=== PATIENT | female | born 1945 | race Hispanic/Latino ===

== ENCOUNTER 2018-08-03 03:11 | Emergency (ER) | payer MEDICARE, OTHER ==
[~2018-08-03] VITALS: Ht 149.9 cm; Wt 49.9 kg
[~2018-08-03 03:11] MED LIST: ACETAMINOPHEN500 MG PO; ADULT LOW DOSE81 MG; ALENDRONATE SOD70 MG PO; ALEVE220 M1; ALKA-SELTZER B324 MG; AMARYL2 MG PO; APRISO0.375 GM PO; ARTHROTEC 50 E1 EACH; ATIVAN1 MG PO; BENEFIBER1 EACH PO; BETIMOL5 M1 OU; BIOTIN5 M1 PO; CIPROFLOXA; CITRACAL + D C1 EACH PO; CLARITHROMYCIN; COMBIVENT RESPIM4 GM IH; DIPHENOXYLATE-1 EACH PO; DITROPAN XL5 MG PO; ENTOCORT EC3 MG PO; ERYTHROMYCIN250 M1; FERROUS SULFAT134 MG PO; FLORASTOR250 MG; GINKGO BILOBA500 MG; GLIMEPIRIDE2 MG PO; HYDROCODON-ACE1 EA11 PO; HYDROXYZINE HCL25 MG PO; IBUPROFEN; KONSYL FIBER625 MG PO; LAMICTAL100 MG PO; LAMOTRIGINE100 MG PO; LASIX20 MG PO; LEVETIRACETAM500 MG PO; LOMOTIL TABLET1 EACH PO; LORAZEPAM1 MG PO; LUMIGAN2.5 M1 OP; LYRICA50 MG; LYRICA50 MG PO; METOPROLOL SUCC25 MG PO; METRONIDAZOLE500 MG PO; MIDOL220 MG; MORPHINE; MOTRIN100 M1; NEXIUM40 MG PO; NORCO 5-325 TA1 EACH PO; ONDANSETRON ODT4 M1 PO; OXYBUTYNIN CHLO10 MG PO; OXYBUTYNIN CHLOR5 M1 PO; PANCRELIPASE 51 EACH PO; PANTOPRAZOLE SO40 MG PO; PENTASA500 MG PO; PREDNISONE10 MG PO; PROTONIX20 MG PO; QUESTRAN PACKET4 GM PO; SERTRALINE HCL25 MG PO; SERTRALINE HCL50 MG PO; SIMVASTATIN20 MG PO; SUCRALFATE1 GM PO; TAMOXIFEN CITRA10 MG PO; TETRACYCLINE; TRAVATAN 0.0042.5 ML OU; ULTRAM 50MG50 MG PO; VALCYTE450 MG PO; VENLAFAXINE H37.5 M1 PO; VITAMIN D35000 UNIT PO; VOLTAREN100 GM; XYZAL5 MG; XYZAL5 MG PO; Z BENEFIBER PO; Z.0.ALENDRONATE SOD7 PO; Z.0.AMARYL2 MG PO; Z.0.APRISO0.375 GM PO; Z.0.ATIVAN1 MG PO; Z.0.LASIX20 MG PO; Z.0.LEVOFLOXACIN500 PO; Z.0.LOPRESSOR25 MG PO; Z.0.METRONIDAZOLE500 PO; Z.0.PROTONIX40 MG PO; Z.0.SIMVASTATIN20 MG PO; Z.0.XYZAL5 MG PO; Z.3.CENTRUM SILVER1 PO; [UNRECOGNIZED DRUG - CODE]; [UNRECOGNIZED DRUG - MIXTURE] PO; [UNRECOGNIZED DRUG - OTHER] PO; [UNRECOGNIZED DRUG - OTHER] PO
--- OUTSIDE RECORDS SUMMARY | 2018-08-03 03:20 | XMS REPORT | Clinical Summary ---
Author Author [facility] Address Unknown Phone Unavailable Care Team Providers Care Machine Captain Name Role Phone Tray Arvizu Kailey PCP Sharpless Unavailable Allergies Comments Active Allergy Reactions Severity Noted Date Naproxen Sodium 03/27/2015 Acetaminophen-Calcium 03/27/2015 Carbonat Diclofenac-Misoprostol 03/27/2015 Aspirin 03/27/2015 Ciprofloxacin 02/11/2016 Clarithromycin 02/11/2016 Coconut 07/12/2017 Diphenhydramine 02/11/2016 Erythromycin 03/27/2015 Flurbiprofen 07/12/2017 Hydrocodone-Ibuprofen 03/27/2015 Ibuprofen 07/12/2017 Lisinopril Itching, Low 11/21/2017 Anxiety Acetaminophen-Pamabrom 02/11/2016 Morphine Sulfate 02/11/2016 Nsaids (Non-Steroidal 02/11/2016 Anti-Inflammatory Drug) Onion 07/12/2017 [place] 07/12/2017 [place] (Prunus Persica) 07/12/2017 Pear 07/12/2017 Penicillins 02/11/2016 Tetracyclines 02/11/2016 Tobramycin 07/12/2017 Tomato (Solanum 07/12/2017 Lycopersicum) Tuna Oil 07/12/2017 Medications End Date Status Medication Sig Dispensed Refills Start Date Active oxybutynin (DITROPAN-XL) Take 10 mg by 0 10 MG 24 hr tablet mouth daily. Active calcium citrate-vitamin D Take 1 tablet 0 (CITRACAL+D) 315-200 by mouth 2 mg-unit per tablet (two) times daily. Active fluticasone (FLONASE) 50 1 spray by 0 mcg/actuation nasal spray Nasal route daily. Active pregabalin (LYRICA) 50 MG Take 50 mg by 0 capsule mouth 2 (two) times daily. Active denosumab (XGEVA) 120 Inject 60 mg 0 mg/1.7 mL (70 mg/mL) subcutaneousl injection y every 6 (six) months. Active sodium chloride 0.65% 1 spray by 0 (SODIUM CHLORIDE) 0.65 % Nasal route nasal spray as needed for Congestion. 12/07/2017 Discontinued cholestyramine sugar-free Take 1 packet 0 (QUESTRAN LIGHT) 4 gram by mouth PwPk packet daily. 12/07/2017 Discontinued esomeprazole (NEXIUM) 40 Take 40 mg by 0 MG capsule mouth daily. 12/07/2017 Discontinued furosemide (LASIX) 20 MG Take 20 mg by 0 tablet mouth daily. 11/25/2017 Discontinued glimepiride (AMARYL) 2 MG Take 2 mg by 0 tablet mouth every morning before breakfast. 12/07/2017 Discontinued iron polysacch Take 1 0 [id number] 150-25-1 capsule by mg-mcg-mg Cap mouth 2 (two) times daily. 12/07/2017 Discontinued levocetirizine (XYZAL) 5 Take 5 mg by 0 MG tablet mouth every evening. 12/07/2017 Discontinued digestive enzymes Tab Take by 0 mouth. 12/07/2017 Discontinued LORazepam (ATIVAN) 1 MG Take 1 mg by 0 tablet mouth every 8 (eight) hours as needed for Anxiety. 11/25/2017 Discontinued metoprolol (TOPROL-XL) 25 Take 50 mg by 0 MG 24 hr tablet mouth daily . 11/25/2017 Discontinued psyllium (METAMUCIL) Take 1 packet 0 powder by mouth daily. 12/07/2017 Discontinued sertraline (ZOLOFT) 25 MG Take 25 mg by 0 tablet mouth daily. 11/25/2017 Discontinued losartan (COZAAR) 25 MG Take 25 mg by 0 tablet mouth daily. 11/25/2017 Discontinued GINKGO BILOBA EXTRACT Take by 0 ORAL mouth. 07/15/2018 levETIRAcetam (KEPPRA) Take 1 tablet 0 06/09/201 500 MG tablet (500 mg 8 total) by mouth 2 (two) times daily. 11/25/2017 Discontinued metroNIDAZOLE (FLAGYL) Take 1 tablet 30 tablet 0 500 MG tablet (500 mg 8 total) by mouth 3 (three) times daily. 12/25/2017 Lactobacillus Take 1 tablet 60 tablet 0 acidoph-L.bulgar by mouth 2 8 (FLORANEX) 1 million cell (two) times Tab per tablet daily for 30 days. 12/04/2017 metroNIDAZOLE (FLAGYL) Take 1 tablet 30 tablet 0 500 MG tablet (500 mg 8 total) by mouth 3 (three) times daily for 9 days. 12/05/2017 simethicone (MYLICON) 80 Take 1 tablet 40 tablet 0 MG chewable tablet (80 mg total) 8 by mouth 4 (four) times daily for 10 days. 12/25/2017 glimepiride (AMARYL) 2 MG Take 1 tablet 30 tablet 0 tablet (2 mg total) 8 by mouth every morning before breakfast for 30 days. 12/25/2017 metoprolol (TOPROL-XL) 25 Take 1 tablet 30 tablet 0 MG 24 hr tablet (25 mg total) 8 by mouth daily for 30 days. 12/04/2017 ciprofloxacin HCl (CIPRO) Take 1 tablet 18 tablet 0 500 MG tablet (500 mg 8 total) by mouth 2 (two) times daily for 9 days. Active Problems Problem Noted Date Anemia 11/21/2017 Acute diarrhea 11/20/2017 Crohn disease 07/12/2017 Hypertension 07/12/2017 Type II diabetes mellitus 07/12/2017 Major depressive disorder 07/12/2017 Resolved Problems Problem Noted Date Resolved Date Crohn's disease 07/13/2017 11/21/2017 Crohn's disease with complication, unspecified gastrointestinal tract 07/13/2017 11/21/2017 location Intractable diarrhea 07/12/2017 11/21/2017 Encounters Care Team Description Date Type Specialty Evelyn Mendoza MD Shamsee, Syed-Saleem Iqbal-Ahmed, MD Hoffman, Maria, MD Acute diarrhea (Primary Dx); Crohn's disease with complication, unspecified gastrointestinal tract location (HCC); Dehydration; Crohn's disease without complication, unspecified gastrointestinal tract location (HCC); History of diabetes mellitus; Generalized abdominal pain; Hypertension, unspecified type; Type 2 diabetes mellitus without complication, without long-term current use of insulin (HCC); Bloody diarrhea; Sputum culture positive for Aspergillus (HCC); 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 Last Filed Vital Signs Time Taken Vital Sign Reading 11/25/2017 12:42 PM CDT Blood Pressure 102/52 11/25/2017 12:42 PM CDT Pulse 87 11/25/2017 12:42 PM CDT Temperature 35.7 C (96.3 F) 11/25/2017 12:42 PM CDT Respiratory Rate 17 11/25/2017 12:42 PM CDT Oxygen Saturation 99% - Inhaled Oxygen - Concentration 11/25/2017 5:26 AM CDT Weight 46.8 kg (103 lb 3.2 oz) 11/20/2017 8:10 PM CDT Height 149.9 cm (4' 11") 11/25/2017 5:26 AM CDT Body Mass Index 20.84 Plan of Treatment Not on file Procedures Comments Procedure Name Priority Date/Time Associated Diagnosis POCT-GLUCOSE METER Routine 11/25/2017 12:46 PM CDT POCT-GLUCOSE METER Routine 11/25/2017 8:26 AM CDT (CELLAVISION MANUAL DIFF) Routine 11/25/2017 8:25 AM CDT CBC W/PLT COUNT & AUTO Routine 11/25/2017 DIFFERENTIAL 8:25 AM CDT CBC W/PLT COUNT & AUTO Routine 11/25/2017 DIFFERENTIAL 8:25 AM CDT MAGNESIUM Routine 11/25/2017 5:46 AM CDT BASIC METABOLIC PANEL (7) Routine 11/25/2017 5:46 AM CDT ASPERGILLUS ANTIBODIES Routine 11/25/2017 5:46 AM CDT ASPERGILLUS GALACTOMANNAN Routine 11/25/2017 ANTIGEN 5:46 AM CDT IMMUNOGLOBULIN E (IGE) Routine 11/25/2017 5:46 AM CDT POCT-GLUCOSE METER Routine 11/24/2017 9:[address] CHEST WITH HIGH STAT 11/24/2017 RESOLUTION/ILD 8:27 PM CDT POCT-GLUCOSE METER Routine 11/24/2017 12:16 PM CDT GI PATHOGEN PROFILE BY Routine 11/24/2017 PCR 11:41 AM CDT POCT-GLUCOSE METER Routine 11/24/2017 11:40 AM CDT POCT-GLUCOSE METER Routine 11/24/2017 8:07 AM CDT CBC W/PLT COUNT & AUTO Routine 11/24/2017 DIFFERENTIAL 6:46 AM CDT CBC W/PLT COUNT & AUTO Routine 11/24/2017 DIFFERENTIAL 6:46 AM CDT MAGNESIUM Routine 11/24/2017 6:46 AM CDT BASIC METABOLIC PANEL (7) Routine 11/24/2017 6:46 AM CDT POCT-GLUCOSE METER Routine 11/23/2017 9:12 PM CDT POCT-GLUCOSE METER Routine 11/23/2017 5:39 PM CDT SPIN/CONCENTRATION CHARGE Routine 11/23/2017 10:13 AM CDT FUNGUS CULTURE + SMEAR Routine 11/23/2017 10:13 AM CDT AFB CULTURE + SMEAR Routine 11/23/2017 10:13 AM CDT SPUTUM CULTURE + GRAM Routine 11/23/2017 STAIN 10:13 AM CDT CBC W/PLT COUNT & AUTO Routine 11/23/2017 DIFFERENTIAL 4:54 AM CDT CBC W/PLT COUNT & AUTO Routine 11/23/2017 DIFFERENTIAL 4:54 AM CDT MAGNESIUM Routine 11/23/2017 4:54 AM CDT PHOSPHORUS Routine 11/23/2017 4:54 AM CDT HEPATIC FUNCTION PANEL Routine 11/23/2017 4:54 AM CDT BASIC METABOLIC PANEL (7) Routine 11/23/2017 4:54 AM CDT POCT-GLUCOSE METER Routine 11/22/2017 9:03 PM CDT POCT-GLUCOSE METER Routine 11/22/2017 3:05 PM CDT POCT-GLUCOSE METER Routine 11/22/2017 11:14 AM CDT POCT-GLUCOSE METER Routine 11/22/2017 8:17 AM CDT CBC W/PLT COUNT & AUTO Routine 11/22/2017 DIFFERENTIAL 3:12 AM CDT CBC W/PLT COUNT & AUTO Routine 11/22/2017 DIFFERENTIAL 3:12 AM CDT MAGNESIUM Routine 11/22/2017 3:12 AM CDT PHOSPHORUS Routine 11/22/2017 3:12 AM CDT HEPATIC FUNCTION PANEL Routine 11/22/2017 3:12 AM CDT BASIC METABOLIC PANEL (7) Routine 11/22/2017 3:12 AM CDT POCT-GLUCOSE METER Routine 11/21/2017 6:04 PM CDT CMV PCR, QUANTITATIVE Routine 11/21/2017 1:31 PM CDT C-REACTIVE PROTEIN Routine 11/21/2017 9:29 AM CDT TSH/FREE T4 IF INDICATED Routine 11/21/2017 9:29 AM CDT LIPID PANEL Routine 11/21/2017 9:29 AM CDT MAGNESIUM Routine 11/21/2017 9:29 AM CDT PHOSPHORUS Routine 11/21/2017 9:29 AM CDT HEPATIC FUNCTION PANEL Routine 11/21/2017 9:29 AM CDT BASIC METABOLIC PANEL (7) Routine 11/21/2017 9:29 AM CDT STOOL PATH CHARGE Routine 11/21/2017 9:08 AM CDT STOOL CULTURE + SHIGA Routine 11/21/2017 TOXIN 9:08 AM CDT C. DIFFICILE GDH TOXIN Routine 11/21/2017 9:08 AM CDT HEMOGLOBIN A1C Routine 11/21/2017 6:[address] ABDOMEN/PELVIS WITH IV STAT 11/20/2017 CONTRAST 11:44 PM CDT STOOL PATH CHARGE Routine 11/20/2017 11:22 PM CDT SHIGA TOXIN SCREEN Routine 11/20/2017 11:22 PM CDT STOOL CULTURE + SHIGA STAT 11/20/2017 TOXIN 11:22 PM CDT URINALYSIS W/ MICROSCOPIC STAT 11/20/2017 11:21 PM CDT CBC W/PLT COUNT & AUTO STAT 11/20/2017 DIFFERENTIAL 8:30 PM CDT CBC W/PLT COUNT & AUTO STAT 11/20/2017 DIFFERENTIAL 8:30 PM CDT LIPASE STAT 11/20/2017 8:30 PM CDT AMYLASE STAT 11/20/2017 8:30 PM CDT HEPATIC FUNCTION PANEL STAT 11/20/2017 8:30 PM CDT BASIC METABOLIC PANEL (7) STAT 11/20/2017 8:30 PM CDT ECG 12-LEAD Routine 11/20/2017 8:26 PM CDT Procedure Note - Interface, External Ris In - 11/20/2017 8:34 PM CDT Ventricula r Rate 98 BPM Atrial Rate 98 BPM P-R Interval 134 ms QRS Duration 74 ms Q-T Interval 366 ms QTC Calculatio n(Bazett) 467 ms P [place] 23 degrees R [place] 44 degrees T [place] 108 degrees Normal sinus rhythm Nonspecifi c ST and T wave abnormalit y Abnormal ECG When compared with ECG of 7 15:56, Nonspecifi c T wave abnormalit y now evident in Inferior leads ECG 12-LEAD STAT 11/20/2017 8:26 PM CDT after 08/02/2017 Results * POC-Glucose meter (11/25/2017 12:46 PM CDT) Only the most recent of 13 results within the time period is included. POC-Glucose Meter 143 (H)Comment: TESTED AT 70 - 110 mg/dL [facility] [address] [facility] [id number] Specimen Blood Performing Organization Address City/State/Zipcode Phone Number [address] [address] [facility]ENTER * Manual Differential (11/25/2017 8:25 AM CDT) % Neutros 43 % [facility] % Lymphs 21 % [facility] % Monos 3 % [facility] % Eos 4 % [facility] % Baso 1 % [facility] % Bands 29 (H) 0 - 10 % [facility] # Neutros 3.14 1.56 - 6.13 K/ul [facility] # Lymphs 1.53 1.18 - 3.74 K/ul [facility] # Monos 0.22 (L) 0.24 - 0.36 K/uL [facility] # Eos 0.29 0.04 - 0.36 K/uL [facility] # Baso 0.07 0.01 - 0.08 K/uL [facility] # Bands 2.12 (H) 0.00 - 0.80 K/uL [facility] Total Counted 100 [facility] WBC Morphology Normal [facility] Giant Platelet Present [facility] Large Platelet Present [facility] Hypochromia 2+ moderate [facility] Anisocytosis 2+ moderate [facility] Microcytes 1+ few [facility] Macrocytes 2+ moderate [facility] Poikilocytes 1+ few [facility] Ovalocytes 1+ few [facility] Tear Drop Cells 1+ few [facility] Acanthocytes 1+ few [facility] Artifact Present [facility] Platelet Conc Adequate [facility] Specimen Blood Narrative Performed At Received comment: [facility] User comments: [facility] Slide comments: Performing Organization Address City/State/Zipcode Phone Number [facility] [address] [place] [address] [facility]ENTER * CBC with platelet count + automated diff (11/25/2017 8:25 AM CDT) Only the most recent of 5 results within the time period is included. WBC 7.3 3.5 - 10.5 K/L [facility] RBC 3.44 (L) 3.93 - 5.22 M/L [facility] Hemoglobin 8.6 (L) 11.2 - 15.7 GM/DL [facility] Hematocrit 28.5 (L) 34.1 - 44.9 % [facility] MCV 82.8 79.4 - 94.8 fL [facility] MCH 25.0 (L) 25.6 - 32.2 pg [facility] MCHC 30.2 (L) 32.2 - 35.5 GM/DL [facility] RDW 16.3 (H) 11.7 - 14.4 % [facility] Platelets 451 (H) 150 - 450 K/CU MM [facility] MPV 9.0 (L) 9.4 - 12.3 fL [facility] nRBC 0 0 - 0 /100 WBC [facility] Specimen Blood Performing Organization Address City/[facility] Phone Number [facility] [address] [place] [address] [facility] * Aspergillus antibodies (11/25/2017 5:46 AM CDT) Aspergillus flavus Ab NEGATIVE [facility] Aspergillus niger Ab NEGATIVE [facility] Aspergillus Fumigatus NEGATIVE [facility] Comment: INCORPORATED REFERENCE RANGE: NEGATIVE INTERPRETIVE CRITERIA: Negative: Antibody not detected Positive: Antibody detected A positive result is represented by 1 or more precipitin bands, and may indicate fungus ball, allergic bronchopulmonary aspergillosis (SANNA) or invasive aspergillosis.Generally, the appearance of 3-4 bands indicates either fungus ball or SANNA. Specimen Blood Narrative Performed At Performing Lab [facility] *[facility] [facility] [address] [place] [phone] Duy Tabor MD Performing Organization Address City/[facility] Phone Number [facility], [address] [place] [phone] * Aspergillus galactomannan antigen (11/25/2017 5:46 AM CDT) Aspergillus Index Value <0.50 [facility] Aspergillus Antigen NOT DETECTED [facility] Comment: INCORPORATED REFERENCE RANGE: <0.50, NOT DETECTED A negative result does not exclude invasive aspergillosis. Follow-up testing may be indicated for high-risk patients. Specimen Blood Narrative Performed At Performing Lab [facility] *[facility] [employer] [facility] [address] [place] [phone] H Cleve Tabor MD Performing Organization Address [facility] Phone Number [facility], [address] [place] [phone] * Magnesium (11/25/2017 5:46 AM CDT) Only the most recent of 5 results within the time period is included. Magnesium 2.0 1.6 - 2.6 mg/dL [facility] Specimen Blood Performing Organization Address [facility] Phone Number [address] * Immunoglobulin E (IgE) (11/25/2017 5:46 AM CDT) Immunoglobulin E 30 114 OR LESS kU/L [facility] Specimen Blood Narrative Performed At Performing Lab [facility] [employer] [address] Chuy Martino MD, PhD, SUZAN Performing Organization Address City/[facility] Phone Number [facility] Desir Johnson, [address] [place] [phone] * Basic Metabolic Panel (11/25/2017 5:46 AM CDT) Only the most recent of 6 results within the time period is included. Sodium 137 136 - 145 meq/L [facility] Potassium 4.1 3.5 - 5.1 meq/L [facility] Chloride 110 (H) 98 - 107 meq/L [facility] CO2 20 (L) 22 - 29 meq/L [facility] BUN 3 (L) 7 - 21 mg/dL [facility] Creatinine 0.66 0.57 - 1.25 mg/dL [facility] Glucose 114 (H) 70 - 105 mg/dL [facility] Calcium 8.3 (L) 8.4 - 10.2 mg/dL [facility] EGFR 88Comment: ESTIMATED GFR IS mL/min/1.73 sq m [facility] NOT ACCURATE CREATININE [facility] CLEARANCE IN PREDICTING GLOMERULAR FILTRATION RATE. ESTIMATED GFR IS NOT APPLICABLE FOR DIALYSIS PATIENTS. Specimen Blood Performing Organization Address City/State/Zipcode Phone Number [facility] [address] [place] [address] [facility] * CT chest with high resolution/ild (11/24/2017 8:27 PM CDT) Specimen Narrative Performed At FINAL REPORT [employer] [facility] CLINICAL INDICATION: Sputum cultures positive for Aspergillus and an a.c., previous imaging demonstrating central bronchiectasis COMPARISON: None Multiple axial images of the chest were performed without IV contrast. A high resolution protocol was performed, including supine inspiratory and expiratory high resolution imaging. This exam was performed according to our departmental dose-optimization program, which includes automated exposure control, adjustment of the mA and/or kV according to patient size and/or use of the iterative reconstruction technique. FINDINGS: Lung parenchyma: There is no focal consolidation. No interstitial abnormality is noted. A calcified granuloma is present in the right lower lobe but otherwise no pulmonary nodularity is noted. The lung volumes are normal. There is no evidence of air trapping. Pleural effusion: None. Pneumothorax: None. Tracheobronchial tree: No bronchiectasis is identified. There is no significant peribronchial thickening. No endobronchial opacification is noted. Pulmonary vasculature: No significant findings. Cardiac contours and great vessels: Atherosclerotic calcification of the aorta. Left subclavian ICD. Mediastinum: No significant findings. Lymph Nodes: No adenopathy in the mediastinum or jared. Skeleton: No acute abnormality. Other: Status post right mastectomy and right breast reconstruction with right axillary lymph node dissection. Limited images of upper abdomen: No significant findings. IMPRESSION: No acute or active cardiopulmonary abnormality. Specifically, no CT evidence of pulmonary fibrosis, bronchiectasis, air trapping or significant nodularity. Signed: Óscar Harris MD Report Verified Date/Time:11/24/2017 20:51:25 Reading Location: [address] Reading Room Procedure Note Interface, External Ris In - 11/24/2017 8:53 PM CDT FINAL REPORT CLINICAL INDICATION: Sputum cultures positive for Aspergillus and an a.c., previous imaging demonstrating central bronchiectasis COMPARISON: None Multiple axial images of the chest were performed without IV contrast. A high resolution protocol was performed, including supine inspiratory and expiratory high resolution imaging. This exam was performed according to our departmental dose-optimization program, which includes automated exposure control, adjustment of the mA and/or kV according to patient size and/or use of the iterative reconstruction technique. FINDINGS: Lung parenchyma: There is no focal consolidation. No interstitial abnormality is noted. A calcified granuloma is present in the right lower lobe but otherwise no pulmonary nodularity is noted. The lung volumes are normal. There is no evidence of air trapping. Pleural effusion: None. Pneumothorax: None. Tracheobronchial tree: No bronchiectasis is identified. There is no significant peribronchial thickening. No endobronchial opacification is noted. Pulmonary vasculature: No significant findings. Cardiac contours and great vessels: Atherosclerotic calcification of the aorta. Left subclavian ICD. Mediastinum: No significant findings. Lymph Nodes: No adenopathy in the mediastinum or jared. Skeleton: No acute abnormality. Other: Status post right mastectomy and right breast reconstruction with right axillary lymph node dissection. Limited images of upper abdomen: No significant findings. IMPRESSION: No acute or active cardiopulmonary abnormality. Specifically, no CT evidence of pulmonary fibrosis, bronchiectasis, air trapping or significant nodularity. Signed: Óscar Harris MD Report Verified Date/Time: 11/24/2017 20:51:25 Reading Location: [address] Reading Room Performing Organization Address City/State/Zipcode Phone Number [facility] * GI Pathogen Profile by PCR -ID Only (11/24/2017 11:41 AM CDT) CAMPYLOBACTER (PCR) Not detected Not detected [facility] PLESIOMONAS SHIGELLOIDES Not detected Not detected [facility] (PCR) [facility] SALMONELLA (PCR) Not detected Not detected [facility] YERSINIA ENTEROCOLITICA Not detected Not detected [facility] (PCR) [facility] VIBRIO CHOLERAE (PCR) Not detected Not detected [facility] ENTEROAGGREGATIVE E. COLI Not detected Not detected [facility] (EAEC) BY PCR [facility] ENTEROPATHOGENIC E. COLI Not detected Not detected [facility] (EPEC) BY PCR [facility] ENTEROTOXIGENIC E. COLI Not detected Not detected [facility] (ETEC) LT/ST BY PCR [facility] SHIGA-LIKE Not detected Not detected [facility] TOXIN-PRODUCING E. COLI [facility] (STEC) STX1/STX2 E. COLI O157 (PCR) Not detected [facility] SHIGELLA/ENTEROINVASIVE Not detected Not detected [facility] E. COLI (EIEC) BY PCR [facility] CRYPTOSPORIDIUM (PCR) Not detected Not detected [facility] CYCLOSPORA CAYETANENSIS Not detected Not detected [facility] (PCR) [facility] ENTAMOEBA HISTOLYTICA Not detected Not detected [facility] (PCR) [facility] GIARDIA LAMBLIA (PCR) Not detected Not detected [facility] ADENOVIRUS F 40/41 (PCR) Not detected Not detected [facility] ASTROVIRUS (PCR) Not detected Not detected [facility] NOROVIRUS GI/GII (PCR) Not detected Not detected [facility] ROTAVIRUS A (PCR) Not detected Not detected [facility] SAPOVIRUS (I, II, IV, V) Not detected Not detected [facility] BY PCR [facility] VIBRIO (PARAHAEMOLYTICUS, Not detected Not detected [facility] VULNIFICUS) [facility] Specimen Stool Narrative Performed At Other viruses, parasites and bacteria not targeted by this PCR panel cannot be [facility] excluded; therefore clinical correlation and follow up of serology, culture [facility] results, and other molecular studies is required. The results are not intended to be used as the sole means for clinical diagnosis or patient management decisions. This sample was tested at the [facility] Molecular Diagnostics Laboratory using the [employer] Access Gastrointestinal Panel. It is FDA cleared and has been verified and approved by the [facility]ostics [facility] for clinical use. This laboratory is CLIA-certified and [employer] (CAP)-accredited to perform high complexity testing. Performing Organization Address City/[facility]/Zipcode Phone Number [address] [address] [facility] * SPIN/CONCENTRATION CHARGE (11/23/2017 10:13 AM CDT) Concentration charged Done [facility] Specimen Sputum - Expectorated Performing Organization Address City/[facility]/Zipcode Phone Number [phone] [address] [address] [facility] * Sputum Culture + Gram Stain (11/23/2017 10:13 AM CDT) Result 4+ Normal respiratory thony [facility] Gram Stain Result 3+ WBCs [facility] Gram Stain Result 5-10 epithelial cells [facility] Gram Stain Result No organisms seen [facility] Specimen Sputum - Expectorated Narrative Performed At [facility] Performing Organization Address [facility] Phone Number [address] [address] [facility] * AFB culture + smear (11/23/2017 10:13 AM CDT) Result Mycobacterium abscessus (A) [facility] Comment: [facility] * - subsp.abscessus Identification and susceptibility performed by: [facility], Dept. of Microbiology Research, Dr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 The erm gene has a nonfunctional sequence and hence will be macrolide [facility] susceptible unless mutationally resistant. Antibiotic Method Susceptibility Organism Amikacin MANUAL METHOD 8 mcg/mL: Susceptible Mycobacterium abscessus Cefoxitin MANUAL METHOD 32 mcg/mL: Intermediate Mycobacterium abscessus Ciprofloxacin MANUAL METHOD 4 mcg/mL: Resistant Mycobacterium abscessus Clarithromycin MANUAL METHOD Susceptible Mycobacterium abscessus Doxycycline MANUAL METHOD >16 mcg/mL: Resistant Mycobacterium abscessus Imipenem MANUAL METHOD 8 mcg/mL: Intermediate Mycobacterium abscessus Linezolid MANUAL METHOD 8 mcg/mL: Susceptible Mycobacterium abscessus Minocycline MANUAL METHOD >8 mcg/mL: Resistant Mycobacterium abscessus Moxifloxacin MANUAL METHOD 4 mcg/mL: Resistant Mycobacterium abscessus Tigecycline MANUAL METHOD 0.5: No Interpretations Established Mycobacterium abscessus Trimethoprim + Sulfamethoxazole MANUAL METHOD 4/76 mcg/mL: Resistant Mycobacterium abscessus Comment: Testing performed by: [facility] Dept. of Microbiology Research Dr[facility] [id number] [address] No functional erm gene (confers macrolide resistance) Performing Organization Address City/[facility] [place] [address] [facility] * Fungus culture + smear (11/23/2017 10:13 AM CDT) Result No fungus isolated in 28 days [facility] Fungus Smear No fungi seen [facility] Specimen Sputum - Expectorated Performing Organization Address City/[facility] [place] [address] [facility] * Phosphorus (11/23/2017 4:54 AM CDT) Only the most recent of 3 results within the time period is included. Phosphorus 3.0Comment: Specimen slightly 2.3 - 4.7 mg/dL [facility] Specimen Blood Performing Organization Address [facility] Phone Number [facility] [address] [place] [address] [facility] * Hepatic function panel (11/23/2017 4:54 AM CDT) Only the most recent of 4 results within the time period is included. Protein, Total 6.2Comment: Specimen slightly 6.0 - 8.3 gm/dL [facility] Albumin 2.8 (L)Comment: Specimen 3.5 - 5.0 g/dL [facility] slightly [facility] Total Bilirubin 0.3Comment: Specimen slightly 0.2 - 1.2 mg/dL [facility] Bilirubin, Direct 0.1Comment: Specimen slightly 0.1 - 0.5 mg/dL [facility] Alkaline Phosphatase 68 40 - 150 U/L [facility] AST 12Comment: Specimen slightly 5 - 34 U/L [facility] ALT <6 (L)Comment: Specimen 6 - 55 U/L [facility] Specimen Blood Performing Organization Address [facility] Phone Number [facility] [address] [place] [address] [facility] * CMV PCR, quantitative (11/21/2017 1:31 PM CDT) CMV DNA Viral Load Negative or below the linear [facility] range of the assay (<375 [facility] copies/mL) Specimen Blood Narrative Performed At Cytomegalovirus (CMV) infection can cause significant disease in [facility] immunosuppressed patients. However, it is common for CMV to manifest as a [facility] limited infection which is of no clinical significance in immunosuppressed patients or in healthy individuals. Viral load measurements are helpful to identify clinical CMV infection and to guide the pre-emptive management of antiviral therapy.For treatment of CMV infection due to reactivation in transplant recipients, a threshold between 4,000 and 5,000 copies/mL is suggested.For treatment of primary CMV infection, a lower threshold can be used. CMV infection may also be monitored using weekly serial measurements. Serial measurements of CMV DNA viral load can be evaluated by identifying a 10-fold change, as well as assessing the CMV DNA viral load and the clinical context for each patient. The plasma CMV DNA viral load was detected using quantitative polymerase chain reaction and fluorescent monitoring of a specific hybridized probe. Genetic variation and other factors can affect the accuracy of nucleic acid testing. Therefore, the results should be interpreted in light of clinical data. A negative result may not exclude the presence of CMV disease. This test was developed and its performance characteristics determined by the [facility] Pathology Department, Section of Molecular Pathology. It has not been cleared or approved by the U.S. Food and Drug Administration (FDA), since FDA approval is not required for clinical use of the test. Validation was done as required by The Clinical Laboratory Improvement Amendments of 1988. Performing Organization Address City/[facility] Hospitalcout Phone Number [address] * TSH/Free T4 If Indicated (11/21/2017 9:29 AM CDT) TSH 3.52 0.35 - 4.94 uIU/mL [facility] Specimen Blood Performing Organization Address [facility] Phone Number [address] * C-Reactive Protein (11/21/2017 9:29 AM CDT) CRP 3.20 (H) 0.00 - 0.50 mg/dL [facility] Specimen Blood Performing Organization Address [facility] Phone Number [address] * Lipid panel (11/21/2017 9:29 AM CDT) Triglycerides 71 mg/dL [facility] Cholesterol 131 mg/dL [facility] HDL 55 mg/dL [facility] LDL Calculated 62 mg/dL [facility] Specimen Blood Narrative Performed At Triglyceride Reference Range: [facility] Low Risk <150 [facility] [id number] High Risk 200-499 Very High Risk>=500 Cholesterol Reference Range: Low Risk <200 [id number] High Risk>240 HDL Cholesterol Reference Range: Low Risk >=60 High Risk <40 LDL Cholesterol Reference Range: Optimal<100 Near [id number] Very High >=190 Performing Organization Address [facility] [place] [address] [facility] * Clostridium difficile [facility] Toxin (11/21/2017 9:08 AM CDT) C. Difficle Toxin Negative Negative [facility] C. Difficile [facility] Antigen NegativeComment: No indication Negative [facility] of Clostridium difficile [facility] infection and no colonization. Discontinue enteric isolation and therapy. Specimen Stool Narrative Performed At Testing performed by [employer] Rapid Cassette Assay.For GDH, published [facility] sensitivity of the assay is 98.7% compared to cytotoxicity testing.For Toxin [facility] AB, published sensitivity is 87.8% and specificity 99.4% compared to cytotoxicity testing. Verification of kit performance was done by the [facility] Microbiology Lab prior to clinical use. Performing Organization Address City/[facility] [place] [address] [facility] * STOOL PATH CHARGE (11/21/2017 9:08 AM CDT) Only the most recent of 2 results within the time period is included. Pathogen exam charged Done [facility] Specimen Stool Performing Organization Address City/[facility]/Zipcode Phone Number [address] [address] [facility] * Stool culture + Shiga toxin (11/21/2017 9:08 AM CDT) Only the most recent of 2 results within the time period is included. Result No Salmonella, Shigella or [facility] Campylobacter isolated [facility] Specimen Stool Performing Organization Address City/State/Zipcode Phone Number [facility] [address] [place] [address] [facility] * Hemoglobin A1c (11/21/2017 6:37 AM CDT) Hemoglobin A1C 5.8 4.3 - 6.1 % [facility] Specimen Blood Performing Organization Address City/State/Zipcode Phone Number [facility] [address] [place] [address] [facility] * CT abdomen pelvis with IV contrast (11/20/2017 11:44 PM CDT) Specimen Narrative Performed At FINAL REPORT [employer] [facility] CT, ABDOMEN \\T\\ PELVIS, WITH IV CONTRAST INDICATION: IBD, worsening diarrhea and pain COMPARISON: None TECHNIQUE: Post contrast abdomen and pelvis CT.Coronal and sagittal reformatted images obtained. DOSE REDUCTION: Dose modulation, iterative reconstruction, and/or weight-based adjustment of the mA/kV was utilized to reduce the radiation dose to as low as reasonably achievable. FINDINGS: Lower thorax: Visible airspaces clear. No effusion. Liver: No parenchymal abnormality. Gallbladder and biliary tree: Prior cholecystectomy. Mild central biliary ductal prominence. Pancreas: No acute findings. Spleen: No acute findings Adrenal Glands: No acute findings. Kidneys and ureters: No hydronephrosis or nephrolithiasis. Bladder and reproductive organs: Unremarkable. Stomach and Duodenum: No significant findings. Small and large intestine: Small bowel caliber is normal. Mural thickening is noted to affecting nearly the entire colon. No pneumatosis is present. Appendix: The appendix is not identified. No pericecal inflammatory changes are present. Major vascular structures: Normal aortic caliber. Peritoneum and retroperitoneum: No free air, fluid or adenopathy. Skeleton: Shallow dextroconvex scoliosis of the thoracolumbar spine with associated endplate degenerative changes. Additional findings: None. IMPRESSION: Mural thickening throughout the colon compatible with provided history of inflammatory bowel disease. No pneumatosis or bowel obstruction. Signed: JR Jl, Dominic HIRSCH Report Verified Date/Time:11/20/2017 23:52:19 Reading Location: [facility] Fl[address] Short Reading Room Procedure Note Interface, External Ris In - 11/20/2017 11:[address] PM [address]AL REPORT CT, ABDOMEN \\T\\ PELVIS, WITH IV CONTRAST INDICATION: IBD, worsening diarrhea and pain COMPARISON: None TECHNIQUE: Post contrast abdomen and pelvis CT. Coronal and sagittal reformatted images obtained. DOSE REDUCTION: Dose modulation, iterative reconstruction, and/or weight-based adjustment of the mA/kV was utilized to reduce the radiation dose to as low as reasonably achievable. FINDINGS: Lower thorax: Visible airspaces clear. No effusion. Liver: No parenchymal abnormality. Gallbladder and biliary tree: Prior cholecystectomy. Mild central biliary ductal prominence. Pancreas: No acute findings. Spleen: No acute findings Adrenal Glands: No acute findings. Kidneys and ureters: No hydronephrosis or nephrolithiasis. Bladder and reproductive organs: Unremarkable. Stomach and Duodenum: No significant findings. Small and large intestine: Small bowel caliber is normal. Mural thickening is noted to affecting nearly the entire colon. No pneumatosis is present. Appendix: The appendix is not identified. No pericecal inflammatory changes are present. Major vascular structures: Normal aortic caliber. Peritoneum and retroperitoneum: No free air, fluid or adenopathy. Skeleton: Shallow dextroconvex scoliosis of the thoracolumbar spine with associated endplate degenerative changes. Additional findings: None. IMPRESSION: Mural thickening throughout the colon compatible with provided history of inflammatory bowel disease. No pneumatosis or bowel obstruction. Signed: JR Parikh Robert MD Report Verified Date/Time: 11/20/2017 23:52:19 Reading Location: [address] Reading Room Performing Organization Address City/State/Zipcode Phone Number [facility] * Shiga Toxin Screen (11/20/2017 11:22 PM CDT) Shiga toxin 1 Not detected Not detected [facility] Shiga toxin 2 Not detected Not detected [facility] Specimen Stool Performing Organization Address City/[facility] Phone Number [address] [address] [facility] * Urinalysis w/ Microscopic (11/20/2017 11:21 PM CDT) Color, UA Colorless [facility] Clarity, UA Clear [facility] Specific [place], UA 1.003 1.001 - 1.035 [facility] pH, UA 5.0 5.0 - 8.0 [facility] Protein, UA Negative Negative [facility] Glucose, UA Negative Negative [facility] Ketones, UA Negative Negative [facility] Bilirubin, UA Negative Negative [facility] Blood, UA Negative Negative [facility] Nitrite, UA Negative Negative [facility] Leukocytes, UA Negative Negative [facility] Urobilinogen, UA 0.2 0.2 - 1.0 mg/dL [facility] RBC, UA <1 /HPF [facility] WBC, UA 1 /HPF [facility] Bacteria, UA Rare [facility] Mucus Rare [facility] Squam Epithel, UA <1 /HPF [facility] Specimen Source Urine, Voided [facility] Specimen Urine Performing Organization Address City/State/Zipcode Phone Number [address] [address] [facility] * Lipase (11/20/2017 8:30 PM CDT) Lipase 67 8 - 78 U/L [facility] Specimen Blood Performing Organization Address City/[facility]/Zipcode Phone Number [address] [address] [facility] * Amylase (11/20/2017 8:30 PM CDT) Amylase 133 (H) 25 - 125 U/L [facility] Specimen Blood Performing Organization Address City/State/Zipcode Phone Number [facility] [address] [place] [address] [facility] * ECG 12 lead (11/20/2017 8:26 PM CDT) Specimen Narrative Performed At Ventricular Rate 98 BPM GE MUSE Atrial Rate 98 BPM P-R Interval 134 ms QRS Duration 74 ms Q-T Interval 366 ms QTC Calculation(Bazett) 467 ms P [place] 23 degrees R [place] 44 degrees T [place] 108 degrees Normal sinus rhythm Nonspecific ST and T wave abnormality Abnormal ECG When compared with ECG of 11-FEB-2016 15:56, Nonspecific T wave abnormality now evident in Inferior leads Confirmed by MD TAYLOR, IHAB ([id number]) on 11/20/2017 9:49:29 PM Procedure Note Interface, External Ris In - 11/20/2017 9:49 PM CDT Ventricular Rate 98 BPM Atrial Rate 98 BPM P-R Interval 134 ms QRS Duration 74 ms Q-T Interval 366 ms QTC Calculation(Bazett) 467 ms P [place] 23 degrees R [place] 44 degrees T [place] 108 degrees Normal sinus rhythm Nonspecific ST and T wave abnormality Abnormal ECG When compared with ECG of 11-FEB-2016 15:56, Nonspecific T wave abnormality now evident in Inferior leads Confirmed by MD TAYLOR, IHAB ([id number]) on 11/20/2017 9:49:29 PM Performing Organization Address City/State/[facility] Phone Number GE MUSE after 08/02/2017 Insurance Payer Benefit Subscriber ID Type Phone Address Plan / Group MEDICARE MEDICARE A xxxxxxxxxxx Medicare B MEDICAID MEDICAID xxxxxxxxx Medicaid OF [place] Advance Directives For more information, please contact: [facility] [address] [place] [address] Date Inactivated Comments Code Status Date Activated 11/25/2017 4:51 PM Full Code 11/21/2017 5:29 AM This code status was determined by: Patient 07/15/2017 9:49 PM Full Code 07/12/2017 7:36 PM This code status was determined by: Patient
--- OUTSIDE RECORDS SUMMARY | 2018-08-03 03:21 | XMS REPORT | Continuity of Care Document ---
Author Author [employer] Organization [employer] Address Unknown Phone Unavailable Care Team Providers Care Bandmill Operator Name Role Phone [employer] Unavailable Unavailable Problems Problem Status Onset Date Classification Date Reported Comments Source Shortness of breath Active Problem 08/01/2017 Sal Smart Dizziness Active Problem 08/01/2017 Sal Smart Other specified diabetes mellitus with unspecified complications Active Problem 08/01/2017 Sal Smart Non-rheumatic mitral regurgitation Active Problem 08/01/2017 Sal Smart Patient unable to exercise Active Problem 08/01/2017 Sal Smart Osteoarthritis of multiple joints, unspecified osteoarthritis type Active Problem 08/01/2017 Sal Smart Type 2 diabetes mellitus with unspecified complications Active Problem 08/01/2017 Sal Smart Anxiety Active Problem 08/01/2017 Sal Smart Chronic systolic heart failure Active Problem 08/01/2017 Sal Smart PVCs Active Problem 08/01/2017 Sal Smart TIA Active Problem 08/01/2017 Sal Smart Mitral valve insufficiency and aortic valve insufficiency Active Problem 08/01/2017 Sal Smart Crohns disease Active Problem 08/01/2017 Sal Smart PAC Active Problem 08/01/2017 Sal Smart Abnormal EKG Active Problem 08/01/2017 Sal Smart LV dysfunction Active Problem 08/01/2017 Sal Smart Palpitations Active Problem 08/01/2017 Sal Smart LAE Active Problem 08/01/[address] Active Problem 08/01/2017 Sal Smart Abnormal EKG Active Problem 11/27/2013 Sal Smart 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 Active Problem 11/27/2013 Sal Smart Diabetes with unspecified complication, type II or unspecified type, not stated as uncontrolled Active Problem 11/27/2013 Sal Smart Crohns disease Active Problem 11/27/2013 Sal Smart Mitral valve insufficiency and aortic valve insufficiency Active Problem 11/27/2013 Sal Smart PVCs Active Problem 11/27/2013 Sal Smart Angina Active Problem 11/27/2013 Sal Smart Shortness of breath Active Problem 11/27/2013 Sal Smart Medications Medication Details Route Status Patient Instructions Ordering Provider Order Date Source Furosemide 1 tablet Orally Active 20 mg Orally Once a day Bing Smart Metoprolol Succinate ER 1 tablet Orally Active 25 MG Orally Once a day Bing Smart Metoprolol Succinate ER 1 tablet Orally Active 100 MG Orally Once a day [place] Smart Metoprolol Succinate ER 1 tablet Orally Active 25 MG Orally Once a day Bing Smart Lasix 1 tablet Orally Active 20 MG Orally Once a day Bing Smart Furosemide 1 tablet Orally Active 20 mg Orally Once a day Bing Smart Allergies, Adverse Reactions, Alerts Substance Category Reaction Severity Reaction type Status Date Reported Comments Source Sodium bicarbonate Unknown Allergy to Substance Active 08/01/2017 [facility] Aspirin Unknown Allergy to Substance Active 08/01/2017 [facility] Acetaminophen Unknown Allergy to Substance Active 08/01/2017 [facility] Pamabrom Unknown Allergy to Substance Active 08/01/2017 [facility] Ibuprofen Unknown Allergy to Substance Active 08/01/2017 [facility] Naproxen Unknown Allergy to Substance Active 08/01/2017 [facility] Flurbiprofen Unknown Allergy to Substance Active 08/01/2017 [facility] citric acid Unknown Allergy to Substance Active 08/01/2017 [facility] Tetracycline Unknown Allergy to Substance Active 08/01/2017 [facility] Erythromycin base Unknown Allergy to Substance Active 08/01/2017 [facility] Tobramycin Unknown Allergy to Substance Active 08/01/2017 [facility] Ciprofloxacin Unknown Allergy to Substance Active 08/01/2017 [facility] Penicillin g Unknown Allergy to Substance Active 08/01/2017 [facility] ATHROTEC Unknown Allergy to Substance Active 08/01/2017 [facility] MORPHINE SULFATE Unknown Allergy to Substance Active 08/01/2017 [facility] Immunizations No Data Provided for This Section Results Order Name Results Value Reference Range Date Interpretation Comments Source Automated blood basophil count (count/volume) Automated blood basophil count (count/volume) 0.1 0.0 - 0.1 08/01/2017 [facility] Automated blood basophil count as percentage of total leukocytes Automated blood basophil count as percentage of total leukocytes 1.2 0.0 - 1.0 08/01/2017 [facility] Automated blood eosinophil count Automated blood eosinophil count 0.1 0.0 - 0.4 08/01/2017 [facility] Automated blood eosinophil count as percentage of total leukocytes Automated blood eosinophil count as percentage of total leukocytes 0.7 0.0 - 6.0 08/01/2017 [facility] Automated blood hematocrit (volume fraction) Automated blood hematocrit (volume fraction) 36.6 34.2 - 44.1 08/01/2017 [facility] Automated blood lymphocyte count as percentage ot total leukocytes Automated blood lymphocyte count as percentage ot total leukocytes 15.0 18.0 - 39.1 08/01/2017 [facility] Automated blood monocyte count as percentage of total leukocytes Automated blood monocyte count as percentage of total leukocytes 5.3 4.4 - 11.3 08/01/2017 [facility] Automated blood neutrophil count Automated blood neutrophil count 5.9 2.1 - 6.9 08/01/2017 [facility] Automated blood platelet count (count/volume) Automated blood platelet count (count/volume) 426 140 - 360 08/01/2017 [facility] Automated blood segmented neutrophil count as percentage of total leukocytes Automated blood segmented neutrophil count as percentage of total leukocytes 77.5 38.7 - 80.0 08/01/2017 [facility] Automated erythrocyte mean corpuscular hemoglobin (mass per erythrocyte) Automated erythrocyte mean corpuscular hemoglobin (mass per erythrocyte) 28.5 28 - 32 08/01/2017 [facility] Automated erythrocyte mean corpuscular hemoglobin concentration measurement (mass/volume) Automated erythrocyte mean corpuscular hemoglobin concentration measurement (mass/volume) 32.2 31 - 35 08/01/2017 [facility] Automated erythrocyte mean corpuscular volume Automated erythrocyte mean corpuscular volume 88.4 81 - 99 08/01/2017 [facility] Blood erythrocytes automated count (number/volume) Blood erythrocytes automated count (number/volume) 4.14 3.6 - 5.1 08/01/2017 [facility] Blood hemoglobin measurement (moles/volume) Blood hemoglobin measurement (moles/volume) 11.8 12.0 - 16.0 08/01/2017 [facility] Blood leukocytes automated count (number/volume) Blood leukocytes automated count (number/volume) 7.58 4.8 - 10.8 08/01/2017 [facility] Blood lymphocytes count (number/volume) Blood lymphocytes count (number/volume) 1.1 1.0 - 3.2 08/01/2017 [facility] Blood monocytes automated count (number/volume) Blood monocytes automated count (number/volume) 0.4 0.2 - 0.8 08/01/2017 [facility] Estimated glomerular filtration rate (GFR) determination Estimated glomerular filtration rate (GFR) determination >60 60 08/01/2017 [facility] Glucose measurement Glucose measurement 143 74 - 118 08/01/2017 [facility] Plasma globulin measurement (mass/volume) Plasma globulin measurement (mass/volume) 4.9 2.3 - 3.5 08/01/2017 [facility] Serum or plasma alanine aminotransferase measurement (enzymatic activity/volume) Serum or plasma alanine aminotransferase measurement (enzymatic activity/volume) 7 0 - 55 08/01/2017 [facility] Serum or plasma albumin measurement (mass/volume) Serum or plasma albumin measurement (mass/volume) 3.1 3.5 - 5.0 08/01/2017 [facility] Serum or plasma albumin/globulin mass ratio Serum or plasma albumin/globulin mass ratio 0.6 0.8 - 2.0 08/01/2017 [facility] Serum or plasma alkaline phosphatase measurement (enzymatic activity/volume) Serum or plasma alkaline phosphatase measurement (enzymatic activity/volume) 64 40 - 150 08/01/2017 [facility] Serum or plasma anion gap Serum or plasma anion gap 12.7 8 - 16 08/01/2017 [facility] Serum or plasma calcium measurement (mass/volume) Serum or plasma calcium measurement (mass/volume) 8.7 8.4 - 10.2 08/01/2017 [facility] Serum or plasma carbon dioxide, total measurement (moles/volume) Serum or plasma carbon dioxide, total measurement (moles/volume) 24 22 - 29 08/01/2017 [facility] Serum or plasma chloride measurement (moles/volume) Serum or plasma chloride measurement (moles/volume) 104 98 - 107 08/01/2017 [facility] Serum or plasma creatine kinase MB measurement (mass/volume) Serum or plasma creatine kinase MB measurement (mass/volume) 1.40 0 - 4.3 08/01/2017 [facility] Serum or plasma creatine kinase measurement (enzymatic activity/volume) Serum or plasma creatine kinase measurement (enzymatic activity/volume) 31 29 - 168 08/01/2017 [facility] Serum or plasma creatinine measurement (mass/volume) Serum or plasma creatinine measurement (mass/volume) 0.67 0.57 - 1.11 08/01/2017 [facility] Serum or plasma magnesium measurement (mass/volume) Serum or plasma magnesium measurement (mass/volume) 2.4 1.3 - 2.1 08/01/2017 [facility] Serum or plasma potassium measurement (moles/volume) Serum or plasma potassium measurement (moles/volume) 3.7 3.5 - 5.1 08/01/2017 [facility] Serum or plasma protein measurement (mass/volume) Serum or plasma protein measurement (mass/volume) 8.0 6.5 - 8.1 08/01/2017 [facility] Serum or plasma sodium measurement (moles/volume) Serum or plasma sodium measurement (moles/volume) 137 136 - 145 08/01/2017 [facility] Serum or plasma total bilirubin measurement (mass/volume) Serum or plasma total bilirubin measurement (mass/volume) 0.3 0.2 - 1.2 08/01/2017 [facility] Serum or plasma troponin i.cardiac measurement (mass/volume) Serum or plasma troponin i.cardiac measurement (mass/volume) <0.05 0.0 - 0.40 08/01/2017 [facility] Serum or plasma urea nitrogen measurement (mass/volume) Serum or plasma urea nitrogen measurement (mass/volume) 8 7 - 26 08/01/2017 [facility] Serum or plasma urea nitrogen/creatinine mass ratio Serum or plasma urea nitrogen/creatinine mass ratio 12 6 - 25 08/01/2017 [facility] Red Cell Distribution Width 15.2 11.7 - 14.4 08/01/2017 [facility] IM GRANULOCYTES % 0.3 0.0 - 1.0 08/01/2017 [facility] Absolute Immature Granulocyte (auto 0.02 0 - 0.1 08/01/2017 [facility] Aspartate Amino Transf (AST/SGOT) 9 5 - 34 08/01/2017 [facility] Automated urine sediment leukocyte count by microscopy (number/high power field) Automated urine sediment leukocyte count by microscopy (number/high power field) <5 0 - 5 08/01/2017 [facility] Bacteria detection in urine sediment by light microscopy Bacteria detection in urine sediment by light microscopy FEW NONE 08/01/2017 [facility] Epithelial cells detection in urine sediment by light microscopy Epithelial cells detection in urine sediment by light microscopy FEW NONE 08/01/2017 [facility] Erythrocytes detection in urine sediment by light microscopy Erythrocytes detection in urine sediment by light microscopy <5 0 - 5 08/01/2017 [facility] Specific gravity of Urine by Test strip Specific gravity of Urine by Test strip 1.025 1.010 - 1.025 08/01/2017 [facility] Urine clarity Urine clarity CLEAR CLEAR 08/01/2017 [facility] Urine color determination Urine color determination YELLOW YELLOW 08/01/2017 [facility] Urine erythrocytes detection Urine erythrocytes detection TRACE NEGATIVE 08/01/2017 [facility] Urine glucose detection Urine glucose detection NEGATIVE NEGATIVE 08/01/2017 [facility] Urine ketones detection by automated test strip Urine ketones detection by automated test strip NEGATIVE NEGATIVE 08/01/2017 [facility] Urine leukocyte esterase detection by dipstick Urine leukocyte esterase detection by dipstick NEGATIVE NEGATIVE 08/01/2017 [facility] Urine nitrite detection Urine nitrite detection NEGATIVE NEGATIVE 08/01/2017 [facility] Urine pH measurement by automated test strip Urine pH measurement by automated test strip 6.5 5 - 7 08/01/2017 [facility] Urine protein measurement by test strip (mass/volume) Urine protein measurement by test strip (mass/volume) NEGATIVE NEGATIVE 08/01/2017 [facility] Urine total bilirubin measurement (mass/volume) Urine total bilirubin measurement (mass/volume) NEGATIVE NEGATIVE 08/01/2017 [facility] Urine urobilinogen measurement by test strip (mass/volume) Urine urobilinogen measurement by test strip (mass/volume) 1 0.2 - 1 08/01/2017 [facility] Pathology Reports No Data Provided for This Section Diagnostic Reports No Data Provided for This Section Consultation Notes No Data Provided for This Section Discharge Summaries No Data Provided for This Section History and Physicals No Data Provided for This Section Vital Signs No Data Provided for This Section Encounters Location Location Details Encounter Type Encounter Number Reason For Visit Attending Provider ADM Date DC Date Status Source MD LITA Zelaya Unknown [id number] 10/03/2013 10/03/2013 MD LITA Bartholomew Unknown [id number] 10/03/2013 10/03/2013 Sal Smart MD [place] Unknown [id number] 02/02/2016 02/02/2016 Sal Smart Departed Emergency Room [id number] EDITH GONZALEZ MD 08/01/2017 08/01/2017 [facility] Procedures No Data Provided for This Section Assessment and Plan No Data Provided for This Section Plan of Care Plan of Care Date Source Discharge Date 08/01/17 12:49pm Disposition HOME, SELF-CARE Condition at Discharge Stable Instructions/Education Provided Weakness (Generalized) Forms Provided Work/School Excuse Prescriptions See Medication Section Referrals SHI NASCIMENTO MD Address: [address] [place] [id number] Additional Instructions/Education follow up with pcp 08/01/2017 [facility] Social History Social History Date Source Smoking Status Start Date Stop Date Never Smoker 08/01/2017 [facility] Social History ElementQualifiersDate Reported Smoking . Status Never Smoker Dec 28, 2015 Alcohol Use No. Dec 28, 2015 Alcohol Screening: Yes. Did you have a drink containing alcohol in the past year?: No, Points: 0 Dec 28, 2015 Marital Status: . Dec 28, 2015 Do you drink alcohol? No. 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 No 04/16/15 2:19pm If yes, is advance directive on file with [facility]? No 04/16/15 2:19pm If not on file with [facility] will patient provide a copy? No 04/16/15 2:19pm Do you have a Directive to Physician? No 08/01/17 8:12am Do you have a Medical Power of Recycling Director? No 08/01/17 8:12am Do you have an out of hospital Do Not Resuscitate Order? No 08/01/17 8:12am Do you have any special needs we should be aware of? No 08/01/17 8:12am Do you have a support person here with you today? No 08/01/17 8:12am Did patient receive Notice of Privacy Practices? Yes 08/01/17 8:12am Did patient receive patient rights and responsibilities? Yes 08/01/17 8:12am 08/01/2017 [facility] Functional Status No Data Provided for This Section
--- OUTSIDE RECORDS SUMMARY | 2018-08-03 03:21 | XMS REPORT ---
Author Author Sal Smart Organization [employer] Address Unknown Phone Unavailable Care Team Providers Care Pilot Instructor Name Role Phone Sal Smart CP Unavailable Encounters Encounter Location Date Unknown Sal Smart MD [place] Oct 03, 2013 Unknown Sal Smart MD [place] Feb 02, 2016 Problems Problem Type Condition ICD-9 Code Onset Dates Condition Status Problem Shortness of breath R06.02 Active Problem Dizziness R42 Active Problem Other specified diabetes mellitus with unspecified complications E13.8 Active Problem Non-rheumatic mitral regurgitation I34.0 Active Problem Patient unable to exercise Z78.9 Active Problem Osteoarthritis of multiple joints, unspecified osteoarthritis type M15.9 Active Problem Type 2 diabetes mellitus with unspecified complications E11.8 Active Problem Anxiety F41.9 Active Problem Chronic systolic heart failure I50.22 Active Problem PVCs (premature ventricular contractions) I49.3 Active Problem TIA (transient ischemic attack) G45.9 Active Problem Mitral valve insufficiency and aortic valve insufficiency I08.0 Active Problem Crohns disease K50.90 Active Problem PAC (premature atrial contraction) I49.1 Active Problem Abnormal EKG R94.31 Active Problem LV dysfunction I51.9 Active Medications Medication Code System Code Instructions Start Date End Date Status Dosage Furosemide MEDISPAN 39488365543 20 mg Orally Once a day Active 1 tablet Social History Social History Element Qualifiers Date Reported Smoking . Status Never Smoker Dec 28, 2015 Alcohol Use No. Dec 28, 2015 Alcohol Screening: Yes. Did you have a drink containing alcohol in the past year?: No, Points: 0 Dec 28, 2015 Marital Status: . Dec 28, 2015 Do you drink alcohol? No. 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
--- OUTSIDE RECORDS SUMMARY | 2018-08-03 03:21 | XMS REPORT ---
Author Author Sal Smart Organization [employer] Address Unknown Phone Unavailable Care Team Providers Care Flat Finisher Name Role Phone Sal Smart CP Unavailable Allergies No Known Allergies Problems Problem Type Condition Code Onset Dates Condition Status Problem TIA (transient ischemic attack) G45.9 Active Problem Anxiety F41.9 Active Problem PVCs (premature ventricular contractions) I49.3 Active Problem LAE (left atrial enlargement) I51.7 Active Problem Osteoarthritis of multiple joints, unspecified osteoarthritis type M15.9 Active Problem Palpitations R00.2 Active Problem Type 2 diabetes mellitus with unspecified complications E11.8 Active Problem Chronic systolic heart failure I50.22 Active Problem Non-rheumatic mitral regurgitation I34.0 Active Problem Patient unable to exercise Z78.9 Active Problem Mitral valve insufficiency and aortic valve insufficiency I08.0 Active Problem Other specified diabetes mellitus with unspecified complications E13.8 Active Assessment Chronic systolic heart failure I50.22 Active Problem PAC (premature atrial contraction) I49.1 Active Problem Shortness of breath R06.02 Active Problem Abnormal EKG R94.31 Active Problem Dizziness R42 Active Problem LV dysfunction I51.9 Active Problem Crohns disease K50.90 Active Medications Medication Code System Code Instructions Start Date End Date Status Dosage Lasix [facility] [id number] 20 MG Orally Once a day Active 1 tablet Metoprolol Succinate ER ND 34261073737 25 MG Orally Once a day Active 1 tablet Results No Known Results Summary Purpose [employer] Submission
--- OUTSIDE RECORDS SUMMARY | 2018-08-03 03:21 | XMS REPORT ---
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 Active Problem Non-rheumatic mitral regurgitation I34.0 Active Problem Type 2 diabetes mellitus with unspecified complications E11.8 Active Problem Patient unable to exercise Z78.9 Active Problem Osteoarthritis of multiple joints, unspecified osteoarthritis type M15.9 Active Problem Other specified diabetes mellitus with unspecified complications E13.8 Active Problem Abnormal EKG R94.31 Active Assessment Chronic systolic heart failure I50.22 Active Problem Mitral valve insufficiency and aortic valve insufficiency I08.0 Active Problem Shortness of breath R06.02 Active Problem Dizziness R42 Active Problem LV dysfunction I51.9 Active Problem Crohns disease K50.90 Active Problem PAC (premature atrial contraction) I49.1 Active Problem TIA (transient ischemic attack) G45.9 Active Medications Medication Code System Code Instructions Start Date End Date Status Dosage Metoprolol Succinate ER [facility] [id number] 100 MG Orally Once a day Active 1 tablet Results No Known Results Summary Purpose [employer] Submission
--- OUTSIDE RECORDS SUMMARY | 2018-08-03 03:21 | XMS REPORT ---
Author Author Sal Smart Organization [employer] Address Unknown Phone Unavailable Care Team Providers Care Weigher Packing Name Role Phone Sal Smart CP Unavailable Allergies No Known Allergies Problems Problem Type Condition Code Onset Dates Condition Status Problem Shortness [...] Problem PVCs (premature ventricular contractions) I49.3 Active Assessment Chronic systolic heart failure I50.22 Active Problem TIA (transient ischemic attack) G45.9 Active Problem Mitral valve insufficiency and aortic valve insufficiency I08.0 Active Problem Crohns disease K50.90 Active Problem PAC (premature atrial contraction) I49.1 Active Problem Abnormal EKG R94.31 Active Problem LV dysfunction I51.9 Active Medications Medication Code System Code Instructions Start Date End Date Status Dosage Furosemide [facility] [id number] 20 mg Orally Once a day Active 1 tablet Metoprolol Succinate ER [facility] [address]-90 25 MG Orally Once a day Active 1 tablet Results No Known Results Summary Purpose [employer] Submission
--- OUTSIDE RECORDS SUMMARY | 2018-08-03 03:21 | XMS REPORT ---
Author Author Sal Smart Organization [employer] Address Unknown Phone Unavailable Care Team Providers Care Meat Stock Clerk Name Role Phone Sal Smart CP Unavailable [...] End Date Status Dosage Metoprolol Succinate ER [facility] 17212656397 25 MG Orally Once a day Active 1 tablet Results No Known Results Summary Purpose [employer] Submission
--- OUTSIDE RECORDS SUMMARY | 2018-08-03 03:21 | XMS REPORT ---
Author Author Sal Smart Organization [employer] Address Unknown Phone Unavailable Care Team Providers Care Sawing And Assembly Supervisor Name Role Phone Sal Smart CP Unavailable Encounters Encounter Location Date Unknown Sal Smart MD [place] Oct 03, 2013 Problems Problem Type Condition ICD-9 Code Onset Dates Condition Status Problem Abnormal EKG 794.31 Active Problem LVH (left ventricular hypertrophy) due to hypertensive disease 402.90 Active Problem Diabetes with unspecified complication, type II or unspecified type, not stated as uncontrolled 250.90 Active Problem Crohns disease 555.9 Active Problem Mitral valve insufficiency and aortic valve insufficiency 396.3 Active Problem PVCs 427.69 Active Problem Angina 413.9 Active Problem Shortness of breath 786.05 Active Social History Social History Element Qualifiers Date Reported Smoking . Status Never Smoker Sep 23, 2013 Alcohol Use No. Sep 23, 2013 Alcohol Screening: No. Sep 23, 2013 Marital Status: . Sep 23, 2013 Do you drink alcohol? No. 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
--- OUTSIDE RECORDS SUMMARY | 2018-08-03 03:22 | XMS REPORT ---
Author [facility] Address Unknown Phone Unavailable Care Team Providers Care Entertainment Manager Name Role Phone MAGUE PATEL Unavailable Unavailable Kailey GUTIERREZ Unavailable Unavailable SHI NASCIMENTO Unavailable Unavailable STIVEN GEORGE Unavailable Unavailable Dolly GONZALEZ Unavailable Unavailable Miriam SQUIRES Unavailable Unavailable Tiffanie ATKINSON Unavailable Unavailable SOMMER SANCHEZ Unavailable Unavailable Payers Payer Name Policy Type Policy Number Effective Date Expiration Date Problems This patient has no known problems. Allergies, Adverse Reactions, Alerts Allergy Name Allergy Type Status Severity Reaction(s) Onset Date Inactive Date Treating Clinician Comments diphenhydramine DA Active AK 2018-06-19 00:00:00 calcium carbonate DA Active PA 2018-06-19 00:00:00 naproxen sodium DA Active PA 2018-06-19 00:00:00 diclofenac sodium DA Active PA 2018-06-19 00:00:00 diphenhydramine HCl DA Active U 2018-06-19 00:00:00 pyrilamine maleate DA Active PA 2018-06-19 00:00:00 ciprofloxacin HCl DA Active PA 2018-06-19 00:00:00 Penicillins DA Active PA 2018-06-19 00:00:00 sodium bicarbonate DA Active PA 2018-06-19 00:00:00 potassium bicarbonate DA Active PA 2018-06-19 00:00:00 misoprostol DA Active PA 2018-06-19 00:00:00 ethinyl estradiol DA Active MO 2018-06-19 00:00:00 levonorgestrel-ethinyl estradiol DA Active MO 2018-06-19 00:00:00 morphine DA Active PA 2018-06-19 00:00:00 aspirin DA Active PA 2018-06-19 00:00:00 acetaminophen DA Active PA 2018-06-19 00:00:00 pamabrom DA Active PA 2018-06-19 00:00:00 ibuprofen DA Active PA 2018-06-19 00:00:00 citric acid DA Active PA 2018-06-19 00:00:00 tetracycline DA Active PA 2018-06-19 00:00:00 erythromycin base DA Active PA 2018-06-19 00:00:00 ciprofloxacin DA Active PA 2018-06-19 00:00:00 oxaprozin DA Active PA 2018-06-19 00:00:00 pentosan polysulfate sodium DA Active MO 2018-06-19 00:00:00 pecan nut DA Active MO 2018-06-19 00:00:00 RUBI DA Active MO 2018-06-14 00:00:00 ethinyl estradiol DA Active MO 2018-06-14 00:00:00 levonorgestrel-ethinyl estradiol DA Active MO 2018-06-14 00:00:00 pentosan polysulfate sodium DA Active MO 2018-06-14 00:00:00 pecan nut DA Active MO 2018-06-14 00:00:00 [place] DA Active MO 2018-06-14 00:00:00 OL[place] TREE DA Active MO 2018-06-14 00:00:00 [place] DA Active MO 2018-06-14 00:00:00 AFR[place] DA Active MO 2018-06-14 00:00:00 MESQUITE DA Active MO 2018-06-14 00:00:00 PRIVET DA Active MO 2018-06-14 00:00:00 RYE DA Active MO 2018-06-14 00:00:00 calcium carbonate DA Active PA 2017-03-16 00:00:00 naproxen sodium DA Active PA 2017-03-16 00:00:00 diclofenac sodium DA Active PA 2017-03-16 00:00:00 diphenhydramine HCl DA Active U 2017-03-16 00:00:00 pyrilamine maleate DA Active PA 2017-03-16 00:00:00 ciprofloxacin HCl DA Active PA 2017-03-16 00:00:00 Penicillins DA Active PA 2017-03-16 00:00:00 sodium bicarbonate DA Active PA 2017-03-16 00:00:00 potassium bicarbonate DA Active PA 2017-03-16 00:00:00 misoprostol DA Active PA 2017-03-16 00:00:00 morphine DA Active PA 2017-03-16 00:00:00 aspirin DA Active PA 2017-03-16 00:00:00 acetaminophen DA Active PA 2017-03-16 00:00:00 pamabrom DA Active PA 2017-03-16 00:00:00 ibuprofen DA Active PA 2017-03-16 00:00:00 citric acid DA Active PA 2017-03-16 00:00:00 tetracycline DA Active PA 2017-03-16 00:00:00 erythromycin base DA Active PA 2017-03-16 00:00:00 ciprofloxacin DA Active PA 2017-03-16 00:00:00 oxaprozin DA Active PA 2017-03-16 00:00:00 Medications This patient has no known medications. Results Test Description Test Time Test Comments Text Results Atomic Results Result Comments CBC W/AUTO DIFF 2018-06-19 09:05:00 WHITE BLOOD CELL (test code=WBC) 7.9 K/mm3 4.5-12.5 RED BLOOD CELL (test code=RBC) 3.99 mill/mm3 3.7-5.2 HEMOGLOBIN (test code=HGB) 7.9 gram/dL 11.5-15.5 HEMATOCRIT (test code=HCT) 28.6 % 36.0-46.0 MEAN CELL VOLUME (test code=MCV) 71.7 fL 80-98 MEAN CELL HGB (test code=MCH) 19.8 picogram 27.0-33.0 MEAN CELL HGB CONCETRATION (test code=MCHC) 27.6 gram/dL 33.0-36.0 RED CELL DISTRIBUTION WIDTH (test code=RDW) 20.7 % 11.6-16.2 RED CELL DISTRIBUTION WIDTH SD (test code=RDW-SD) 53.1 fL 37.0-51.0 PLATELET COUNT (test code=PLT) 494 K/mm3 150-450 MEAN PLATELET VOLUME (test code=MPV) 8.9 fL 6.7-11.0 NEUTROPHIL % (test code=NT%) 70.8 % 39.0-69.0 IMMATURE GRANULOCYTE % (test code=IG%) 0.6 % 0.0-5.0 LYMPHOCYTE % (test code=LY%) 18.0 % 25.0-55.0 MONOCYTE % (test code=MO%) 6.7 % 0.0-10.0 EOSINOPHIL % (test code=EO%) 2.4 % 0.0-5.0 BASOPHIL % (test code=BA%) 1.5 % 0.0-1.0 NUCLEATED RBC % (test code=NRBC%) 0.0 % 0-0 NEUTROPHIL # (test code=NT#) 5.56 K/mm3 1.8-7.7 IMMATURE GRANULOCYTE # (test code=IG#) 0.05 x10 3/uL 0-0.03 LYMPHOCYTE # (test code=LY#) 1.42 K/mm3 1.0-5.0 MONOCYTE # (test code=MO#) 0.53 K/mm3 0-0.8 EOSINOPHIL # (test code=EO#) 0.19 K/mm3 0.0-0.5 BASOPHIL # (test code=BA#) 0.12 K/mm3 0.0-0.2 NUCLEATED RBC # (test code=NRBC#) 0.00 K/mm3 0.0-0.1 MANUAL DIFF REQUIRED (test code=MDIFF) NO, ONLY SCAN NEEDED DIFFERENTIAL [id number] 09:05:00* Test Item Value Reference Range Comments STAIN ACCEPTABILITY (test code=STN ACCEPTABLE) STAIN ACCEPTABLE POIKILOCYTOSIS (test code=POIK) 1+ ANISOCYTOSIS (test code=ANISO) 1+ MICROCYTOSIS (test code=MICR) 1+ ELLIPTOCYTES (test code=ELL) 1+ PLATELET ESTIMATE (test code=PLTEST) INCREASED PLATELET MORPHOLOGY (test code=PLTMORPH) SIZE VARIABLE CBC W/AUTO [id number] 08:20:00* Test Item Value Reference Range Comments WHITE BLOOD CELL (test code=WBC) 7.9 K/mm3 4.5-12.5 RED BLOOD CELL (test code=RBC) 3.99 mill/mm3 3.7-5.2 HEMOGLOBIN (test code=HGB) 7.9 gram/dL 11.5-15.5 HEMATOCRIT (test code=HCT) 28.6 % 36.0-46.0 MEAN CELL VOLUME (test code=MCV) 71.7 fL 80-98 MEAN CELL HGB (test code=MCH) 19.8 picogram 27.0-33.0 MEAN CELL HGB CONCETRATION (test code=MCHC) 27.6 gram/dL 33.0-36.0 RED CELL DISTRIBUTION WIDTH (test code=RDW) 20.7 % 11.6-16.2 RED CELL DISTRIBUTION WIDTH SD (test code=RDW-SD) 53.1 fL 37.0-51.0 PLATELET COUNT (test code=PLT) 494 K/mm3 150-450 MEAN PLATELET VOLUME (test code=MPV) 8.9 fL 6.7-11.0 NEUTROPHIL % (test code=NT%) 70.8 % 39.0-69.0 IMMATURE GRANULOCYTE % (test code=IG%) 0.6 % 0.0-5.0 LYMPHOCYTE % (test code=LY%) 18.0 % 25.0-55.0 MONOCYTE % (test code=MO%) 6.7 % 0.0-10.0 EOSINOPHIL % (test code=EO%) 2.4 % 0.0-5.0 BASOPHIL % (test code=BA%) 1.5 % 0.0-1.0 NUCLEATED RBC % (test code=NRBC%) 0.0 % 0-0 NEUTROPHIL # (test code=NT#) 5.56 K/mm3 1.8-7.7 IMMATURE GRANULOCYTE # (test code=IG#) 0.05 x10 3/uL 0-0.03 LYMPHOCYTE # (test code=LY#) 1.42 K/mm3 1.0-5.0 MONOCYTE # (test code=MO#) 0.53 K/mm3 0-0.8 EOSINOPHIL # (test code=EO#) 0.19 K/mm3 0.0-0.5 BASOPHIL # (test code=BA#) 0.12 K/mm3 0.0-0.2 NUCLEATED RBC # (test code=NRBC#) 0.00 K/mm3 0.0-0.1 MANUAL DIFF REQUIRED (test code=MDIFF) NO, ONLY SCAN NEEDED DIFFERENTIAL [id number] 08:20:00* Test Item Value Reference Range Comments STAIN ACCEPTABILITY (test code=STN ACCEPTABLE) CABOT RINGS (test code=CAB) MORPHOLOGY COMMENT (test code=MOC) PLATELET ESTIMATE (test code=PLTEST) PLATELET MORPHOLOGY (test code=PLTMORPH) CBC W/AUTO [id number] 08:20:00* Test Item Value Reference Range Comments WHITE BLOOD CELL (test code=WBC) 7.9 K/mm3 4.5-12.5 RED BLOOD CELL (test code=RBC) 3.99 mill/mm3 3.7-5.2 HEMOGLOBIN (test code=HGB) 7.9 gram/dL 11.5-15.5 HEMATOCRIT (test code=HCT) 28.6 % 36.0-46.0 MEAN CELL VOLUME (test code=MCV) 71.7 fL 80-98 MEAN CELL HGB (test code=MCH) 19.8 picogram 27.0-33.0 MEAN CELL HGB CONCETRATION (test code=MCHC) 27.6 gram/dL 33.0-36.0 RED CELL DISTRIBUTION WIDTH (test code=RDW) 20.7 % 11.6-16.2 RED CELL DISTRIBUTION WIDTH SD (test code=RDW-SD) 53.1 fL 37.0-51.0 PLATELET COUNT (test code=PLT) 494 K/mm3 150-450 MEAN PLATELET VOLUME (test code=MPV) 8.9 fL 6.7-11.0 NEUTROPHIL % (test code=NT%) 70.8 % 39.0-69.0 IMMATURE GRANULOCYTE % (test code=IG%) 0.6 % 0.0-5.0 LYMPHOCYTE % (test code=LY%) 18.0 % 25.0-55.0 MONOCYTE % (test code=MO%) 6.7 % 0.0-10.0 EOSINOPHIL % (test code=EO%) 2.4 % 0.0-5.0 BASOPHIL % (test code=BA%) 1.5 % 0.0-1.0 NUCLEATED RBC % (test code=NRBC%) 0.0 % 0-0 NEUTROPHIL # (test code=NT#) 5.56 K/mm3 1.8-7.7 IMMATURE GRANULOCYTE # (test code=IG#) 0.05 x10 3/uL 0-0.03 LYMPHOCYTE # (test code=LY#) 1.42 K/mm3 1.0-5.0 MONOCYTE # (test code=MO#) 0.53 K/mm3 0-0.8 EOSINOPHIL # (test code=EO#) 0.19 K/mm3 0.0-0.5 BASOPHIL # (test code=BA#) 0.12 K/mm3 0.0-0.2 NUCLEATED RBC # (test code=NRBC#) 0.00 K/mm3 0.0-0.1 MANUAL DIFF REQUIRED (test code=MDIFF) NO, ONLY SCAN NEEDED DIFFERENTIAL [id number] 08:20:00* Test Item Value Reference Range Comments STAIN ACCEPTABILITY (test code=STN ACCEPTABLE) MORPHOLOGY COMMENT (test code=MOC) PLATELET ESTIMATE (test code=PLTEST) PLATELET MORPHOLOGY (test code=PLTMORPH) CBC W/AUTO [id number] 08:20:00* Test Item Value Reference Range Comments WHITE BLOOD CELL (test code=WBC) 7.9 K/mm3 4.5-12.5 RED BLOOD CELL (test code=RBC) 3.99 mill/mm3 3.7-5.2 HEMOGLOBIN (test code=HGB) 7.9 gram/dL 11.5-15.5 HEMATOCRIT (test code=HCT) 28.6 % 36.0-46.0 MEAN CELL VOLUME (test code=MCV) 71.7 fL 80-98 MEAN CELL HGB (test code=MCH) 19.8 picogram 27.0-33.0 MEAN CELL HGB CONCETRATION (test code=MCHC) 27.6 gram/dL 33.0-36.0 RED CELL DISTRIBUTION WIDTH (test code=RDW) 20.7 % 11.6-16.2 RED CELL DISTRIBUTION WIDTH SD (test code=RDW-SD) 53.1 fL 37.0-51.0 PLATELET COUNT (test code=PLT) 494 K/mm3 150-450 MEAN PLATELET VOLUME (test code=MPV) 8.9 fL 6.7-11.0 NEUTROPHIL % (test code=NT%) 70.8 % 39.0-69.0 IMMATURE GRANULOCYTE % (test code=IG%) 0.6 % 0.0-5.0 LYMPHOCYTE % (test code=LY%) 18.0 % 25.0-55.0 MONOCYTE % (test code=MO%) 6.7 % 0.0-10.0 EOSINOPHIL % (test code=EO%) 2.4 % 0.0-5.0 BASOPHIL % (test code=BA%) 1.5 % 0.0-1.0 NUCLEATED RBC % (test code=NRBC%) 0.0 % 0-0 NEUTROPHIL # (test code=NT#) 5.56 K/mm3 1.8-7.7 IMMATURE GRANULOCYTE # (test code=IG#) 0.05 x10 3/uL 0-0.03 LYMPHOCYTE # (test code=LY#) 1.42 K/mm3 1.0-5.0 MONOCYTE # (test code=MO#) 0.53 K/mm3 0-0.8 EOSINOPHIL # (test code=EO#) 0.19 K/mm3 0.0-0.5 BASOPHIL # (test code=BA#) 0.12 K/mm3 0.0-0.2 NUCLEATED RBC # (test code=NRBC#) 0.00 K/mm3 0.0-0.1 MANUAL DIFF REQUIRED (test code=MDIFF) NO, ONLY SCAN NEEDED DIFFERENTIAL [id number] 08:20:00* Test Item Value Reference Range Comments STAIN ACCEPTABILITY (test code=STN ACCEPTABLE) MORPHOLOGY COMMENT (test code=MOC) PLATELET ESTIMATE (test code=PLTEST) PLATELET MORPHOLOGY (test code=PLTMORPH) CBC W/AUTO [id number] 08:20:00* Test Item Value Reference Range Comments WHITE BLOOD CELL (test code=WBC) 7.9 K/mm3 4.5-12.5 RED BLOOD CELL (test code=RBC) 3.99 mill/mm3 3.7-5.2 HEMOGLOBIN (test code=HGB) 7.9 gram/dL 11.5-15.5 HEMATOCRIT (test code=HCT) 28.6 % 36.0-46.0 MEAN CELL VOLUME (test code=MCV) 71.7 fL 80-98 MEAN CELL HGB (test code=MCH) 19.8 picogram 27.0-33.0 MEAN CELL HGB CONCETRATION (test code=MCHC) 27.6 gram/dL 33.0-36.0 RED CELL DISTRIBUTION WIDTH (test code=RDW) 20.7 % 11.6-16.2 RED CELL DISTRIBUTION WIDTH SD (test code=RDW-SD) 53.1 fL 37.0-51.0 PLATELET COUNT (test code=PLT) 494 K/mm3 150-450 MEAN PLATELET VOLUME (test code=MPV) 8.9 fL 6.7-11.0 NEUTROPHIL % (test code=NT%) 70.8 % 39.0-69.0 IMMATURE GRANULOCYTE % (test code=IG%) 0.6 % 0.0-5.0 LYMPHOCYTE % (test code=LY%) 18.0 % 25.0-55.0 MONOCYTE % (test code=MO%) 6.7 % 0.0-10.0 EOSINOPHIL % (test code=EO%) 2.4 % 0.0-5.0 BASOPHIL % (test code=BA%) 1.5 % 0.0-1.0 NUCLEATED RBC % (test code=NRBC%) 0.0 % 0-0 NEUTROPHIL # (test code=NT#) 5.56 K/mm3 1.8-7.7 IMMATURE GRANULOCYTE # (test code=IG#) 0.05 x10 3/uL 0-0.03 LYMPHOCYTE # (test code=LY#) 1.42 K/mm3 1.0-5.0 MONOCYTE # (test code=MO#) 0.53 K/mm3 0-0.8 EOSINOPHIL # (test code=EO#) 0.19 K/mm3 0.0-0.5 BASOPHIL # (test code=BA#) 0.12 K/mm3 0.0-0.2 NUCLEATED RBC # (test code=NRBC#) 0.00 K/mm3 0.0-0.1 MANUAL DIFF REQUIRED (test code=MDIFF) NO, ONLY SCAN NEEDED DIFFERENTIAL [id number] 08:20:00* Test Item Value Reference Range Comments STAIN ACCEPTABILITY (test code=STN ACCEPTABLE) CABOT RINGS (test code=CAB) MORPHOLOGY COMMENT (test code=MOC) PLATELET ESTIMATE (test code=PLTEST) PLATELET MORPHOLOGY (test code=PLTMORPH) CT LUMBAR SPINE [id number] 15:10:00 [place] [address] Patient Name: SHENG WESLEY MR #: [id number] : 1945 Age/Sex: 73/F Req #: [id number] Adm Physician: Ordered by: MAGUE PATEL MD Report #: [id number] Location: CT Room/Bed: Procedure: [id number] CT/CT LUMBAR SPINE WO Exam Date: 03/27/18 Exam Time: 1330 REPORT STATUS: Signed CT LUMBAR SPINE WO HISTORY: Left lower back pain and hip pain COMPAR GIANFRANCO: Lumbar spine CT 01/24/2018 TECHNIQUE: Axial CT images of the lumb ar spine were obtained without contrast. Coronal and sagittal reconstructions obtained from the axial data. One or more of the following dose reduction te chniques were used: Automated exposure control, adjustment of the mA and/or kV according to patient size, and/or utilization of iterative reconstruction jessica hnique. DISCUSSION: Mild bone demineralization limits evaluation. There are 5 nonrib-bearing lumbar vertebral bodies. Lumbar lordosis is preserved. Mild thoracolumbar dextroscoliosis is centered at L2-L3. There is no signific ant subluxation. No definite acute fracture or compression deformity is seen. No gross spinal canal mass is seen. The paravertebral and paraspinal soft ti ssues are unremarkable. Mild to moderate multilevel spondylotic changes are most prominent on the left at L2-L3 and L3-L4 and on the right at L5-S1. There are mild degenerative changes in the bilateral sacroiliac joints. L1-L2: No gross canal or foraminal stenosis. L2-L3: No gross canal or foraminal stenosis. L3-L4: No gross canal or foraminal stenosis. L4-L5: Possible mild canal stenosis due to disc bulge and ligamentum flavum thickening. Mild left foraminal stenosis due to disc bulge and facet arthrosis. No significant right foraminal stenosis. L5-S1: Mild right foraminal stenosis due to disc bulge and facet arthrosis. No gross canal or left foraminal stenosis. Aor toiliac calcified atherosclerosis is present. Distended bladder is partially v isualized. IMPRESSION: 1. No acute osseous abnormalities. 2. Mild to moderate multilevel spondylosis with mild dextroscoliosis centered at L2-L3. 3. Possible mild degenerative canal stenosis at L4-L5. 4. Mild left L4-L5 and right L5-S1 degenerative foraminal stenoses. Signed by: Dr. Marco Maradiaga M.D. on 03/27/2018 3:18 PM Dictated By: MARCO MARADIAGA MD Elec tronically Signed By: MARCO MARADIAGA MD on 03/27/181517 Transcribed By: SILVA SIMS on 03/27/181517 COPY TO: MAGUE PATEL MD CHEST 2 [id number] 13:16:00 [place] [address] Patient Name: SHENG WESLEY MR #: [id number] : 1945 Age/Sex: 73/F Req #: [id number] Adm Physician: Ordered by: CHIN BENZ PHARMACY CONSULTANT Report #: [id number] Location: ER Room/Bed: Procedure: [id number] DX/CHEST 2 VIEWS Exam Date: 02/22/18 Exam Time: 1220 REPORT STATUS: Signed EXAMINAT ION: CHEST 2 VIEWS COMPARISON: Chest x-ray 01/24/2018. INDICATION : Cough. DISCUSSION: LINES: Left-sided pacemaker wires terminate in the right atrium and right ventricle. LUNGS: The lungs are hyperinflated . No evidence of pneumonia or pulmonary edema. HEART AND MEDIASTINUM: St able mild cardiomegaly. Tortuous thoracic aorta. PLEURA: No pleural effus ion or pneumothorax. BONES AND SOFT TISSUES: No acute osseous abnormality. Surgical clips are present in the right axilla/chest wall. Degenerative nixon ges of bilateral shoulders. IMPRESSION: Hyperinflated lungs without a cute radiographic abnormality. Signed by: Dr. Adama Sullivan MD on 02/22/2018 1 :18 PM Dictated By: ADAMA SULLIVAN MD 17 Transcribed By: CARMEN on 02/22/181317 COPY TO: CHIN CASPER NP CHEST SINGLE (PORTABLE)2018-01-24 19:40:00 [place] [address] Patient Name: SHENG WESLEY MR #: [id number] : 1945 Age/Sex: 72/F Req #: [id number] Adm Physician: Ordered by: CHIN BENZ NP Report #: [id number] Location: ER Room/Bed: Procedure: [id number] DX/CHEST SINGLE (PORTABLE) Exam Date: 01/24/18 Exam Time: 190 REPORT STATUS: Signed EXAMINATION: CHEST SINGLE (PORTABLE) COMPARISON: Chest x-ray 018 INDICATION: Fall DISCUSSION: Frontal view of the chest obta ined at 1914 hours. HEART AND MEDIASTINUM: Stable mild cardiomegaly. Pacem bere wires terminate in the right atrium and right ventricle. LUNGS: The lungs are well-inflated suggestive of COPD. No evidence of mass or infiltrate. No interstitial thickening or vascular congestion PLEURA: No pleural eff usion or pneumothorax. BONES AND SOFT TISSUES: No focal osseous lesion. Th ere are mild degenerative changes of the left shoulder. Surgical clips in the right axilla and chest wall are stable. IMPRESSION: Stable pulmonar y hyperinflation. No acute cardiopulmonary process. Signed by: Dr. Lori Heredia MD on 01/24/2018 7:42 PM Dictated By: LORI HEREDIA MD El ectronically Signed By: LORI HEREDIA MD on 01/24/181941 Transcribed By: Dolly RODRÍGUEZ on 01/24/181941 COPY TO: CHIN BENZ PHARMACY CONSULTANT WRIST COMPLETE [id number] 18:23:00 [place] [address] Patient Name: SHENG WESLEY MR #: [id number] : 1945 Age/Sex: 72/F Req #: [id number] Adm Physician: Ordered by: CHIN BENZ NP Report #: [id number] Location: ER Room/Bed: Procedure: [id number] DX/WRIST COMPLETE BILATERAL Exam Date: 01/24/18 Exam Time: 1742 REPORT STATUS: Signed Wrist Complete Bilateral CPT Code: 70776 x 2 Indication: Fall Jessica hnique: Three views of the wrists obtained Comparison: None Findings: Right wrist: Distal radius and ulna are intact. There are mild degenerative changes of the radial ulnar and radiocarpal joints. Carpal bones are intact and normally aligned. Visualized bones of the digits are intact. There is mild radial subluxation of the base of the first metacarpal relative to the scaph oid. Left wrist: Distal radius and ulna are intact. There are mild degenera tive changes of the radial ulnar joint. The carpal bones are intact and normal ly aligned. Visualized bones of the digits are intact. There is mild subluxati on of the base of the first metacarpal relative to the scaphoid. IMPRESSI ON: 1. No acute fracture. 2. Bilateral subluxations of the first metaca rpals likely due to ligamentous laxity. 3. Degenerative changes as describe d above. Signed by: Dr. Lori Heredia MD on 01/24/2018 6:27 PM Dictated By: LORI HEREDIA MD 26 Transcribed By: CARMEN on 01/24/181826 COPY TO: CHIN BENZ PHARMACY CONSULTANT CT LUMBAR SPINE [id number] 18:22:00 [place] [address] Patient Name: SHENG WESLEY MR #: [id number] : 1945 Age/Sex: 72/F Req #: [id number] Adm Physician: Ordered by: CHIN BENZ PHARMACY CONSULTANT Report #: [id number] Location: ER Room/Bed: Procedure: [id number] CT/CT LUMBAR SPINE WO Exam Date: 01/24/18 Exam Time: 1715 REPORT STATUS: Signed ADDENDUM #1 I have reviewed the images and agree with piotr manuel in preliminary report. Signed by: Dr. Josefian Taylor M.D. on 2017 8:02 PM ORIGINAL REPORT Exam: Lumbar spine CT with out contrast History: Status post fall Comparison studies: None Tech nique: Axial images were obtained from T12-S1. Coronal and sagittal images reconstructed from the axial data. Dose modulation, iterative reconstruction, and/or weight based adjustment of the mA/kV was utilized to reduce the radiat ion dose to as low as reasonably achievable. Intravenous contrast: None Findings: Number of non-rib bearing vertebral bodies: 5 Alignment: Straightening of the lumbar lordosis. Mild dextroconvex curvature of the lum bar spine, apex at L2.. Soft tissues: No abnormalities. Paraspinal muscles: Unremarkable. Vertebrae: No fractures, infection or neoplasm. Dege nerative changes: Dilated multilevel degenerative disc height loss, greatest a long the concavity of the curvature on the left at L1-2 through L3-4 and on th e right at L4-5 and L5-S1. Prominent left-sided disc osteophyte on the left at L2-3 and L3-4. Moderate right-sided facet arthropathy at L5-S1, milder on the left and at L4-5 bilaterally. No significant canal or foraminal stenosis. Sacroiliac joints: No degenerative changes. IMPRESSION: No acute injury. Chronic findings: Multilevel degenerative changes of the lumbar s pine without significant canal or foraminal stenosis. This is a prelimina ry report was provided by the neuroradiology fellow, Dr. Bruce Zamora. Cristopheri over read to follow. Signed by: Bruce Zamora MD on 01/24/2018 6:28 PM Dictated By: FRANCISCO ZAMORA MD 01 Transcribed By: CARMEN on 01/24/18 1828 C OPY TO: CHIN BENZ PHARMACY CONSULTANT CT CERVICAL SPINE [id number] 18:11:00 [place] [address] Patient Name: SHENG WESLEY MR #: [id number] : 1945 Age/Sex: 72/F Req #: [id number] Adm Physician: Ordered by: CHIN BENZ PHARMACY CONSULTANT Report #: [id number] Location: ER Room/Bed: Procedure: [id number] CT/CT CERVICAL SPINE WO Exam Date: 01/24/18 Exam Ti me: 1715 REPORT STATUS: Signed ADDENDUM #1 I have reviewed the images and agree with wellington hare in preliminary report. Signed by: Dr. Josefina Taylor M.D. on 01/06 7:57 PM ORIGINAL REPORT Exam: Noncontrast cervic al spine CT History: Fall Comparison studies: None Technique: Axi al images were obtained through the cervical region. Coronal and sagittal imag es reconstructed from the axial data. Dose modulation, iterative reconstructio n, and/or weight based adjustment of the mA/kV was utilized to reduce the rad iation dose to as low as reasonably achievable. Intravenous contrast: No ne Findings: Airway: Patent. Atlantoaxial articulation: Intact Alignment: Reversal of the cervical lordosis centered at C5-C6. Dextroconvex c urvature of the cervical spine. Cervicomedullary junction: Patent foramen magn um. Partially visualized large posterior fossa arachnoid cyst versus cisterna magna. Soft tissues: No gross abnormalities. Vertebrae: No fractures, neoplasm or infection. Degenerative changes: Elongated styloid processes. C2-C3: Mild degenerative disc height loss with patent canal and foramina . C3-4: Patent spinal canal and foramina . C4-5: Large anterior disc osteophyte and mild degenerative disc height loss with small disc bulge but no significant canal stenosis. . C5-6: Moderate degenerative disc hei ght loss without canal or foraminal stenosis. . C6-7: Mild degenerative d isc height loss with prominent right-sided disc osteophyte and no significant canal or foraminal stenosis. . C7-T1: Patent spinal canal and foramina . IMPRESSION: 1. No acute fracture. 2. Evaluation of the ligamen tous structures is limited on CT. If there is strong clinical concern for liga mentous injury then MRI should be considered. Chronic findings: 1. Multil evel degenerative changes of the cervical spine without significant canal or f oraminal stenosis. 2. Elongated styloid processes can be seen in the clinic al diagnosis of Ishp[place]ing syndrome. This is a preliminary report was provided by the neuroradiology fellow, Dr. Bruce Zamora. Attending over read to follow. Signed by: Bruce Zamora MD on 01/24/2018 6:21 PM Dictated By: VERO ZAMORA MD 20 COPY TO: [facility] [employer] [employer] CT PELVIS [id number] 18:10:00 [place] [id number] Patient Name: SHENG WESLEY MR #: [id number] : 1945 Age/Sex: 72/F Req #: [id number] Adm Physician: Ordered by: CHIN [facility] [employer] CONSULTANT Report #: [id number] Location: ER Room/Bed: Procedure: [id number] CT/CT PELVIS WO Exam Date: Exam Time: REPORT STATUS: Signed CT Bony Pelvis Without Contrast, With Multiplanar Reconstruction. CPT CODE: [id number]. IN DICATIONS: Lost balance and fell backwards TECHNIQUE: Contiguous 2.5 mm thi ckness axial images were obtained in helical fashion through the bony pelvis. From these, coronal and sagittal reconstructions were generated. RADIATI ON DOSE: Total DLP: 285.5 mGy*cm Estimated effective dose: (D LP x 0.015 x size factor) mSv CTDIvol has been reviewed. It is below the limits set by the Radiation Protocol Committee (RPC). Dose reduction tech niques used: Automated exposure control, adjustment of the mAs and/or kVp acco rding to patient size, standardized low-dose protocol, and/or iterative recons truction technique. COMPARISON: CT abdomen/pelvis 12/28/2017. Findings : Bowel: Large amount of stool in the cecum and proximal ascending colon. T here is gaseous distention of the mid sigmoid colon. Small bowel loops are nor mal in diameter. The rectum is collapsed. Uterus: Atrophic. No adnexal ma ss. Bladder: Under distended but otherwise normal. Peritoneum/retroperitoneu m: Small amount of fluid. No free air. Vasculature: Visualized portions of the aorta and iliac arteries are normal in diameter with scattered calcificati ons throughout. Bones: Stable anterior cortical thickening of S4 suggestive of healing/healed fracture. There is new mild ventral angulation of the S5 se gment suggestive of nondisplaced fracture. There is no diastases of the pubic symphysis or sacroiliac joints. The hips are intact and in anatomic alignment. There are no pelvic fractures. Soft tissues: Surgical clips in the anter ior abdominal wall are stable. No evidence of soft tissue contusion or intramu scular hematoma. IMPRESSION: 1. Suspected nondisplaced fracture of S5 with small amount of presacral edema. 2. Healing/healed fracture of S4 is similar in appearance. 3. Large amount of stool in the right colon. No evid ence of bowel obstruction. Signed by: Dr. 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 I have reviewed the images and otherwise agree with findings in preliminary report. Signed by: Dr. Josefina Taylor M.D. on 01/24/2018 7:53 PM ORIGINAL REPORT Exam: Noncontrast head CT History:72-ye ar-old female, status post fall Comparison studies: None Technique: Axial images were obtained from the skull base to the vertex. Coronal and sa gittal images reconstructed from the axial data. Dose modulation, iterative re construction, and/or weight based adjustment of the mA/kV was utilized to red uce the radiation dose to as low as reasonably achievable. Intravenous c ontrast: None Findings: Scalp/skull: Multiple small lucencies withi n the diploic spaces. No acute fracture. Extra-axial spaces: No mass. Pr ominent CSF collection midline in the posterior fossa may represent prominent cisterna magna versus arachnoid cyst. Brain sulci: Mildly prominent. Vent ricles: Mild compensatory dilatation. No hydrocephalus. Parenchyma: Scat tered hypodensities in the supratentorial white matter are small vessel ischem ic changes. No masses, hemorrhage, acute cortical vascular insults. Sellar/ suprasellar region: No abnormalities. Craniocervical junction: Patent foramen magnum. No Chiari one malformation. Incidental findings: Atherosclerotic calcifications in the carotid siphons . Impression: No acute abnormal ities. Chronic findings: 1. Mild generalized volume loss. 2. Mild sup ratentorial white matter small vessel ischemic changes. 3. Small lucencies wi thin the diploic spaces are nonspecific. 4. 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 Bruce Zamora. Attending over read to follow. Signed by: Bruce Zamora MD on 01/24/2018 6:10 PM Dictated By: BHARTI ZAMORA MD 52 Transcribed By: CARMEN on 01/24/181809 COPY TO: CHIN BENZ NP AFB CULTURE + [id number] 12:02:00* Test Item Value Reference Range Comments CULTURE (AKER) (test sysi=0938) MYCOBACTERIUM ABSCESSUS Mycobacterium abscessus* - subsp.abscessusIdentification and susceptibility performed by:[facility], Dept. of Microbiology Research, Dr[facility], [address] [place] [address] Amikacin (test code=1) mcg/mL Cefoxitin (test code=68) mcg/mL Ciprofloxacin (test code=7) mcg/mL Clarithromycin (test code=42) Doxycycline (test code=15) mcg/mL Imipenem (test code=19) mcg/mL Linezolid (test code=40) mcg/mL Minocycline (test code=35) mcg/mL Moxifloxacin (test code=36) mcg/mL Tigecycline (test fkxw=940) Susceptible >0-0 , No Interpretations Established <=0 or >0 Trimethoprim + Sulfamethoxazole (test code=47) mcg/mL AFB SMEAR ([facility]) (test ktnb=146) No acid fast bacilli seen Byerm gene sequencing, 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 The erm gene has a nonfunctional sequence and hence will be macrolide susceptible unless mutationally resistant.CHEST XRAY LINE [id number] 09:28:00 [place] [address] Patient Name: SHENG WESLEY MR #: [id number] : 1945 Age/Sex: 72/F Req #: [id number] Adm Physician: SHI NASCIMENTO MD Ordered by: SHI NASCIMENTO MD Report #: [id number] Location: MED/SURG3 Room/Bed: [facility] Procedure: [id number] DX/CHEST XRAY LINE PLACEMENT Exam Date: 12/30/17 E xam Time: 0820 REPORT STATUS: Leonora d Examination: Single AP view of the chest. COMPARISON: Portable chest 1 02/27/2017 INDICATION: Midline placement IMPRESSION: 1. Line s and Tubes: Peripherally inserted venous catheter is noted in the proximal le ft arm, with distal tip projecting in the expected location of the axillary ve in. Stable multilead left upper chest cardiac device. 2. Lungs are well-inf lated. Mild central pulmonary venous congestion and perihilar interstitial pro minence. No consolidation or effusion. 3. Mildly enlarged cardiac silhouette. 4. No acute bony abnormalities. Signed by: Dr. Facundo Suh M.D. on 12/30/2017 9:29 AM Dictated By: FACUNDO SUH MD 8 Transcribed By: CARMEN on 12/30 COPY TO: SHI NASCIMENTO MD CT ABDOMEN/PELVIS [id number] 18:05:00 [place] [address] Patient Name: SHENG WESLEY MR #: [id number] : 1945 Age/Sex: 72/F Req #: [id number] Adm Physician: Ordered by: SADIE MARINELLI MD Report #: [id number] Location: ER Room/Bed: Procedure: [id number] CT /CT ABDOMEN/PELVIS W Exam Date: 12/28/17 Exam Time: 1740 REPORT STATUS: Signed EXAMI NATION: CT of the abdomen and pelvis with contrast. TECHNIQUE: Spiral CT images of the abdomen and pelvis were performed from the lung bases to the le sser trochanters after the intravenous administration of 100 cc of Isovue 370 and the oral administration of water. Coronal and sagittal reformatted images were obtained. COMPARISON: None. CLINICAL HISTORY:Abdominal pain, bl oody diarrhea, and vomiting for one week, no fever, history of Crohn's DISCUSSION: ABDOMEN/PELVIS: LOWER THORAX:Lung bases are grossly jo ar. Distal portion of cardiac wires noted in the right atrium and right ventri jo. HEPATOBILIARY: No focal hepatic lesions. No intra or extrahepatic ramon iary ductal dilation. GALLBLADDER: Cholecystectomy clips. SPLEE N: No splenomegaly. PANCREAS: No focal masses or ductal dilatation. A DRENALS: No adrenal nodules. KIDNEYS/URETERS: No hydronephrosis, stones, or solid mass lesions. PELVIC ORGANS/BLADDER: Bladder is unremarkable, without focal lesions or wall thickening. No adnexal masses. PERITONEUM/RETROPE RITONEUM: No free air or fluid. LYMPH NODES: No intra-abdominal, retroperit alejandre, pelvic or inguinal lymphadenopathy. VESSELS: The celiac trunk,supe rior and inferior mesenteric and bilateral renal arteries are patent The por elizabeth, superior mesenteric and splenic veins are patent. GI TRACT: No bowel dilation or evidence of obstruction. There is moderate circumferential wall t hickening involving the distal transverse colon extending through the descendi ng and proximal sigmoid colon (for example coronal image 7 and sagittal images 67-87), with prominence of the vasa recti and mild surrounding stranding. Mild wall thickening is also noted in the cecum. No foci of extraluminal air or adjacent well-defined fluid collections. Appendix is well identified and norm al in caliber. Small bowel is grossly unremarkable. BONES AND SOFT TISSUE : No aggressive lytic lesions. Degenerative changes in the lumbosacral spine with rightward curvature. Soft tissues are grossly unremarkable. IMPRESSI ON: 1. Findings likely represent active inflammatory bowel disease/Crohn's flareup, involving the distal transverse colon, descending colon and proximal sigmoid colon, and the cecum, to lesser degree. An infectious colitis is less likely given the discontinuous nature of the findings. No evidence of perfora tion or abscess formation. Signed by: Dr. Facundo Suh M.D. on 02/27/2017 6:21 PM Dictated By: FACUNDO SUH MD 20 Transcribed By: CARMEN on 12/28/171820 COPY TO: SADIE MARINELLI MD CHEST SINGLE (PORTABLE)2017-12-28 16:02:00 [place] [address] Patient Name: SHENG WESLEY MR #: [id number] : 1945 Age/Sex: 72/F Req #: [id number] Adm Physician: Ordered by: SADIE MARINELLI MD Report #: [id number] Location: ER Room/Bed: Procedure: [id number] DX /CHEST SINGLE (PORTABLE) Exam Date: 12/28/17 Exam Ti me: 1550 REPORT STATUS: Signed E xamination: Single AP view of the chest. COMPARISON: None. INDICATION: Abdominal pain for 4 days IMPRESSION: 1. Lines and Tubes: Left upper chest dual lead cardiac device, with distal tips projecting in the right atrium and right ventricle. 2. Lungs are well inflated. Minimal prominence of the interstitium bilaterally, which may reflect chronic interstitial changes. No consolidation or pleural effusion. 3. Mild prominence of the cardiac s ilhouette, which may be partly due to AP projection. Pulmonary vasculature i s normal. 4. No acute bony abnormalities. Mild osteopenia. Signed by: Dr Dilan Suh M.D. on 12/28/2017 4:03 PM Dictated By: FACUNDO MENDOZA MD 02 Transcribed By: CARMEN on 12/28/171602 COPY TO: SADIE MARINELLI MD FUNGUS CULTURE + [id number] 13:54:00* Test Item Value Reference Range Comments CULTURE (BEAKER) (test lrpp=7591) No fungus isolated in 28 days FUNGUS SMEAR (BEAKER) (test zbuf=6929) No fungi seen STOOL CULTURE + SHIGA [id number] 10:04:00* Test Item Value Reference Range Comments CULTURE (BEAKER) (test ppfm=0239) No Salmonella, Shigella or Campylobacter isolated SPIN/CONCENTRATION [id number] 02:08:00* Test Item Value Reference Range Comments CONCENTRATION CHARGED (BEAKER) (test hjej=1620) Done CBC W/PLT COUNT & AUTO [id number] 13:22:00* Test Item Value Reference Range Comments WHITE BLOOD CELL COUNT (BEAKER) (test thky=093) 7.3 K/ L 3.5-10.5 RED BLOOD CELL COUNT (BEAKER) (test saif=197) 3.44 M/ L 3.93-5.22 HEMOGLOBIN (BEAKER) (test coty=323) 8.6 GM/DL 11.2-15.7 HEMATOCRIT (BEAKER) (test tebd=394) 28.5 % 34.1-44.9 MEAN CORPUSCULAR VOLUME (BEAKER) (test mqmy=691) 82.8 fL 79.4-94.8 MEAN CORPUSCULAR HEMOGLOBIN (BEAKER) (test deor=728) 25.0 pg 25.6-32.2 MEAN CORPUSCULAR HEMOGLOBIN CONC (BEAKER) (test ljrp=689) 30.2 GM/DL 32.2-35.5 RED CELL DISTRIBUTION WIDTH (BEAKER) (test nywn=068) 16.3 % 11.7-14.4 PLATELET COUNT (BEAKER) (test qxak=992) 451 K/CU MM 150-450 MEAN PLATELET VOLUME (BEAKER) (test cazx=614) 9.0 fL 9.4-12.3 NUCLEATED RED BLOOD CELLS (BEAKER) (test cjqw=584) 0 /100 WBC 0-0 (CELLAVISION MANUAL DIFF)2017-11-25 13:22:00* Test Item Value Reference Range Comments NEUTROPHILS - REL (CELLAVISION)(BEAKER) (test rbzr=7754) 43 % LYMPHOCYTES - REL (CELLAVISION)(BEAKER) (test kkuj=7592) 21 % MONOCYTES - REL (CELLAVISION)(BEAKER) (test vhkr=8021) 3 % EOSINOPHILS - REL (CELLAVISION)(BEAKER) (test aztg=0838) 4 % BASOPHILS - REL (CELLAVISION)(BEAKER) (test eswp=7829) 1 % BANDS - REL (CELLAVISION)(BEAKER) (test chdd=8950) 29 % 0-10 NEUTROPHILS - ABS (CELLAVISION)(BEAKER) (test ycbl=5385) 3.14 K/ul 1.56-6.13 LYMPHOCYTES - ABS (CELLAVISION)(BEAKER) (test jpmh=8167) 1.53 K/ul 1.18-3.74 MONOCYTES - ABS (CELLAVISION)(BEAKER) (test wghl=6250) 0.22 K/uL 0.24-0.36 EOSINOPHILS - ABS (CELLAVISION)(BEAKER) (test wstr=2690) 0.29 K/uL 0.04-0.36 BASOPHILS - ABS (CELLAVISION)(BEAKER) (test nnhz=7501) 0.07 K/uL 0.01-0.08 BANDS - ABS (CELLAVISION)(BEAKER) (test wdva=3121) 2.12 K/uL 0.00-0.80 TOTAL COUNTED (BEAKER) (test sxkl=8779) 100 WBC MORPHOLOGY (BEAKER) (test immg=375) Normal GIANT PLATELETS (BEAKER) (test wcnz=994) Present LARGE PLT(BEAKER) (test cmbz=2432) Present HYPOCHROMIA (BEAKER) (test tnru=570) 2+ moderate ANISOCYTOSIS (BEAKER) (test xvzr=006) 2+ moderate MICROCYTES (BEAKER) (test tzhh=545) 1+ few MACROCYTES (BEAKER) (test bscz=882) 2+ moderate POIKILOCYTES (BEAKER) (test kuth=790) 1+ few OVALOCYTES (BEAKER) (test wqiz=969) 1+ few TEAR DROP CELLS (BEAKER) (test xjcc=503) 1+ few ACANTHOCYTES (BEAKER) (test wmmt=075) 1+ few ARTIFACT (CELLAVISION)(BEAKER) (test kpsk=1377) Present PLATELET CONCENTRATION (CELLAVISION)(BEAKER) (test lnlm=4133) Adequate Received comment: User comments: Slide comments: POCT-GLUCOSE [id number] 12:49:00* Test Item Value Reference Range Comments POC-GLUCOSE METER (BEAKER) (test leal=1271) 143 mg/dL 70-110 TESTED AT [place] [id number] [facility] [address] SPUTUM CULTURE + GRAM [id number] 11:31:00* Test Item Value Reference Range Comments CULTURE (BEAKER) (test taiv=7438) 4+ Normal respiratory thony present GRAM STAIN RESULT (BEAKER) (test wsxu=9542) 3+ WBCs GRAM STAIN RESULT (BEAKER) (test vyhm=456885) 5-10 epithelial cells GRAM STAIN RESULT (BEAKER) (test wotp=879665) No organisms seen POCT-GLUCOSE [id number] 08:28:00* Test Item Value Reference Range Comments POC-GLUCOSE METER (BEAKER) (test fpnn=7933) 158 mg/dL 70-110 TESTED AT [address] [address] [id number] 07:04:00* Test Item Value Reference Range Comments MAGNESIUM (BEAKER) (test qjiw=664) 2.0 mg/dL 1.6-2.6 BASIC METABOLIC [id number] 07:04:00* Test Item Value Reference Range Comments SODIUM (BEAKER) (test inzo=954) 137 meq/L 136-145 POTASSIUM (BEAKER) (test krvk=342) 4.1 meq/L 3.5-5.1 CHLORIDE (BEAKER) (test tuav=913) 110 meq/L 98-107 CO2 (BEAKER) (test tdwc=019) 20 meq/L 22-29 BLOOD UREA NITROGEN (BEAKER) (test lxfv=058) 3 mg/dL 7-21 CREATININE (BEAKER) (test wwhs=524) 0.66 mg/dL 0.57-1.25 GLUCOSE RANDOM (BEAKER) (test bmkm=145) 114 mg/dL 70-105 CALCIUM (BEAKER) (test qyrg=075) 8.3 mg/dL 8.4-10.2 EGFR (YAMIL) (test gtnf=5965) 88 mL/min/1.73 sq m ESTIMATED GFR IS NOT ACCURATE CREATININE CLEARANCE IN PREDICTING GLOMERULAR FILTRATION RATE. ESTIMATED GFR IS NOT APPLICABLE FOR DIALYSIS PATIENTS. GI PATHOGEN PROFILE BY [id number] 06:17:00* Test Item Value Reference Range Comments CAMPYLOBACTER (PCR) (test emtx=9249372) Not detected Not detected PLESIOMONAS SHIGELLOIDES (PCR) (test czry=5023402) Not detected Not detected SALMONELLA (PCR) (test zlpl=5538563) Not detected Not detected YERSINIA ENTEROCOLITICA (PCR) (test lpte=4645961) Not detected Not detected VIBRIO CHOLERAE (PCR) (test hvoc=7017278) Not detected Not detected ENTEROAGGREGATIVE E. COLI (EAEC) BY PCR (test zfsr=1340127) Not detected Not detected ENTEROPATHOGENIC E. COLI (EPEC) BY PCR (test glxl=4021045) Not detected Not detected ENTEROTOXIGENIC E. COLI (ETEC) LT/ST BY PCR (test udzv=5412539) Not detected Not detected SHIGA-LIKE TOXIN-PRODUCING E. COLI (STEC) STX1/STX2 (test ympo=1703089) Not detected Not detected E. COLI O157 (PCR) (test spha=6782605) Not detected SHIGELLA/ENTEROINVASIVE E. COLI (EIEC) BY PCR (test zpow=5726734) Not detected Not detected CRYPTOSPORIDIUM (PCR) (test evoc=9490255) Not detected Not detected CYCLOSPORA CAYETANENSIS (PCR) (test uvep=4585007) Not detected Not detected ENTAMOEBA HISTOLYTICA (PCR) (test ruor=9631189) Not detected Not detected GIARDIA LAMBLIA (PCR) (test oxxb=9102519) Not detected Not detected ADENOVIRUS F 40/41 (PCR) (test gsms=0726022) Not detected Not detected ASTROVIRUS (PCR) (test sscl=0533777) Not detected Not detected NOROVIRUS GI/GII (PCR) (test cvnc=6670046) Not detected Not detected ROTAVIRUS A (PCR) (test xmwv=6239571) Not detected Not detected SAPOVIRUS (I, II, IV, V) BY PCR (test sghp=7754591) Not detected Not detected VIBRIO (PARAHAEMOLYTICUS, VULNIFICUS) (test kkin=8857856) Not detected Not detected Other viruses, parasites and bacteria not targeted by this PCR panel cannot be e xcluded; therefore clinical correlation and follow up of serology, culture resul ts, and other molecular studies is required. The results are not intended to be used as the sole means for clinical diagnosis or patient management decisions. T his sample was tested at the [facility] Molecular Diagnostics Laboratory using the [facility] Gastrointestinal Panel. It is FDA cleared and has been verified and approved by the [facility] Molecular Diagnostics Laboratory for clinical use. Thi s laboratory is CLIA-certified and [employer] ([employer])-accred ited to perform high complexity testing.POCT-GLUCOSE [id number] 21:31:00* Test Item Value Reference Range Comments POC-GLUCOSE METER (BEAKER) (test rese=1617) 135 mg/dL 70-110 TESTED AT [facility] [address] [facility] [address] CT, CHEST, WITH HIGH RESOLUTION, INTERSTITAL LUNG [id number] 20:51:00 Reason for exam:->evaluate bronchiectasis / ABPA / NTMFINAL REPORT CLINICAL INDICATION: Sputum cultures positive for [...] is no evidence of air trapping. Pleural ef fusion: None. Pneumothorax: None. Tracheobronchial tree: No bronchiectasis is id entified. There is no significant peribronchial thickening. No endobronchial opa cification is noted. Pulmonary vasculature: No significant findings. Cardiac con tours and great vessels: Atherosclerotic calcification of the aorta. Left subcla vian ICD. Mediastinum: No significant findings. Lymph Nodes: No adenopathy in th e mediastinum or jared. Skeleton: No acute abnormality. Other: Status post right mastectomy and right breast reconstruction with right axillary lymph node dissec tion. Limited images of upper abdomen: No significant findings. IMPRESSION: No a cute or active cardiopulmonary abnormality. Specifically, no CT evidence of pulm onary fibrosis, bronchiectasis, air trapping or significant nodularity. Signed: Óscar Harris MDReport Verified Date/Time: 11/24/2017 20:51:25 Reading Location : [address] Reading Room -GLUCOSE [id number] 15:41:00* Test Item Value Reference Range Comments POC-GLUCOSE METER (BEAKER) (test ijji=7528) 173 mg/dL 70-110 TESTED AT [address] [address] POCT-GLUCOSE [id number] 12:24:00* Test Item Value Reference Range Comments POC-GLUCOSE METER (BEAKER) (test vqsq=9490) 144 mg/dL 70-110 TESTED AT [address] [address] POCT-GLUCOSE [id number] 08:17:00* Test Item Value Reference Range Comments POC-GLUCOSE METER (BEAKER) (test cthr=9203) 142 mg/dL 70-110 TESTED AT [address] [address] BASIC METABOLIC [id number] 08:00:00* Test Item Value Reference Range Comments SODIUM (BEAKER) (test fzci=432) 133 meq/L 136-145 POTASSIUM (BEAKER) (test uklh=802) 3.5 meq/L 3.5-5.1 CHLORIDE (BEAKER) (test zzvs=570) 105 meq/L 98-107 CO2 (BEAKER) (test jiyn=691) 22 meq/L 22-29 BLOOD UREA NITROGEN (BEAKER) (test iyoo=435) 2 mg/dL 7-21 CREATININE (BEAKER) (test jddp=151) 0.69 mg/dL 0.57-1.25 GLUCOSE RANDOM (BEAKER) (test frkh=119) 126 mg/dL 70-105 CALCIUM (BEAKER) (test hkxb=526) 8.7 mg/dL 8.4-10.2 EGFR (BEAKER) (test kplj=1769) 84 mL/min/1.73 sq m ESTIMATED GFR IS NOT ACCURATE CREATININE CLEARANCE IN PREDICTING GLOMERULAR FILTRATION RATE. ESTIMATED GFR IS NOT APPLICABLE FOR DIALYSIS PATIENTS. [id number] 07:55:00* Test Item Value Reference Range Comments MAGNESIUM (BEAKER) (test cmyt=252) 1.4 mg/dL 1.6-2.6 CBC W/PLT COUNT & AUTO [id number] 07:06:00* Test Item Value Reference Range Comments WHITE BLOOD CELL COUNT (BEAKER) (test efby=931) 7.7 K/ L 3.5-10.5 RED BLOOD CELL COUNT (BEAKER) (test kjet=447) 3.86 M/ L 3.93-5.22 HEMOGLOBIN (BEAKER) (test bqvo=093) 9.6 GM/DL 11.2-15.7 HEMATOCRIT (BEAKER) (test ujhc=804) 31.9 % 34.1-44.9 MEAN CORPUSCULAR VOLUME (BEAKER) (test hfhu=616) 82.6 fL 79.4-94.8 MEAN CORPUSCULAR HEMOGLOBIN (BEAKER) (test adgh=065) 24.9 pg 25.6-32.2 MEAN CORPUSCULAR HEMOGLOBIN CONC (BEAKER) (test vrph=451) 30.1 GM/DL 32.2-35.5 RED CELL DISTRIBUTION WIDTH (BEAKER) (test ysiq=256) 16.2 % 11.7-14.4 PLATELET COUNT (BEAKER) (test xuss=602) 539 K/CU MM 150-450 MEAN PLATELET VOLUME (BEAKER) (test rauf=020) 8.6 fL 9.4-12.3 NUCLEATED RED BLOOD CELLS (BEAKER) (test hloy=503) 0 /100 WBC 0-0 NEUTROPHILS RELATIVE PERCENT (BEAKER) (test xlhg=982) 50 % LYMPHOCYTES RELATIVE PERCENT (BEAKER) (test rsys=570) 33 % MONOCYTES RELATIVE PERCENT (BEAKER) (test uwbv=919) 8 % EOSINOPHILS RELATIVE PERCENT (BEAKER) (test yrwv=718) 7 % BASOPHILS RELATIVE PERCENT (BEAKER) (test wbys=980) 1 % NEUTROPHILS ABSOLUTE COUNT (BEAKER) (test rqnr=899) 3.83 K/ L 1.56-6.13 LYMPHOCYTES ABSOLUTE COUNT (BEAKER) (test qcyk=515) 2.57 K/ L 1.18-3.74 MONOCYTES ABSOLUTE COUNT (BEAKER) (test jpfw=059) 0.64 K/ L 0.24-0.36 EOSINOPHILS ABSOLUTE COUNT (BEAKER) (test awha=093) 0.57 K/ L 0.04-0.36 BASOPHILS ABSOLUTE COUNT (BEAKER) (test mohc=601) 0.09 K/ L 0.01-0.08 IMMATURE GRANULOCYTES-RELATIVE PERCENT (BEAKER) (test kjmm=0777) 0 % 0-1 POCT-GLUCOSE [id number] 21:19:00* Test Item Value Reference Range Comments POC-GLUCOSE METER (BEAKER) (test eicl=9838) 162 mg/dL 70-110 TESTED AT [place] [address] POCT-GLUCOSE [id number] 17:57:00* Test Item Value Reference Range Comments POC-GLUCOSE METER (BEAKER) (test pjdf=9050) 160 mg/dL 70-110 TESTED AT [place] [address] STOOL CULTURE + SHIGA [id number] 12:11:00* Test Item Value Reference Range Comments CULTURE (BEAKER) (test pvql=5634) No Salmonella, Shigella or Campylobacter isolated HEPATIC FUNCTION [id number] 06:59:00* Test Item Value Reference Range Comments TOTAL PROTEIN (BEAKER) (test djkw=994) 6.2 gm/dL 6.0-8.3 Specimen slightly hemolyzed ALBUMIN (BEAKER) (test kyso=0251) 2.8 g/dL 3.5-5.0 Specimen slightly hemolyzed BILIRUBIN TOTAL (BEAKER) (test gtih=947) 0.3 mg/dL 0.2-1.2 Specimen slightly hemolyzed BILIRUBIN DIRECT (BEAKER) (test upvv=151) 0.1 mg/dL 0.1-0.5 Specimen slightly hemolyzed ALKALINE PHOSPHATASE (BEAKER) (test bvtb=394) 68 U/L 40-150 AST (SGOT) (BEAKER) (test lsrb=471) 12 U/L 5-34 Specimen slightly hemolyzed ALT (SGPT) (BEAKER) (test mpqd=982) < U/L 6-55 Specimen slightly hemolyzed [id number] 06:48:00* Test Item Value Reference Range Comments MAGNESIUM (BEAKER) (test swcs=878) 1.6 mg/dL 1.6-2.6 Specimen slightly hemolyzed [id number] 06:48:00* Test Item Value Reference Range Comments PHOSPHORUS (BEAKER) (test iqxy=361) 3.0 mg/dL 2.3-4.7 Specimen slightly hemolyzed BASIC METABOLIC [id number] 06:48:00* Test Item Value Reference Range Comments SODIUM (BEAKER) (test yigz=570) 141 meq/L 136-145 POTASSIUM (BEAKER) (test osim=312) 4.0 meq/L 3.5-5.1 Specimen slightly hemolyzed CHLORIDE (BEAKER) (test lbri=798) 116 meq/L 98-107 CO2 (BEAKER) (test djzy=493) 19 meq/L 22-29 BLOOD UREA NITROGEN (BEAKER) (test nuuz=296) 2 mg/dL 7-21 CREATININE (BEAKER) (test qaky=423) 0.58 mg/dL 0.57-1.25 Specimen slightly hemolyzed GLUCOSE RANDOM (BEAKER) (test beeh=446) 75 mg/dL 70-105 CALCIUM (BEAKER) (test jyiq=086) 8.5 mg/dL 8.4-10.2 EGFR (BEAKER) (test wykk=0483) 102 mL/min/1.73 sq m ESTIMATED GFR IS NOT ACCURATE CREATININE CLEARANCE IN PREDICTING GLOMERULAR FILTRATION RATE. ESTIMATED GFR IS NOT APPLICABLE FOR DIALYSIS PATIENTS. CBC W/PLT COUNT & AUTO [id number] 06:23:00* Test Item Value Reference Range Comments WHITE BLOOD CELL COUNT (BEAKER) (test uvqa=653) 5.8 K/ L 3.5-10.5 RED BLOOD CELL COUNT (BEAKER) (test nira=240) 3.79 M/ L 3.93-5.22 HEMOGLOBIN (BEAKER) (test unug=391) 9.5 GM/DL 11.2-15.7 HEMATOCRIT (BEAKER) (test tmnb=179) 32.0 % 34.1-44.9 MEAN CORPUSCULAR VOLUME (BEAKER) (test tmwr=850) 84.4 fL 79.4-94.8 MEAN CORPUSCULAR HEMOGLOBIN (BEAKER) (test kfjb=577) 25.1 pg 25.6-32.2 MEAN CORPUSCULAR HEMOGLOBIN CONC (BEAKER) (test ffhw=327) 29.7 GM/DL 32.2-35.5 RED CELL DISTRIBUTION WIDTH (BEAKER) (test rhmn=412) 16.2 % 11.7-14.4 PLATELET COUNT (BEAKER) (test avfj=260) 457 K/CU MM 150-450 MEAN PLATELET VOLUME (BEAKER) (test zpqv=626) 10.0 fL 9.4-12.3 NUCLEATED RED BLOOD CELLS (BEAKER) (test yagm=680) 0 /100 WBC 0-0 NEUTROPHILS RELATIVE PERCENT (BEAKER) (test bomg=817) 41 % LYMPHOCYTES RELATIVE PERCENT (BEAKER) (test nupm=277) 32 % MONOCYTES RELATIVE PERCENT (BEAKER) (test gzit=467) 10 % EOSINOPHILS RELATIVE PERCENT (BEAKER) (test npve=831) 16 % BASOPHILS RELATIVE PERCENT (BEAKER) (test efdv=442) 1 % NEUTROPHILS ABSOLUTE COUNT (BEAKER) (test nkai=990) 2.36 K/ L 1.56-6.13 LYMPHOCYTES ABSOLUTE COUNT (BEAKER) (test yzjo=519) 1.83 K/ L 1.18-3.74 MONOCYTES ABSOLUTE COUNT (BEAKER) (test vznd=991) 0.55 K/ L 0.24-0.36 EOSINOPHILS ABSOLUTE COUNT (BEAKER) (test qwwb=114) 0.92 K/ L 0.04-0.36 BASOPHILS ABSOLUTE COUNT (BEAKER) (test wjgb=819) 0.08 K/ L 0.01-0.08 IMMATURE GRANULOCYTES-RELATIVE PERCENT (BEAKER) (test uhnd=6746) 0 % 0-1 POCT-GLUCOSE [id number] 21:26:00* Test Item Value Reference Range Comments POC-GLUCOSE METER (BEAKER) (test qrqg=0972) 156 mg/dL 70-110 TESTED AT [facility] [address] [facility] [address] CMV PCR, [id number] 15:51:00* Test Item Value Reference Range Comments CMV VIRAL LOAD - NEGATIVE (BEAKER) (test wyng=6835) Negative or below the linear range of the assay (<375 copies/mL) Cytomegalovirus (CMV) infection can cause significant disease in immunosuppresse d patients. However, it is common for CMV to manifest as a limited infection whi ch is of no clinical significance in immunosuppressed patients or in healthy ind ividuals.Viral load measurements are helpful to identify clinical CMV infection and to guide the pre-emptive management of antiviral therapy. For treatment of CMV infection due to reactivation in transplant recipients, a threshold between 4,000 and 5,000 copies/mL is suggested. For treatment of primary CMV infection, a lower threshold can be used.CMV infection may also be monitored using weekly serial measurements. Serial measurements of CMV DNA viral load can be evaluated by identifying a 10-fold change, as well as assessing the CMV DNA viral load and the clinical context for each patient.The plasma CMV DNA viral load was detected using quantitative polymerase chain reaction and fluorescent monitoring of a s [employer] hybridized probe. Genetic variation and other factors can affect the acc uracy of nucleic acid testing. Therefore, the results should be interpreted in l ight of clinical data. A negative result may not exclude the presence of CMV dis ease.This test was developed and its performance characteristics determined by [facility] Pathology Department, Section of Molecular Patholog y. It has not been cleared or approved by the U.S. Food and Drug Administration (FDA), since FDA approval is not required for clinical use of the test. Validati on was done as required by The Clinical Laboratory Improvement Amendments of 198 8.POCT-GLUCOSE [id number] 15:06:00* Test Item Value Reference Range Comments POC-GLUCOSE METER (BEAKER) (test vieq=7799) 167 mg/dL 70-110 TESTED AT [place] [id number] SHIGA TOXIN [id number] 14:16:00* Test Item Value Reference Range Comments SHIGA TOXIN 1 (BEAKER) (test wscx=8245) Not detected Not detected SHIGA TOXIN 2 (BEAKER) (test ovwg=0344) Not detected Not detected POCT-GLUCOSE [id number] 11:17:00* Test Item Value Reference Range Comments POC-GLUCOSE METER (BEAKER) (test zzps=6201) 101 mg/dL 70-110 TESTED AT [facility] [address] [facility] [address] STOOL PATH [id number] 10:05:00* Test Item Value Reference Range Comments PATHOGEN EXAM CHARGED (BEAKER) (test ophw=8503) Done STOOL PATH [id number] 09:46:00* Test Item Value Reference Range Comments PATHOGEN EXAM CHARGED (BEAKER) (test coze=1386) Done POCT-GLUCOSE [id number] 08:20:00* Test Item Value Reference Range Comments POC-GLUCOSE METER (BEAKER) (test redn=6058) 119 mg/dL 70-110 TESTED AT [facility] [address] [facility] [address] [id number] 05:13:00* Test Item Value Reference Range Comments PHOSPHORUS (BEAKER) (test uunv=810) 3.0 mg/dL 2.3-4.7 [id number] 05:13:00* Test Item Value Reference Range Comments MAGNESIUM (BEAKER) (test vfls=732) 1.6 mg/dL 1.6-2.6 BASIC METABOLIC [id number] 05:13:00* Test Item Value Reference Range Comments SODIUM (BEAKER) (test tmza=463) 137 meq/L 136-145 POTASSIUM (BEAKER) (test zatx=178) 3.7 meq/L 3.5-5.1 CHLORIDE (BEAKER) (test trnl=295) 113 meq/L 98-107 CO2 (BEAKER) (test fott=561) 17 meq/L 22-29 BLOOD UREA NITROGEN (BEAKER) (test dkov=987) 3 mg/dL 7-21 CREATININE (BEAKER) (test xshk=594) 0.60 mg/dL 0.57-1.25 GLUCOSE RANDOM (BEAKER) (test saqz=539) 74 mg/dL 70-105 CALCIUM (BEAKER) (test bnzp=877) 8.2 mg/dL 8.4-10.2 EGFR (BEAKER) (test tzxx=8629) 99 mL/min/1.73 sq m ESTIMATED GFR IS NOT ACCURATE CREATININE CLEARANCE IN PREDICTING GLOMERULAR FILTRATION RATE. ESTIMATED GFR IS NOT APPLICABLE FOR DIALYSIS PATIENTS. HEPATIC FUNCTION [id number] 05:13:00* Test Item Value Reference Range Comments TOTAL PROTEIN (BEAKER) (test vjhc=005) 6.2 gm/dL 6.0-8.3 ALBUMIN (BEAKER) (test oqgl=7043) 2.8 g/dL 3.5-5.0 BILIRUBIN TOTAL (BEAKER) (test gpud=869) 0.3 mg/dL 0.2-1.2 BILIRUBIN DIRECT (BEAKER) (test pxrn=884) 0.1 mg/dL 0.1-0.5 ALKALINE PHOSPHATASE (BEAKER) (test gtgh=147) 73 U/L 40-150 AST (SGOT) (BEAKER) (test mjce=143) 9 U/L 5-34 ALT (SGPT) (BEAKER) (test hzwg=558) < U/L 6-55 CBC W/PLT COUNT & AUTO [id number] 04:54:00* Test Item Value Reference Range Comments WHITE BLOOD CELL COUNT (BEAKER) (test nqqv=811) 6.6 K/ L 3.5-10.5 RED BLOOD CELL COUNT (BEAKER) (test ahkx=845) 3.70 M/ L 3.93-5.22 HEMOGLOBIN (BEAKER) (test rgke=053) 9.2 GM/DL 11.2-15.7 HEMATOCRIT (BEAKER) (test eogc=692) 31.1 % 34.1-44.9 MEAN CORPUSCULAR VOLUME (BEAKER) (test wzzn=549) 84.1 fL 79.4-94.8 MEAN CORPUSCULAR HEMOGLOBIN (BEAKER) (test fjsn=287) 24.9 pg 25.6-32.2 MEAN CORPUSCULAR HEMOGLOBIN CONC (BEAKER) (test jmpj=775) 29.6 GM/DL 32.2-35.5 RED CELL DISTRIBUTION WIDTH (BEAKER) (test vtoc=415) 15.9 % 11.7-14.4 PLATELET COUNT (BEAKER) (test jqex=836) 500 K/CU MM 150-450 MEAN PLATELET VOLUME (BEAKER) (test vctw=789) 8.9 fL 9.4-12.3 NUCLEATED RED BLOOD CELLS (BEAKER) (test crym=199) 0 /100 WBC 0-0 NEUTROPHILS RELATIVE PERCENT (BEAKER) (test cjlt=389) 53 % LYMPHOCYTES RELATIVE PERCENT (BEAKER) (test lneu=878) 25 % MONOCYTES RELATIVE PERCENT (BEAKER) (test qqzr=201) 9 % EOSINOPHILS RELATIVE PERCENT (BEAKER) (test npvd=537) 11 % BASOPHILS RELATIVE PERCENT (BEAKER) (test lcev=890) 2 % NEUTROPHILS ABSOLUTE COUNT (BEAKER) (test hjwc=739) 3.49 K/ L 1.56-6.13 LYMPHOCYTES ABSOLUTE COUNT (BEAKER) (test iwmw=057) 1.64 K/ L 1.18-3.74 MONOCYTES ABSOLUTE COUNT (BEAKER) (test newd=855) 0.60 K/ L 0.24-0.36 EOSINOPHILS ABSOLUTE COUNT (BEAKER) (test rlgh=947) 0.73 K/ L 0.04-0.36 BASOPHILS ABSOLUTE COUNT (BEAKER) (test ibsr=623) 0.11 K/ L 0.01-0.08 IMMATURE GRANULOCYTES-RELATIVE PERCENT (BEAKER) (test vuje=6283) 0 % 0-1 POCT-GLUCOSE [id number] 18:06:00* Test Item Value Reference Range Comments POC-GLUCOSE METER (BEAKER) (test zbpm=6711) 111 mg/dL 70-110 TESTED AT [facility] [address] [facility] [address] C. DIFFICILE GDH [id number] 10:53:00* Test Item Value Reference Range Comments CDT TOXIN (test ubuu=[id number]) Negative Negative CDT GDH ANTIGEN (test llaa=[id number]) Negative Negative No indication of Clostridium difficile infection and no colonization. Discontinue enteric isolation and therapy. Testing performed by [employer] Rapid Cassette Assay. For GDH, published sensitivity of the assay is 98.7% compared to cytotoxicity testing. For Toxin AB, published sensitivity is 87.8% and specificity 99.4% compared to cytotoxicity testing.Ve rification of kit performance was done by the [facility] Microbiology Lab prior to cl inical use.TSH/FREE T4 IF [id number] 10:23:00* Test Item Value Reference Range Comments THYROID STIMULATING HORMONE (BEAKER) (test iqum=737) 3.52 uIU/mL 0.35-4.94 [id number] 10:17:00* Test Item Value Reference Range Comments PHOSPHORUS (BEAKER) (test jmel=642) 3.1 mg/dL 2.3-4.7 [id number] 10:17:00* Test Item Value Reference Range Comments MAGNESIUM (BEAKER) (test rrey=566) 2.1 mg/dL 1.6-2.6 BASIC METABOLIC [id number] 10:17:00* Test Item Value Reference Range Comments SODIUM (BEAKER) (test ukqo=034) 135 meq/L 136-145 POTASSIUM (BEAKER) (test gnlr=989) 3.7 meq/L 3.5-5.1 CHLORIDE (BEAKER) (test pyps=809) 109 meq/L 98-107 CO2 (BEAKER) (test flsn=474) 21 meq/L 22-29 BLOOD UREA NITROGEN (BEAKER) (test btvc=044) 5 mg/dL 7-21 CREATININE (BEAKER) (test erft=258) 0.68 mg/dL 0.57-1.25 GLUCOSE RANDOM (BEAKER) (test csbr=181) 92 mg/dL 70-105 CALCIUM (BEAKER) (test ocut=485) 8.9 mg/dL 8.4-10.2 EGFR (BEAKER) (test izcy=2304) 85 mL/min/1.73 sq m ESTIMATED GFR IS NOT ACCURATE CREATININE CLEARANCE IN PREDICTING GLOMERULAR FILTRATION RATE. ESTIMATED GFR IS NOT APPLICABLE FOR DIALYSIS PATIENTS. LIPID [id number] 10:17:00* Test Item Value Reference Range Comments TRIGLYCERIDES (BEAKER) (test vvuo=607) 71 mg/dL CHOLESTEROL (BEAKER) (test xxns=486) 131 mg/dL HDL CHOLESTEROL (BEAKER) (test kaka=646) 55 mg/dL LDL CHOLESTEROL CALCULATED (BEAKER) (test cvey=525) 62 mg/dL Triglyceride Reference Range: Low Risk <150 Borderline 150-199 High Risk 200-499 Very High Risk >=500Cholesterol Reference Range: Low Risk <200 Borderline 200-239 High Risk >240HDL Cholesterol Reference Range: Low Risk >=60 High Risk <40LDL Cholesterol Reference Range: Optimal <100 Near Optimal 100-129 Borderline 130-159 High 160-189 Very High >=190 HEPATIC FUNCTION [id number] 10:17:00* Test Item Value Reference Range Comments TOTAL PROTEIN (BEAKER) (test fvuh=439) 7.7 gm/dL 6.0-8.3 ALBUMIN (BEAKER) (test kakq=2956) 3.5 g/dL 3.5-5.0 BILIRUBIN TOTAL (BEAKER) (test wjgl=675) 0.4 mg/dL 0.2-1.2 BILIRUBIN DIRECT (BEAKER) (test tdtu=721) 0.2 mg/dL 0.1-0.5 ALKALINE PHOSPHATASE (BEAKER) (test ljph=715) 89 U/L 40-150 AST (SGOT) (BEAKER) (test orhe=032) 10 U/L 5-34 ALT (SGPT) (BEAKER) (test avfp=558) 6 U/L 6-55 C-REACTIVE [id number] 10:17:00* Test Item Value Reference Range Comments C-REACTIVE PROTEIN (YAMIL) (test dmpi=030) 3.20 mg/dL 0.00-0.50 HEMOGLOBIN [id number] 08:34:00* Test Item Value Reference Range Comments HEMOGLOBIN A1C (OSMELAKER) (test nyxf=384) 5.8 % 4.3-6.1 CT, [id number] 23:52:00FINAL REPORT CT, ABDOMEN \\T\\ PELVIS, WITH IV CONTRAST INDICATION: IBD, worsening diarrhea and pain COMPARISON: None TECHNIQUE:Post contrast abdomen and pelvis CT. Coronal and sagittal reformatted images obtained. DOSE REDUCTION: Dose modulation, iterative reconstruction, and/or weight-based adjustment of the mA/kV was utilized to reduce the radiation dose to as low as reasonably achievable. FINDINGS: Lower thorax: Visible airspaces clear. No effusion. Liver: No parenchymal abnormality.Gallbladder and biliary tree: Prior cholecystectomy. Mild central biliary ductal prominence.Pancreas: No acute findings.Spleen: No acute findingsAdrenal Glands: No acute findings.Kidneys and ureters: No hy dronephrosis or nephrolithiasis.Bladder and reproductive organs: Unremarkable. S tomach and Duodenum: No significant findings.Small and large intestine: Small soledad wel caliber is normal. Mural thickening is noted to affecting nearly the entire colon. No pneumatosis is present.Appendix: The appendix is not identified. No pe ricecal inflammatory changes are present. Major vascular structures: Normal aort ic caliber.Peritoneum and retroperitoneum: No free air, fluid or adenopathy. Skeleton: Shallow dextroconvex scoliosis of the thoracolumbar spine with associ ated endplate degenerative changes.Additional findings: None. IMPRESSION: Mural thickening throughout the colon compatible with provided history of inflammatory bowel disease. No pneumatosis or bowel obstruction. Signed: JR Parikh [facility] Verified Date/Time: 11/20/2017 23:52:19 Reading Location: [address] Reading Room ALYSIS W/ [id number] 23:38:00* Test Item Value Reference Range Comments COLOR (BEAKER) (test jkxe=987) Colorless CLARITY (BEAKER) (test jbal=530) Clear SPECIFIC GRAVITY UA (BEAKER) (test vqlw=451) 1.003 1.001-1.035 PH UA (BEAKER) (test ywvz=777) 5.0 5.0-8.0 PROTEIN UA (BEAKER) (test ggwp=173) Negative Negative GLUCOSE UA (BEAKER) (test ynis=433) Negative Negative KETONES UA (BEAKER) (test qhir=578) Negative Negative BILIRUBIN UA (BEAKER) (test dvzy=830) Negative Negative BLOOD UA (BEAKER) (test jivo=106) Negative Negative NITRITE UA (BEAKER) (test cxls=116) Negative Negative LEUKOCYTE ESTERASE UA (BEAKER) (test rfqx=160) Negative Negative UROBILINOGEN UA (BEAKER) (test kell=952) 0.2 mg/dL 0.2-1.0 RBC UA (BEAKER) (test fywl=543) < /HPF WBC UA (BEAKER) (test guws=472) 1 /HPF BACTERIA (BEAKER) (test eluv=018) Rare MUCUS (BEAKER) (test wqkv=9436) Rare SQUAMOUS EPITHELIAL (BEAKER) (test kodg=739) < /HPF SOURCE(BEAKER) (test ztnj=4159) Urine, Voided [id number] 21:02:00* Test Item Value Reference Range Comments LIPASE (BEAKER) (test wjma=761) 67 U/L 8-78 [id number] 21:02:00* Test Item Value Reference Range Comments AMYLASE (BEAKER) (test xmjc=388) 133 U/L 25-125 BASIC METABOLIC [id number] 21:02:00* Test Item Value Reference Range Comments SODIUM (BEAKER) (test gilg=911) 131 meq/L 136-145 POTASSIUM (BEAKER) (test haed=140) 4.4 meq/L 3.5-5.1 CHLORIDE (BEAKER) (test mjvn=654) 103 meq/L 98-107 CO2 (BEAKER) (test kzgk=130) 20 meq/L 22-29 BLOOD UREA NITROGEN (BEAKER) (test kpmg=820) 11 mg/dL 7-21 CREATININE (BEAKER) (test dzhx=288) 0.71 mg/dL 0.57-1.25 GLUCOSE RANDOM (BEAKER) (test upoc=024) 101 mg/dL 70-105 CALCIUM (BEAKER) (test ybwi=584) 8.6 mg/dL 8.4-10.2 EGFR (BEAKER) (test uzub=8305) 81 mL/min/1.73 sq m ESTIMATED GFR IS NOT ACCURATE CREATININE CLEARANCE IN PREDICTING GLOMERULAR FILTRATION RATE. ESTIMATED GFR IS NOT APPLICABLE FOR DIALYSIS PATIENTS. HEPATIC FUNCTION [id number] 21:02:00* Test Item Value Reference Range Comments TOTAL PROTEIN (BEAKER) (test hmbu=199) 7.8 gm/dL 6.0-8.3 ALBUMIN (BEAKER) (test gqen=3349) 3.6 g/dL 3.5-5.0 BILIRUBIN TOTAL (BEAKER) (test yyay=459) 0.1 mg/dL 0.2-1.2 BILIRUBIN DIRECT (BEAKER) (test mlew=270) 0.1 mg/dL 0.1-0.5 ALKALINE PHOSPHATASE (BEAKER) (test sloj=065) 89 U/L 40-150 AST (SGOT) (BEAKER) (test shaj=364) 8 U/L 5-34 ALT (SGPT) (BEAKER) (test sugc=725) 6 U/L 6-55 CBC W/PLT COUNT & AUTO [id number] 20:49:00* Test Item Value Reference Range Comments WHITE BLOOD CELL COUNT (BEAKER) (test cypf=381) 8.2 K/ L 3.5-10.5 RED BLOOD CELL COUNT (BEAKER) (test rvdk=594) 3.98 M/ L 3.93-5.22 HEMOGLOBIN (BEAKER) (test npwe=433) 10.0 GM/DL 11.2-15.7 HEMATOCRIT (BEAKER) (test mosu=989) 32.6 % 34.1-44.9 MEAN CORPUSCULAR VOLUME (BEAKER) (test xrzx=173) 81.9 fL 79.4-94.8 MEAN CORPUSCULAR HEMOGLOBIN (BEAKER) (test prsg=113) 25.1 pg 25.6-32.2 MEAN CORPUSCULAR HEMOGLOBIN CONC (BEAKER) (test xjkj=786) 30.7 GM/DL 32.2-35.5 RED CELL DISTRIBUTION WIDTH (BEAKER) (test dptj=399) 15.4 % 11.7-14.4 PLATELET COUNT (BEAKER) (test cgzp=873) 618 K/CU MM 150-450 MEAN PLATELET VOLUME (BEAKER) (test xjad=645) 8.5 fL 9.4-12.3 NUCLEATED RED BLOOD CELLS (BEAKER) (test crry=845) 0 /100 WBC 0-0 NEUTROPHILS RELATIVE PERCENT (BEAKER) (test leuy=022) 50 % LYMPHOCYTES RELATIVE PERCENT (BEAKER) (test ibgr=361) 30 % MONOCYTES RELATIVE PERCENT (BEAKER) (test fbwu=354) 9 % EOSINOPHILS RELATIVE PERCENT (BEAKER) (test lcsn=132) 9 % BASOPHILS RELATIVE PERCENT (BEAKER) (test laak=599) 2 % NEUTROPHILS ABSOLUTE COUNT (BEAKER) (test jsaf=720) 4.06 K/ L 1.56-6.13 LYMPHOCYTES ABSOLUTE COUNT (BEAKER) (test jwvm=008) 2.46 K/ L 1.18-3.74 MONOCYTES ABSOLUTE COUNT (BEAKER) (test rgmk=962) 0.77 K/ L 0.24-0.36 EOSINOPHILS ABSOLUTE COUNT (BEAKER) (test qjzv=316) 0.71 K/ L 0.04-0.36 BASOPHILS ABSOLUTE COUNT (BEAKER) (test kwqx=740) 0.15 K/ L 0.01-0.08 IMMATURE GRANULOCYTES-RELATIVE PERCENT (BEAKER) (test mkte=5199) 0 % 0-1 CHEST SINGLE (PORTABLE)2017-08-01 08:26:00 [place] [address] Patient Name: SHENG WESLEY MR #: [id number] : 1945 Age/Sex: 72/F Req #: [id number] Adm Physician: Ordered by: EDITH GONZALEZ MD Report #: [id number] Location: ER Room/Bed: Procedure: [id number] DX/CHEST SINGLE (PORTABLE) Exam Date: 08/01/17 Exam Time: [address] ATUS: Signed PROCEDURE: CHEST SINGLE (PORTABLE) COMPARISON: Cervical spine radiographs 06/14/2016. INDICATIONS: SHORTNESS OF BREATH, WEAKNESS FINDING S: Interval placement of a left subclavian approach implantable cardiac device. The device body projects over the left midlung. The lungs are well-inflated and without focal consolidation, pleural effusion, or pneumotho rax. Tortuosity of the thoracic aorta with otherwise normal heart size. No ov ert pulmonary edema. No acute osseous abnormalities. 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 Surgical clips along the right chest wall and projecting over the right lower lung. Surgical clips projecting over the right upper quadrant of the abdomen likely related to prior cholecystectomy. CONCLUSION: No acute cardiopulmonary abno rmality. Dictated by: Saad Marin M.D. on 08/01/2017 at 8:26 Elect ronically approved by: Saad Marin M.D. on 08/01/2017 at 8:26 Dic tated By: SAAD MARIN MD 5 COPY TO: EDITH GONZALEZ MD TISSUE [id number] 17:39:00Surgical Pathology Report Case: [id number] Authorizing Provider: Twan Masters, Collected: 07/14/2017 Deja6 Ordering Location: [address] Received: 07/17/2017 0826 SERVICE Pathologist: Austin Chahal MD Specimens: A) - Antrum, greater curveture B) - Antrum, lesser curve C) - Stomach, incisura D) - Stomach, Body, greater curvture E) - Stomach, Body, lesser curveture F) - Large Intestine, Colon - Right/Ascending, random r/o cmv G) - Large Intestine, Colon - Left/Descending, random r/o cmv H) - Polyp, Colon - Sigmoid, pseudo polyp I) - Rectum, r/o cmv A. STOMACH, ANTRUM, GREATER CURVATURE, BIOPSY: - ANTRAL MUCOSA WITH CHRONIC INACTIVE GASTRITIS - NEGATIVE FOR HELICOBACTER PYLORI ORGANISMS - NEGATIVE FOR INTESTINAL METAPLASIA, DYSPLASIA, MALIGNANCYB. STOMACH, ANTRUM, LESSER CURVATURE, BIOPSY: - ANTRAL MUCOSA WITH ACUTE GASTRITIS AND INTESTINAL METAPLASIA - NEGATIVE FOR HELICOBACTER PYLORI ORGANISMS - NEGATIVE FOR DYSPLASIA, MALIGNANCYC. STOMACH, INCISURA, BIOPSY: - ANTRAL MUCOSA WITH CHRONIC INACTIVE GASTRITIS - NEGATIVE FOR HELICOBACTER PYLORI ORGANISMS - NEGATIVE FOR INTESTINAL METAPLASIA, DYSPLASIA, MALIGNANCYD. STOMACH, BODY, GREATER CURVATURE, BIOPSY: - OXYNTIC MUCOSA WITH NO SIGNIFICANT DIAGNOSTIC ABNORMALITY - NEGATIVE FOR HELICOBACTER PYLORI ORGANISMS - NEGATIVE FOR INTESTINAL METAPLASIA, DYSPLASIA, MALIGNANCYE. STOMACH, BODY, LESSER CURVATURE, BIOPSY: - OXYNTIC MUC VALERIO WITH NO SIGNIFICANT DIAGNOSTIC ABNORMALITY - NEGATIVE FOR HELICOBACTER PYLO RI ORGANISMS - NEGATIVE FOR INTESTINAL METAPLASIA, DYSPLASIA, MALIGNANCYF. COLO N, RIGHT/ASCENDING, RANDOM BIOPSIES: - MODERATE TO SEVERE CHRONIC ACTIVE COLIT IS - POSITIVE FOR RARE CMV - NEGATIVE FOR GRANULOMAS, DYSPLASIA, MALIGNANCYG . COLON, LEFT/DESCENDING, RANDOM BIOPSIES: - MODERATE TO SEVERE CHRONIC ACTIVE COLITIS - NEGATIVE FOR CMV - NEGATIVE FOR GRANULOMAS, DYSPLASIA, MALIGNANCY H. COLON, SIGMOID PSEUDOPOLYP, BIOPSY: - INFLAMMATORY PSEUDOPOLYP - POSITIVE F OR RARE CMV - NEGATIVE FOR GRANULOMAS, DYSPLASIA, MALIGNANCYI. RECTUM, BIOPSY: - MODERATE TO SEVERE CHRONIC ACTIVE PROCTITIS - NEGATIVE FOR CMV - NEGATIVE FOR GRANULOMAS, DYSPLASIA, MALIGNANCY Signing Pathologist Direct Phone Ellen e: [phone] signed by Austin Chahal MD on 07/20/2017 at 5:39 PMThe biopsies show diffuse chronic active colitis which correlates with the endoscopic impression of inflammation extending from cecum to rectum (see co lonoscopy report dated 07/14/17). The histologic findings are consistent with director of learning arlene inflammatory bowel disease. Rare CMV is identified by immunostain in right/a scending colon biopsies (specimen F). Around three viral inclusions were morphol ogically identified in the sigmoid inflammatory polyp (specimen H); however they are not present on the deeper level in the immunostain. Immunostain for CMV in the other colorectal biopsies (specimens G, I) are negative. Clinical and radio logic correlation is recommended.IDC: Dr. Ruth ulrich.[id number]'s disease, rule out CMV A. Antrum greater curvature biopsy. B. Antrum lesser curva ture biopsy. C. Incisura stomach biopsy. D. Stomach body greater curvature biops y. E. Stomach body lesser curvature biopsy. F. Random right/ascending colon biop sy. G. Random left/descending colon biopsy. H. Sigmoid pseudopolyp. I. Rectum bi opsySpecimen A: Received in formalin labeled "antrum", description "greater curv ature" are two fragments measuring 0.2 and 0.5 cm in greatest dimension. Specime n is entirely submitted in A1. Specimen B: Received in formalin labeled "antrum" , description "lesser curvature" are two fragments each measuring 0.2 cm in grea test dimension. Specimen is entirely submitted in B1.Specimen C: Received in for tiff labeled "stomach", description "incisura" is a single fragment measuring 0 .4 cm in greatest dimension. Specimen is entirely submitted in C1. Specimen D: R eceived in formalin labeled "stomach, body", description "greater curvature" are two fragments each measuring 0.3 cm in greatest dimension. Specimen is entirely submitted in D1.Specimen E: Received in formalin labeled "stomach, body", descr iption "lesser curvature" are two fragments each measuring 0.2 cm in greatest di mension. Specimen is entirely submitted in E1.Specimen F: Received in formalin l abeled "large intestine, colon right/ascending" are four fragments measuring 0.6 x 0.6 x 0.1 cm in aggregate. Specimen is entirely submitted in F1.Specimen G: R eceived in formalin labeled "large intestine, colon left/descending" are three f ragments measuring 0.6 x 0.5 x 0.1 cm in aggregate. Specimen is entirely submitt ed in G1.Specimen H: Received in formalin labeled "polyp, colon sigmoid", descri ption "pseudopolyp" is a single fragment measuring 0.2 cm in greatest dimension. Specimen is entirely submitted in H1.Specimen I: Received in formalin labeled " rectum" are three fragments measuring 0.6 x 0.6 x 0.1 cm in aggregate. Specimen is entirely submitted in I1. DB/Leeanne-E. Immunostains for H.pylori are examined.F- I. Section shows multiple fragments of colonic mucosa, all of which are relative ly uniformly involved by moderate to severe active inflammation characterized by cryptitis, crypt abscesses and focal surface erosions. Features of chronicity s uch as basal plasmacytosis and occasional crypt branching are seen. No definite paneth cell metaplasia is seen in the left colon biopsies. No granulomas are maya dent. Viral cytopathic changes are seen histologically in the sigmoid pseudopoly p.The following special studies were performed on this case and the interpretati on is incorporated in the diagnostic report above:The immunohistochemistry test was developed and its performance characteristics determined by [facility]. It has not been cleared or approved by the [place] .[place]. Food and Drug Administration. The FDA has determined that such clearance or approval is not necessary. The test is used for clinical purposes. It should not be regarded as investigational or for research. This laboratory is certified un jazz the Clinical Laboratory Improvement Amendments of 1988 (CLIA-88) as qualifie d to perform high complexity clinical laboratory testing.OVA AND PARASITE [id number] 09:18:00* Test Item Value Reference Range Comments DIRECT SMEAR - O\\T\\P (BEAKER) (test gbqh=089) No ova or parasites seen Test not performed at [facility]. See scanned report. CONCENTRATE SMEAR - O\\T\\P (BEAKER) (test tzgm=249) No ova or parasites seen No ova or parasites seen TRICHROME SMEAR - O\\T\\P (BEAKER) (test bpek=872) No ova or parasites seen No ova or parasites seen POCT-GLUCOSE [id number] 16:06:00* Test Item Value Reference Range Comments POC-GLUCOSE METER (BEAKER) (test msmt=2968) 133 mg/dL 70-110 TESTED AT [facility] [address] [facility] [address] POCT-GLUCOSE [id number] 11:32:00* Test Item Value Reference Range Comments POC-GLUCOSE METER (BEAKER) (test runf=6009) 135 mg/dL 70-110 [facility]ED AT [facility] [facility] [address] [facility] [address] POCT-GLUCOSE [id number] 07:55:00* Test Item Value Reference Range Comments POC-GLUCOSE METER (BEAKER) (test tpae=1524) 96 mg/dL 70-110 TESTED AT [address] [address] POCT-GLUCOSE [id number] 21:09:00* Test Item Value Reference Range Comments POC-GLUCOSE METER (BEAKER) (test utwb=1907) 220 mg/dL 70-110 TESTED AT [address] [address] POCT-GLUCOSE [id number] 18:16:00* Test Item Value Reference Range Comments POC-GLUCOSE METER (BEAKER) (test fqcx=9167) 110 mg/dL 70-110 TESTED AT [address] [address] POCT-GLUCOSE [id number] 11:32:00* Test Item Value Reference Range Comments POC-GLUCOSE METER (BEAKER) (test glfy=8416) 83 mg/dL 70-110 TESTED AT [address] [address] STOOL CULTURE + SHIGA [id number] 11:17:00* Test Item Value Reference Range Comments CULTURE (BEAKER) (test dmqx=6789) No Salmonella, Shigella or Campylobacter isolated POCT-GLUCOSE [id number] 07:26:00* Test Item Value Reference Range Comments POC-GLUCOSE METER (BEAKER) (test jcmq=9759) 107 mg/dL 70-110 TESTED AT [address] [address] [id number] 05:43:00* Test Item Value Reference Range Comments PHOSPHORUS (BEAKER) (test ibgh=082) 2.3 mg/dL 2.3-4.7 [id number] 05:43:00* Test Item Value Reference Range Comments MAGNESIUM (BEAKER) (test pvzs=982) 2.2 mg/dL 1.6-2.6 BASIC METABOLIC [id number] 05:43:00* Test Item Value Reference Range Comments SODIUM (BEAKER) (test ydxq=518) 140 meq/L 136-145 POTASSIUM (BEAKER) (test ktek=325) 3.5 meq/L 3.5-5.1 CHLORIDE (BEAKER) (test femu=755) 110 meq/L 98-107 CO2 (BEAKER) (test htta=346) 22 meq/L 22-29 BLOOD UREA NITROGEN (BEAKER) (test lxph=114) 5 mg/dL 7-21 CREATININE (BEAKER) (test byfm=929) 0.61 mg/dL 0.57-1.25 GLUCOSE RANDOM (BEAKER) (test rbbd=246) 95 mg/dL 70-105 CALCIUM (BEAKER) (test fwoj=034) 8.4 mg/dL 8.4-10.2 EGFR (BEAKER) (test htll=0379) 97 mL/min/1.73 sq m ESTIMATED GFR IS NOT ACCURATE CREATININE CLEARANCE IN PREDICTING GLOMERULAR FILTRATION RATE. ESTIMATED GFR IS NOT APPLICABLE FOR DIALYSIS PATIENTS. CALCIUM, [id number] 05:35:00* Test Item Value Reference Range Comments CALCIUM IONIZED (BEAKER) (test tfry=134) 0.99 mmol/L 1.12-1.27 PH, BLOOD (BEAKER) (test umxv=2860) 7.45 CBC W/PLT COUNT & AUTO [id number] 05:14:00* Test Item Value Reference Range Comments WHITE BLOOD CELL COUNT (BEAKER) (test sduz=668) 6.6 K/ L 3.5-10.5 RED BLOOD CELL COUNT (BEAKER) (test iyhi=040) 3.78 M/ L 3.93-5.22 HEMOGLOBIN (BEAKER) (test bmxa=102) 10.4 GM/DL 11.2-15.7 HEMATOCRIT (BEAKER) (test hxyr=190) 35.4 % 34.1-44.9 MEAN CORPUSCULAR VOLUME (BEAKER) (test wlxa=298) 93.7 fL 79.4-94.8 MEAN CORPUSCULAR HEMOGLOBIN (BEAKER) (test hpkq=187) 27.5 pg 25.6-32.2 MEAN CORPUSCULAR HEMOGLOBIN CONC (BEAKER) (test llpw=174) 29.4 GM/DL 32.2-35.5 RED CELL DISTRIBUTION WIDTH (BEAKER) (test hide=632) 14.2 % 11.7-14.4 PLATELET COUNT (BEAKER) (test hqhi=163) 398 K/CU MM 150-450 MEAN PLATELET VOLUME (BEAKER) (test yriq=301) 8.9 fL 9.4-12.3 NUCLEATED RED BLOOD CELLS (BEAKER) (test nokd=982) 0 /100 WBC 0-0 NEUTROPHILS RELATIVE PERCENT (BEAKER) (test izik=403) 61 % LYMPHOCYTES RELATIVE PERCENT (BEAKER) (test lynv=256) 25 % MONOCYTES RELATIVE PERCENT (BEAKER) (test neze=181) 8 % EOSINOPHILS RELATIVE PERCENT (BEAKER) (test xlys=370) 4 % BASOPHILS RELATIVE PERCENT (BEAKER) (test htne=128) 1 % NEUTROPHILS ABSOLUTE COUNT (BEAKER) (test qhqt=433) 4.06 K/ L 1.56-6.13 LYMPHOCYTES ABSOLUTE COUNT (BEAKER) (test dgwy=924) 1.68 K/ L 1.18-3.74 MONOCYTES ABSOLUTE COUNT (BEAKER) (test qvon=470) 0.53 K/ L 0.24-0.36 EOSINOPHILS ABSOLUTE COUNT (BEAKER) (test spds=918) 0.26 K/ L 0.04-0.36 BASOPHILS ABSOLUTE COUNT (BEAKER) (test bflk=586) 0.07 K/ L 0.01-0.08 IMMATURE GRANULOCYTES-RELATIVE PERCENT (BEAKER) (test ynuf=7756) 1 % 0-1 POCT-GLUCOSE [id number] 20:44:00* Test Item Value Reference Range Comments POC-GLUCOSE METER (BEAKER) (test zvwz=3397) 236 mg/dL 70-110 TESTED AT [address] [address] GI PATHOGEN PROFILE BY [id number] 18:53:00* Test Item Value Reference Range Comments CAMPYLOBACTER (PCR) (test mnmt=1344248) Not detected Not detected, Inconclusive CLOSTRIDIUM DIFFICILE (PCR) (test kvoc=9589090) Not detected, Inconclusive See C. Diff GDH + Toxin Results PLESIOMONAS SHIGELLOIDES (PCR) (test nvif=4633539) Not detected Not detected, Inconclusive SALMONELLA (PCR) (test uplc=4544717) Not detected Not detected, Inconclusive YERSINIA ENTEROCOLITICA (PCR) (test snim=7777748) Not detected Not detected, Inconclusive VIBRIO CHOLERAE (PCR) (test abyu=5014167) Not detected Not detected, Inconclusive ENTEROAGGREGATIVE E. COLI (EAEC) BY PCR (test myiq=0444664) Not detected Not detected, Inconclusive ENTEROPATHOGENIC E. COLI (EPEC) BY PCR (test ilxw=5965780) Not detected Not detected, Inconclusive ENTEROTOXIGENIC E. COLI (ETEC) LT/ST BY PCR (test sqkr=0099579) Not detected Not detected, Inconclusive SHIGA-LIKE TOXIN-PRODUCING E. COLI (STEC) STX1/STX2 (test uhev=3312269) Not detected Not detected, Inconclusive E. COLI O157 (PCR) (test csqh=2225035) Not detected Not detected, Inconclusive SHIGELLA/ENTEROINVASIVE E. COLI (EIEC) BY PCR (test kpsv=2500723) Not detected Not detected, Inconclusive CRYPTOSPORIDIUM (PCR) (test zzjn=1044329) Not detected Not detected, Inconclusive CYCLOSPORA CAYETANENSIS (PCR) (test vvli=3163582) Not detected Not detected, Inconclusive ENTAMOEBA HISTOLYTICA (PCR) (test wvbp=8616568) Not detected Not detected, Inconclusive GIARDIA LAMBLIA (PCR) (test keot=9656272) Not detected Not detected, Inconclusive ADENOVIRUS F 40/41 (PCR) (test ieea=4280909) Not detected Not detected, Inconclusive ASTROVIRUS (PCR) (test istg=6892984) Not detected Not detected, Inconclusive NOROVIRUS GI/GII (PCR) (test qrag=3160896) Not detected Not detected, Inconclusive ROTAVIRUS A (PCR) (test jjpt=9674768) Not detected Not detected, Inconclusive SAPOVIRUS (I, II, IV, V) BY PCR (test lxkt=0080938) Not detected Not detected, Inconclusive NOT DETECTEDPanel is negative for Master Route GI Panel-detectable organisms. Please refer to traditional culture, sensitivity, ova and parasite results as they beco me available.Tested at [facility] Microbiology Lab using the [employer] ([place]ISH[place] | [place], [place]). This test has been FDA Approved a nd verification was performed prior to clinical use. Reference Range: Not Detect edPOCT-GLUCOSE [id number] 17:29:00* Test Item Value Reference Range Comments POC-GLUCOSE METER (BEAKER) (test dfqb=5179) 113 mg/dL 70-110 TESTED AT [facility] [address] [facility] [address] C-REACTIVE [id number] 14:55:00* Test Item Value Reference Range Comments C-REACTIVE PROTEIN (BEAKER) (test hflg=405) 2.03 mg/dL 0.00-0.50 HEMOGLOBIN [id number] 14:51:00* Test Item Value Reference Range Comments HEMOGLOBIN A1C (YAMIL) (test pyas=003) 5.5 % 4.3-6.1 SHIGA TOXIN [id number] 14:44:00* Test Item Value Reference Range Comments SHIGA TOXIN 1 (BEBERE) (test ppkp=6914) Not detected Not detected SHIGA TOXIN 2 (BEBERE) (test vaje=6142) Not detected Not detected OCCULT BLOOD, [id number] 12:44:00* Test Item Value Reference Range Comments FECAL OCCULT BLOOD (BEBERE) (test qzns=900) Positive Negative POCT-GLUCOSE [id number] 12:09:00* Test Item Value Reference Range Comments POC-GLUCOSE METER (YAMIL) (test zqew=7115) 120 mg/dL 70-110 TESTED AT [facility] [address] [facility] [address] STOOL PATH [id number] 12:09:00* Test Item Value Reference Range Comments PATHOGEN EXAM CHARGED (YAMIL) (test oeiv=5090) Done C. DIFFICILE GDH [id number] 08:46:00* Test Item Value Reference Range Comments CDT TOXIN (test sooc=[id number]) Negative Negative CDT GDH ANTIGEN (test bjdb=[id number]) Negative Negative No indication of Clostridium difficile infection and no colonization. Discontinue enteric isolation and therapy. Testing performed by [employer] Rapid Cassette Assay. For GDH, published sensitivity of the assay is 98.7% compared to cytotoxicity testing. For Toxin AB, published sensitivity is 87.8% and specificity 99.4% compared to cytotoxicity testing.Ve rification of kit performance was done by the [facility] Microbiology Lab prior to cl inical use.FECAL [id number] 08:35:00* Test Item Value Reference Range Comments FECAL LEUKOCYTES (YAMIL) (test fgft=009) 1+ Fecal leukocytes seen No fecal leukocytes seen TSH/FREE T4 IF [id number] 07:58:00* Test Item Value Reference Range Comments THYROID STIMULATING HORMONE (YAMIL) (test cvye=376) 2.74 uIU/mL 0.35-4.94 [id number] 07:41:00* Test Item Value Reference Range Comments PHOSPHORUS (BEAKER) (test wpyc=379) 2.6 mg/dL 2.3-4.7 [id number] 07:41:00* Test Item Value Reference Range Comments MAGNESIUM (BEAKER) (test anim=880) 2.4 mg/dL 1.6-2.6 BASIC METABOLIC [id number] 07:41:00* Test Item Value Reference Range Comments SODIUM (BEAKER) (test kkpw=505) 141 meq/L 136-145 POTASSIUM (BEAKER) (test gvhg=743) 3.8 meq/L 3.5-5.1 CHLORIDE (BEAKER) (test cagg=527) 110 meq/L 98-107 CO2 (BEAKER) (test nofl=712) 26 meq/L 22-29 BLOOD UREA NITROGEN (BEAKER) (test npbj=425) 8 mg/dL 7-21 CREATININE (BEAKER) (test koab=104) 0.65 mg/dL 0.57-1.25 GLUCOSE RANDOM (BEAKER) (test ayiw=426) 108 mg/dL 70-105 CALCIUM (BEAKER) (test ahvz=759) 8.4 mg/dL 8.4-10.2 EGFR (BEAKER) (test vymk=6641) 90 mL/min/1.73 sq m ESTIMATED GFR IS NOT ACCURATE CREATININE CLEARANCE IN PREDICTING GLOMERULAR FILTRATION RATE. ESTIMATED GFR IS NOT APPLICABLE FOR DIALYSIS PATIENTS. LIPID [id number] 07:41:00* Test Item Value Reference Range Comments TRIGLYCERIDES (BEAKER) (test hvhh=701) 91 mg/dL CHOLESTEROL (BEAKER) (test urxm=469) 139 mg/dL HDL CHOLESTEROL (BEAKER) (test hhqv=034) 46 mg/dL LDL CHOLESTEROL CALCULATED (BEAKER) (test lnxk=966) 75 mg/dL Triglyceride Reference Range: Low Risk <150 Borderline 150-199 High Risk 200-499 Very High Risk >=500Cholesterol Reference Range: Low Risk <200 Borderline 200-239 High Risk >240HDL Cholesterol Reference Range: Low Risk >=60 High Risk <40LDL Cholesterol Reference Range: Optimal <100 Near Optimal 100-129 Borderline 130-159 High 160-189 Very High >=190 POCT- GLUCOSE [id number] 07:37:00* Test Item Value Reference Range Comments POC-GLUCOSE METER (BEAKER) (test nrym=2427) 113 mg/dL 70-110 TESTED AT [facility] [address] [facility] [place] [address] B-TYPE NATRIURETIC FACTOR (BNP)2017-07-13 07:18:00* Test Item Value Reference Range Comments B-TYPE NATRIURETIC PEPTIDE (BEAKER) (test qxvr=014) 155 pg/mL 0-100 CALCIUM, [id number] 07:08:00* Test Item Value Reference Range Comments CALCIUM IONIZED (BEAKER) (test zvzp=991) 1.02 mmol/L 1.12-1.27 PH, BLOOD (BEAKER) (test lkrj=2633) 7.40 CBC W/PLT COUNT & AUTO [id number] 06:59:00* Test Item Value Reference Range Comments WHITE BLOOD CELL COUNT (BEAKER) (test dgxi=973) 5.1 K/ L 3.5-10.5 RED BLOOD CELL COUNT (BEAKER) (test axzj=106) 3.43 M/ L 3.93-5.22 HEMOGLOBIN (BEAKER) (test ihdp=433) 9.6 GM/DL 11.2-15.7 HEMATOCRIT (BEAKER) (test czok=558) 31.4 % 34.1-44.9 MEAN CORPUSCULAR VOLUME (BEAKER) (test dxpd=120) 91.5 fL 79.4-94.8 MEAN CORPUSCULAR HEMOGLOBIN (BEAKER) (test jzlw=595) 28.0 pg 25.6-32.2 MEAN CORPUSCULAR HEMOGLOBIN CONC (BEAKER) (test rniq=519) 30.6 GM/DL 32.2-35.5 RED CELL DISTRIBUTION WIDTH (BEAKER) (test kalq=849) 14.3 % 11.7-14.4 PLATELET COUNT (BEAKER) (test wfpa=535) 396 K/CU MM 150-450 MEAN PLATELET VOLUME (BEAKER) (test nlfe=107) 9.7 fL 9.4-12.3 NUCLEATED RED BLOOD CELLS (BEAKER) (test ndhx=984) 0 /100 WBC 0-0 NEUTROPHILS RELATIVE PERCENT (BEAKER) (test ebnl=236) 54 % LYMPHOCYTES RELATIVE PERCENT (BEAKER) (test king=267) 32 % MONOCYTES RELATIVE PERCENT (BEAKER) (test xmjk=546) 8 % EOSINOPHILS RELATIVE PERCENT (BEAKER) (test ueck=150) 4 % BASOPHILS RELATIVE PERCENT (BEAKER) (test kgjc=177) 1 % NEUTROPHILS ABSOLUTE COUNT (BEAKER) (test vrbo=835) 2.80 K/ L 1.56-6.13 LYMPHOCYTES ABSOLUTE COUNT (BEAKER) (test dhgf=010) 1.62 K/ L 1.18-3.74 MONOCYTES ABSOLUTE COUNT (BEAKER) (test prvy=289) 0.42 K/ L 0.24-0.36 EOSINOPHILS ABSOLUTE COUNT (BEAKER) (test gkez=332) 0.21 K/ L 0.04-0.36 BASOPHILS ABSOLUTE COUNT (BEAKER) (test oyon=984) 0.07 K/ L 0.01-0.08 IMMATURE GRANULOCYTES-RELATIVE PERCENT (BEAKER) (test zkbt=3207) 0 % 0-1 COMPREHENSIVE METABOLIC [id number] 22:45:00* Test Item Value Reference Range Comments TOTAL PROTEIN (BEAKER) (test jcav=786) 7.1 gm/dL 6.0-8.3 ALBUMIN (BEAKER) (test vhzj=6068) 3.4 g/dL 3.5-5.0 ALKALINE PHOSPHATASE (BEAKER) (test asvi=046) 66 U/L 40-150 BILIRUBIN TOTAL (BEAKER) (test umzd=377) 0.1 mg/dL 0.2-1.2 SODIUM (BEAKER) (test myfd=404) 138 meq/L 136-145 POTASSIUM (BEAKER) (test kwmo=523) 3.6 meq/L 3.5-5.1 CHLORIDE (BEAKER) (test ymio=868) 107 meq/L 98-107 CO2 (BEAKER) (test cgmd=136) 23 meq/L 22-29 BLOOD UREA NITROGEN (BEAKER) (test kvfi=440) 10 mg/dL 7-21 CREATININE (BEAKER) (test ccro=186) 0.66 mg/dL 0.57-1.25 GLUCOSE RANDOM (BEAKER) (test jpnj=015) 103 mg/dL 70-105 CALCIUM (BEAKER) (test wxas=568) 8.2 mg/dL 8.4-10.2 AST (SGOT) (BEAKER) (test sfii=726) 9 U/L 5-34 ALT (SGPT) (BEAKER) (test nztw=234) 6 U/L 6-55 EGFR (BEAKER) (test ziqm=1504) 88 mL/min/1.73 sq m ESTIMATED GFR IS NOT ACCURATE CREATININE CLEARANCE IN PREDICTING GLOMERULAR FILTRATION RATE. ESTIMATED GFR IS NOT APPLICABLE FOR DIALYSIS PATIENTS. C-REACTIVE [id number] 22:45:00* Test Item Value Reference Range Comments C-REACTIVE PROTEIN (BEAKER) (test sfxu=530) 2.31 mg/dL 0.00-0.50 CBC W/PLT COUNT & AUTO [id number] 22:22:00* Test Item Value Reference Range Comments WHITE BLOOD CELL COUNT (BEAKER) (test fyle=277) 8.3 K/ L 3.5-10.5 RED BLOOD CELL COUNT (BEAKER) (test ftth=672) 3.69 M/ L 3.93-5.22 HEMOGLOBIN (BEAKER) (test ajek=136) 10.5 GM/DL 11.2-15.7 HEMATOCRIT (BEAKER) (test slwg=059) 33.8 % 34.1-44.9 MEAN CORPUSCULAR VOLUME (BEAKER) (test dguz=198) 91.6 fL 79.4-94.8 MEAN CORPUSCULAR HEMOGLOBIN (BEAKER) (test uqng=747) 28.5 pg 25.6-32.2 MEAN CORPUSCULAR HEMOGLOBIN CONC (BEAKER) (test fyph=956) 31.1 GM/DL 32.2-35.5 RED CELL DISTRIBUTION WIDTH (BEAKER) (test dpsd=357) 14.2 % 11.7-14.4 PLATELET COUNT (BEAKER) (test uodq=250) 408 K/CU MM 150-450 MEAN PLATELET VOLUME (BEAKER) (test mmmo=939) 8.7 fL 9.4-12.3 NUCLEATED RED BLOOD CELLS (BEAKER) (test ydff=672) 0 /100 WBC 0-0 NEUTROPHILS RELATIVE PERCENT (BEAKER) (test fidy=789) 64 % LYMPHOCYTES RELATIVE PERCENT (BEAKER) (test yfbw=856) 24 % MONOCYTES RELATIVE PERCENT (BEAKER) (test neqk=448) 8 % EOSINOPHILS RELATIVE PERCENT (BEAKER) (test imnd=922) 3 % BASOPHILS RELATIVE PERCENT (BEAKER) (test gjwe=885) 1 % NEUTROPHILS ABSOLUTE COUNT (BEAKER) (test diij=217) 5.29 K/ L 1.56-6.13 LYMPHOCYTES ABSOLUTE COUNT (BEAKER) (test xlsk=070) 2.00 K/ L 1.18-3.74 MONOCYTES ABSOLUTE COUNT (BEAKER) (test wpnh=529) 0.62 K/ L 0.24-0.36 EOSINOPHILS ABSOLUTE COUNT (BEAKER) (test jwui=810) 0.23 K/ L 0.04-0.36 BASOPHILS ABSOLUTE COUNT (BEAKER) (test avxp=790) 0.08 K/ L 0.01-0.08 IMMATURE GRANULOCYTES-RELATIVE PERCENT (BEAKER) (test bjja=7812) 0 % 0-1 POCT-GLUCOSE [id number] 22:13:00* Test Item Value Reference Range Comments POC-GLUCOSE METER (BEAKER) (test dzgb=0236) 105 mg/dL 70-110 TESTED AT [facility] [address] [id number] AFB CULTURE + [id number] 11:07:00* Test Item Value Reference Range Comments CULTURE (BEAKER) (test eshs=1261) No acid-fast bacilli isolated in 42 days AFB SMEAR (BEAKER) (test tltv=794) No acid fast bacilli seen CF RESPIRATORY [id number] 14:18:00* Test Item Value Reference Range Comments CULTURE (BEAKER) (test duca=8766) 4 out of 4 media Aspergillus species, not fumigatus 4+ Normal respiratory thony presentFUNGUS CULTURE + [id number] 14:13:00* Test Item Value Reference Range Comments CULTURE (BEAKER) (test jlse=3821) 1 out of 3 media Syncephalastrum species FUNGUS SMEAR (BEAKER) (test scqw=8914) No fungi seen SPIN/CONCENTRATION [id number] 12:39:00* Test Item Value Reference Range Comments CONCENTRATION CHARGED (BEAKER) (test vkkc=5255) Done POCT-GLUCOSE [id number] 11:12:00* Test Item Value Reference Range Comments POC-GLUCOSE METER (BEAKER) (test jeiq=0345) 124 mg/dL 70-110 TESTED AT [facility] [address] [facility] [address]
--- OUTSIDE RECORDS SUMMARY | 2018-08-03 03:27 | XMS REPORT | Clinical Summary ---
Author Author 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 Name Role Phone Tray Arvizu Kailey PCP Sharpless Unavailable Allergies Comments Active Allergy Reactions Severity Noted Date Naproxen Sodium 03/27/2015 Acetaminophen-Calcium 03/27/2015 Carbonat Diclofenac-Misoprostol 03/27/2015 Aspirin 03/27/2015 Ciprofloxacin 02/11/2016 Clarithromycin 02/11/2016 Coconut 07/12/2017 Diphenhydramine 02/11/2016 Erythromycin 03/27/2015 Flurbiprofen 07/12/2017 Hydrocodone-Ibuprofen 03/27/2015 Ibuprofen 07/12/2017 Lisinopril Itching, Low 11/21/2017 Anxiety Acetaminophen-Pamabrom 02/11/2016 Morphine Sulfate 02/11/2016 Nsaids (Non-Steroidal 02/11/2016 Anti-Inflammatory Drug) Onion 07/12/2017 [place] 07/12/2017 Luquillo (Prunus Persica) 07/12/2017 Pear 07/12/2017 Penicillins 02/11/2016 [...] 12/07/2017 Discontinued iron polysacch Take 1 0 [id number] 150-25-1 capsule by mg-mcg-mg Cap mouth 2 [...] Aspergillus (HCC); Mycobacterium avium complex colonization 11/20/2017 [facility] General Internal Medicine - Encounter 11/25/2017 11/20/2017 [...] ms QTC Calculatio n(Bazett) 467 ms P Charlotte 23 degrees R Charlotte 44 degrees T [place] 108 degrees Normal sinus rhythm Nonspecifi c [...] (H)Comment: TESTED AT 70 - 110 mg/dL [facility] [address] [facility] [address] Specimen Blood Performing Organization Address City/State/Zipcode Phone Number [address] [address] MED[facility]ENTER * Manual Differential (11/25/2017 8:25 AM CDT) % Neutros 43 % [facility] % Lymphs 21 % [facility] % Monos 3 % [facility] % Eos 4 % [facility] % Baso 1 % [facility] % Bands 29 (H) 0 - 10 % [facility] # Neutros 3.14 1.56 - 6.13 K/ul [facility] # Lymphs 1.53 1.18 - 3.74 K/ul [facility] # Monos 0.22 (L) 0.24 - 0.36 K/uL [facility] # Eos 0.29 0.04 - 0.36 K/uL [facility] # Baso 0.07 0.01 - 0.08 K/uL [facility] # Bands 2.12 (H) 0.00 - 0.80 K/uL [facility] Total Counted 100 [facility] WBC Morphology Normal [facility] Giant Platelet Present [facility] Large Platelet Present [facility] Hypochromia 2+ moderate [facility] Anisocytosis 2+ moderate [facility] Microcytes 1+ few [facility] Macrocytes 2+ moderate [facility] Poikilocytes 1+ few [facility] Ovalocytes 1+ few [facility] Tear Drop Cells 1+ few [facility] Acanthocytes 1+ few [facility] Artifact Present [facility] Platelet Conc Adequate [facility] Specimen Blood Narrative Performed At Received comment: [facility] User comments: [facility] Slide comments: Performing Organization Address City/State/Zipcode Phone Number [facility] [address] [place] [address] [facility] * CBC with platelet count + automated diff (11/25/2017 8:25 AM CDT) Only the most recent of 5 results within the time period is included. WBC 7.3 3.5 - 10.5 K/L [facility] RBC 3.44 (L) 3.93 - 5.22 M/L [facility] Hemoglobin 8.6 (L) 11.2 - 15.7 GM/DL [facility] Hematocrit 28.5 (L) 34.1 - 44.9 % [facility] MCV 82.8 79.4 - 94.8 fL [facility] MCH 25.0 (L) 25.6 - 32.2 pg [facility] MCHC 30.2 (L) 32.2 - 35.5 GM/DL [facility] RDW 16.3 (H) 11.7 - 14.4 % [facility] Platelets 451 (H) 150 - 450 K/CU MM [facility] MPV 9.0 (L) 9.4 - 12.3 fL [facility] nRBC 0 0 - 0 /100 WBC [facility] Specimen Blood Performing Organization Address City/[facility] Centercode Phone Number [facility] [address] [place] [address] [facility] * Aspergillus antibodies (11/25/2017 5:46 AM [...] At Performing Lab [facility] [employer] [facility] [address] [place] [phone] Duy Tabor MD Performing Organization Address City/[facility] Cancer Centercode Phone Number [facility], [address] [place] [address] * Aspergillus galactomannan antigen (11/25/2017 5:46 AM CDT) Aspergillus Index Value <0.50 [facility] Aspergillus Antigen NOT DETECTED [facility] Comment: INCORPORATED REFERENCE RANGE: <0.50, NOT DETECTED A negative result does not exclude invasive aspergillosis. Follow-up testing may be indicated for high-risk patients. Specimen Blood Narrative Performed At Performing Lab [facility] [address] [place] [phone] H Cleve Tabor MD Performing Organization Address [facility] Centercode Phone Number [facility], [address] [place] [address] * Magnesium (11/25/2017 5:46 AM CDT) Only the most recent of 5 results within the time period is included. Magnesium 2.0 1.6 - 2.6 mg/dL [facility] Specimen Blood Performing Organization Address [facility] Centercode Phone Number [address] * Immunoglobulin E (IgE) (11/25/2017 5:46 AM CDT) Immunoglobulin E 30 114 OR LESS kU/L [facility] Specimen Blood Narrative Performed At Performing Lab [facility] [address] [address] Chuy Martino MD, PhD, SUZAN Performing Organization Address City/[facility] Cancer Centercode Phone Number [facility], [address] [place] [address] * Basic Metabolic Panel (11/25/2017 5:46 AM CDT) Only the most recent of 6 results within the time period is included. Sodium 137 136 - 145 meq/L [facility] Potassium 4.1 3.5 - 5.1 meq/L [facility] Chloride 110 (H) 98 - 107 meq/L [facility] CO2 20 (L) 22 - 29 meq/L [facility] BUN 3 (L) 7 - 21 mg/dL [facility] Creatinine 0.66 0.57 - 1.25 mg/dL [facility] Glucose 114 (H) 70 - 105 mg/dL [facility] Calcium 8.3 (L) 8.4 - 10.2 mg/dL [facility] EGFR 88Comment: ESTIMATED GFR IS mL/min/1.73 sq m [facility] NOT ACCURATE CREATININE [facility] CLEARANCE IN PREDICTING GLOMERULAR FILTRATION RATE. ESTIMATED GFR IS NOT APPLICABLE FOR DIALYSIS PATIENTS. Specimen Blood Performing Organization Address City/State/Zipcode Phone Number [facility] [address] [place] [address] [facility] CENTER * CT chest with high resolution/ild (11/24/2017 8:27 PM CDT) Specimen Narrative Performed At FINAL REPORT [employer] [facility] CLINICAL INDICATION: Sputum cultures positive for Aspergillus [...] MD Report Verified Date/Time:11/24/2017 20:51:25 Reading Location: [address] Reading Room Procedure Note Interface, External [...] Report Verified Date/Time: 11/24/2017 20:51:25 Reading Location: [address] Reading Room Performing Organization Address City/State/Zipcode Phone Number [facility] * GI Pathogen Profile by PCR -ID Only (11/24/2017 11:41 AM CDT) CAMPYLOBACTER (PCR) Not detected Not detected [facility] PLESIOMONAS SHIGELLOIDES Not detected Not detected [facility] (PCR) [facility] SALMONELLA (PCR) Not detected Not detected [facility] YERSINIA ENTEROCOLITICA Not detected Not detected [facility] (PCR) [facility] VIBRIO CHOLERAE (PCR) Not detected Not detected [facility] ENTEROAGGREGATIVE E. COLI Not detected Not detected [facility] (EAEC) BY PCR [facility] ENTEROPATHOGENIC E. COLI Not detected Not detected [facility] (EPEC) BY PCR [facility] ENTEROTOXIGENIC E. COLI Not detected Not detected [facility] (ETEC) LT/ST BY PCR [facility] SHIGA-LIKE Not detected Not detected [facility] TOXIN-PRODUCING E. COLI [facility] (STEC) STX1/STX2 E. COLI O157 (PCR) Not detected [facility] SHIGELLA/ENTEROINVASIVE Not detected Not detected [facility] E. COLI (EIEC) BY PCR [facility] CRYPTOSPORIDIUM (PCR) Not detected Not detected [facility] CYCLOSPORA CAYETANENSIS Not detected Not detected [facility] (PCR) [facility] ENTAMOEBA HISTOLYTICA Not detected Not detected [facility] (PCR) [facility] GIARDIA LAMBLIA (PCR) Not detected Not detected [facility] ADENOVIRUS F 40/41 (PCR) Not detected Not detected [facility] ASTROVIRUS (PCR) Not detected Not detected [facility] NOROVIRUS GI/GII (PCR) Not detected Not detected [facility] ROTAVIRUS A (PCR) Not detected Not detected [facility] SAPOVIRUS (I, II, IV, V) Not detected Not detected [facility] BY PCR [facility] VIBRIO (PARAHAEMOLYTICUS, Not detected Not detected [facility] VULNIFICUS) [facility] Specimen Stool Narrative Performed At Other viruses, parasites and bacteria not targeted by this PCR panel cannot be [facility] excluded; therefore clinical correlation and follow up of serology, culture [facility] results, and other molecular studies is required. The results are not intended to be used as the sole means for clinical diagnosis or patient management decisions. This sample was tested at the [facility] Molecular Diagnostics Laboratory using the [employer] Gastrointestinal Panel. It is FDA cleared and has been verified and approved by the [facility] for clinical use. This laboratory is CLIA-certified and [employer] (CAP)-accredited to perform high complexity testing. Performing Organization Address City/[facility]/Zipcode Phone Number [address] [address] [facility] * SPIN/CONCENTRATION CHARGE (11/23/2017 10:13 AM CDT) Concentration charged Done [facility] Specimen Sputum - Expectorated Performing Organization Address City/[facility]/Zipcode Phone Number [address] [address] [facility] * Sputum Culture + Gram Stain (11/23/2017 10:13 AM CDT) Result 4+ Normal respiratory [facility] Gram Stain Result 3+ WBCs [facility] Gram Stain Result 5-10 epithelial cells [facility] Gram Stain Result No organisms seen [facility] Specimen Sputum - Expectorated Narrative Performed At [facility] Performing Organization Address [facility] Cancer Centercode Phone Number [address] [address] [facility] * AFB culture + smear (11/23/2017 10:13 AM CDT) Result Mycobacterium abscessus (A) [facility] Comment: [facility] * - subsp.abscessus Identification and susceptibility performed by: [facility], Dept. of Microbiology Research, Dr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 The erm gene has a nonfunctional sequence and hence will be macrolide [facility] susceptible unless mutationally resistant. Antibiotic Method [...] Resistant Mycobacterium abscessus Comment: Testing performed by: [facility] Dept. of Microbiology Research Dr[facility] [id number] [address] No functional erm gene (confers macrolide resistance) Performing Organization Address City/[facility] Cancer [place]erc[place] [address] [facility] * Fungus culture + smear (11/23/2017 10:13 AM CDT) Result No fungus isolated in 28 days [facility] Fungus Smear No fungi seen [facility] Specimen Sputum - Expectorated Performing Organization Address City/[facility] [place]erc[place] [address] [facility] * Phosphorus (11/23/2017 4:54 AM CDT) Only the most recent of 3 results within the time period is included. Phosphorus 3.0Comment: Specimen slightly 2.3 - 4.7 mg/dL [facility] Specimen Blood Performing Organization Address [facility] Centercode Phone Number [facility] [address] [place] [address] [facility] * Hepatic function panel (11/23/2017 4:54 AM CDT) Only the most recent of 4 results within the time period is included. Protein, Total 6.2Comment: Specimen slightly 6.0 - 8.3 gm/dL [facility] Albumin 2.8 (L)Comment: Specimen 3.5 - 5.0 g/dL [facility] slightly [facility]in[facility] Total Bilirubin 0.3Comment: Specimen slightly 0.2 - 1.2 mg/dL [facility] Bilirubin, Direct 0.1Comment: Specimen slightly 0.1 - 0.5 mg/dL [facility] Alkaline Phosphatase 68 40 - 150 U/L [facility] AST 12Comment: Specimen slightly 5 - 34 U/L [facility] ALT <6 (L)Comment: Specimen 6 - 55 U/L [facility] Specimen Blood Performing Organization Address [facility] Centercode Phone Number [facility] [address] [place] [address] [facility] * CMV PCR, quantitative (11/21/2017 1:31 PM CDT) CMV DNA Viral Load Negative or below the linear [facility] range of the assay (<375 [facility] copies/mL) Specimen Blood Narrative Performed At Cytomegalovirus (CMV) infection can cause significant disease in [facility] immunosuppressed patients. However, it is common for CMV to manifest as a [facility] limited infection which is of no [...] and its performance characteristics determined by the [facility] Pathology Department, Section of Molecular Pathology. It has not been cleared or approved by the U.S. Food and Drug Administration (FDA), since FDA approval is not required for clinical use of the test. Validation was done as required by The Clinical Laboratory Improvement Amendments of 1988. Performing Organization Address City/[facility] Cancer Centercosc Phone Number [address] * TSH/Free T4 If Indicated (11/21/2017 9:29 AM CDT) TSH 3.52 0.35 - 4.94 uIU/mL [facility] Specimen Blood Performing Organization Address [facility] Centercosc Phone Number [address] * C-Reactive Protein (11/21/2017 9:29 AM CDT) CRP 3.20 (H) 0.00 - 0.50 mg/dL [facility] Specimen Blood Performing Organization Address [facility] Centercode Phone Number [address] * Lipid panel (11/21/2017 9:29 AM CDT) Triglycerides 71 mg/dL [facility] Cholesterol 131 mg/dL [facility] HDL 55 mg/dL [facility] LDL Calculated 62 mg/dL [facility] Specimen Blood Narrative Performed At Triglyceride Reference Range: [facility] Low Risk <150 [facility] [id number] High Risk 200-499 Very High Risk>=500 Cholesterol Reference Range: Low Risk <200 [id number] High Risk>240 HDL Cholesterol Reference Range: Low Risk >=60 High Risk <40 LDL Cholesterol Reference Range: Optimal<100 Near [id number] Lknc243-300 Very High >=190 Performing Organization Address [facility] [place]erc[place] [address] [facility] * Clostridium difficile [facility] Toxin (11/21/2017 9:08 AM CDT) C. Difficle Toxin Negative Negative [facility] C. Difficile [facility] Antigen NegativeComment: No indication Negative [facility] of Clostridium difficile [facility] infection and no colonization. Discontinue enteric isolation and therapy. Specimen Stool Narrative Performed At Testing performed by [employer] ([employer]) Rapid Cassette Assay.For GDH, published [facility] sensitivity of the assay is 98.7% compared to cytotoxicity testing.For Toxin [facility] AB, published sensitivity is 87.8% and specificity 99.4% compared to cytotoxicity testing. Verification of kit performance was done by the [facility] Microbiology Lab prior to clinical use. Performing Organization Address City/[facility] Cancer [place]erc[place] [address] [facility] * STOOL PATH CHARGE (11/21/2017 9:08 AM CDT) Only the most recent of 2 results within the time period is included. Pathogen exam charged Done [facility] Specimen Stool Performing Organization Address City/[facility]/Zipcode Phone Number [address] [address] [facility] * Stool culture + Shiga toxin (11/21/2017 9:08 AM CDT) Only the most recent of 2 results within the time period is included. Result No Salmonella, Shigella or [facility] Campylobacter isolated [facility] Specimen Stool Performing Organization Address City/State/Zipcode Phone Number [facility] [address] [place] [address] [facility] * Hemoglobin A1c (11/21/2017 6:37 AM CDT) Hemoglobin A1C 5.8 4.3 - 6.1 % [facility] Specimen Blood Performing Organization Address City/State/Zipcode Phone Number [facility] [address] [place] [address] [facility] * CT abdomen pelvis with IV contrast (11/20/2017 11:44 PM CDT) Specimen Narrative Performed At FINAL REPORT [employer] CT, ABDOMEN \\T\\ PELVIS, WITH IV CONTRAST [...] Report Verified Date/Time: 11/20/2017 23:52:19 Reading Location: [address] Reading Room Performing Organization Address City/State/Zipcode Phone Number [facility] * Shiga Toxin Screen (11/20/2017 11:22 PM CDT) Shiga toxin 1 Not detected Not detected [facility] Shiga toxin 2 Not detected Not detected [facility] Specimen Stool Performing Organization Address City/[facility]/Unm Cancer Centercode Phone Number [address] [address] [facility] * Urinalysis w/ Microscopic (11/20/2017 11:21 PM CDT) Color, UA Colorless [facility] Clarity, UA Clear [facility] Specific [place], UA 1.003 1.001 - 1.035 [facility] pH, UA 5.0 5.0 - 8.0 [facility] Protein, UA Negative Negative [facility] Glucose, UA Negative Negative [facility] Ketones, UA Negative Negative [facility] Bilirubin, UA Negative Negative [facility] Blood, UA Negative Negative [facility] Nitrite, UA Negative Negative [facility] Leukocytes, UA Negative Negative [facility] Urobilinogen, UA 0.2 0.2 - 1.0 mg/dL [facility] RBC, UA <1 /HPF [facility] WBC, UA 1 /HPF [facility] Bacteria, UA Rare [facility] Mucus Rare [facility] Squam Epithel, UA <1 /HPF [facility] Specimen Source Urine, Voided [facility] Specimen Urine Performing Organization Address City/State/Zipcode Phone Number [address] [address] [facility] * Lipase (11/20/2017 8:30 PM CDT) Lipase 67 8 - 78 U/L [facility] Specimen Blood Performing Organization Address City/[facility]/Zipcode Phone Number [address] [address] [facility] * Amylase (11/20/2017 8:30 PM CDT) Amylase 133 (H) 25 - 125 U/L [facility] Specimen Blood Performing Organization Address City/State/Zipcode Phone Number [facility] [address] [place] [address] [facility] * ECG 12 lead (11/20/2017 8:26 PM CDT) Specimen Narrative Performed At Ventricular Rate 98 BPM GE MUSE Atrial Rate 98 BPM P-R Interval 134 ms QRS Duration 74 ms Q-T Interval 366 ms QTC Calculation(Bazett) 467 ms P [place] 23 degrees R [place] 44 degrees T [place] 108 degrees Normal sinus rhythm Nonspecific ST [...] 366 ms QTC Calculation(Bazett) 467 ms P [place] 23 degrees R [place] 44 degrees T [place] 108 degrees Normal sinus rhythm Nonspecific ST and T wave abnormality Abnormal ECG When compared with ECG of 11-FEB-2016 15:56, Nonspecific T wave abnormality now evident in Inferior leads Confirmed by MD TAYLOR, IHAB ([id number]) on 11/20/2017 9:49:29 PM Performing Organization Address City/State/[facility]m Cancer Centercode Phone Number GE MUSE after 08/02/2017 Insurance Payer Benefit Subscriber ID Type Phone Address Plan / Group MEDICARE MEDICARE A xxxxxxxxxxx Medicare B MEDICAID MEDICAID xxxxxxxxx Medicaid OF [place] Advance Directives For more information, please contact: [facility] [address] [place] [address] Date Inactivated Comments Code Status Date Activated 11/25/2017 4:51 PM Full Code 11/21/2017 5:29 AM This code status was determined by: Patient 07/15/2017 9:49 PM Full Code 07/12/2017 7:36 PM This code status was determined by: Patient
--- OUTSIDE RECORDS SUMMARY | 2018-08-03 03:28 | XMS REPORT | Continuity of Care Document ---
Author Author [facility] Organization [facility] Address Unknown Phone Unavailable Care Team Providers Care Passenger Flagman Name Role Phone L3 Information [employer] Unavailable Unavailable Problems Problem Status Onset Date [...] 08/01/2017 Sal Smart TIA Active Problem 08/01/2017 Sla Smart Mitral valve insufficiency and aortic valve [...] bicarbonate Unknown Allergy to Substance Active 08/01/2017 [facility] Aspirin Unknown Allergy to Substance Active 08/01/2017 [facility] Acetaminophen Unknown Allergy to Substance Active 08/01/2017 [facility] Pamabrom Unknown Allergy to Substance Active 08/01/2017 [facility] Ibuprofen Unknown Allergy to Substance Active 08/01/2017 [facility] Naproxen Unknown Allergy to Substance Active 08/01/2017 [facility] Flurbiprofen Unknown Allergy to Substance Active 08/01/2017 [facility] citric acid Unknown Allergy to Substance Active 08/01/2017 [facility] Tetracycline Unknown Allergy to Substance Active 08/01/2017 [facility] Erythromycin base Unknown Allergy to Substance Active 08/01/2017 [facility] Tobramycin Unknown Allergy to Substance Active 08/01/2017 [facility] Ciprofloxacin Unknown Allergy to Substance Active 08/01/2017 [facility] Penicillin g Unknown Allergy to Substance Active 08/01/2017 [facility] ATHROTEC Unknown Allergy to Substance Active 08/01/2017 [facility] MORPHINE SULFATE Unknown Allergy to Substance Active 08/01/2017 [facility] Immunizations No Data Provided for This Section Results Order Name Results Value Reference Range Date Interpretation Comments Source Automated blood basophil count (count/volume) Automated blood basophil count (count/volume) 0.1 0.0 - 0.1 08/01/2017 [facility] Automated blood basophil count as percentage of total leukocytes Automated blood basophil count as percentage of total leukocytes 1.2 0.0 - 1.0 08/01/2017 [facility] Automated blood eosinophil count Automated blood eosinophil count 0.1 0.0 - 0.4 08/01/2017 [facility] Automated blood eosinophil count as percentage of total leukocytes Automated blood eosinophil count as percentage of total leukocytes 0.7 0.0 - 6.0 08/01/2017 [facility] Automated blood hematocrit (volume fraction) Automated blood hematocrit (volume fraction) 36.6 34.2 - 44.1 08/01/2017 [facility] Automated blood lymphocyte count as percentage ot total leukocytes Automated blood lymphocyte count as percentage ot total leukocytes 15.0 18.0 - 39.1 08/01/2017 [facility] Automated blood monocyte count as percentage of total leukocytes Automated blood monocyte count as percentage of total leukocytes 5.3 4.4 - 11.3 08/01/2017 [facility] Automated blood neutrophil count Automated blood neutrophil count 5.9 2.1 - 6.9 08/01/2017 [facility] Automated blood platelet count (count/volume) Automated blood platelet count (count/volume) 426 140 - 360 08/01/2017 [facility] Automated blood segmented neutrophil count as percentage of total leukocytes Automated blood segmented neutrophil count as percentage of total leukocytes 77.5 38.7 - 80.0 08/01/2017 [facility] Automated erythrocyte mean corpuscular hemoglobin (mass per erythrocyte) Automated erythrocyte mean corpuscular hemoglobin (mass per erythrocyte) 28.5 28 - 32 08/01/2017 [facility] Automated erythrocyte mean corpuscular hemoglobin concentration measurement (mass/volume) Automated erythrocyte mean corpuscular hemoglobin concentration measurement (mass/volume) 32.2 31 - 35 08/01/2017 [facility] Automated erythrocyte mean corpuscular volume Automated erythrocyte mean corpuscular volume 88.4 81 - 99 08/01/2017 [facility] Blood erythrocytes automated count (number/volume) Blood erythrocytes automated count (number/volume) 4.14 3.6 - 5.1 08/01/2017 [facility] Blood hemoglobin measurement (moles/volume) Blood hemoglobin measurement (moles/volume) 11.8 12.0 - 16.0 08/01/2017 [facility] Blood leukocytes automated count (number/volume) Blood leukocytes automated count (number/volume) 7.58 4.8 - 10.8 08/01/2017 [facility] Blood lymphocytes count (number/volume) Blood lymphocytes count (number/volume) 1.1 1.0 - 3.2 08/01/2017 [facility] Blood monocytes automated count (number/volume) Blood monocytes automated count (number/volume) 0.4 0.2 - 0.8 08/01/2017 [facility] Estimated glomerular filtration rate (GFR) determination Estimated glomerular filtration rate (GFR) determination >60 60 08/01/2017 [facility] Glucose measurement Glucose measurement 143 74 - 118 08/01/2017 [facility] Plasma globulin measurement (mass/volume) Plasma globulin measurement (mass/volume) 4.9 2.3 - 3.5 08/01/2017 [facility] Serum or plasma alanine aminotransferase measurement (enzymatic activity/volume) Serum or plasma alanine aminotransferase measurement (enzymatic activity/volume) 7 0 - 55 08/01/2017 [facility] Serum or plasma albumin measurement (mass/volume) Serum or plasma albumin measurement (mass/volume) 3.1 3.5 - 5.0 08/01/2017 [facility] Serum or plasma albumin/globulin mass ratio Serum or plasma albumin/globulin mass ratio 0.6 0.8 - 2.0 08/01/2017 [facility] Serum or plasma alkaline phosphatase measurement (enzymatic activity/volume) Serum or plasma alkaline phosphatase measurement (enzymatic activity/volume) 64 40 - 150 08/01/2017 [facility] Serum or plasma anion gap Serum or plasma anion gap 12.7 8 - 16 08/01/2017 [facility] Serum or plasma calcium measurement (mass/volume) Serum or plasma calcium measurement (mass/volume) 8.7 8.4 - 10.2 08/01/2017 [facility] Serum or plasma carbon dioxide, total measurement (moles/volume) Serum or plasma carbon dioxide, total measurement (moles/volume) 24 22 - 29 08/01/2017 [facility] Serum or plasma chloride measurement (moles/volume) Serum or plasma chloride measurement (moles/volume) 104 98 - 107 08/01/2017 [facility] Serum or plasma creatine kinase MB measurement (mass/volume) Serum or plasma creatine kinase MB measurement (mass/volume) 1.40 0 - 4.3 08/01/2017 [facility] Serum or plasma creatine kinase measurement (enzymatic activity/volume) Serum or plasma creatine kinase measurement (enzymatic activity/volume) 31 29 - 168 08/01/2017 [facility] Serum or plasma creatinine measurement (mass/volume) Serum or plasma creatinine measurement (mass/volume) 0.67 0.57 - 1.11 08/01/2017 [facility] Serum or plasma magnesium measurement (mass/volume) Serum or plasma magnesium measurement (mass/volume) 2.4 1.3 - 2.1 08/01/2017 [facility] Serum or plasma potassium measurement (moles/volume) Serum or plasma potassium measurement (moles/volume) 3.7 3.5 - 5.1 08/01/2017 [facility] Serum or plasma protein measurement (mass/volume) Serum or plasma protein measurement (mass/volume) 8.0 6.5 - 8.1 08/01/2017 [facility] Serum or plasma sodium measurement (moles/volume) Serum or plasma sodium measurement (moles/volume) 137 136 - 145 08/01/2017 [facility] Serum or plasma total bilirubin measurement (mass/volume) Serum or plasma total bilirubin measurement (mass/volume) 0.3 0.2 - 1.2 08/01/2017 [facility] Serum or plasma troponin i.cardiac measurement (mass/volume) Serum or plasma troponin i.cardiac measurement (mass/volume) <0.05 0.0 - 0.40 08/01/2017 [facility] Serum or plasma urea nitrogen measurement (mass/volume) Serum or plasma urea nitrogen measurement (mass/volume) 8 7 - 26 08/01/2017 [facility] Serum or plasma urea nitrogen/creatinine mass ratio Serum or plasma urea nitrogen/creatinine mass ratio 12 6 - 25 08/01/2017 [facility] Red Cell Distribution Width 15.2 11.7 - 14.4 08/01/2017 [facility] IM GRANULOCYTES % 0.3 0.0 - 1.0 08/01/2017 [facility] Absolute Immature Granulocyte (auto 0.02 0 - 0.1 08/01/2017 [facility] Aspartate Amino Transf (AST/SGOT) 9 5 - 34 08/01/2017 [facility] Automated urine sediment leukocyte count by microscopy (number/high power field) Automated urine sediment leukocyte count by microscopy (number/high power field) <5 0 - 5 08/01/2017 [facility] Bacteria detection in urine sediment by light microscopy Bacteria detection in urine sediment by light microscopy FEW NONE 08/01/2017 [facility] Epithelial cells detection in urine sediment by light microscopy Epithelial cells detection in urine sediment by light microscopy FEW NONE 08/01/2017 [facility] Erythrocytes detection in urine sediment by light microscopy Erythrocytes detection in urine sediment by light microscopy <5 0 - 5 08/01/2017 [facility] Specific gravity of Urine by Test strip Specific gravity of Urine by Test strip 1.025 1.010 - 1.025 08/01/2017 [facility] Urine clarity Urine clarity CLEAR CLEAR 08/01/2017 [facility] Urine color determination Urine color determination YELLOW YELLOW 08/01/2017 [facility] Urine erythrocytes detection Urine erythrocytes detection TRACE NEGATIVE 08/01/2017 [facility] Urine glucose detection Urine glucose detection NEGATIVE NEGATIVE 08/01/2017 [facility] Urine ketones detection by automated test strip Urine ketones detection by automated test strip NEGATIVE NEGATIVE 08/01/2017 [facility] Urine leukocyte esterase detection by dipstick Urine leukocyte esterase detection by dipstick NEGATIVE NEGATIVE 08/01/2017 [facility] Urine nitrite detection Urine nitrite detection NEGATIVE NEGATIVE 08/01/2017 [facility] Urine pH measurement by automated test strip Urine pH measurement by automated test strip 6.5 5 - 7 08/01/2017 [facility] Urine protein measurement by test strip (mass/volume) Urine protein measurement by test strip (mass/volume) NEGATIVE NEGATIVE 08/01/2017 [facility] Urine total bilirubin measurement (mass/volume) Urine total bilirubin measurement (mass/volume) NEGATIVE NEGATIVE 08/01/2017 [facility] Urine urobilinogen measurement by test strip (mass/volume) Urine urobilinogen measurement by test strip (mass/volume) 1 0.2 - 1 08/01/2017 [facility] Pathology Reports No Data Provided for This [...] Date Status Source MD LITA Zelaya Unknown [id number] 10/03/2013 10/03/2013 MD LITA Bartholomew Unknown [id number] 10/03/2013 10/03/2013 Sal Smart MD [place] Unknown [id number] 02/02/2016 02/02/2016 Sal Smart Departed Emergency Room [id number] EDITH GONZALEZ MD 08/01/2017 08/01/2017 [facility] Procedures No Data Provided for This Section Assessment and Plan No Data Provided for This Section Plan of Care Plan of Care Date Source Discharge Date 08/01/17 12:49pm Disposition HOME, SELF-CARE Condition at Discharge Stable Instructions/Education Provided Weakness (Generalized) Forms Provided Work/School Excuse Prescriptions See Medication Section Referrals SHI NASCIMENTO MD Address: [address] [place] [id number] Additional Instructions/Education follow up with pcp 08/01/2017 [facility] Social History Social History Date Source Smoking Status Start Date Stop Date Never Smoker 08/01/2017 [facility] Social History ElementQualifiersDate Reported Smoking . Status [...] is advance directive on file with [facility]? No 04/16/15 2:19pm If not on file with [facility] will patient provide a copy? No 04/16/15 2:19pm Do you have a Directive to Physician? No 08/01/17 8:12am Do you have a Medical Power of Clinical Nursing Intern? No 08/01/17 8:12am Do you have an [...] rights and responsibilities? Yes 08/01/17 8:12am 08/01/2017 [facility] Functional Status No Data Provided for This Section
[2018-08-03] MEDS ORDERED: ALBUTEROL/IPRATROPIUM 3 ML NEB NEB ONE (03:30)
--- NOTE | 2018-08-03 04:38 | Diagnostic Imaging Report ---
EXAMINATION: PA and lateral views of the chest. COMPARISON: February 22 2018 CLINICAL HISTORY: Dual-lead cardiac device DISCUSSION: Lines/tubes: None. Lungs: The lungs are well inflated and clear. No pneumonia or pulmonary edema. Pleura: No pleural effusion or pneumothorax. Heart and mediastinum: The cardiomediastinal silhouette is normal. Bones and soft tissues: No acute bony abnormalities. IMPRESSION: No acute cardiopulmonary abnormalities. Signed by: Dr. Max Krishnamurthy M.D. on 08/03/2018 4:34 AM
--- NOTE | 2018-08-03 04:48 | NUR ---
notified md of low bp, further review of previous 6 visits showed patient has naturally low blood pressure, patient under no distress
--- NOTE | 2018-08-03 04:53 | NUR ---
spoke to radha at [facility] to provide transport back to place of residence
[2018-08-03 07:15] VITALS: BP 111/60
--- NOTE | 2018-08-03 07:35 | NUR ---
[facility] here to transport patient.
== END 2018-08-03 07:40 | disposition home or self-care (01) ==
LOC: ER 03:24 → MERGE 03:24 → ER 07:40
DX: R06.00 Dyspnea, unspecified (principal); R05 Cough; I10 Essential (primary) hypertension; E11.9 Type 2 diabetes mellitus without complications; K50.90 Crohn's disease, unspecified, without complications; Z88.6 Allergy status to analgesic agent; Z88.1 Allergy status to other antibiotic agents; Z88.5 Allergy status to narcotic agent; Z88.0 Allergy status to penicillin; Z88.8 Allergy status to other drugs, medicaments and biological substances; Z82.49 Family history of ischemic heart disease and other diseases of the circulatory system
CPT/HCPCS: 71046; 94640; 99283

== ENCOUNTER → 2018-09-04 | Outpatient (CLI) | payer MEDICARE ==
--- NOTE | 2018-09-05 16:59 | Diagnostic Imaging Report ---
ADDENDUM #1 Exam: Bone mineral density study. History: Age-related osteoporosis Comparison: Baseline December 08, 2014, most recent April 08, 2015. Discussion: Evaluation of the left hip and lumbar spine was performed. The study is technically adequate. The patient's fracture risk is compared to an age-matched control. The patient denies prior surgery/fracture of the spine, hips or forearm. Left hip femoral neck bone mineral density: 0.7 g/cm2, T-score is -1.6, Z-score is 0.3. Left hip total bone mineral density: 0.7 g/cm2, T-score is -1.9, Z-score is -0.3. Lumbar spine total bone mineral density: 0.8 g/cm2, T-score is -2.5, Z-score is -0.2. The BMD change versus baseline is + 5.3% (statistically significant) and the BMD change versus previous + 8.5% (statistically significant). Impression: 1. Bone mineralization by WHO Classification is osteoporosis, the fracture risk is high. 2. Increasing lumbar spine bone mineral density may be artifactual secondary to increasing degenerative changes, if future bone densitometry is warranted, consider utilizing the left hip and a forearm for the most accurate assessment. Signed by: Jackie Dejesus.Shannon., M.M.M. on 09/05/2018 5:00 PM ORIGINAL REPORT Exam: Bone mineral density study. History: Age-related osteoporosis Comparison: None available. Discussion: Evaluation of the left hip and lumbar spine was performed. The study is technically adequate. The patient's fracture risk is compared to an age-matched control. The patient denies prior surgery/fracture of the spine, hips or forearm. Left hip femoral neck bone mineral density: 0.7 g/cm2, T-score is -1.6, Z-score is 0.3. Left hip total bone mineral density: 0.7 g/cm2, T-score is -1.9, Z-score is -0.3. Lumbar spine total bone mineral density: 0.8 g/cm2, T-score is -2.5, Z-score is -0.2. The BMD change versus baseline is + 5.3% (statistically significant) and the BMD change versus previous + 8.5% (statistically significant). Impression: 1. Bone mineralization by WHO Classification is osteoporosis, the fracture risk is high. 2. Increasing lumbar spine bone mineral density may be artifactual secondary to increasing degenerative changes, if future bone densitometry is warranted, consider utilizing the left hip and a forearm for the most accurate assessment. Signed by: Dr. Hayden Vargas D.O., M.M.M. on 09/05/2018 4:56 PM
--- NOTE | 2018-09-11 16:11 | Diagnostic Imaging Report ---
#[id number] - [facility] #UNILATERAL LEFT DIGITAL SCREENING MAMMOGRAM WITH CAD: 09/04/2018 CLINICAL: Routine screening. Comparison is made to exams dated: 06/09/2016 mammogram, 10/29/2014 mammogram and 11/19/2013 mammogram - [facility]. There are scattered fibroglandular elements in the left breast. Current study was also evaluated with a Computer Aided Detection (CAD) system. There are benign vascular calcifications in the left breast. No significant masses, calcifications, or other findings are seen in the breast. There has been no significant interval change. IMPRESSION: BENIGN There is no mammographic evidence of malignancy. A 1 year screening mammogram is recommended. The patient will be notified by letter of the results. Karthikeyan wills/britney:09/11/2018 10:31:24 Music Typographer: Heydi HUA)(Aroldo), [facility] letter sent: Normal Exam Mammogram BI-RADS: 2 Benign
== END ==
LOC: MAMMO 09:38 → MERGE 09:38
PROVIDERS: ATTEND Internal Medicine
DX: Z12.31 Encounter for screening mammogram for malignant neoplasm of breast (principal); M81.0 Age-related osteoporosis without current pathological fracture
CPT/HCPCS: 77080

== ENCOUNTER 2019-03-04 13:53 | Inpatient (IN) | payer MEDICARE, OTHER ==
[~2019-03-04] VITALS: Ht 160 cm; Wt 50.8 kg
--- OUTSIDE RECORDS SUMMARY | 2019-03-04 13:58 | XMS REPORT ---
Author Author [facility] Address Unknown Phone Unavailable Care Team Providers Care Development Spec Name Role Phone MAGUE PATEL Unavailable Unavailable Ayanna CLAIRE Unavailable Unavailable Kailey GUTIERREZ Unavailable Unavailable SHI NASCIMENTO Unavailable Unavailable STIVEN GEORGE Unavailable Unavailable Dolly GONZALEZ Unavailable Unavailable Miriam SQUIRES Unavailable Unavailable Tiffanie ATKINSON Unavailable Unavailable SOMMER SANCHEZ Unavailable Unavailable Aroldo PEREYRA Unavailable Unavailable Payers Payer Name Policy Type Policy Number Effective Date Expiration Date Problems This patient has no known problems. Allergies, Adverse Reactions, Alerts Allergy Name Allergy Type Status Severity Reaction(s) Onset Date Inactive Date Treating Clinician Comments diphenhydramine DA Active IN 2018-06-19 00:00:00 calcium carbonate DA Active DE 2018-06-19 00:00:00 naproxen sodium DA Active DE 2018-06-19 00:00:00 diclofenac sodium DA Active DE 2018-06-19 00:00:00 diphenhydramine HCl DA Active U 2018-06-19 00:00:00 pyrilamine maleate DA Active DE 2018-06-19 00:00:00 ciprofloxacin HCl DA Active DE 2018-06-19 00:00:00 Penicillins DA Active DE 2018-06-19 00:00:00 sodium bicarbonate DA Active DE 2018-06-19 00:00:00 potassium bicarbonate DA Active DE 2018-06-19 00:00:00 misoprostol DA Active DE 2018-06-19 00:00:00 ethinyl estradiol DA Active MO 2018-06-19 00:00:00 levonorgestrel-ethinyl estradiol DA Active MO 2018-06-19 00:00:00 morphine DA Active DE 2018-06-19 00:00:00 aspirin DA Active DE 2018-06-19 00:00:00 acetaminophen DA Active DE 2018-06-19 00:00:00 pamabrom DA Active DE 2018-06-19 00:00:00 ibuprofen DA Active DE 2018-06-19 00:00:00 citric acid DA Active DE 2018-06-19 00:00:00 tetracycline DA Active DE 2018-06-19 00:00:00 erythromycin base DA Active DE 2018-06-19 00:00:00 ciprofloxacin DA Active DE 2018-06-19 00:00:00 oxaprozin DA Active DE 2018-06-19 00:00:00 pentosan polysulfate sodium DA Active [...] MO 2018-06-14 00:00:00 calcium carbonate DA Active DE 2017-03-16 00:00:00 naproxen sodium DA Active DE 2017-03-16 00:00:00 diclofenac sodium DA Active DE 2017-03-16 00:00:00 diphenhydramine HCl DA Active U 2017-03-16 00:00:00 pyrilamine maleate DA Active DE 2017-03-16 00:00:00 ciprofloxacin HCl DA Active DE 2017-03-16 00:00:00 Penicillins DA Active DE 2017-03-16 00:00:00 sodium bicarbonate DA Active DE 2017-03-16 00:00:00 potassium bicarbonate DA Active DE 2017-03-16 00:00:00 misoprostol DA Active DE 2017-03-16 00:00:00 morphine DA Active DE 2017-03-16 00:00:00 aspirin DA Active DE 2017-03-16 00:00:00 acetaminophen DA Active DE 2017-03-16 00:00:00 pamabrom DA Active DE 2017-03-16 00:00:00 ibuprofen DA Active DE 2017-03-16 00:00:00 citric acid DA Active DE 2017-03-16 00:00:00 tetracycline DA Active DE 2017-03-16 00:00:00 erythromycin base DA Active DE 2017-03-16 00:00:00 ciprofloxacin DA Active DE 2017-03-16 00:00:00 oxaprozin DA Active DE 2017-03-16 00:00:00 Medications This patient has no known medications. Results Test Description Test Time Test Comments Text Results Atomic Results Result Comments BONE DXA DUAL ENERGY 2018-09-05 16:51:00 [place] [address] Patient Name: SHENG WESLEY MR #: [id number] : 1945 Age/Sex: 73/F Req #: [id number] Adm Physician: Ordered by: MAGUE PATEL MD Report #: [id number] Location: [facility] Room/Bed: Procedure: [id number] DX/BONE DXA DUAL ENERGY Exam Date: Exam Time: REPORT STATUS: Signed ADDENDUM #1 Exam: Bone mineral density study. History: Age-related osteoporosis Comparison: Baseline December 08, 2014, most recent April 08, 2015. Discussion: Evaluation of the left hip and lumbar spine was performed. The study is technically adequate. The patient's fracture risk is compared to an age-matched control. The patient denies prior surgery/fracture of the spine, hips or forearm. Left hip femor al neck bone mineral density: 0.7 g/cm2, T-score is -1.6, Z-score is 0.3. Left hip total bone mineral density: 0.7 g/cm2, T-score is -1.9, Z-score is - 0.3. Lumbar spine total bone mineral density: 0.8 g/cm2, T-score is -2.5, Z-score is -0.2. The BMD change versus baseline is + 5.3% (statistically significant) and the BMD change versus previous + 8.5% (statistically significant). Impression: 1. Bone mineralization by WHO Classification is osteoporosis, the fracture risk is high. 2. Increasing lumbar spine bone mineral density may be artifactual secondary to increasing degenerative changes, if future bone densitometry is warranted, consider utilizing the left hip and a forearm for the most accurate assessment. Signed by: Dr. Hayden Mercedes D.O., M.M.M. on 09/05/2018 5:00 PM ORIGINAL REPORT Exam: Bone mineral density study. History: Age-related osteoporosis Comparison: None available. Discussion: Evaluation of the left hip and lumbar spine was performed. The study is technically adequate. The patient's fracture risk is compared to an age-matched control. The patient denies prior surgery/fracture of the spine, hips or forearm. Left hip femoral neck bone mineral density: 0.7 g/cm2, T-score is -1.6, Z-score is 0.3. Left hip total bone mineral density: 0.7 g/cm2, T-score is -1.9, Z- score is -0.3. Lumbar spine total bone mineral density: 0.8 g/cm2, T- score is -2.5, Z-score is -0.2. The BMD change versus baseline is + 5.3% (statistically significant) and the BMD change versus previous + 8.5% (statistically significant). Impression: 1. Bone mineralization by WHO Classification is osteoporosis, the fracture risk is high. 2. Increasing lumbar spine bone mineral density may be artifactual secondary to increasing degenerative changes, if future bone densitometry is warranted, consider utilizing the left hip and a forearm for the most accurate assessment. Sig bhargav by: Dr. Hayden Mercedes D.O., M.M.M. on 09/05/2018 4:56 PM Dictated By: HAYDEN MERCEDES DO 170 Transcribed By: CARMEN on 09/05/18 5190 COPY TO: MAGUE PATEL MD MAMMOGRAPHY DIGITAL SCR UNI LT 2018-09-04 13:02:00 [place] [address] Patient Name: SHENG WESLEY MR #: [id number] : 1945 Age/Sex: 73/F Req #: [id number] [facility] Physician: Ordered by: MAGUE PATEL MD Report #: [id number] Location: MAMMO Room/Bed: Procedure: [id number] MG/MAMMOGRAPHY DIGITAL SCR UNI LT Exam Date: 09/04/18 Exam Time: 0943 REPORT STATUS: Signed #[id number] - MGSCRLT #UNILATERAL LEFT DIGITAL SCREENING MAMMOGRAM WITH CAD: 09/04/2018 CLINICAL: Routine screening. Comparison is made to exams dated: 06/09/2016 mammogram, 10/29/2014 mammogram and 11/19/2013 mammogram - [facility]. There are scattered fibroglandular elements in the left breast. Current study was also evaluated with a Computer Aided Detection (CAD) system. There are benign vascular calcifications in the left breast. No significant masses, calcifications, or other findings are seen in the breast. There has been no significant interval change. IMPRESSION: BENIGN There is no mammographic evidence of malignancy. A 1 year screening mammogram is recommended. The patient will be notified by letter of the results. Karthikeyan wills/britney:09/11/2018 10:31:24 Final Assembly Inspector: Heydi HUA)(Aroldo), [facility] letter sent: Normal Exam Mammogram BI-RADS: 2 Benign Dictated By: KARTHIKEYAN NELSON MD 1031 Transcribed By: BRITNEY on 09/11/18 1031 COPY TO: MAGUE PATEL MD CHEST 2 VIEWS 2018-08-03 04:33:00 [place] [address] Patient Name: SHENG WESLEY MR #: [id number] : 1945 Age/Sex: 73/F Req #: [id number] [facility] Physician: Ordered by: SEMAJ CLAIRE MD Report #: [id number] Location: ER Room/Bed: Procedure: [id number] DX/CHEST 2 VIEWS Exam Date: 08/03/18 Exam Time: 0405 REPORT STATUS: Signed EXAMINATION: PA and lateral views of the chest. COMPARISON: February 22 2018 CLINICAL HISTORY: Dual-lead cardiac device DISCUSSION: Lines/tubes: None. Lungs: The lungs are well inflated and clear. No pneumonia or pulmonary edema. Pleura: No pleural effusion or pneumothorax. Heart and mediastinum: The cardiomediastinal silhouette is normal. Bones and soft tissues: No acute bony abnormalities. IMPRESSION: No acute cardiopulmonary abnormalities. Signed by: Dr. Hemant Prince M.D. on 08/03/2018 4:34 AM Dictated By: HEMANT PRINCE MD Transcribed By: CARMEN on 08/03/18433 COPY TO: SEMAJ CLAIRE MD CHEST 2 VIEWS 2018-08-03 04:33:00 [place] [address] Patient Name: SHENG WESLEY MR #: [id number] : 1945 Age/Sex: 73/F Req #: [id number] Adm Physician: Ordered by: SEMAJ CLAIRE MD Report #: [id number] Location: ER Room/Bed: Procedure: [id number] DX/CHEST 2 VIEWS Exam Date: 08/03/18 Exam Time: 0405 REPORT STATUS: Signed EXAMINATION: PA and lateral views of the chest. COMPARISON: February 22 2018 CLINICAL HISTORY: Dual-lead cardiac device DISCUSSION: Lines/tubes: None. Lungs: The lungs are well inflated and clear. No pneumonia or pulmonary edema. Pleura: No pleural effusion or pneumothorax. Heart and mediastinum: The cardiomediastinal silhouette is normal. Bones and soft tissues: No acute bony abnormalities. IMPRESSION: No acute cardiopulmonary abnormalities. Signed by: Dr. Hemant Prince M.D. on 08/03/2018 4:34 AM Dictated By: HEMANT PRINCE MD Transcribed By: CARMEN on 08/03/18 6824 COPY TO: SEMAJ CLAIRE MD CBC W/AUTO DIFF 2018-06-19 09:05:00 WHITE BLOOD [...] (test code=MDIFF) NO, ONLY SCAN NEEDED DIFFERENTIAL [id number] 09:05:00* Test Item Value Reference Range Comments STAIN ACCEPTABILITY (test code=STN ACCEPTABLE) STAIN ACCEPTABLE POIKILOCYTOSIS (test code=POIK) 1+ ANISOCYTOSIS (test code=ANISO) 1+ MICROCYTOSIS (test code=MICR) 1+ ELLIPTOCYTES (test code=ELL) 1+ PLATELET ESTIMATE (test code=PLTEST) INCREASED PLATELET MORPHOLOGY (test code=PLTMORPH) SIZE VARIABLE CBC W/AUTO [id number] 08:20:00* Test Item Value Reference Range Comments [...] (test code=MDIFF) NO, ONLY SCAN NEEDED DIFFERENTIAL [id number] 08:20:00* Test Item Value Reference Range Comments STAIN ACCEPTABILITY (test code=STN ACCEPTABLE) CABOT RINGS (test code=CAB) MORPHOLOGY COMMENT (test code=MOC) PLATELET ESTIMATE (test code=PLTEST) PLATELET MORPHOLOGY (test code=PLTMORPH) CBC W/AUTO [id number] 08:20:00* Test Item Value Reference Range Comments [...] (test code=MDIFF) NO, ONLY SCAN NEEDED DIFFERENTIAL [id number] 08:20:00* Test Item Value Reference Range Comments STAIN ACCEPTABILITY (test code=STN ACCEPTABLE) MORPHOLOGY COMMENT (test code=MOC) PLATELET ESTIMATE (test code=PLTEST) PLATELET MORPHOLOGY (test code=PLTMORPH) CBC W/AUTO [id number] 08:20:00* Test Item Value Reference Range Comments [...] (test code=MDIFF) NO, ONLY SCAN NEEDED DIFFERENTIAL [id number] 08:20:00* Test Item Value Reference Range Comments STAIN ACCEPTABILITY (test code=STN ACCEPTABLE) MORPHOLOGY COMMENT (test code=MOC) PLATELET ESTIMATE (test code=PLTEST) PLATELET MORPHOLOGY (test code=PLTMORPH) CBC W/AUTO [id number] 08:20:00* Test Item Value Reference Range Comments [...] (test code=MDIFF) NO, ONLY SCAN NEEDED DIFFERENTIAL [id number] 08:20:00* Test Item Value Reference Range Comments STAIN ACCEPTABILITY (test code=STN ACCEPTABLE) CABOT RINGS (test code=CAB) MORPHOLOGY COMMENT (test code=MOC) PLATELET ESTIMATE (test code=PLTEST) PLATELET MORPHOLOGY (test code=PLTMORPH) CT LUMBAR SPINE [id number] 15:10:00 [place] [address] Patient Name: SHENG WESLEY MR #: [id number] : 1945 Age/Sex: 73/F Req #: [id number] Adm Physician: Ordered by: MAGUE PATEL MD [...] tronically Signed By: MARCO MARADIAGA MD on 03/27/18 1518 Transcribed By: SILVA SIMS on 03/27/181517 COPY TO: MAGUE PATEL MD CT LUMBAR SPINE [id number] 15:10:00 [place] [address] Patient Name: SHENG WESLEY MR #: [id number] : 1945 Age/Sex: 73/F Req #: [id number] [facility] Physician: Ordered by: MAGUE PATEL MD Report #: [id number] Location: CT Room/Bed: Procedure: [id number] CT/CT [...] COPY TO: MAGUE PATEL MD CHEST 2 [id number] 13:16:00 [place] [address] Patient Name: SHENG WESLEY MR #: [id number] : 1945 Age/Sex: 73/F Req #: [id number] Adm Physician: Ordered by: CHIN BENZ [employer]ER Report #: [id number] Location: ER Room/Bed: Procedure: [id number] DX/CHEST 2 VIEWS Exam Date: 02/22/18 Exam [...] CARMEN on 02/22/181317 COPY TO: CHIN CASPER [employer]ER CHEST 2 [id number] 13:16:00 [place] [address] Patient Name: SHENG WESLEY MR #: [id number] : 1945 Age/Sex: 73/F Req #: [id number] Adm Physician: Ordered by: CHIN BENZ [employer] SERVER Report #: [id number] Location: ER Room/Bed: Procedure: [id number] DX/CHEST 2 VIEWS Exam Date: 02/22/18 Exam [...] CHIN CASPER NP CHEST SINGLE (PORTABLE)2018-01-24 19:40:00 [place] [address] Patient Name: SHENG WESLEY MR #: [id number] : 1945 Age/Sex: 73/F Req #: [id number] Adm Physician: Ordered by: CHIN BENZ NP Report #: [id number] Location: ER Room/Bed: Procedure: [id number] DX/CHEST SINGLE (PORTABLE) Exam Date: 01/24/18 Exam Time: 1906 REPORT STATUS: Signed EXAMINATION: CHEST SINGLE (PORTABLE) COMPARISON: Chest x-ray 018 INDICATION: Fall DISCUSSION: Frontal view of the chest obta ined at 1914 hours. HEART AND MEDIASTINUM: Stable mild cardiomegaly. Pacem eboni wires terminate in the right atrium and [...] RODRÍGUEZ on 01/24/181941 COPY TO: CHIN BENZ [employer]ER CHEST SINGLE (PORTABLE)2018-01-24 19:40:00 [place] [address] Patient Name: SHENG WESLEY MR #: [id number] : 1945 Age/Sex: 72/F Req #: [id number] Adm Physician: Ordered by: CHIN BENZ [employer] SERVER Report #: [id number] Location: ER Room/Bed: Procedure: [id number] DX/CHEST SINGLE (PORTABLE) Exam Date: 01/24/18 Exam Time: 1906 REPORT STATUS: Signed EXAMINATION: CHEST SINGLE (PORTABLE) COMPARISON: Chest x-ray 018 INDICATION: Fall DISCUSSION: Frontal view of the chest obta ined at 1914 hours. HEART AND MEDIASTINUM: Stable mild cardiomegaly. Pacem eboni wires terminate in the right atrium and [...] RODRÍGUEZ on 01/24/181941 COPY TO: CHIN BENZ [employer] SERVER WRIST COMPLETE [id number] 18:23:00 [facility] [address] [address] Patient Name: SHENG WESLEY MR #: [id number] : 1945 Age/Sex: 73/F Req #: [id number] Adm Physician: Ordered by: CHIN BENZ [employer] SERVER Report #: [id number] Location: ER Room/Bed: Procedure: [id number] DX/WRIST COMPLETE BILATERAL Exam Date: 01/24/18 Exam Time: 1742 REPORT STATUS: Signed Wrist Complete Bilateral CPT Code: 11716 x 2 Indication: Fall Jessica hnique: Three [...] CARMEN on 01/24/181826 COPY TO: CHIN BENZ [employer]ER WRIST COMPLETE [id number] 18:23:00 [place] [address] Patient Name: SHENG WESLEY MR #: [id number] : 1945 Age/Sex: 72/F Req #: [id number] Adm Physician: Ordered by: CHIN BENZ [employer] SERVER Report #: [id number] Location: ER Room/Bed: Procedure: [id number] DX/WRIST COMPLETE BILATERAL Exam Date: 01/24/18 Exam Time: 1742 REPORT STATUS: Signed Wrist Complete Bilateral CPT Code: 67009 x 2 Indication: Fall Jessica hnique: Three [...] CARMEN on 01/24/181826 COPY TO: CHIN BENZ [employer] SERVER CT LUMBAR SPINE [id number] 18:22:00 [place] [address] Patient Name: SHENG WESLEY MR #: [id number] : 1945 Age/Sex: 73/F Req #: [id number] Adm Physician: Ordered by: CHIN BENZ [employer] SERVER Report #: [id number] Location: ER Room/Bed: Procedure: [id number] CT/CT LUMBAR SPINE WO Exam Date: 01/24/18 Exam Time: 1715 REPORT STATUS: Signed ADDENDUM #1 I have reviewed the images and agree with piotr manuel in preliminary report. Signed by: Dr. Josefina Taylor M.D. on 2017 8:02 PM ORIGINAL [...] by the neuroradiology fellow, Dr. Bruce Zamora. Attendi ng over read to follow. Signed by: Bruce Zamora MD on 01/24/2018 6:28 PM Dictated By: FRANCISCO ZAMORA MD 01 Transcribed By: CARMEN on 01/24/18 1828 C OPY TO: CHIN BENZ [employer] SERVER CT LUMBAR SPINE [id number] 18:22:00 [place] [address] Patient Name: SHENG WESLEY MR #: [id number] : 1945 Age/Sex: 72/F Req #: [id number] Adm Physician: Ordered by: CHIN BENZ [employer] SERVER Report #: [id number] Location: ER Room/Bed: Procedure: [id number] CT/CT LUMBAR SPINE WO Exam Date: 01/24/18 Exam Time: 1715 REPORT STATUS: Signed ADDENDUM #1 I have reviewed the images and agree with piotr manuel in preliminary report. Signed by: Dr. Josefina Taylor M.D. on 2017 8:02 PM ORIGINAL [...] by the neuroradiology fellow, Dr. Bruce Zamora. [facility] over read to follow. Signed by: Bruce Zamora MD on 01/24/2018 6:28 PM Dictated By: FRANCISCO ZAMORA MD 01 Transcribed By: CARMEN on 01/24/18 1828 C OPY TO: CHIN BENZ [employer] SERVER CT CERVICAL SPINE [id number] 18:11:00 [place] [address] Patient Name: SHENG WESLEY MR #: [id number] : 1945 Age/Sex: 73/F Req #: [id number] Adm Physician: Ordered by: CHIN BENZ [employer]ER Report #: [id number] Location: Room/Bed: Procedure: [id number] CT/CT CERVICAL SPINE WO Exam Date: 01/24/18 Exam Ti me: 1715 REPORT STATUS: Signed ADDENDUM #1 I have reviewed the images and agree with f ananya in preliminary report. Signed by: Dr. Josefina [...] seen in the clinic al diagnosis of [place] syndrome. This is a preliminary report was provided by the neuroradiology fellow, Dr. Bruce Zamora. Attending over read to follow. Signed by: Bruce Zamora MD on 01/24/2018 6:21 PM Dictated By: VERO ZAMORA MD 20 COPY TO: IMANI BENZ SPORTS BOOK SERVER CT CERVICAL SPINE [id number] 18:11:00 [place] [address] Patient Name: SHENG WESLEY MR #: [id number] : 1945 Age/Sex: 72/F Req #: [id number] Adm Physician: Ordered by: CHIN BENZ [employer] SERVER Report #: [id number] Location: ER Room/Bed: Procedure: [id number] CT/CT CERVICAL SPINE WO Exam Date: 01/24/18 Exam Ti me: 1715 REPORT STATUS: Signed ADDENDUM #1 I have reviewed the images and agree with f ananya in preliminary report. Signed by: Dr. Josefina [...] seen in the clinic al diagnosis of [place] syndrome. This is a preliminary report was provided by the neuroradiology fellow, Dr. Bruce Zamora. Attending over read to follow. Signed by: Bruce Zamora MD on 01/24/2018 6:21 PM Dictated By: VERO ZAMORA MD 20 COPY TO: IMANI BENZ [employer]OR[employer] BOOK SERVER CT PELVIS [id number] 18:10:00 [facility] [address] [address] Patient Name: SHENG WESLEY MR #: [id number] : 1945 Age/Sex: 73/F Req #: [id number] Adm Physician: Ordered by: CHIN BENZ NP Report #: [id number] Location: ER Room/Bed: Procedure: [id number] CT/CT PELVIS WO Exam Date: Exam Time: REPORT STATUS: Signed CT Bony Pelvis Without Contrast, With Multiplanar Reconstruction. CPT CODE: 52287,01563. IN DICATIONS: Lost balance and fell backwards [...] CARMEN on 01/24/181821 COPY TO: CHIN BENZ [employer] SERVER CT PELVIS [id number] 18:10:00 [place] [address] Patient Name: SHENG WESLEY MR #: [id number] : 1945 Age/Sex: 72/F Req #: [id number] Adm Physician: Ordered by: CHIN BENZ NP Report #: [id number] Location: ER Room/Bed: Procedure: [id number] CT/CT PELVIS WO Exam Date: Exam Time: REPORT STATUS: Signed CT Bony Pelvis Without Contrast, With Multiplanar Reconstruction. CPT CODE: 19491,41714. IN DICATIONS: Lost balance and fell backwards [...] COPY TO: CHIN BENZ NP CT BRAIN [id number] 18:00:00 [place] [address] Patient Name: SHENG WESLEY MR #: [id number] : 1945 Age/Sex: 73/F Req #: [id number] [facility] Physician: Ordered by: CHIN BENZ [employer] SERVER Report #: [id number] Location: ER Room/Bed: Procedure: [id number] CT/CT BRAIN WO Exam Date: 01/24/18 Exam [...] on 01/24/181809 COPY TO: CHIN BENZ NP CT BRAIN [id number] 18:00:00 [place] [address] Patient Name: SHENG WESLEY MR #: [id number] : 1945 Age/Sex: 72/F Req #: [id number] Adm Physician: Ordered by: CHIN BENZ [employer] SERVER Report #: [id number] Location: Room/Bed: Procedure: [id number] CT/CT BRAIN WO Exam Date: 01/24/18 Exam [...] TO: CHIN BENZ NP AFB CULTURE + [id number] 12:02:00* Test Item Value Reference Range Comments CULTURE (BEAKER) (test flaf=7864) MYCOBACTERIUM ABSCESSUS Mycobacterium abscessus* - subsp.abscessusIdentification and susceptibility performed by:[facility], Dept. of Microbiology Research, 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 The erm gene has a nonfunctional sequence and hence will be macrolide susceptible unless mutationally resistant.CHEST XRAY LINE [id number] 09:28:00 [place] [address] Patient Name: SHENG WESLEY MR #: [id number] : 1945 Age/Sex: 73/F Req #: [id number] Adm Physician: SHI NASCIMENTO MD Ordered by: SHI NASCIMENTO MD Report #: [id number] Location: [facility] Room/Bed: [facility] Procedure: 1124-001 5 DX/CHEST XRAY LINE PLACEMENT [...] on 12/30 COPY TO: SHI NASCIMENTO MD CHEST XRAY LINE PLACEMENT 2017-12-30 09:28:00 [place] [address] Patient Name: SHENG WESLEY MR #: [id number] : 1945 Age/Sex: 72/F Req #: [id number] Adm Physician: SHI NASCIMENTO MD Ordered by: SHI NASCIMENTO MD Report #: [id number] Location: [facility] Room/Bed: [facility] Procedure: 1124-001 5 DX/CHEST XRAY LINE PLACEMENT [...] COPY TO: SHI NASCIMENTO MD CT ABDOMEN/PELVIS [id number] 18:05:00 [place] [address] Patient Name: SHENG WESLEY MR #: [id number] : 1945 Age/Sex: 73/F Req #: [id number] Adm Physician: SHI NASCIMENTO MD Ordered by: SADIE MARINELLI MD Report #: [id number] Location: MED/SURG3 Room/Bed: [facility] Procedure: [id number] CT/CT ABDOMEN/PELVIS W Exam Date: 12/28/17 Exam Time : 1740 REPORT STATUS: Signed EXA MINATION: CT of the abdomen and pelvis with contrast. TECHNIQUE: Spiral CT images of the abdomen and pelvis were performed from the lung bases to the lesser trochanters after the intravenous administration of 100 cc of Isovue 37 0 and the oral administration of water. Coronal and sagittal reformatted imag es were obtained. COMPARISON: None. CLINICAL HISTORY:Abdominal pain, bloody diarrhea, and vomiting for one week, no fever, history of Crohn's DISCUSSION: ABDOMEN/PELVIS: LOWER THORAX:Lung bases are grossly c lear. Distal portion of cardiac wires noted in the right atrium and right vent ricle. HEPATOBILIARY: No focal hepatic lesions. No intra or extrahepatic b iliary ductal dilation. GALLBLADDER: Cholecystectomy clips. SPL EEN: No splenomegaly. PANCREAS: No focal masses or ductal dilatation. ADRENALS: No adrenal nodules. KIDNEYS/URETERS: No hydronephrosis, stones, or solid mass lesions. PELVIC ORGANS/BLADDER: Bladder is unremarkable, with out focal lesions or wall thickening. No adnexal masses. PERITONEUM/RETRO PERITONEUM: No free air or fluid. LYMPH NODES: No intra-abdominal, retroper itoneal, pelvic or inguinal lymphadenopathy. VESSELS: The celiac trunk,martin perior and inferior mesenteric and bilateral renal arteries are patent The p ortal, superior mesenteric and splenic veins are patent. GI TRACT: No bow el dilation or evidence of obstruction. There is moderate circumferential wall thickening involving the distal transverse colon extending through the descen ding and proximal sigmoid colon (for example coronal image 7 and sagittal imag es 67-87), with prominence of the vasa recti and mild surrounding stranding. M ild wall thickening is also noted in the cecum. No foci of extraluminal air or adjacent well-defined fluid collections. Appendix is well identified and no rmal in caliber. Small bowel is grossly unremarkable. BONES AND SOFT TISS UE: No aggressive lytic lesions. Degenerative changes in the lumbosacral spin e with rightward curvature. Soft tissues are grossly unremarkable. IMPRES MICK: 1. Findings likely represent active inflammatory bowel disease/Crohn 's flareup, involving the distal transverse colon, descending colon and proxim al sigmoid colon, and the cecum, to lesser degree. An infectious colitis is le ss likely given the discontinuous nature of the findings. No evidence of perfo ration or abscess formation. Signed by: Dr. Facundo Suh M.D. on 12/28/2017 6:21 PM Dictated By: FACUNDO SUH MD 20 Transcribed By: CARMEN on 12/28/171820 COPY TO: SADIE MARINELLI MD CT ABDOMEN/PELVIS [id number] 18:05:00 [facility] [address] [address] Patient Name: SHENG WESLEY MR #: [id number] : 1945 Age/Sex: 72/F Req #: [id number] Adm Physician: Ordered by: SADIE MARINELLI MD Report #: [id number] Location: ER Room/Bed: Procedure: [id number] CT /CT ABDOMEN/PELVIS W Exam Date: 12/28/17 [...] SADIE MARINELLI MD CHEST SINGLE (PORTABLE)2017-12-28 16:02:[address] [place] [address] Patient Name: SHENG WESLEY MR #: [id number] : 1945 Age/Sex: 73/F Req #: [id number] Adm Physician: SHI NASCIMENTO MD Ordered by: SADIE MARINELLI MD Report #: [id number] Location: MED/SURG3 Room/Bed: 289-1 Procedure: [id number] DX/CHEST SINGLE (PORTABLE) Exam Date: 12/28/17 Exam Time: 1550 REPORT STATUS: Signed Examination: Single AP view of the chest. COMPARISON: None. INDICATIO N: Abdominal pain for 4 days IMPRESSION: 1. Lines and Tubes: Lef t upper chest dual lead cardiac device, with distal tips projecting in the rig ht atrium and right ventricle. 2. Lungs are well inflated. Minimal prominence of the interstitium bilaterally, which may reflect chronic interstitial huff es. No consolidation or pleural effusion. 3. Mild prominence of the cardiac silhouette, which may be partly due to AP projection. Pulmonary vasculature is normal. 4. No acute bony abnormalities. Mild osteopenia. Signed by: Dr. Facundo Suh M.D. on 12/28/2017 4:03 PM Dictated By: FACUNDO NGO MD 1603 Transcrib ed By: CARMEN on 12/28/17 1603 COPY TO: SADIE MARINELLI MD CHEST SINGLE (PORTABLE)2017-12-28 16:02:[address] [place] [address] Patient Name: SHENG WESLEY MR #: [id number] : 1945 Age/Sex: 72/F Req #: [id number] Adm Physician: Ordered by: SADIE MARINELLI MD Report #: [id number] Location: ER Room/Bed: Procedure: [id number] DX /CHEST SINGLE (PORTABLE) Exam Date: 12/28/17 [...] TO: SADIE MARINELLI MD FUNGUS CULTURE + [id number] 13:54:00* Test Item Value Reference Range Comments CULTURE (BEAKER) (test hmgw=2525) No fungus isolated in 28 days FUNGUS SMEAR (BEAKER) (test bpuc=2512) No fungi seen STOOL CULTURE + SHIGA [id number] 10:04:00* Test Item Value Reference Range Comments CULTURE (BEAKER) (test zgzh=2104) No Salmonella, Shigella or Campylobacter isolated SPIN/CONCENTRATION [id number] 02:08:00* Test Item Value Reference Range Comments CONCENTRATION CHARGED (BEAKER) (test abcb=2365) Done CBC W/PLT COUNT & AUTO [id number] 13:22:00* Test Item Value Reference Range Comments WHITE BLOOD CELL COUNT (BEAKER) (test vuev=371) 7.3 K/ L 3.5-10.5 RED BLOOD CELL COUNT (BEAKER) (test ljqw=597) 3.44 M/ L 3.93-5.22 HEMOGLOBIN (BEAKER) (test fgty=429) 8.6 GM/DL 11.2-15.7 HEMATOCRIT (BEAKER) (test hliu=401) 28.5 % 34.1-44.9 MEAN CORPUSCULAR VOLUME (BEAKER) (test zctz=635) 82.8 fL 79.4-94.8 MEAN CORPUSCULAR HEMOGLOBIN (BEAKER) (test upbg=993) 25.0 pg 25.6-32.2 MEAN CORPUSCULAR HEMOGLOBIN CONC (BEAKER) (test ywvx=375) 30.2 GM/DL 32.2-35.5 RED CELL DISTRIBUTION WIDTH (BEAKER) (test gjba=590) 16.3 % 11.7-14.4 PLATELET COUNT (BEAKER) (test zhwm=100) 451 K/CU MM 150-450 MEAN PLATELET VOLUME (BEAKER) (test ultz=482) 9.0 fL 9.4-12.3 NUCLEATED RED BLOOD CELLS (BEAKER) (test ivxr=196) 0 /100 WBC 0-0 (CELLAVISION MANUAL DIFF)2017-11-25 13:22:00* Test Item Value Reference Range Comments NEUTROPHILS - REL (CELLAVISION)(BEAKER) (test qrmz=2726) 43 % LYMPHOCYTES - REL (CELLAVISION)(BEAKER) (test lsvh=9007) 21 % MONOCYTES - REL (CELLAVISION)(BEAKER) (test jatr=9309) 3 % EOSINOPHILS - REL (CELLAVISION)(BEAKER) (test ijat=0463) 4 % BASOPHILS - REL (CELLAVISION)(BEAKER) (test liol=8227) 1 % BANDS - REL (CELLAVISION)(BEAKER) (test jdvg=1661) 29 % 0-10 NEUTROPHILS - ABS (CELLAVISION)(BEAKER) (test mtix=1580) 3.14 K/ul 1.56-6.13 LYMPHOCYTES - ABS (CELLAVISION)(BEAKER) (test hysr=6096) 1.53 K/ul 1.18-3.74 MONOCYTES - ABS (CELLAVISION)(BEAKER) (test zeah=0498) 0.22 K/uL 0.24-0.36 EOSINOPHILS - ABS (CELLAVISION)(BEAKER) (test dvyc=4160) 0.29 K/uL 0.04-0.36 BASOPHILS - ABS (CELLAVISION)(BEAKER) (test wmpv=6155) 0.07 K/uL 0.01-0.08 BANDS - ABS (CELLAVISION)(BEAKER) (test totc=1028) 2.12 K/uL 0.00-0.80 TOTAL COUNTED (BEAKER) (test hqfk=9110) 100 WBC MORPHOLOGY (BEAKER) (test bvnf=906) Normal GIANT PLATELETS (BEAKER) (test rbri=712) Present LARGE PLT(BEAKER) (test pong=8983) Present HYPOCHROMIA (BEAKER) (test zpcx=915) 2+ moderate ANISOCYTOSIS (BEAKER) (test qluc=791) 2+ moderate MICROCYTES (BEAKER) (test dkpr=158) 1+ few MACROCYTES (BEAKER) (test bbuj=420) 2+ moderate POIKILOCYTES (BEAKER) (test ezyg=004) 1+ few OVALOCYTES (BEAKER) (test phdk=420) 1+ few TEAR DROP CELLS (BEAKER) (test wprh=694) 1+ few ACANTHOCYTES (BEAKER) (test fzbt=896) 1+ few ARTIFACT (CELLAVISION)(BEAKER) (test afsi=6751) Present PLATELET CONCENTRATION (CELLAVISION)(BEAKER) (test itlm=5040) Adequate Received comment: User comments: Slide comments: POCT-GLUCOSE [id number] 12:49:00* Test Item Value Reference Range Comments POC-GLUCOSE METER (BEAKER) (test pymx=6114) 143 mg/dL 70-110 TESTED AT [place] [address] SPUTUM CULTURE + GRAM [id number] 11:31:00* Test Item Value Reference Range Comments CULTURE (BEAKER) (test zvml=7896) 4+ Normal respiratory thony present GRAM STAIN RESULT (BEAKER) (test knyy=8121) 3+ WBCs GRAM STAIN RESULT (BEAKER) (test txfg=589133) 5-10 epithelial cells GRAM STAIN RESULT (BEAKER) (test gwnm=977439) No organisms seen POCT-GLUCOSE [id number] 08:28:00* Test Item Value Reference Range Comments POC-GLUCOSE METER (BEAKER) (test vgzc=4367) 158 mg/dL 70-110 TESTED AT [place] [id number] [facility] [address] [id number] 07:04:00* Test Item Value Reference Range Comments MAGNESIUM (BEAKER) (test gsbr=842) 2.0 mg/dL 1.6-2.6 BASIC METABOLIC [id number] 07:04:00* Test Item Value Reference Range Comments SODIUM (BEAKER) (test iqtz=041) 137 meq/L 136-145 POTASSIUM (BEAKER) (test hbvk=688) 4.1 meq/L 3.5-5.1 CHLORIDE (BEAKER) (test fhru=625) 110 meq/L 98-107 CO2 (BEAKER) (test vhzt=869) 20 meq/L 22-29 BLOOD UREA NITROGEN (BEAKER) (test ogcl=582) 3 mg/dL 7-21 CREATININE (BEAKER) (test slbr=570) 0.66 mg/dL 0.57-1.25 GLUCOSE RANDOM (BEAKER) (test ougk=162) 114 mg/dL 70-105 CALCIUM (BEAKER) (test aivg=791) 8.3 mg/dL 8.4-10.2 EGFR (BEAKER) (test bcbf=9417) 88 mL/min/1.73 sq m ESTIMATED GFR IS NOT ACCURATE CREATININE CLEARANCE IN PREDICTING GLOMERULAR FILTRATION RATE. ESTIMATED GFR IS NOT APPLICABLE FOR DIALYSIS PATIENTS. GI PATHOGEN PROFILE BY [id number] 06:17:00* Test Item Value Reference Range Comments CAMPYLOBACTER (PCR) (test zsgi=9729914) Not detected Not detected PLESIOMONAS SHIGELLOIDES (PCR) (test drwq=9541237) Not detected Not detected SALMONELLA (PCR) (test ywhb=3703289) Not detected Not detected YERSINIA ENTEROCOLITICA (PCR) (test jmap=4227302) Not detected Not detected VIBRIO CHOLERAE (PCR) (test dedw=4630515) Not detected Not detected ENTEROAGGREGATIVE E. COLI (EAEC) BY PCR (test cbcw=3085638) Not detected Not detected ENTEROPATHOGENIC E. COLI (EPEC) BY PCR (test sojn=1227885) Not detected Not detected ENTEROTOXIGENIC E. COLI (ETEC) LT/ST BY PCR (test fbez=7197515) Not detected Not detected SHIGA-LIKE TOXIN-PRODUCING E. COLI (STEC) STX1/STX2 (test enrw=0371660) Not detected Not detected E. COLI O157 (PCR) (test nsxs=8177231) Not detected SHIGELLA/ENTEROINVASIVE E. COLI (EIEC) BY PCR (test ydlz=7951137) Not detected Not detected CRYPTOSPORIDIUM (PCR) (test dqym=6409594) Not detected Not detected CYCLOSPORA CAYETANENSIS (PCR) (test mlxp=2632752) Not detected Not detected ENTAMOEBA HISTOLYTICA (PCR) (test gyhv=6421282) Not detected Not detected GIARDIA LAMBLIA (PCR) (test oxin=7549069) Not detected Not detected ADENOVIRUS F 40/41 (PCR) (test whgd=8902613) Not detected Not detected ASTROVIRUS (PCR) (test ngjv=7647966) Not detected Not detected NOROVIRUS GI/GII (PCR) (test gptn=8988702) Not detected Not detected ROTAVIRUS A (PCR) (test kvfy=4757600) Not detected Not detected SAPOVIRUS (I, II, IV, V) BY PCR (test jbpo=5745148) Not detected Not detected VIBRIO (PARAHAEMOLYTICUS, VULNIFICUS) (test wjhk=1256359) Not detected Not detected Other viruses, parasites and bacteria not targeted by this PCR panel cannot be e xcluded; therefore clinical correlation and follow up of serology, culture resul ts, and other molecular studies is required. The results are not intended to be used as the sole means for clinical diagnosis or patient management decisions. T his sample was tested at the [facility] using the [place] Gastrointestinal Panel. It is FDA cleared and has been verified and approved by the [facility] for clinical use. Thi s laboratory is CLIA-certified and [employer] ([employer])-accred ited to perform high complexity testing.POCT-GLUCOSE [id number] 21:31:00* Test Item Value Reference Range Comments POC-GLUCOSE METER (BEAKER) (test ewwq=2370) 135 mg/dL 70-110 TESTED AT [facility] [address] [facility] [address] CT, CHEST, WITH HIGH RESOLUTION, INTERSTITAL LUNG [id number] 20:51:00 Reason for exam:->evaluate bronchiectasis / ABPA [...] bronchiectasis, air trapping or significant nodularity. Signed: Smooth Harris MDReport Verified Date/Time: 11/24/2017 20:51:25 Reading Location : [address] Reading Room -GLUCOSE [id number] 15:41:00* Test Item Value Reference Range Comments POC-GLUCOSE METER (BEAKER) (test cxug=6485) 173 mg/dL 70-110 TESTED AT [place] [id number] [facility] [address] POCT-GLUCOSE [id number] 12:24:00* Test Item Value Reference Range Comments POC-GLUCOSE METER (BEAKER) (test dixn=0818) 144 mg/dL 70-110 TESTED AT [address] [address] POCT-GLUCOSE [id number] 08:17:00* Test Item Value Reference Range Comments POC-GLUCOSE METER (BEAKER) (test pvxr=8542) 142 mg/dL 70-110 TESTED AT [address] [address] BASIC METABOLIC [id number] 08:00:00* Test Item Value Reference Range Comments SODIUM (BEAKER) (test wcks=968) 133 meq/L 136-145 POTASSIUM (BEAKER) (test yxop=543) 3.5 meq/L 3.5-5.1 CHLORIDE (BEAKER) (test rxpn=598) 105 meq/L 98-107 CO2 (BEAKER) (test souc=293) 22 meq/L 22-29 BLOOD UREA NITROGEN (BEAKER) (test opwp=467) 2 mg/dL 7-21 CREATININE (BEAKER) (test kcij=116) 0.69 mg/dL 0.57-1.25 GLUCOSE RANDOM (BEAKER) (test smmf=527) 126 mg/dL 70-105 CALCIUM (BEAKER) (test umtb=528) 8.7 mg/dL 8.4-10.2 EGFR (BEAKER) (test fmpw=1693) 84 mL/min/1.73 sq m ESTIMATED GFR IS NOT ACCURATE CREATININE CLEARANCE IN PREDICTING GLOMERULAR FILTRATION RATE. ESTIMATED GFR IS NOT APPLICABLE FOR DIALYSIS PATIENTS. [id number] 07:55:00* Test Item Value Reference Range Comments MAGNESIUM (BEAKER) (test pcha=993) 1.4 mg/dL 1.6-2.6 CBC W/PLT COUNT & AUTO [id number] 07:06:00* Test Item Value Reference Range Comments WHITE BLOOD CELL COUNT (BEAKER) (test mgkb=603) 7.7 K/ L 3.5-10.5 RED BLOOD CELL COUNT (BEAKER) (test lkmv=430) 3.86 M/ L 3.93-5.22 HEMOGLOBIN (BEAKER) (test bifs=484) 9.6 GM/DL 11.2-15.7 HEMATOCRIT (BEAKER) (test qnvl=937) 31.9 % 34.1-44.9 MEAN CORPUSCULAR VOLUME (BEAKER) (test fxwx=271) 82.6 fL 79.4-94.8 MEAN CORPUSCULAR HEMOGLOBIN (BEAKER) (test gjod=048) 24.9 pg 25.6-32.2 MEAN CORPUSCULAR HEMOGLOBIN CONC (BEAKER) (test bbkx=468) 30.1 GM/DL 32.2-35.5 RED CELL DISTRIBUTION WIDTH (BEAKER) (test habm=490) 16.2 % 11.7-14.4 PLATELET COUNT (BEAKER) (test chhw=554) 539 K/CU MM 150-450 MEAN PLATELET VOLUME (BEAKER) (test wbjw=309) 8.6 fL 9.4-12.3 NUCLEATED RED BLOOD CELLS (BEAKER) (test uzyw=850) 0 /100 WBC 0-0 NEUTROPHILS RELATIVE PERCENT (BEAKER) (test mxih=117) 50 % LYMPHOCYTES RELATIVE PERCENT (BEAKER) (test lbrj=778) 33 % MONOCYTES RELATIVE PERCENT (BEAKER) (test jixa=075) 8 % EOSINOPHILS RELATIVE PERCENT (BEAKER) (test rwyr=795) 7 % BASOPHILS RELATIVE PERCENT (BEAKER) (test jtpl=293) 1 % NEUTROPHILS ABSOLUTE COUNT (BEAKER) (test nxxn=331) 3.83 K/ L 1.56-6.13 LYMPHOCYTES ABSOLUTE COUNT (BEAKER) (test dzgg=246) 2.57 K/ L 1.18-3.74 MONOCYTES ABSOLUTE COUNT (BEAKER) (test mzvs=645) 0.64 K/ L 0.24-0.36 EOSINOPHILS ABSOLUTE COUNT (BEAKER) (test fznr=490) 0.57 K/ L 0.04-0.36 BASOPHILS ABSOLUTE COUNT (BEAKER) (test mxza=741) 0.09 K/ L 0.01-0.08 IMMATURE GRANULOCYTES-RELATIVE PERCENT (BEAKER) (test loup=1036) 0 % 0-1 POCT-GLUCOSE [id number] 21:19:00* Test Item Value Reference Range Comments POC-GLUCOSE METER (BEAKER) (test enxs=8458) 162 mg/dL 70-110 TESTED AT [facility] [address] [facility] [address] POCT-GLUCOSE [id number] 17:57:00* Test Item Value Reference Range Comments POC-GLUCOSE METER (BEAKER) (test rxnl=9227) 160 mg/dL 70-110 TESTED AT [place] [id number] [facility] [address] STOOL CULTURE + SHIGA [id number] 12:11:00* Test Item Value Reference Range Comments CULTURE (BEAKER) (test mlrw=0146) No Salmonella, Shigella or Campylobacter isolated HEPATIC FUNCTION [id number] 06:59:00* Test Item Value Reference Range Comments TOTAL PROTEIN (BEAKER) (test fybw=758) 6.2 gm/dL 6.0-8.3 Specimen slightly hemolyzed ALBUMIN (BEAKER) (test uhrq=4212) 2.8 g/dL 3.5-5.0 Specimen slightly hemolyzed BILIRUBIN TOTAL (BEAKER) (test srec=291) 0.3 mg/dL 0.2-1.2 Specimen slightly hemolyzed BILIRUBIN DIRECT (BEAKER) (test avcl=438) 0.1 mg/dL 0.1-0.5 Specimen slightly hemolyzed ALKALINE PHOSPHATASE (BEAKER) (test bdbd=062) 68 U/L 40-150 AST (SGOT) (BEAKER) (test dpjz=230) 12 U/L 5-34 Specimen slightly hemolyzed ALT (SGPT) (BEAKER) (test zegy=724) < U/L 6-55 Specimen slightly hemolyzed [id number] 06:48:00* Test Item Value Reference Range Comments MAGNESIUM (BEAKER) (test tplx=991) 1.6 mg/dL 1.6-2.6 Specimen slightly hemolyzed [id number] 06:48:00* Test Item Value Reference Range Comments PHOSPHORUS (BEAKER) (test igky=799) 3.0 mg/dL 2.3-4.7 Specimen slightly hemolyzed BASIC METABOLIC [id number] 06:48:00* Test Item Value Reference Range Comments SODIUM (BEAKER) (test sjdj=838) 141 meq/L 136-145 POTASSIUM (BEAKER) (test bqpe=033) 4.0 meq/L 3.5-5.1 Specimen slightly hemolyzed CHLORIDE (BEAKER) (test lduh=281) 116 meq/L 98-107 CO2 (BEAKER) (test ycnm=664) 19 meq/L 22-29 BLOOD UREA NITROGEN (BEAKER) (test cdff=820) 2 mg/dL 7-21 CREATININE (BEAKER) (test mauz=529) 0.58 mg/dL 0.57-1.25 Specimen slightly hemolyzed GLUCOSE RANDOM (BEAKER) (test cvnm=675) 75 mg/dL 70-105 CALCIUM (BEAKER) (test uojt=773) 8.5 mg/dL 8.4-10.2 EGFR (BEAKER) (test oskf=1615) 102 mL/min/1.73 sq m ESTIMATED GFR IS NOT ACCURATE CREATININE CLEARANCE IN PREDICTING GLOMERULAR FILTRATION RATE. ESTIMATED GFR IS NOT APPLICABLE FOR DIALYSIS PATIENTS. CBC W/PLT COUNT & AUTO [id number] 06:23:00* Test Item Value Reference Range Comments WHITE BLOOD CELL COUNT (BEAKER) (test luyt=894) 5.8 K/ L 3.5-10.5 RED BLOOD CELL COUNT (BEAKER) (test yvkk=068) 3.79 M/ L 3.93-5.22 HEMOGLOBIN (BEAKER) (test buov=557) 9.5 GM/DL 11.2-15.7 HEMATOCRIT (BEAKER) (test kpak=800) 32.0 % 34.1-44.9 MEAN CORPUSCULAR VOLUME (BEAKER) (test rzax=442) 84.4 fL 79.4-94.8 MEAN CORPUSCULAR HEMOGLOBIN (BEAKER) (test wdyw=493) 25.1 pg 25.6-32.2 MEAN CORPUSCULAR HEMOGLOBIN CONC (BEAKER) (test hgme=864) 29.7 GM/DL 32.2-35.5 RED CELL DISTRIBUTION WIDTH (BEAKER) (test pafg=573) 16.2 % 11.7-14.4 PLATELET COUNT (BEAKER) (test qcvr=398) 457 K/CU MM 150-450 MEAN PLATELET VOLUME (BEAKER) (test btci=072) 10.0 fL 9.4-12.3 NUCLEATED RED BLOOD CELLS (BEAKER) (test xiej=760) 0 /100 WBC 0-0 NEUTROPHILS RELATIVE PERCENT (BEAKER) (test egjb=555) 41 % LYMPHOCYTES RELATIVE PERCENT (BEAKER) (test xgav=859) 32 % MONOCYTES RELATIVE PERCENT (BEAKER) (test yipk=959) 10 % EOSINOPHILS RELATIVE PERCENT (BEAKER) (test bsuj=133) 16 % BASOPHILS RELATIVE PERCENT (BEAKER) (test syhl=908) 1 % NEUTROPHILS ABSOLUTE COUNT (BEAKER) (test tzlu=192) 2.36 K/ L 1.56-6.13 LYMPHOCYTES ABSOLUTE COUNT (BEAKER) (test hzfy=984) 1.83 K/ L 1.18-3.74 MONOCYTES ABSOLUTE COUNT (BEAKER) (test mkxu=244) 0.55 K/ L 0.24-0.36 EOSINOPHILS ABSOLUTE COUNT (BEAKER) (test snre=299) 0.92 K/ L 0.04-0.36 BASOPHILS ABSOLUTE COUNT (BEAKER) (test veds=269) 0.08 K/ L 0.01-0.08 IMMATURE GRANULOCYTES-RELATIVE PERCENT (BEAKER) (test oexs=4631) 0 % 0-1 POCT-GLUCOSE [id number] 21:26:00* Test Item Value Reference Range Comments POC-GLUCOSE METER (BEAKER) (test elxc=1198) 156 mg/dL 70-110 TESTED AT [facility] [address] [facility] [address] CMV PCR, [id number] 15:51:00* Test Item Value Reference Range Comments CMV VIRAL LOAD - NEGATIVE (BEAKER) (test phwt=3977) Negative or below the linear range of [...] reaction and fluorescent monitoring of a s pecific hybridized probe. Genetic variation and other factors can affect the acc uracy of nucleic acid testing. Therefore, the results should be interpreted in l ight of clinical data. A negative result may not exclude the presence of CMV dis ease.This test was developed and its performance characteristics determined by florecita morgan [facility] Pathology Department, Section of Molecular Patholog y. It has not been cleared or approved by the U.S. Food and Drug Administration (FDA), since FDA approval is not required for clinical use of the test. Validati on was done as required by The Clinical Laboratory Improvement Amendments of 198 8.POCT-GLUCOSE [id number] 15:06:00* Test Item Value Reference Range Comments POC-GLUCOSE METER (BEAKER) (test wlap=9788) 167 mg/dL 70-110 TESTED AT [address] [address] SHIGA TOXIN [id number] 14:16:00* Test Item Value Reference Range Comments SHIGA TOXIN 1 (BEAKER) (test vqji=5030) Not detected Not detected SHIGA TOXIN 2 (BEAKER) (test zjpj=7276) Not detected Not detected POCT-GLUCOSE [id number] 11:17:00* Test Item Value Reference Range Comments POC-GLUCOSE METER (BEAKER) (test bqvb=8823) 101 mg/dL 70-110 TESTED AT [place] [id number] [facility] [address] STOOL PATH [id number] 10:05:00* Test Item Value Reference Range Comments PATHOGEN EXAM CHARGED (BEAKER) (test ohsz=7543) Done STOOL PATH [id number] 09:46:00* Test Item Value Reference Range Comments PATHOGEN EXAM CHARGED (BEAKER) (test dusc=0134) Done POCT-GLUCOSE [id number] 08:20:00* Test Item Value Reference Range Comments POC-GLUCOSE METER (BEAKER) (test fpkd=7131) 119 mg/dL 70-110 TESTED AT [address] [address] [id number] 05:13:00* Test Item Value Reference Range Comments PHOSPHORUS (BEAKER) (test vski=750) 3.0 mg/dL 2.3-4.7 [id number] 05:13:00* Test Item Value Reference Range Comments MAGNESIUM (BEAKER) (test ohde=447) 1.6 mg/dL 1.6-2.6 BASIC METABOLIC [id number] 05:13:00* Test Item Value Reference Range Comments SODIUM (BEAKER) (test dids=625) 137 meq/L 136-145 POTASSIUM (BEAKER) (test mtlv=001) 3.7 meq/L 3.5-5.1 CHLORIDE (BEAKER) (test nnts=205) 113 meq/L 98-107 CO2 (BEAKER) (test dxyt=495) 17 meq/L 22-29 BLOOD UREA NITROGEN (BEAKER) (test udrc=041) 3 mg/dL 7-21 CREATININE (BEAKER) (test nayu=522) 0.60 mg/dL 0.57-1.25 GLUCOSE RANDOM (BEAKER) (test mbnu=354) 74 mg/dL 70-105 CALCIUM (BEAKER) (test jxbx=304) 8.2 mg/dL 8.4-10.2 EGFR (BEAKER) (test nrvs=3142) 99 mL/min/1.73 sq m ESTIMATED GFR IS NOT ACCURATE CREATININE CLEARANCE IN PREDICTING GLOMERULAR FILTRATION RATE. ESTIMATED GFR IS NOT APPLICABLE FOR DIALYSIS PATIENTS. HEPATIC FUNCTION [id number] 05:13:00* Test Item Value Reference Range Comments TOTAL PROTEIN (BEAKER) (test gusv=521) 6.2 gm/dL 6.0-8.3 ALBUMIN (BEAKER) (test gqzn=4195) 2.8 g/dL 3.5-5.0 BILIRUBIN TOTAL (BEAKER) (test cxxf=058) 0.3 mg/dL 0.2-1.2 BILIRUBIN DIRECT (BEAKER) (test ibwy=695) 0.1 mg/dL 0.1-0.5 ALKALINE PHOSPHATASE (BEAKER) (test cwkh=554) 73 U/L 40-150 AST (SGOT) (BEAKER) (test myrb=367) 9 U/L 5-34 ALT (SGPT) (BEAKER) (test plil=684) < U/L 6-55 CBC W/PLT COUNT & AUTO [id number] 04:54:00* Test Item Value Reference Range Comments WHITE BLOOD CELL COUNT (BEAKER) (test cjmi=624) 6.6 K/ L 3.5-10.5 RED BLOOD CELL COUNT (BEAKER) (test ndcr=138) 3.70 M/ L 3.93-5.22 HEMOGLOBIN (BEAKER) (test ssoo=988) 9.2 GM/DL 11.2-15.7 HEMATOCRIT (BEAKER) (test cwtk=110) 31.1 % 34.1-44.9 MEAN CORPUSCULAR VOLUME (BEAKER) (test admh=263) 84.1 fL 79.4-94.8 MEAN CORPUSCULAR HEMOGLOBIN (BEAKER) (test ecta=316) 24.9 pg 25.6-32.2 MEAN CORPUSCULAR HEMOGLOBIN CONC (BEAKER) (test zvpw=158) 29.6 GM/DL 32.2-35.5 RED CELL DISTRIBUTION WIDTH (BEAKER) (test lsda=306) 15.9 % 11.7-14.4 PLATELET COUNT (BEAKER) (test pkio=296) 500 K/CU MM 150-450 MEAN PLATELET VOLUME (BEAKER) (test cfpe=254) 8.9 fL 9.4-12.3 NUCLEATED RED BLOOD CELLS (BEAKER) (test memh=395) 0 /100 WBC 0-0 NEUTROPHILS RELATIVE PERCENT (BEAKER) (test wzhg=964) 53 % LYMPHOCYTES RELATIVE PERCENT (BEAKER) (test zmxs=632) 25 % MONOCYTES RELATIVE PERCENT (BEAKER) (test fxlt=864) 9 % EOSINOPHILS RELATIVE PERCENT (BEAKER) (test aiiy=726) 11 % BASOPHILS RELATIVE PERCENT (BEAKER) (test qcbr=852) 2 % NEUTROPHILS ABSOLUTE COUNT (BEAKER) (test zpcn=469) 3.49 K/ L 1.56-6.13 LYMPHOCYTES ABSOLUTE COUNT (BEAKER) (test wimc=242) 1.64 K/ L 1.18-3.74 MONOCYTES ABSOLUTE COUNT (BEAKER) (test atpc=453) 0.60 K/ L 0.24-0.36 EOSINOPHILS ABSOLUTE COUNT (BEAKER) (test husm=243) 0.73 K/ L 0.04-0.36 BASOPHILS ABSOLUTE COUNT (BEAKER) (test okmq=401) 0.11 K/ L 0.01-0.08 IMMATURE GRANULOCYTES-RELATIVE PERCENT (BEAKER) (test qihm=2774) 0 % 0-1 POCT-GLUCOSE [id number] 18:06:00* Test Item Value Reference Range Comments POC-GLUCOSE METER (BEAKER) (test jgxp=6708) 111 mg/dL 70-110 TESTED AT [facility] [address] [facility] [id number] C. DIFFICILE GDH [id number] 10:53:00* Test Item Value Reference Range Comments CDT TOXIN (test twnr=[id number]) Negative Negative CDT GDH ANTIGEN (test waki=[id number]) Negative Negative No indication of Clostridium difficile infection and no colonization. Discontinue enteric isolation and therapy. Testing performed by Monitoring [facility] Rapid Cassette Assay. For GDH, published sensitivity of the assay is 98.7% compared to cytotoxicity testing. For Toxin AB, published sensitivity is 87.8% and specificity 99.4% compared to cytotoxicity testing.Ve rification of kit performance was done by the [facility] prior to cl inical use.TSH/FREE T4 IF [id number] 10:23:00* Test Item Value Reference Range Comments THYROID STIMULATING HORMONE (BEAKER) (test haln=350) 3.52 uIU/mL 0.35-4.94 [id number] 10:17:00* Test Item Value Reference Range Comments PHOSPHORUS (BEAKER) (test ylll=784) 3.1 mg/dL 2.3-4.7 [id number] 10:17:00* Test Item Value Reference Range Comments MAGNESIUM (BEAKER) (test wsss=716) 2.1 mg/dL 1.6-2.6 BASIC METABOLIC [id number] 10:17:00* Test Item Value Reference Range Comments SODIUM (BEAKER) (test mucr=961) 135 meq/L 136-145 POTASSIUM (BEAKER) (test sztc=329) 3.7 meq/L 3.5-5.1 CHLORIDE (BEAKER) (test ixnq=668) 109 meq/L 98-107 CO2 (BEAKER) (test uxox=708) 21 meq/L 22-29 BLOOD UREA NITROGEN (BEAKER) (test erxh=338) 5 mg/dL 7-21 CREATININE (BEAKER) (test coly=617) 0.68 mg/dL 0.57-1.25 GLUCOSE RANDOM (BEAKER) (test gzkl=489) 92 mg/dL 70-105 CALCIUM (BEAKER) (test ubvg=475) 8.9 mg/dL 8.4-10.2 EGFR (BEAKER) (test syfy=0261) 85 mL/min/1.73 sq m ESTIMATED GFR IS NOT ACCURATE CREATININE CLEARANCE IN PREDICTING GLOMERULAR FILTRATION RATE. ESTIMATED GFR IS NOT APPLICABLE FOR DIALYSIS PATIENTS. LIPID [id number] 10:17:00* Test Item Value Reference Range Comments TRIGLYCERIDES (BEAKER) (test fiaf=639) 71 mg/dL CHOLESTEROL (BEAKER) (test rqeg=249) 131 mg/dL HDL CHOLESTEROL (BEAKER) (test flfo=807) 55 mg/dL LDL CHOLESTEROL CALCULATED (BEAKER) (test hcje=359) 62 mg/dL Triglyceride Reference Range: Low Risk <150 Borderline 150-199 High Risk 200-499 Very High Risk >=500Cholesterol Reference Range: Low Risk <200 Borderline 200-239 High Risk >240HDL Cholesterol Reference Range: Low Risk >=60 High Risk <40LDL Cholesterol Reference Range: Optimal <100 Near Optimal 100-129 Borderline 130-159 High 160-189 Very High >=190 HEPATIC FUNCTION [id number] 10:17:00* Test Item Value Reference Range Comments TOTAL PROTEIN (BEAKER) (test vrdt=009) 7.7 gm/dL 6.0-8.3 ALBUMIN (BEAKER) (test gffg=4371) 3.5 g/dL 3.5-5.0 BILIRUBIN TOTAL (BEAKER) (test maze=893) 0.4 mg/dL 0.2-1.2 BILIRUBIN DIRECT (BEAKER) (test vxua=293) 0.2 mg/dL 0.1-0.5 ALKALINE PHOSPHATASE (BEAKER) (test duux=646) 89 U/L 40-150 AST (SGOT) (BEAKER) (test ahli=884) 10 U/L 5-34 ALT (SGPT) (BEAKER) (test eweo=110) 6 U/L 6-55 C-REACTIVE [id number] 10:17:00* Test Item Value Reference Range Comments C-REACTIVE PROTEIN (BEAKER) (test pkyh=884) 3.20 mg/dL 0.00-0.50 HEMOGLOBIN [id number] 08:34:00* Test Item Value Reference Range Comments HEMOGLOBIN A1C (BEAKER) (test bffa=749) 5.8 % 4.3-6.1 CT, [id number] 23:52:00FINAL REPORT CT, ABDOMEN \\T\\ PELVIS, WITH [...] or bowel obstruction. Signed: JR Parikh Robert MDReport Verified Date/Time: 11/20/2017 23:52:19 Reading Location: [address] Reading Room Electronically signed by: DOMINIC CRAIN [facility] on 11/20/2017 11:52 PM URINALYSIS W/ [id number] 23:38:00* Test Item Value Reference Range Comments COLOR (BEAKER) (test vwib=167) Colorless CLARITY (BEAKER) (test rvmj=094) Clear SPECIFIC GRAVITY UA (BEAKER) (test hvuz=728) 1.003 1.001-1.035 PH UA (BEAKER) (test whue=760) 5.0 5.0-8.0 PROTEIN UA (BEAKER) (test tjrp=285) Negative Negative GLUCOSE UA (BEAKER) (test bcos=569) Negative Negative KETONES UA (BEAKER) (test gnyu=491) Negative Negative BILIRUBIN UA (BEAKER) (test ghro=242) Negative Negative BLOOD UA (BEAKER) (test iwib=609) Negative Negative NITRITE UA (BEAKER) (test apex=334) Negative Negative LEUKOCYTE ESTERASE UA (BEAKER) (test jkot=597) Negative Negative UROBILINOGEN UA (BEAKER) (test dmda=124) 0.2 mg/dL 0.2-1.0 RBC UA (BEAKER) (test pgam=091) < /HPF WBC UA (BEAKER) (test fmrx=039) 1 /HPF BACTERIA (BEAKER) (test mszu=340) Rare MUCUS (BEAKER) (test strz=6379) Rare SQUAMOUS EPITHELIAL (BEAKER) (test hvve=862) < /HPF SOURCE(BEAKER) (test kjzq=1603) Urine, Voided [id number] 21:02:00* Test Item Value Reference Range Comments LIPASE (BEAKER) (test nwal=028) 67 U/L 8-78 [id number] 21:02:00* Test Item Value Reference Range Comments AMYLASE (BEAKER) (test tvmj=091) 133 U/L 25-125 BASIC METABOLIC [id number] 21:02:00* Test Item Value Reference Range Comments SODIUM (BEAKER) (test ufxr=360) 131 meq/L 136-145 POTASSIUM (BEAKER) (test wytl=925) 4.4 meq/L 3.5-5.1 CHLORIDE (BEAKER) (test paot=863) 103 meq/L 98-107 CO2 (BEAKER) (test yrtn=937) 20 meq/L 22-29 BLOOD UREA NITROGEN (BEAKER) (test mdze=837) 11 mg/dL 7-21 CREATININE (BEAKER) (test ygrz=170) 0.71 mg/dL 0.57-1.25 GLUCOSE RANDOM (BEAKER) (test zmxs=579) 101 mg/dL 70-105 CALCIUM (BEAKER) (test hytr=273) 8.6 mg/dL 8.4-10.2 EGFR (BEAKER) (test visp=4274) 81 mL/min/1.73 sq m ESTIMATED GFR IS NOT ACCURATE CREATININE CLEARANCE IN PREDICTING GLOMERULAR FILTRATION RATE. ESTIMATED GFR IS NOT APPLICABLE FOR DIALYSIS PATIENTS. HEPATIC FUNCTION [id number] 21:02:00* Test Item Value Reference Range Comments TOTAL PROTEIN (BEAKER) (test ctmh=753) 7.8 gm/dL 6.0-8.3 ALBUMIN (BEAKER) (test zkqo=7589) 3.6 g/dL 3.5-5.0 BILIRUBIN TOTAL (BEAKER) (test wyoz=461) 0.1 mg/dL 0.2-1.2 BILIRUBIN DIRECT (BEAKER) (test telz=969) 0.1 mg/dL 0.1-0.5 ALKALINE PHOSPHATASE (BEAKER) (test rjgt=213) 89 U/L 40-150 AST (SGOT) (BEAKER) (test hxrn=247) 8 U/L 5-34 ALT (SGPT) (BEAKER) (test fzzi=490) 6 U/L 6-55 CBC W/PLT COUNT & AUTO [id number] 20:49:00* Test Item Value Reference Range Comments WHITE BLOOD CELL COUNT (BEAKER) (test tyoa=323) 8.2 K/ L 3.5-10.5 RED BLOOD CELL COUNT (BEAKER) (test vvse=811) 3.98 M/ L 3.93-5.22 HEMOGLOBIN (BEAKER) (test drfn=606) 10.0 GM/DL 11.2-15.7 HEMATOCRIT (BEAKER) (test yksg=690) 32.6 % 34.1-44.9 MEAN CORPUSCULAR VOLUME (BEAKER) (test gffi=774) 81.9 fL 79.4-94.8 MEAN CORPUSCULAR HEMOGLOBIN (BEAKER) (test tomd=024) 25.1 pg 25.6-32.2 MEAN CORPUSCULAR HEMOGLOBIN CONC (BEAKER) (test igpf=189) 30.7 GM/DL 32.2-35.5 RED CELL DISTRIBUTION WIDTH (BEAKER) (test slzt=699) 15.4 % 11.7-14.4 PLATELET COUNT (BEAKER) (test hnhd=190) 618 K/CU MM 150-450 MEAN PLATELET VOLUME (BEAKER) (test cysb=942) 8.5 fL 9.4-12.3 NUCLEATED RED BLOOD CELLS (BEAKER) (test mjtc=594) 0 /100 WBC 0-0 NEUTROPHILS RELATIVE PERCENT (BEAKER) (test jkbr=336) 50 % LYMPHOCYTES RELATIVE PERCENT (BEAKER) (test uozc=070) 30 % MONOCYTES RELATIVE PERCENT (BEAKER) (test gilr=674) 9 % EOSINOPHILS RELATIVE PERCENT (BEAKER) (test pmwq=067) 9 % BASOPHILS RELATIVE PERCENT (BEAKER) (test pmoq=637) 2 % NEUTROPHILS ABSOLUTE COUNT (BEAKER) (test fdpu=346) 4.06 K/ L 1.56-6.13 LYMPHOCYTES ABSOLUTE COUNT (BEAKER) (test oxuh=670) 2.46 K/ L 1.18-3.74 MONOCYTES ABSOLUTE COUNT (BEAKER) (test glwn=506) 0.77 K/ L 0.24-0.36 EOSINOPHILS ABSOLUTE COUNT (BEAKER) (test kpqi=621) 0.71 K/ L 0.04-0.36 BASOPHILS ABSOLUTE COUNT (BEAKER) (test acar=063) 0.15 K/ L 0.01-0.08 IMMATURE GRANULOCYTES-RELATIVE PERCENT (BEAKER) (test ynzu=8870) 0 % 0-1 CHEST SINGLE (PORTABLE)2017-08-01 08:26:00 [facility] [address] [address] Patient Name: SHENG WESLEY MR #: [id number] : 1945 Age/Sex: 73/F Req #: [id number] Adm Physician: Ordered by: EDITH GONZALEZ MD Report #: [id number] Location: ER Room/Bed: Procedure: [id number] DX/CHEST SINGLE (PORTABLE) Exam Date: 08/01/17 Exam Time: 0805 REPORT STATUS: Signed PROCEDURE: CHEST SINGLE (PORTABLE) COMPARISON: Cervical spine radiographs 06/14/2016. INDICATIONS: SHORTNESS OF BREATH, WEAKNESS FINDINGS: Int erval placement of a left subclavian approach implantable cardiac device. The device body projects over the left midlung. The lungs are well-inflated and without focal consolidation, pleural effusion, or pneumothorax. Tortuosit y of the thoracic aorta with otherwise normal heart size. No overt pulmonary edema. No acute osseous abnormalities. 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 Surgical clips along the rig ht chest wall and projecting over the right lower lung. Surgical clips projec ting over the right upper quadrant of the abdomen likely related to prior cho lecystectomy. CONCLUSION: No acute cardiopulmonary abnormality. Dictated by: Saad Marin M.D. on 08/01/2017 at 8:26 Electronically appr padma by: Saad Marin M.D. on 08/01/2017 at 8:26 Dictated By: FAVIOLA MARIN MD 5 Trans cribed By: BRITTNI on 08/01/17825 COPY TO: EDITH GONZALEZ MD CHEST SINGLE (PORTABLE)2017-08-01 08:26:00 [address] [place] [address] Patient Name: SHENG WESLEY MR #: [id number] : 1945 Age/Sex: 72/F Req #: [id number] Adm Physician: Ordered by: EDITH GONZALEZ MD Report #: [id number] Location: ER Room/Bed: Procedure: [id number] DX/CHEST SINGLE (PORTABLE) Exam Date: 08/01/17 Exam Time: [address] ATUS: Signed PROCEDURE: CHEST SINGLE [...] 5 COPY TO: EDITH GONZALEZ MD TISSUE [id number] 17:39:00Surgical Pathology Report Case: [id number] Authorizing Provider: Twan Masters, Collected: 07/14/2017 1456 Ordering Location: [address] Received: 07/17/2017825 SERVICE Pathologist: Austin Chahal MD Specimens: A) [...] MALIGNANCY Signing Pathologist Direct Phone Ellen e: [phone] signed by Austin Chahal MD on 07/20/2017 at 5:39 PMThe biopsies show diffuse chronic active colitis which correlates with the endoscopic impression of inflammation extending from cecum to rectum (see co lonoscopy report dated 07/14/17). 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 Rare CMV is [...] radio logic correlation is recommended.IDC: Dr. Ruth ulrich.[id number]'s disease, rule out CMV A. Antrum greater [...] developed and its performance characteristics determined by [facility], Pathology Laboratory. It has not been [...] high complexity clinical laboratory testing.OVA AND PARASITE [id number] 09:18:00* Test Item Value Reference Range Comments DIRECT SMEAR - O\\T\\P (BEAKER) (test pxup=798) No ova or parasites seen Test not performed at [facility]. See scanned report. CONCENTRATE SMEAR - O\\T\\P (BEAKER) (test zrxa=197) No ova or parasites seen No ova or parasites seen TRICHROME SMEAR - O\\T\\P (BEAKER) (test zxgv=782) No ova or parasites seen No ova or parasites seen POCT-GLUCOSE [id number] 16:06:00* Test Item Value Reference Range Comments POC-GLUCOSE METER (BEAKER) (test bmog=3647) 133 mg/dL 70-110 TESTED AT [address] [address] POCT-GLUCOSE [id number] 11:32:00* Test Item Value Reference Range Comments POC-GLUCOSE METER (BEAKER) (test hlov=9986) 135 mg/dL 70-110 TESTED AT [address] [address] POCT-GLUCOSE [id number] 07:55:00* Test Item Value Reference Range Comments POC-GLUCOSE METER (BEAKER) (test tdcy=1333) 96 mg/dL 70-110 TESTED AT [address] [address] POCT-GLUCOSE [id number] 21:09:00* Test Item Value Reference Range Comments POC-GLUCOSE METER (BEAKER) (test wcus=7998) 220 mg/dL 70-110 TESTED AT [address] [address] POCT-GLUCOSE [id number] 18:16:00* Test Item Value Reference Range Comments POC-GLUCOSE METER (BEAKER) (test wiqq=0622) 110 mg/dL 70-110 TESTED AT [address] [address] POCT-GLUCOSE [id number] 11:32:00* Test Item Value Reference Range Comments POC-GLUCOSE METER (BEAKER) (test csvh=1857) 83 mg/dL 70-110 TESTED AT [address] [address] STOOL CULTURE + SHIGA [id number] 11:17:00* Test Item Value Reference Range Comments CULTURE (BEAKER) (test uzzz=1567) No Salmonella, Shigella or Campylobacter isolated POCT-GLUCOSE [id number] 07:26:00* Test Item Value Reference Range Comments POC-GLUCOSE METER (BEAKER) (test gfhg=1385) 107 mg/dL 70-110 TESTED AT [place] [address] [facility] [address] [id number] 05:43:00* Test Item Value Reference Range Comments PHOSPHORUS (BEAKER) (test eexa=116) 2.3 mg/dL 2.3-4.7 [id number] 05:43:00* Test Item Value Reference Range Comments MAGNESIUM (BEAKER) (test eaph=744) 2.2 mg/dL 1.6-2.6 BASIC METABOLIC [id number] 05:43:00* Test Item Value Reference Range Comments SODIUM (BEAKER) (test nseb=925) 140 meq/L 136-145 POTASSIUM (BEAKER) (test nrph=989) 3.5 meq/L 3.5-5.1 CHLORIDE (BEAKER) (test tagq=345) 110 meq/L 98-107 CO2 (BEAKER) (test idsm=047) 22 meq/L 22-29 BLOOD UREA NITROGEN (BEAKER) (test dlce=949) 5 mg/dL 7-21 CREATININE (BEAKER) (test xuve=101) 0.61 mg/dL 0.57-1.25 GLUCOSE RANDOM (BEAKER) (test ihkj=717) 95 mg/dL 70-105 CALCIUM (BEAKER) (test qpwf=620) 8.4 mg/dL 8.4-10.2 EGFR (BEAKER) (test ldpl=2043) 97 mL/min/1.73 sq m ESTIMATED GFR IS NOT ACCURATE CREATININE CLEARANCE IN PREDICTING GLOMERULAR FILTRATION RATE. ESTIMATED GFR IS NOT APPLICABLE FOR DIALYSIS PATIENTS. CALCIUM, [id number] 05:35:00* Test Item Value Reference Range Comments CALCIUM IONIZED (BEAKER) (test sqjm=168) 0.99 mmol/L 1.12-1.27 PH, BLOOD (BEAKER) (test zqya=4438) 7.45 CBC W/PLT COUNT & AUTO [id number] 05:14:00* Test Item Value Reference Range Comments WHITE BLOOD CELL COUNT (BEAKER) (test vmly=575) 6.6 K/ L 3.5-10.5 RED BLOOD CELL COUNT (BEAKER) (test pxrf=251) 3.78 M/ L 3.93-5.22 HEMOGLOBIN (BEAKER) (test vjmh=627) 10.4 GM/DL 11.2-15.7 HEMATOCRIT (BEAKER) (test sslw=703) 35.4 % 34.1-44.9 MEAN CORPUSCULAR VOLUME (BEAKER) (test lbwg=044) 93.7 fL 79.4-94.8 MEAN CORPUSCULAR HEMOGLOBIN (BEAKER) (test mznu=693) 27.5 pg 25.6-32.2 MEAN CORPUSCULAR HEMOGLOBIN CONC (BEAKER) (test wzqi=950) 29.4 GM/DL 32.2-35.5 RED CELL DISTRIBUTION WIDTH (BEAKER) (test vlbz=614) 14.2 % 11.7-14.4 PLATELET COUNT (BEAKER) (test vown=996) 398 K/CU MM 150-450 MEAN PLATELET VOLUME (BEAKER) (test psaz=897) 8.9 fL 9.4-12.3 NUCLEATED RED BLOOD CELLS (BEAKER) (test iump=788) 0 /100 WBC 0-0 NEUTROPHILS RELATIVE PERCENT (BEAKER) (test lxpb=262) 61 % LYMPHOCYTES RELATIVE PERCENT (BEAKER) (test jost=697) 25 % MONOCYTES RELATIVE PERCENT (BEAKER) (test eemf=590) 8 % EOSINOPHILS RELATIVE PERCENT (BEAKER) (test ojju=403) 4 % BASOPHILS RELATIVE PERCENT (BEAKER) (test uaxy=189) 1 % NEUTROPHILS ABSOLUTE COUNT (BEAKER) (test tpog=395) 4.06 K/ L 1.56-6.13 LYMPHOCYTES ABSOLUTE COUNT (BEAKER) (test frsz=578) 1.68 K/ L 1.18-3.74 MONOCYTES ABSOLUTE COUNT (BEAKER) (test codj=240) 0.53 K/ L 0.24-0.36 EOSINOPHILS ABSOLUTE COUNT (BEAKER) (test alxk=623) 0.26 K/ L 0.04-0.36 BASOPHILS ABSOLUTE COUNT (BEAKER) (test yfyg=830) 0.07 K/ L 0.01-0.08 IMMATURE GRANULOCYTES-RELATIVE PERCENT (BEAKER) (test nxmo=2566) 1 % 0-1 POCT-GLUCOSE [id number] 20:44:00* Test Item Value Reference Range Comments POC-GLUCOSE METER (BEAKER) (test gnkw=9611) 236 mg/dL 70-110 TESTED AT [facility] [address] [facility] [address] GI PATHOGEN PROFILE BY [id number] 18:53:00* Test Item Value Reference Range Comments CAMPYLOBACTER (PCR) (test qzoi=9166549) Not detected Not detected, Inconclusive CLOSTRIDIUM DIFFICILE (PCR) (test kwzf=1537955) Not detected, Inconclusive See C. Diff GDH + Toxin Results PLESIOMONAS SHIGELLOIDES (PCR) (test zlqb=3723230) Not detected Not detected, Inconclusive SALMONELLA (PCR) (test txfv=8578723) Not detected Not detected, Inconclusive YERSINIA ENTEROCOLITICA (PCR) (test rbrf=2813413) Not detected Not detected, Inconclusive VIBRIO CHOLERAE (PCR) (test ioit=4346217) Not detected Not detected, Inconclusive ENTEROAGGREGATIVE E. COLI (EAEC) BY PCR (test ygfd=9138498) Not detected Not detected, Inconclusive ENTEROPATHOGENIC E. COLI (EPEC) BY PCR (test gpji=9891674) Not detected Not detected, Inconclusive ENTEROTOXIGENIC E. COLI (ETEC) LT/ST BY PCR (test qgib=1526674) Not detected Not detected, Inconclusive SHIGA-LIKE TOXIN-PRODUCING E. COLI (STEC) STX1/STX2 (test hosq=6383637) Not detected Not detected, Inconclusive E. COLI O157 (PCR) (test svgj=6840127) Not detected Not detected, Inconclusive SHIGELLA/ENTEROINVASIVE E. COLI (EIEC) BY PCR (test wmbo=2089681) Not detected Not detected, Inconclusive CRYPTOSPORIDIUM (PCR) (test skcz=9336627) Not detected Not detected, Inconclusive CYCLOSPORA CAYETANENSIS (PCR) (test lqmu=4410949) Not detected Not detected, Inconclusive ENTAMOEBA HISTOLYTICA (PCR) (test hiuy=8611792) Not detected Not detected, Inconclusive GIARDIA LAMBLIA (PCR) (test icct=0660758) Not detected Not detected, Inconclusive ADENOVIRUS F 40/41 (PCR) (test ouix=0718945) Not detected Not detected, Inconclusive ASTROVIRUS (PCR) (test oxvc=9115632) Not detected Not detected, Inconclusive NOROVIRUS GI/GII (PCR) (test vnox=2048498) Not detected Not detected, Inconclusive ROTAVIRUS A (PCR) (test bext=6018468) Not detected Not detected, Inconclusive SAPOVIRUS (I, II, IV, V) BY PCR (test qvqy=3507672) Not detected Not detected, Inconclusive NOT DETECTEDPanel is negative for Bizdom GI Panel-detectable organisms. Please refer to traditional culture, sensitivity, ova and parasite results as they beco me available.Tested at [facility] Microbiology [facility] using the [employer] ([employer] | [place], [place]). This test has been FDA Approved a nd verification was performed prior to clinical use. Reference Range: Not Detect edPOCT-GLUCOSE [id number] 17:29:00* Test Item Value Reference Range Comments POC-GLUCOSE METER (BEAKER) (test lbrf=0151) 113 mg/dL 70-110 TESTED AT [address] [address] C-REACTIVE [id number] 14:55:00* Test Item Value Reference Range Comments C-REACTIVE PROTEIN (BEAKER) (test nuuo=400) 2.03 mg/dL 0.00-0.50 HEMOGLOBIN [id number] 14:51:00* Test Item Value Reference Range Comments HEMOGLOBIN A1C (BEAKER) (test mekb=648) 5.5 % 4.3-6.1 SHIGA TOXIN [id number] 14:44:00* Test Item Value Reference Range Comments SHIGA TOXIN 1 (BEAKER) (test djdc=3104) Not detected Not detected SHIGA TOXIN 2 (BEAKER) (test fcep=2497) Not detected Not detected OCCULT BLOOD, [id number] 12:44:00* Test Item Value Reference Range Comments FECAL OCCULT BLOOD (BEAKER) (test vpzx=814) Positive Negative POCT-GLUCOSE [id number] 12:09:00* Test Item Value Reference Range Comments POC-GLUCOSE METER (BEAKER) (test ozzy=1999) 120 mg/dL 70-110 TESTED AT [address] [address] STOOL PATH [id number] 12:09:00* Test Item Value Reference Range Comments PATHOGEN EXAM CHARGED (BEAKER) (test fuwo=9374) Done C. DIFFICILE GDH [id number] 08:46:00* Test Item Value Reference Range Comments CDT TOXIN (test yuvr=[id number]) Negative Negative CDT GDH ANTIGEN (test bxnd=6081981039) Negative Negative No indication of Clostridium difficile infection and no colonization. Discontinue enteric isolation and therapy. Testing performed by [employer] Assay. For GDH, published sensitivity of the assay is 98.7% compared to cytotoxicity testing. For Toxin AB, published sensitivity is 87.8% and specificity 99.4% compared to cytotoxicity testing.Ve rification of kit performance was done by the [facility] prior to cl inical use.FECAL [id number] 08:35:00* Test Item Value Reference Range Comments FECAL LEUKOCYTES (BEAKER) (test lppu=386) 1+ Fecal leukocytes seen No fecal leukocytes seen TSH/FREE T4 IF [id number] 07:58:00* Test Item Value Reference Range Comments THYROID STIMULATING HORMONE (BEAKER) (test spbp=362) 2.74 uIU/mL 0.35-4.94 [id number] 07:41:00* Test Item Value Reference Range Comments PHOSPHORUS (BEAKER) (test qccp=076) 2.6 mg/dL 2.3-4.7 [id number] 07:41:00* Test Item Value Reference Range Comments MAGNESIUM (BEAKER) (test tadb=392) 2.4 mg/dL 1.6-2.6 BASIC METABOLIC [id number] 07:41:00* Test Item Value Reference Range Comments SODIUM (BEAKER) (test zqni=850) 141 meq/L 136-145 POTASSIUM (BEAKER) (test mfvh=191) 3.8 meq/L 3.5-5.1 CHLORIDE (BEAKER) (test onop=249) 110 meq/L 98-107 CO2 (BEAKER) (test aehd=685) 26 meq/L 22-29 BLOOD UREA NITROGEN (BEAKER) (test ohsy=040) 8 mg/dL 7-21 CREATININE (BEAKER) (test gcmn=017) 0.65 mg/dL 0.57-1.25 GLUCOSE RANDOM (BEAKER) (test afgg=579) 108 mg/dL 70-105 CALCIUM (BEAKER) (test nlyl=202) 8.4 mg/dL 8.4-10.2 EGFR (BEAKER) (test ocfw=6642) 90 mL/min/1.73 sq m ESTIMATED GFR IS NOT ACCURATE CREATININE CLEARANCE IN PREDICTING GLOMERULAR FILTRATION RATE. ESTIMATED GFR IS NOT APPLICABLE FOR DIALYSIS PATIENTS. LIPID [id number] 07:41:00* Test Item Value Reference Range Comments TRIGLYCERIDES (BEAKER) (test rihp=434) 91 mg/dL CHOLESTEROL (BEAKER) (test pkuc=299) 139 mg/dL HDL CHOLESTEROL (BEAKER) (test oglc=175) 46 mg/dL LDL CHOLESTEROL CALCULATED (BEAKER) (test gjfx=584) 75 mg/dL Triglyceride Reference Range: Low Risk <150 Borderline 150-199 High Risk 200-499 Very High Risk >=500Cholesterol Reference Range: Low Risk <200 Borderline 200-239 High Risk >240HDL Cholesterol Reference Range: Low Risk >=60 High Risk <40LDL Cholesterol Reference Range: Optimal <100 Near Optimal 100-129 Borderline 130-159 High 160-189 Very High >=190 POCT- GLUCOSE [id number] 07:37:00* Test Item Value Reference Range Comments POC-GLUCOSE METER (BEAKER) (test ffns=2972) 113 mg/dL 70-110 TESTED AT [facility] [address] [facility] [address] B-TYPE NATRIURETIC FACTOR (BNP)2017-07-13 07:18:00* Test Item Value Reference Range Comments B-TYPE NATRIURETIC PEPTIDE (BEAKER) (test tyqc=070) 155 pg/mL 0-100 CALCIUM, [id number] 07:08:00* Test Item Value Reference Range Comments CALCIUM IONIZED (BEAKER) (test tigl=117) 1.02 mmol/L 1.12-1.27 PH, BLOOD (BEAKER) (test czif=9511) 7.40 CBC W/PLT COUNT & AUTO [id number] 06:59:00* Test Item Value Reference Range Comments WHITE BLOOD CELL COUNT (BEAKER) (test rqnm=983) 5.1 K/ L 3.5-10.5 RED BLOOD CELL COUNT (BEAKER) (test uzbr=396) 3.43 M/ L 3.93-5.22 HEMOGLOBIN (BEAKER) (test fute=680) 9.6 GM/DL 11.2-15.7 HEMATOCRIT (BEAKER) (test hevd=905) 31.4 % 34.1-44.9 MEAN CORPUSCULAR VOLUME (BEAKER) (test fkkk=063) 91.5 fL 79.4-94.8 MEAN CORPUSCULAR HEMOGLOBIN (BEAKER) (test ckyr=686) 28.0 pg 25.6-32.2 MEAN CORPUSCULAR HEMOGLOBIN CONC (BEAKER) (test tzzk=824) 30.6 GM/DL 32.2-35.5 RED CELL DISTRIBUTION WIDTH (BEAKER) (test wdlu=509) 14.3 % 11.7-14.4 PLATELET COUNT (BEAKER) (test nifj=911) 396 K/CU MM 150-450 MEAN PLATELET VOLUME (BEAKER) (test rkhm=480) 9.7 fL 9.4-12.3 NUCLEATED RED BLOOD CELLS (BEAKER) (test sehl=220) 0 /100 WBC 0-0 NEUTROPHILS RELATIVE PERCENT (BEAKER) (test evtj=386) 54 % LYMPHOCYTES RELATIVE PERCENT (BEAKER) (test jpxz=540) 32 % MONOCYTES RELATIVE PERCENT (BEAKER) (test knmq=524) 8 % EOSINOPHILS RELATIVE PERCENT (BEAKER) (test wgdy=633) 4 % BASOPHILS RELATIVE PERCENT (BEAKER) (test eicx=537) 1 % NEUTROPHILS ABSOLUTE COUNT (BEAKER) (test bfjk=744) 2.80 K/ L 1.56-6.13 LYMPHOCYTES ABSOLUTE COUNT (BEAKER) (test wiip=088) 1.62 K/ L 1.18-3.74 MONOCYTES ABSOLUTE COUNT (BEAKER) (test fmpw=488) 0.42 K/ L 0.24-0.36 EOSINOPHILS ABSOLUTE COUNT (BEAKER) (test kzng=683) 0.21 K/ L 0.04-0.36 BASOPHILS ABSOLUTE COUNT (BEAKER) (test pumf=460) 0.07 K/ L 0.01-0.08 IMMATURE GRANULOCYTES-RELATIVE PERCENT (BEAKER) (test qesz=2176) 0 % 0-1 COMPREHENSIVE METABOLIC [id number] 22:45:00* Test Item Value Reference Range Comments TOTAL PROTEIN (BEAKER) (test micc=772) 7.1 gm/dL 6.0-8.3 ALBUMIN (BEAKER) (test kqap=8610) 3.4 g/dL 3.5-5.0 ALKALINE PHOSPHATASE (BEAKER) (test qqdl=514) 66 U/L 40-150 BILIRUBIN TOTAL (BEAKER) (test xegl=811) 0.1 mg/dL 0.2-1.2 SODIUM (BEAKER) (test sxzs=441) 138 meq/L 136-145 POTASSIUM (BEAKER) (test tvsd=923) 3.6 meq/L 3.5-5.1 CHLORIDE (BEAKER) (test islg=428) 107 meq/L 98-107 CO2 (BEAKER) (test hczi=989) 23 meq/L 22-29 BLOOD UREA NITROGEN (BEAKER) (test aojb=836) 10 mg/dL 7-21 CREATININE (BEAKER) (test qigg=328) 0.66 mg/dL 0.57-1.25 GLUCOSE RANDOM (BEAKER) (test yauf=445) 103 mg/dL 70-105 CALCIUM (BEAKER) (test ahtm=075) 8.2 mg/dL 8.4-10.2 AST (SGOT) (BEAKER) (test dvso=017) 9 U/L 5-34 ALT (SGPT) (BEAKER) (test kmif=645) 6 U/L 6-55 EGFR (BEAKER) (test aszo=9701) 88 mL/min/1.73 sq m ESTIMATED GFR IS NOT ACCURATE CREATININE CLEARANCE IN PREDICTING GLOMERULAR FILTRATION RATE. ESTIMATED GFR IS NOT APPLICABLE FOR DIALYSIS PATIENTS. C-REACTIVE [id number] 22:45:00* Test Item Value Reference Range Comments C-REACTIVE PROTEIN (BEAKER) (test qqsn=774) 2.31 mg/dL 0.00-0.50 CBC W/PLT COUNT & AUTO [id number] 22:22:00* Test Item Value Reference Range Comments WHITE BLOOD CELL COUNT (BEAKER) (test ckdf=492) 8.3 K/ L 3.5-10.5 RED BLOOD CELL COUNT (BEAKER) (test rrbv=628) 3.69 M/ L 3.93-5.22 HEMOGLOBIN (BEAKER) (test mvdj=596) 10.5 GM/DL 11.2-15.7 HEMATOCRIT (BEAKER) (test bwwo=223) 33.8 % 34.1-44.9 MEAN CORPUSCULAR VOLUME (BEAKER) (test uxsm=728) 91.6 fL 79.4-94.8 MEAN CORPUSCULAR HEMOGLOBIN (BEAKER) (test hibr=103) 28.5 pg 25.6-32.2 MEAN CORPUSCULAR HEMOGLOBIN CONC (BEAKER) (test qbzt=788) 31.1 GM/DL 32.2-35.5 RED CELL DISTRIBUTION WIDTH (BEAKER) (test zmya=716) 14.2 % 11.7-14.4 PLATELET COUNT (BEAKER) (test cxho=795) 408 K/CU MM 150-450 MEAN PLATELET VOLUME (BEAKER) (test wyni=412) 8.7 fL 9.4-12.3 NUCLEATED RED BLOOD CELLS (BEAKER) (test vlze=454) 0 /100 WBC 0-0 NEUTROPHILS RELATIVE PERCENT (BEAKER) (test rbhe=632) 64 % LYMPHOCYTES RELATIVE PERCENT (BEAKER) (test etqr=722) 24 % MONOCYTES RELATIVE PERCENT (BEAKER) (test hndk=652) 8 % EOSINOPHILS RELATIVE PERCENT (BEAKER) (test xnrp=045) 3 % BASOPHILS RELATIVE PERCENT (BEAKER) (test qwnr=055) 1 % NEUTROPHILS ABSOLUTE COUNT (BEAKER) (test utso=593) 5.29 K/ L 1.56-6.13 LYMPHOCYTES ABSOLUTE COUNT (BEAKER) (test onzf=741) 2.00 K/ L 1.18-3.74 MONOCYTES ABSOLUTE COUNT (BEAKER) (test bngs=790) 0.62 K/ L 0.24-0.36 EOSINOPHILS ABSOLUTE COUNT (BEAKER) (test ksdf=755) 0.23 K/ L 0.04-0.36 BASOPHILS ABSOLUTE COUNT (BEAKER) (test inpn=439) 0.08 K/ L 0.01-0.08 IMMATURE GRANULOCYTES-RELATIVE PERCENT (BEAKER) (test xpws=3199) 0 % 0-1 POCT-GLUCOSE [id number] 22:13:00* Test Item Value Reference Range Comments POC-GLUCOSE METER (BEAKER) (test icdz=4198) 105 mg/dL 70-110 TESTED AT [address] [address] [employer] CULTURE + [id number] 11:07:00* Test Item Value Reference Range Comments CULTURE (BEAKER) (test rvzf=8932) No acid-fast bacilli isolated in 42 days AFB SMEAR (BEAKER) (test rape=716) No acid fast bacilli seen [facility] RESPIRATORY [id number] 14:18:00* Test Item Value Reference Range Comments CULTURE (BEAKER) (test jkzn=9890) 4 out of 4 media Aspergillus species, not fumigatus 4+ Normal respiratory thony presentFUNGUS CULTURE + [id number] 14:13:00* Test Item Value Reference Range Comments CULTURE (BEAKER) (test mbvp=5451) 1 out of 3 media Syncephalastrum species FUNGUS SMEAR (BEAKER) (test tizo=0333) No fungi seen SPIN/CONCENTRATION [id number] 12:39:00* Test Item Value Reference Range Comments CONCENTRATION CHARGED (BEAKER) (test knmz=4825) Done POCT-GLUCOSE [id number] 11:12:00* Test Item Value Reference Range Comments POC-GLUCOSE METER (BEAKER) (test qkmo=5458) 124 mg/dL 70-110 TESTED AT [facility] [address] [address] [address] MRI SPINE CERVICAL [id number] 18:26:00 [place] [address] Patient Name: SHENG WESLEY MR #: [id number] : 1945 Age/Sex: 73/F Req #: [id number] Adm Physician: Ordered by: SHI NASCIMENTO MD Report #: [id number] Location: MRI Room/Bed: Procedure: [id number] MRI/MRI SPINE CERVICAL WO Exam Date: 06/27/16 Exam T shania: 0920 REPORT STATUS: Signed History: Neck pain for 15 years Comparison studies: X-ray of the cervical spin e 06/14/2016 Technique: Sagittal T1, T2 and IR, axial T2 and axial gradien t echo Intravenous contrast: None Findings: Alignment: Reversal of the cervical spine lordosis centered at C5-6 No scoliosis. Cervicomedullary junction: No abnormalities. Patent foramen magnum. Soft tissues: No T2 hyper intense inflammatory changes. Findings infiltration of the paraspinal musculat ure secondary to atrophy more significant at the lower neck. Spinal cord: No rmal in size and signal from the foramen magnum through T6 Vertebrae: N ormal in height and signal intensity. No fractures, infection or neoplasm. Degenerative changes: Diffuse disc degeneration with loss of T2 signal, w ithout endplate edematous changes. C2-C3: Patent canal and foramina C3-C4: Diffuse disc osteophyte complex, right uncinate process hypertrophy a nd bilateral facet hypertrophy results in no significant canal stenosis and mi ld right foraminal narrowing C4-C5: Diffuse disc osteophyte complex wit h patent canal and foramina C5-C6: Diffuse disc osteophyte complex and bi lateral uncinate process hypertrophy results in no significant canal stenosis and mild bilateral foraminal narrowing C6-C7: Right uncinate process hype rtrophy results in no significant canal stenosis and mild right foraminal narr owing C7-T1: Patent canal and foramina Partially visualized prominen t posterior fossa with small cerebellar vermix and Cristopher cisterna magna. I MPRESSION: 1. Degenerative changes of the cervical spine results in multil evel mild foraminal narrowing as described above. 2. Other degenerative changes as described above Signed by: DR Dwayne Garcia M.D. on 06/07 6:32 PM Dictated By: DWAYNE STODDARD MD 31 Transcribed By: CARMEN on 06/28/161831 COPY TO: SHI NASCIMENTO MD CERVICAL SPINE 4 OR 5 VIEWS 2016-06-14 15:34:00 [place] [address] Patient Name: SHENG WESLEY MR #: [id number] : 1945 Age/Sex: 73/F Req #: [id number] Adm Physician: Ordered by: SHI NASICMENTO MD Report #: [id number] Location: [facility] Room/Bed: Procedure: [id number] DX/CERVICAL SPINE 4 OR 5 VIEWS Exam Date: 06/14/16 E xam Time: 1136 REPORT STATUS: Leonora d PROCEDURE: C-SPINE COMPLETE COMPARISON: None. INDICATIONS: NECK PAIN FINDINGS: The cervical spine is visualized in the lateral view from the skull base to C7-T1. Mild grade 1 anterolisthesis of C4 on C5. Moderate degenerative disc changes in the cervical spine, predominantly osteophyte formation, worse at C4-C5, C5-C6 and C6-C7. A large osteophyte pr ojects anteriorly at the C4-C5 intervertebral space. There are no acute displa anamaria ractures, lytic or blastic lesions. The vertebral body heights are preser xavi. Bilateral oblique views show relatively patent neural foramina. Sligh t leftward curvature of the upper thoracic and lower cervical spine. The C1 /C2-odontoid interval is normal. The pre-vertebral soft tissues are normal. CONCLUSION: Moderate degenerative disc changes, worse at C4-C5, C5-C6 and C6-C7, with mild grade 1 anterolisthesis of C4 on C5. Large osteophyte projects anteriorly at the C4-C5 intervertebral space. Correlate for any dys phagia. Slight leftward curvature of the upper thoracic and lower cervical spine. Facundo Suh M.D. Dictated by: Miriam Gann on 06/14/2016 at 15:34 Electronically approved by: Facundo Suh M.D. on 06/14/2016 at 15:34 Dictated By: FACUNDO SUH MD Zee ctronically Signed By: FACUNDO SUH MD on 06/14/16 1534 Transcribed By: BRITTNI on 06/14/16 1534 COPY TO: SHI NASCIMENTO MD CT CHEST WO 2015-12-10 15:04:00 [place] [address] Patient Name: SHENG WESLEY MR #: [id number] : 1945 Age/Sex: 73/F Req #: [id number] [facility] Physician: Ordered by: JORGE PEREYRA MD Report #: [id number] Location: CT Room/Bed: Procedure: [id number] CT/CT CHEST WO Exam Date: 12/10/15 Exam Time: 1329 REPORT STATUS: Signed PROCEDURE: CT CHEST WITHOUT CONTRAST CT scan of the chest WITHOUT intravenous contrast, using standard protocol. TECHNIQUE: The chest was scanned utilizing a multidetector helical scanner from the apex to the level of the adrenal glan ds. No IV contrast was administered because of referring physician request. Coronal and sagittal multiplanar reformations were obtained. COMPARISON : CT chest without contrast 07/17/2015. INDICATIONS: ASTHMA. PNEUMONIA. C OPD FINDINGS: Lines/tubes: None. Lungs and Airways: Further i nterval progression of bronchial wall thickening with associated tree in bud opacities predominantly within the right upper lobe and lingula. Focal consol idation with associated bronchiectasis in the inferior lingular segment is un changed. New bronchial wall thickening and associated tree in bud opacities w ithin the left lower lobe for example on series 4 image 67. Regional bronc hiectasis involving the right upper lobe, lingula, and now left lower lobe. E ndobronchial debris within left lower lobe segmental bronchi is no longer maya dent. Calcified right upper lobe granuloma. Pleura: The pleural spaces are clear. Heart and mediastinum: 1.5 cm substernal hypoattenuating thyroid n odule is unchanged.. Atherosclerotic calcification of the thoracic aorta and proximal right subclavian artery. Pulmonary outflow tract is of normal sami iber. Atherosclerotic disease of the distal descending thoracic aorta. No per icardial effusion. 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 Scattered mildly promine nt mediastinal lymph nodes are not enlarged by CT criteria area Soft ti ssues: Postsurgical changes of the right breast Abdomen: Visualized portio ns of the liver, spleen, and adrenal glands are unremarkable. Bones: No osseous destructive lesions. Stable healed bilateral rib fracture deformitie s. Multilevel degenerative disc disease of the thoracic spine. IMPRESSI ON: Interval progression of segmental bronchial wall thickening with a ssociated multifocal tree in bud opacities within the lingula and right upper lobe, now involving the left lower lobe. Associated regional bronchiectasis. 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 A therosclerotic vascular disease. Dictated by: Saad Marin M.D. on 2015 at 15:04 Electronically approved by: Saad Marin M.D. on 12/10/2015 at 15:04 Dictated By: SAAD MARIN MD 1504 Transcribed By: BRITTNI on 12/10/15 1504 COPY TO: JORGE PEREYRA MD, [facility] CHEST 2 VIEWS - [id number] 14:18:00 [place] [address] Patient Name: SHENG WESLEY MR #: [id number] : 1945 Age/Sex: 73/F Req #: [id number] Adm Physician: Ordered by: SHI NASCIMENTO MD Report #: [id number] Location: [facility] Room/Bed: Procedure: [id number] DX/CHEST 2 VIEWS - PREMI[facility] Exam Date: Exam Time: REPORT STATUS: Signed PROCEDURE: Frontal and lateral views of the chest. COMPARISON: Patients Medical Maria G ter, DX, CHEST 2 VIEWS, 09/04/2015, 10:53. INDICATIONS: PNEUMONIA FOLL OW UP FINDINGS: Lines/tubes: None. Lungs: Mild bilateral kavya hilar, peribronchial thickening. The previously described patchy density in t he right midlung has resolved. Mild patchy density remains in the left lower lobe, unchanged. Pleura: There is no pleural effusion or pneumothorax. Heart and mediastinum: The cardiac silhouette is mildly enlarged. Bon es: No acute bony abnormality. Multiple surgical tips projected on the right breast and axillary region. IMPRESSION: 1. Interval resolution of previously described patchy density in the right midlung. Juhi Umaña M.D. Dictated by: Juhi Umaña M.D. on 10/15/2015 at 14:18 Electronically approved by: Juhi Umaña M.D. on 10/15/19 16 at 14:18 Dictated By: ALMA UMAÑA MD, MD 1404 Transcribed By: BRITTNI on 10/14 1418 COPY TO: SHI NASCIMENTO MD CHEST 2 [id number] 11:55:00 [place] [address] Patient Name: SHENG WESLEY MR #: [id number] : 1945 Age/Sex: 73/F Req #: [id number] Adm Physician: Ordered by: SHI NASCIMENTO MD Report #: [id number] Location: [facility] Room/Bed: Procedure: [id number] DX/CHEST 2 VIEWS Exam Date: 09/04/15 Exam Time: 1100 REPORT STATUS: Signed PROCEDURE: Frontal and lateral views of the chest. COMPARISON: Patients Medical C enter, DX, CHEST 2 VIEWS - PREMIER 05/26/2015, 12:46. INDICATIONS: CO UGH CONGESTION FINDINGS: Lines/tubes: None. Lungs: Stable int erstitial opacities in the region of the lingula, with increase in patchy rig ht middle lobe opacity. Pleura: No pleural effusion or pneumothorax. Heart and mediastinum: The heart and the mediastinum are normal. Bones: No acute bony abnormality. Stable metallic clips overlie the right chest wal l. IMPRESSION: Mild increase in patchy right midlung opacity could be developing pneumonia in the appropriate clinical setting. Recommend follow up imaging to document resolution. Dictated by: Miriam Barrett M.D. on 09/04/2015 at 11:55 Electronically approved by: Miriam Barrett M.D. on 09/03 at 11:55 Dictated By: MIRIAM BARRETT MD 1144 Transcribed By: BRITTNI on 09/04/15 1155 COPY TO: SHI NASCIMENTO MD CT CHEST [id number] 13:47:00 [place] [address] Patient Name: SHENG WESLEY MR #: [id number] : 1945 Age/Sex: 73/F Req #: [id number] Adm Physician: Ordered by: JORGE PEREYRA MD Report #: [id number] Location: CT Room/Bed: Procedure: [id number] CT/CT CHEST WO Exam Date: 07/17/15 Exam Time: 1013 REPORT STATUS: Signed This report includes an Addendum and supersedes previous reports for this exam. PROCEDURE: CT CHEST WITHOUT CONTRAST COMPARISON: Patients Medical C enter, CT, CT CHEST WO, 04/16/2015, 14:59. INDICATIONS: Cough, pneumonia and history of asthma TECHNIQUE: Routine protocol CT chest. No intravenous or e nteric contrast. Multiplanar reformatted images. DLP: 353.39 mGy*cm FINDINGS: Lungs: Progressive bronchovascular distribution tree-in-bud opacitie s within the right upper lobe and lingula now with increased airspace opac ity. The right middle, lower and left lower lobe are primarily clear. P leura: Normal Airways: Diffuse bronchial wall thickening predominantly in the same distribution as tree-in-bud opacities (for example, image 45, series 3 at the right upper lobe and image 54, series 3 at the lingula). Endobronchi al debris is present in the left lower lobe bronchus (image 61 and 68, series 3). There is mild lingular and right upper lobe inferior segment bronchiecta sis, including early varicose bronchiectasis as seen on image 45, series 3. Lymph nodes: Normal. Pulmonary arteries: Normal, with a mean diameter of 3.2 cm; right 2.2 and left 2.1 cm. Thoracic aorta and great vessels: Normal caliber with mild scattered atherosclerosis. Heart and pericardium: Normal Esophagus: Normal Subdiaphragmatic organs: Grossly unremarkable. Skeleton: Multiple healed right rib fractures. Soft tissues: Right mastectomy with postsurgical changes of reconstruction. Right axillary lymph node dissec tion. CONCLUSION: 1. There is interval progression of tree-in-bud opa cities within the inferior segment of the right upper lobe and lingula to inc lude consolidative airspace opacity in keeping with progressive non-cavitary pneumonia. Within this distribution is marked bronchial wall thickening [place] related to primary infection with early bronchiectasis. 2. Persistent end obronchial debris. Dictated by: Curt Parson M.D. on 07/17/2015 at 11:13 Electronically approved by: Curt Parson M.D. 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 Dictated by: Curt Parson M.D. on 07/17/2015 at 13:47 Electronically approved by: Curt Parson M.D. on 07/17/2015 at 13:47 Dictated By: CURT FELIZ MD 1339 Transcri bed By: BRITTNI on 07/17/15 1347 COPY TO: JORGE PERYERA MD, [facility] CHEST 2 VIEWS - [id number] 13:28:00 [place] [address] Patient Name: SHENG WESLEY MR #: [id number] : 1945 Age/Sex: 73/F Req #: [id number] Adm Physician: Ordered by: SHI NASCIMENTO MD Report #: [id number] Location: [facility] Room/Bed: Procedure: [id number] DX/CHEST 2 VIEWS - PREMIER Exam Date: Exam Time: REPORT STATUS: Signed PROCEDURE: CHEST 2 VIEWS - PREMIER COMPARISON: Chest CT, 04/16/15. INDICATIO NS: COUGH/CONGESTION FINDINGS: Lines and tubes: None Hear t size normal. Patchy opacity in the lingula may represent atelectasis or resolving pneumonia. No other focal pulmonary opacities. No pleural effusion or pneumothorax. Bilateral rib deformities and mild pleural thickening compatible with healed or healing rib fractures as noted on previous CT. Righ t chest wall surgical clips are noted. Upper abdomen unremarkable. CONC LUSION: Patchy opacity in the lingula may represent scarring, atelectasis o r, in the proper clinical setting, resolving pneumonia. Dictated by: Farooq Weldon M.D. on 05/26/2015 at 13:28 Electronically approved by: Leidy Weldon M.D. on 05/26/2015 at 13:28 Dictated By: MARY BETH Donohue MD 1323 Transcribed B y: BRITTNI on 05/26/15 1328 COPY TO: SHI NASCIMENTO MD CT CHEST WO 2015-04-16 17:07:00 [place] [address] Patient Name: SHENG WESLEY MR #: [id number] : 1945 Age/Sex: 73/F Req #: [id number] Adm Physician: Ordered by: JORGE PEREYRA MD Report #: [id number] Location: [facility] Room/Bed: Procedure: [id number] CT/CT CHEST WO Exam Date: 04/16/15 Exam Time: 1500 REPORT STATUS: Signed PROCEDURE: CT CHEST WITHOUT CONTRAST COMPARISON: None. INDICATIONS: ALLERGIC COUGH, SHORTNESS OF BREATH, ASTHMA TECHNIQUE: Axial CT images of the chest were o btained without contrast. Coronal and sagittal reformations were made availab le for review. Routine protocol performed. RADIATION DOSE: Total DLP: 275.5 3 mGy*cm Estimated effective dose: (DLP x 0.014 x size factor) mSv FINDI NGS: Suboptimal evaluation of the vessels and mediastinum without IV contra st Lungs: There are patchy groundglass opacities in the right middle lobe and at the posterior right lung base. In the right upper lobe, just above t he minor fissure, there is moderately extensive tree in bud opacity lateral t o the right hilum. An area of opacity is seen extending into the lingula from the left hilum. There is extensive bilateral perihilar bronchial wall thicke jimmie. There is foamy endobronchial material bilaterally, extensive and nearly occlusive in the left main bronchus. Bilaterally there is some bronchial doe rowing at the hilar level. Pleura: No pleural effusion or pneumothora x. Heart Mediastinum: The heart is upper normal size. No pericardia l effusion. Thyroid unremarkable, with some extension of the left lobe into t he substernal space. No mediastinal adenopathy. Small hiatus hernia. Ve ssels: Main pulmonary artery 3.1 cm, slightly dilated. No aortic dilatation , with the aorta measuring 3.1 cm ascending, 2.6 cm at the distal arch, and 2 .3 cm descending. There is calcification at the aortic root, possibly involvi ng the valve. Upper abdomen: Included portions of the unenhanced liver, spleen, pancreas and adrenals are without focal abnormalities. Musculos keletal: Superficial surrounding soft tissue unremarkable. There are metall ic clips in the soft tissues of the right chest wall behind the breast. There are deformities of the right fifth and sixth ribs and left fifth and sixth r ibs laterally which appear to represent healed or healing fractures there is also an apparent healed or healing fracture of the posterior left sixth rib. CONCLUSION: 1. Tree in bud opacities in the right upper lobe suggesti ng bronchiolitis or infection. There are also groundglass opacities in the right upper and lower lobes, and dense consolidation in the lingula. In the proper clinical setting, this may represent multifocal pneumonia. 2. There is extensive bronchial wall thickening in the perihilar areas bilaterally. There is extensive foamy material within the main bronchi bilaterally. This is angela rly occlusive in the left main bronchus. This likely represents mucous althou gh an underlying endobronchial lesion could be considered. 3. Mild dilatati on of the main pulmonary artery suggesting possible pulmonary hypertension. 4. Bilateral healed or healing rib fractures. Dictated by: Mary Beth donohue M.D. on 04/16/2015 at 17:07 Electronically approved by: Mary Beth Weldon M.D. on 04/16/2015 at 17:07 Dictated By: MARY BETH WELDON MD Zee ctronically Signed By: MARY BETH WELDON MD on 04/16/15 1702 Transcribed By: BRITTNI on 04/16/157 COPY TO: JORGE PEREYRA MD, [facility]
--- OUTSIDE RECORDS SUMMARY | 2019-03-04 13:58 | XMS REPORT | Summary of Care ---
Author Author [facility] Organization [facility] Address Unknown Phone Unavailable Care Team Providers Care Back Feeder [place] Layup Line Name Role Phone Sal Smart MD Unavailable Tray Arvizu MD 14 Reason for Referral * Treatment (Routine) Referred By Contact Referred To Contact Status Reason Specialty Diagnoses / Procedures Riley Zimmerman MD [facility] [address] [address] [facility] [address] [place] [address], [address] [id number] Pending Gastroenterology Diagnoses Crohn's disease of large intestine with rectal bleeding (HCCode) Gastric adenoma Intestinal metaplasia of gastric mucosa P rocedures EGD W/MAC - GI DEPT [place] EGD TRANSORAL BIOPSY SINGLE/MULTIPLE Reason for Visit * Reason Comments Follow Up Inflammatory Bowel Disease Encounter Details Care Team Description Date Type Department Riley Zimmerman MD [facility] [address] [address] Follow Up ; Inflammatory Bowel Disease 10/26/2018 Office Visit [facility] Gastroenterology [address] [place] [address], [address] [place] [phone] Allergies Comments Active Allergy Reactions Severity Noted Date Aleve 02/08/2012 Aspirin Effervescent 02/08/2012 Diclofenac-Misoprostol 02/08/2012 Aspirin 02/08/2012 Ciprofloxacin 02/08/2012 Clarithromycin 02/08/2012 Diphenhydramine 03/13/2014 Erythromycin 02/08/2012 Ibudone 02/08/2012 Yoearac-Vifchrgnivth-Fhdc 02/08/2012 eine Morphine Sulfate 02/08/2012 Penicillins 02/08/2012 Tetracyclines & Related 02/08/2012 Tobramycin 10/26/2016 documented as of this encounter (statuses as of 11/08/2018) Medications End Date Status Medication Sig Dispensed Refills Start Date Active lorazepam (ATIVAN) 1 MG Take 1 mg by 0 tablet mouth every 8 hours as needed. Active Calcium Citrate (CITRACAL Take by 0 PO) mouth. Active NATURAL PSYLLIUM FIBER OR Take by 0 mouth. Active sertraline (ZOLOFT) 25 MG Take 25 mg by 0 tablet mouth daily. Active GINKGO BILOBA COMPLEX OR Take by 0 mouth. Active hydrOXYzine (ATARAX) 25 Take 25 mg by 0 MG tablet mouth 3 times daily as needed for Itching. Active Mometasone Inhale by 0 Furo-Formoterol Fum nose. (DULERA IN) Active denosumab (PROLIA) 60 Inject 60 mg 0 MG/ML SOLN injection into the skin once. Active Levocetirizine Take 1 Tab by 0 Dihydrochloride (XYZAL) 5 mouth daily. MG TABS Active pregabalin (LYRICA) 50 MG Take 50 mg by 0 capsule mouth 3 times daily. Active glimepiride (AMARYL) 2 MG Take 2 mg by 0 tablet mouth every morning. Active VITAMIN D, Take by 0 CHOLECALCIFEROL, OR mouth. Active Cyanocobalamin (VITAMIN Take by 0 B-12 OR) mouth. Active lamotrigine (LAMICTAL) Take 100 mg 0 100 MG tablet by mouth daily. Active omeprazole (PRILOSEC) 20 Take 1 Cap by 30 Cap 5 MG capsule mouth daily. 9 Active PROTONIX 40 MG TAKE 1 TABLET 30 Tab 5 tabletIndications: BY MOUTH 9 Dyspepsia EVERY DAY Active rifAXIMin (XIFAXAN) 550 Take 1 Tab by 42 Tab 2 MG TABSIndications: mouth 3 times 9 Irritable bowel syndrome daily. with diarrhea Active ciprofloxacin (CIPRO) 500 Take 1 Tab by 60 Tab 0 09/20/201 MG tablet mouth two 9 times daily. 1 tablet by mouth twice a day Active metronidazole (FLAGYL) Take 1 Tab by 60 Tab 0 500 MG tablet mouth two 9 times daily. 1 tablet by mouth twice a day 10/26/2018 Na Sulfate-K Sulfate-Mg Take 1 Box by 1 Bottle 0 Sulf (SUPREP BOWEL PREP mouth once 9 KIT) 17.5-3.13-1.6 for 1 dose. GM/177ML SOLNIndications: Crohn's disease of large intestine with rectal bleeding (HCCode), Gastric adenoma, Intestinal metaplasia of gastric mucosa documented as of this encounter (statuses as of 11/08/2018) Active Problems Problem Noted Date Sensorineural hearing loss (SNHL) of both ears 07/28/2017 Bronchiectasis, non-tuberculous (HCCode) 05/31/2017 Mycobacteria, atypical 05/31/2017 Iron deficiency anemia 08/10/2016 Intestinal malabsorption 08/10/2016 [facility] 07/09/2014 Dyspepsia 07/09/2014 Ulcerative colitis, universal [facility] 01/09/2014 Pancreatitis 02/22/2012 Alternating exotropia 02/24/2011 documented as of this encounter (statuses as of 11/08/2018) Immunizations Name Administration Dates Next Due Influenza Hd 12/28/2016 documented as of this encounter Social History Date Tobacco Use Types Packs/Day Years Used Never Smoker Smokeless Tobacco: Never Used Drinks/Week oz/Week Comments Alcohol Use No Sex Assigned at Date Recorded Not on file Industry Job Start Date Occupation Not on file Not on file Not on file Travel End Travel History Travel Start No recent travel history available. documented as of this encounter Last Filed Vital Signs Reading Time Taken Comments Vital Sign 100/60 10/26/2018 10:55 AM CDT Blood Pressure 78 10/26/2018 10:55 AM CDT Pulse 36.6 C (97.8 F) 10/26/2018 10:55 AM CDT Temperature 14 10/26/2018 10:55 AM CDT Respiratory Rate - - Oxygen Saturation - - Inhaled Oxygen Concentration 49.8 kg (109 lb 12.8 oz) 10/26/2018 10:55 AM CDT Weight 149.9 cm (4' 11") 10/26/2018 10:55 AM CDT Height 22.18 10/26/2018 10:55 AM CDT Body Mass Index documented in this encounter Patient Instructions * Patient Instructions* Riley Zimmerman MD - 10/26/2018 10:30 AM CDT Dear Ms. Iqbal, Here is the plan as discussed at your visit today My recommendations are as follows: 1. Continue vedolizumab infusion every 4 weeks 2. Baseline lab testing to include CBC, CMP, ESR and CRP today at the time of in fusion 3. Repeat iron panel today to determine need for repletion 4. EGD for gastric mapping 5. Colonoscopy at the time of EGD to assess mucosa on current therapy 6. In case of recurrence of bloating and diarrhea start a 5 day course of ciprof loxacin and metronidazole (twice a day). Do not take more than once a month. 6. Health Maintenance- Osteoporosis- on prolia, under care of Dr. Timo Medina at [facility]. Pneumovax uptodate Flu vaccine 2018 ROV 12 weeks Kindly contact the office should you develop any new symptoms or have any questi ons or concerns regarding the recommendations detailed above. Riley Purvis M.D. documented in this encounter Progress Notes * Lashaun Iqbal CMA - 10/26/2018 11:16 AM CDT Language fotopedia turbine assembler was used during office visit. Name [place] ID [id number] * Riley Zimmerman MD - 10/26/2018 10:30 AM CDT Subsequent Visit Note [facility] HPI: Tamika Iqbal is a 73 y.o. lady with Crohns disease diag nosed in 2011 with inflammation in the ileum as well as colon with non-stricturi ng and non-penetrating disease behavior. 2011: diagnosed with Crohns disease and started on pentasa 1 gm QID with modest improvement in symptoms. She has not been very compliant with the medication. 2013: Ms. Iqbal was hospitalized with a flare and responded well to steroids . She was not been on any maintenance medications other than 5 ASA formulations long-term. She received two doses of infliximab in June and July 2013 but decided to stop it since she did not think it was helping. Dec 2013: She underwent a colonoscopy in Dec 2013, as detailed below and I had s tarted her on vedolizumab infusions. 2015: She had been doing well until February 2015 when she had a flare that turne d out to be a c.diff infection. She responded to a course of vancomycin. Ms. Iqbal missed her Dec vedolizumab dose due to a pneumonia- it was a non t ubercular M. [place]. The original plan was for her to be on antibiotics for th is infection for almost one year. AT her last visit with Dr. Downey a repeat sp utum analyses was sent since Ms. Iqbal developed hives with the 9th injectio n of tobramycin. She is currently not on any antibiotics. May 2016: Ms. Iqbal resumed vedolizumab q 4 weeks Oct 2016: colonoscopy showed persistent inflammation in the colon as detailed be low. Mar 2017:Symptomatically Ms. Iqbal reports 2-3 hard stools a day with blood in her stool. Ms. Iqbal now has worsening symptoms with blood in her stool. Although she is not anemic at this time, I am concerned there is potential for worsening symptoms since she had inflammation on her colonoscopy done after 6 mo nths of escalated vedolizumab dose. She has declined treatment for her MAC infec tion and I am keen to avoid steroids in this patient. We decided to start usteki numab and stop the vedolizumab June 2017: received a dose of ustekinumab and has noted a modest improvement in h er symptoms. July 2017: returns today with complaints of persistent diarrhea 8-10 times a day with persistent nocturnal symptoms and fatigue. Her last dose of ustekinumab was 4 weeks ago. Based on these symptoms I had hospitalized Ms. Iqbal and she underwent a colonoscopy and EGD as detailed below. July 2017: Ms. Iqbal returns today for a follow up visit. She averages 4-6 semi formed bowel movements a day with nocturnal bowel movement s. She has blood in her stool on most occasions. Her last ustekinumab injection was 4 weeks ago. She was noted to have CMV on peripheral blood PCR and was treated with a 21 day course of valganciclovir BID September 2017: feels better after completing valacyclovir regimen, is yet to start vedolizumab and stopped the ustekinumab in JulyNov 2017: Ms. Iqbal did not note any improvement with ustekinumab despite 20 weeks of therapy.and thinks her symptoms may have worsened. Repeat CMV PCR was negative. She has now received her first infusion of vedolizumab and is due for the second dose today. Dec 2017: She was hospitalized last week and comes in today for a follow up visit. Her sto ol test was negative for c diff and she was treated with a course of cipro and f lagyl. She feels better. Feb 2018: feels well and is off steroids. Ms. Parnells mood has been better a nd this had improved her quality of life considerably. April 06, 2018: feels well for the most part. She has been taking probiotics ever y day. Her main complaint today is related to bloating as well nocturnal bowel m ovements. She has formed stool though. No blood in stool. July: sounded a little depressed today- mostly sadness related to her health concerns. No new GI symptoms. The bloating improved with rifaximin but has recu rred since. Ms. Iqbal's bowel movements alternate between diarrhea and const ipation. Oct 2018: feels well for the most part. She continues to have a lot of bloating. When she is constipated she experiences left lower quadrant cramping abdominal pain. She remains on protonix once a day. Diagnostic Data: Endoscopy: Colonoscopy July 2017: Findings: - The perianal and digital rectal examinations were normal. - The terminal ileum appeared normal. - Inflammation characterized by altered vascularity, erosions, erythema, friabil ity, granularity, mucus and shallow ulcerations was found in a continuous and circumferential pattern from the rectu m to the cecum. No sites were spared. This was severe and graded as Fish Score 3 (severe, with spontaneous bleeding, u lcerations). EGD July 2017: - Normal esophagus. - Small hiatus hernia. - Erythematous mucosa in the gastric body and antrum. - Normal examined duodenum. - Biopsies were taken with a cold forceps for histology on the greater curvature of the gastric body, on the lesser curvature of the gastric body, at the incisura, on the greater curvat ure of the gastric antrum and on the lesser curvature of the gastric antrum. Biopsy: DIAGNOSIS A. STOMACH, ANTRUM, GREATER CURVATURE, BIOPSY: - ANTRAL MUCOSA WITH CHRONIC INACTIVE GASTRITIS - NEGATIVE FOR HELICOBACTER PYLORI ORGANISMS - NEGATIVE FOR INTESTINAL METAPLASIA, DYSPLASIA, MALIGNANCY B. STOMACH, ANTRUM, LESSER CURVATURE, BIOPSY: - ANTRAL MUCOSA WITH ACUTE GASTRITIS AND INTESTINAL METAPLASIA - NEGATIVE FOR HELICOBACTER PYLORI ORGANISMS - NEGATIVE FOR DYSPLASIA, MALIGNANCY C. STOMACH, INCISURA, BIOPSY: - ANTRAL MUCOSA WITH CHRONIC INACTIVE GASTRITIS - NEGATIVE FOR HELICOBACTER PYLORI ORGANISMS - NEGATIVE FOR INTESTINAL METAPLASIA, DYSPLASIA, MALIGNANCY D. STOMACH, BODY, GREATER CURVATURE, BIOPSY: - OXYNTIC MUCOSA WITH NO SIGNIFICANT DIAGNOSTIC ABNORMALITY - NEGATIVE FOR HELICOBACTER PYLORI ORGANISMS - NEGATIVE FOR INTESTINAL METAPLASIA, DYSPLASIA, MALIGNANCY E. STOMACH, BODY, LESSER CURVATURE, BIOPSY: - OXYNTIC MUCOSA WITH NO SIGNIFICANT DIAGNOSTIC ABNORMALITY - NEGATIVE FOR HELICOBACTER PYLORI ORGANISMS - NEGATIVEFOR INTESTINAL METAPLASIA, DYSPLASIA, MALIGNANCY F. COLON, RIGHT/ASCENDING, RANDOM BIOPSIES: - MODERATE TO SEVERE CHRONIC ACTIVE COLITIS - POSITIVE FOR RARE CMV - NEGATIVE FOR GRANULOMAS, DYSPLASIA, MALIGNANCY G. COLON, LEFT/DESCENDING, RANDOM BIOPSIES: - MODERATE TO SEVERE CHRONIC ACTIVE COLITIS - NEGATIVE FOR CMV - NEGATIVE FOR GRANULOMAS, DYSPLASIA, MALIGNANCY H. COLON, SIGMOID PSEUDOPOLYP, BIOPSY: - INFLAMMATORY PSEUDOPOLYP - POSITIVE FOR RARE CMV - NEGATIVE FOR GRANULOMAS, DYSPLASIA, MALIGNANCY I. RECTUM, BIOPSY: - MODERATE TO SEVERE CHRONIC ACTIVE PROCTITIS - NEGATIVE FOR CMV - NEGATIVE FOR GRANULOMAS, DYSPLASIA, MALIGNANCY Colonoscopy Oct 2016: - The examined portion of the ileum was normal. - Pseudopolyps in the recto-sigmoid colon and in the descending colon. - Congested, erythematous, friable (with contact bleeding), granular and inflame d mucosa in the entire examined colon. Biopsied. Biopsy: DIAGNOSIS: A. Gastric nodule, biopsy - Pyloric adenoma - Gastric body-type mucosa with no significant histopathologic change - Diff-Quik stain for Helicobacter pylori is negative B. Stomach, antrum and body, biopsy - Gastric antrum-type mucosa with chronic inactive gastritis with focal in testinal metaplasia - Gastric body-type mucosa with no significant histopathological change - Diff-Quik stain and immunostain for Helicobacter pylori is negative C. Colon, biopsy - Diffuse chronic mildly active colitis D. Rectum, biopsy - Diffuse chronic markedly active proctitis with surface ulceration, and g ranulation tissue - Cytomegalovirus (CMV) immunostain negative Colonoscopy Dec 2013: friability and granularity in the entire colon with superf icial ulcerations in the rectum and sigmoid. Normal appearing terminal ileum. No n thrombosed external hemorrhoids. DIAGNOSIS: A. Terminal ileum, random, biopsy - No diagnostic pathologic alteration B. Right colon, random, biopsy - Chronic active colitis, severe C. Left colon, random, biopsy - Chronic active colitis, severe D. Descending colon, biopsy - Chronic active colitis, severe, with ulceration and granulation tissue Radiology: CT scan chest Oct 2016: IMPRESSION: Mild bilateral bronchiectasis, peribronchial wall thickening and centrilobular pulmonary nodules consistent with this patient's history of mycobacterial infection. No cavitations or lobar consolidations CT scan of the abdomen 2013: IMPRESSION: Acute to subacute inflammatory bowel disease. Several focal short segment narrowing without evidence of obstruction. This has a more appearance of ulcerative colitis. However, Crohn's can also have this appearance. Small bowel is not involved. Medications List of medications reviewed and updated in chart on today's visit Laboratory Data: Lab Results Component Value Date CRP 3.2 (H) 07/27/2018 No results found for: SEDRATE Lab Results Component Value Date WBC 7.8 07/27/2018 HGB 10.5 (L) 07/27/2018 HCT 34.6 07/27/2018 MCV 77.2 (L) 07/27/2018 PLT 441 (H) 07/27/2018 Lab Results Component Value Date NA 142 07/27/2018 K 4.2 07/27/2018 CL 104 07/27/2018 CO2 26 07/27/2018 Lab Results Component Value Date CREATININE 0.67 07/27/2018 Lab Results Component Value Date ALT 12 07/27/2018 AST 12 07/27/2018 ALKPHOS 76 07/27/2018 BILITOT <0.2 07/27/2018 REVIEW OF SYSTEMS: General: no fever, no chills, no fatigue.Ophthalmic: no blurry vision, no erythe ma.ENT: no oral lesions, no vocal changes. Respiratory: no cough, no wheezing, n o shortness of breath. Cardiovascular: no chest pain, no dyspnea on exertion. G astrointestinal: see HPI. Genitourinary: no dysuria, trouble voiding, or hematur ia. Musculoskeletal: no joint pains, no joint swelling. Neurological: no numbne ss/tingling. Dermatological: no skin rashes. Psychological: no anxiety, no depr ession PHYSICAL EXAM: Vitals: 10/26/18 1055 BP: 100/60 Pulse: 78 Resp: 14 Temp: 97.8 F (36.6 C) TempSrc: Oral Weight: 109 lb 12.8 oz (49.8 kg) Height: 4' 11" (1.499 m) General: Alert, oriented, no apparent distress HEENT: mucosa moist, no scleral icterus or pallor noted Neck: Supple, no lymphadenopathy, no masses Chest: Clear to auscultation bilaterally CV: Normal S1, S2 Abdomen: Normoactive bowel sounds, soft, no organomegaly, nontender liver and s pleen not palpable Rectal: defered Ext: No edema Neuro: no focal deficits Skin: no rashes, nodules or pallor noted I have reviewed the patient's medical history in detail and updated the computer ized patient record. ASSESSMENT and PLAN: Tamika Iqbal is a 73 y.o. patient with the following ongoing issues 1. Crohns disease involving the ileum and colon non-stricturing and non-penetrat ing disease behavior. The 2. Previously on vedolizumab- partial responder 3. C. diff infection s/p treatment 4. Prior history of breast cancer- in remission. 5. M. [place] colonization with bronchiectasis- not eradicated, patient has bee n reluctant to complete treatment. 6. Prior history of CMV colitis 7. Gastric adenoma with focal intestinal metaplasia on recent EGD 8. Persistent inflammation on colonoscopy despite 10 weeks of ustekinumab therap y in July 2017- promptng switching to vedolizumab 9. Osteoporosis- on prolia Ms. Iqbal 's last colonoscopy was in July 2017- she had moderate to sever in flammation at the time- this was in the setting of CMV infection that led to in terruption of her vedolizumab for a few months. She has done reasonably well sin ce. Unfortunately the mycobacterial colonization her her lungs limits treatment options for her. She is not a candiate for anti TNF therpay and it would be prud ent to avoid systemic T cell suppression in her case. My recommendations are as follows: 1. Continue vedolizumab infusion every 4 weeks 2. Baseline lab testing to include CBC, CMP, ESR and CRP today at the time of in fusion 3. Repeat iron panel today to determine need for repletion 4. EGD for gastric mapping 5. Colonoscopy at the time of EGD to assess mucosa on current therapy 6. In case of recurrence of bloating and diarrhea start a 5 day course of ciprof loxacin and metronidazole (twice a day). Do not take more than once a month. 6. Health Maintenance- Osteoporosis- on prolia, under care of Dr. Timo Medina at [facility]. Pneumovax uptodate Flu vaccine 2018 ROV 12 weeks It has been a pleasure participating in Tamika Iqbal's care. I can be reached by contacting the GI Center at [phone] Riley Zimmerman M.D documented in this encounter Plan of Treatment Care Team Description Date Type Specialty 5, Jeremías Chair 11/22/2018 Appointment Infusion Center Order Schedule Name Type Priority Associated Diagnoses Ordered: 10/26/2018 IRON+TIBC+%SAT Lab Routine Crohn's disease of large intestine with rectal bleeding (HCCode) Ordered: 10/26/2018 FERRITIN Lab Routine Crohn's disease of large intestine with rectal bleeding (HCCode) Ordered: 10/26/2018 CBC W/O DIFF W PLT Lab Routine Crohn's disease of large intestine with rectal bleeding (HCCode) Ordered: 10/26/2018 COMPREHENSIVE METABOLIC Lab Routine Crohn's disease of large PANEL intestine with rectal bleeding (HCCode) Ordered: 10/26/2018 SEDIMENTATION RATE Lab Routine Crohn's disease of large MODIFIED WESTERGREN intestine with rectal bleeding (HCCode) Ordered: 10/26/2018 C-REACTIVE PROTEIN Lab Routine Crohn's disease of large intestine with rectal bleeding (HCCode) 1 Occurrences starting 10/26/2018 until 04/26/2019 EGD W/MAC - GI DEPT Procedures Routine Crohn's disease of large intestine with rectal bleeding (HCCode) Gastric adenoma Intestinal metaplasia of gastric mucosa 1 Occurrences starting 10/26/2018 until 04/28/2019 COLONOSCOPY W MAC GI Procedures Routine Crohn's disease of large DEPT intestine with rectal bleeding (HCCode) Health Maintenance Due Date Last Done Comments MAMMOGRAM ANNUAL 1945 MEDICARE AWV 1945 TETANUS SHOT (ADULT) 1961 FALL SCREEN 2011 PNEUMOVAX >=65 (PPSV23) 2011 PREVNAR >=65 (PCV13) 2011 FLU VACCINE > 6 MONTHS 09/06/2018 12/28/2016 COLON CANCER SCREENIN07/15/2027 07/14/2017, 07/14/2017, 10/20/2016, COLONOSCOPY Additional history exists OSTEOPOROSIS SCREENING Completed 12/08/2016 HEPATITIS C SCREENING Completed 07/28/2017 documented as of this encounter Results Not on filedocumented in this encounter Visit Diagnoses Diagnosis Crohn's disease of large intestine with rectal bleeding (HCCode) - Primary Regional enteritis of large intestine Gastric adenoma Benign neoplasm of stomach Intestinal metaplasia of gastric mucosa Other specified disorder of stomach and duodenum documented in this encounter Insurance Type Payer Benefit Subscriber ID Effective Phone Address Plan / Dates Group Medicare MEDICARE MEDICARE xxxxxxxxxxx 2013-P [id number] [place] [address] Medicaid MEDICAID [employer] xxxxxxxxx 2014-P [address] [place] [id number] [place] [address] documented as of this encounter
[2019-03-04] MEDS ORDERED: SODIUM CHLORIDE 0.9% 1000ML 1,000 ML IV STA (14:07)
[2019-03-04 15:01] LABS: BILIRUBIN,URINE NEGATIVE (NEGATIVE); CLARITY,URINE SL CLOUDY (CLEAR); COLOR,URINE YELLOW (YELLOW); KETONES,URINE NEGATIVE (NEGATIVE); LEUKOCYTE ESTERASE ,URINE TRACE (NEGATIVE); NITRITE,URINE NEGATIVE (NEGATIVE); PROTEIN,URINE DIPSTICK NEGATIVE (NEGATIVE); URINE UROBILINOGEN 0.2 mg/dL (0.2 - 1)
[2019-03-04 15:11] LABS: EPITHELIAL CELLS,URINE FEW /LPF; RBC,URINE 0-5 /HPF (0-5); RENAL EPITHELIAL CELLS,URINE FEW; TRANSITIONAL EPI CELLS,URINE FEW
[2019-03-04 15:20] LABS: BASOPHILS # (AUTO) 0.1 (0.0-0.1); BASOPHILS % 1.2 % (0.0-1.0); EOSINOPHILS # (AUTO) 0.2 (0.0-0.4); EOSINOPHILS % 2.6 % (0.0-6.0); HEMATOCRIT 36.4 % (34.2-44.1); HEMOGLOBIN 11.5 g/dL (12.0-16.0); LYMPHOCYTES # (AUTO) 2.2 (1.0-3.2); LYMPHOCYTES % 26.8 % (18.0-39.1); MEAN CORPUSCULAR HEMOGLOBIN 28.4 pg (28-32); MEAN CORPUSCULAR HGB CONC 31.6 g/dL (31-35); MEAN CORPUSCULAR VOLUME 89.9 fL (81-99); MONOCYTES # (AUTO) 0.5 (0.2-0.8); MONOCYTES % 6.5 % (4.4-11.3); NEUTROPHILS # (AUTO) 5.1 (2.1-6.9); NEUTROPHILS % 62.5 % (38.7-80.0); PLATELET COUNT 437 x10e3/uL (140-360); RED BLOOD COUNT 4.05 x10e6/uL (3.6-5.1); RED CELL DISTRIBUTION WIDTH 15.8 % (11.7-14.4)
[2019-03-04 15:40] LABS: ALANINE AMINOTRANSFERASE < 6 IU/L (0-55); ALBUMIN 3.1 g/dL (3.5-5.0); ALBUMIN/GLOBULIN RATIO 0.8 (0.8-2.0); ALKALINE PHOSPHATASE 72 IU/L (40-150); ANION GAP 15.1 mmol/L (8-16); BLOOD UREA NITROGEN 7 mg/dL (7-26); BUN/CREATININE RATIO 10 (6-25); CALCIUM 9.2 mg/dL (8.4-10.2); CARBON DIOXIDE 23 mmol/L (22-29); CHLORIDE 101 mmol/L (98-107); CREATINE KINASE 29 IU/L (29-168); CREATININE, SERUM 0.71 mg/dL (0.57-1.11); EST GLOMERULAR FILTRATION RATE > 60 ML/MIN (60-); GLUCOSE 94 mg/dL (74-118); POTASSIUM 4.1 mmol/L (3.5-5.1); SODIUM 135 mmol/L (136-145)
[2019-03-04] MEDS ORDERED: BACTRIM DS TAB1 EACH PO (16:28)
--- NOTE | 2019-03-04 17:29 | Diagnostic Imaging Report ---
EXAM: CT Abdomen and Pelvis WITH intravenous contrast INDICATION: Abdominal pain COMPARISON: None. TECHNIQUE: Abdomen and pelvis were scanned utilizing a multidetector helical scanner from the lung base to the pubic symphysis after administration of IV contrast. Coronal and sagittal reformations were obtained. Routine protocol was performed. Scan was performed during portal venous phase. IV CONTRAST: 100mL of Isovue 370 ORAL CONTRAST: Water RADIATION DOSE: Total DLP: 161.6 mGy*cm Dose modulation, iterative reconstruction, and/or weight based adjustment of the mA/kV was utilized to reduce the radiation dose to as low as reasonably achievable. FINDINGS: LOWER THORAX: Normal. HEPATOBILIARY: No focal liver lesion. No biliary ductal dilation. Status post cholecystectomy. SPLEEN: No splenomegaly. PANCREAS: No focal masses or ductal dilatation. ADRENALS: No adrenal nodules. KIDNEYS/URETERS: No hydronephrosis, stones, or solid mass lesions. PELVIC ORGANS/BLADDER: Unremarkable. PERITONEUM / RETROPERITONEUM: No free air or fluid. LYMPH NODES: No lymphadenopathy. VESSELS: Unremarkable. GI TRACT: The appendix is dilated to 12 mm with mild periappendiceal fat stranding. There is mild distention of the stool-filled cecum, measuring up to 7.5 cm. Mild fecalization of the distal terminal ileum. No definite bowel obstruction. BONES AND SOFT TISSUES: No acute osseous injury. No suspicious lytic or blastic lesions. Degenerative changes of the visualized spine. IMPRESSION: Findings compatible with early acute appendicitis. Distention of the stool-filled cecum and mild fecalization of the distal ileum without definite bowel obstruction. Signed by: Lamberto Morgan MD on 03/04/2019 5:27 PM
[2019-03-04] MEDS ORDERED: CEFTRIAXONE SOD 1 GM/NS 50 ML 50 ML IV ONE (18:00)
--- NOTE | 2019-03-04 19:13 | NUR ---
report given to Kailey Villa for continued care.
[2019-03-04 20:00] VITALS: BP 90/47
--- NOTE | 2019-03-04 20:00 | NUR ---
Patient arrived from ED via wheelchair as a new admit with diagnosis of Appendicitis. Pt alert and oriented x3. Mostly israeli speaking and understands little czech. Pt ambulatory with standby assist. Will page Dr. Jamar Iqbal for further medication orders. Pt denies pain at this time. Will monitor closely. Call mata within reach.
[2019-03-04] MEDS ORDERED: IOPAMIDOL 370 MG/ML 200 ML INFUS..BTL INJ ONE (20:18)
--- NOTE | 2019-03-04 20:32 | NUR ---
Spoke with Dr. John Iqbal and informed of new consult order. MD stated he was aware. Also explained to Dr. Iqbal that there were no medication orders from ER. MD aware and ordered IVF (NS at 100ml/hr), Flagyl, Levaquin and Tylenol suppository prn. stated he will talk to ER team tomorrow to complain about lack of medication orders for the patient.
[2019-03-04] MEDS ORDERED: ACETAMINOPHEN 650 MG SUPP PR PRN (20:45)
[2019-03-04] MEDS ORDERED: LEVOFLOXACIN 500MG/D5W 100ML 100 ML IV SCH (20:45)
[2019-03-04] MEDS ORDERED: SODIUM CHLORIDE 0.9% 1000ML 1,000 ML IV SCH (20:45)
--- NOTE | 2019-03-04 21:23 | NUR ---
Spoke with Dr. Jamar Iqbal and informed Levaquin a type of Cipro drug which pt was allergic to. MD cancelled Levaquin order.
[2019-03-04] MEDS ORDERED: METRONIDAZOLE 500MG/NS 100ML 100 ML IV SCH (22:00)
[2019-03-04] MEDS: METRONIDAZOLE 500MG/NS 100ML 100 ML IV SCH (22:27)
[2019-03-04 23:00] VITALS: BP 90/47
--- NOTE | 2019-03-04 23:40 | NUR ---
BP = 76/44. HR = 81. Pt asymptomatic. Paged Dr. Neri Arvizu. Awaiting professional skater back.
[2019-03-05] VITALS (7 sets, daily range): BP systolic 76–101; BP diastolic 44–60
--- NOTE | 2019-03-05 00:05 | NUR ---
BP re-checked and is 90/60. Pt feels fine. Still no call back from Dr. Neri Arvizu.
[2019-03-05] MEDS ORDERED: DEXTROSE 50% SYRINGE 50 ML IV ONE (02:59)
[2019-03-05] MEDS: DEXTROSE 50% SYRINGE 50 ML IV PRN ×2 (03:00→06:20)
--- NOTE | 2019-03-05 03:00 | NUR ---
Pt blood sugar checked per pt request. Pt appear diaphoretic and stated she felt her blood glucose dropped. Fingerstick BS at this time was 77. Pt NPO thus given 1 amp of Dextrose 50%. Will re-check blood sugar later.
--- NOTE | 2019-03-05 03:23 | NUR ---
Fingerstick blood glucose at this time is 254. Pt asymptomatic at this time.
[2019-03-05] MEDS: METRONIDAZOLE 500MG/NS 100ML 100 ML IV SCH ×4 (04:15→23:00)
[2019-03-05 05:48] LABS: BASOPHILS # (AUTO) 0.1 (0.0-0.1); EOSINOPHILS # (AUTO) 0.2 (0.0-0.4); EOSINOPHILS % 4.4 % (0.0-6.0); HEMATOCRIT 30.3 % (34.2-44.1); HEMOGLOBIN 9.1 g/dL (12.0-16.0); LYMPHOCYTES # (AUTO) 1.5 (1.0-3.2); LYMPHOCYTES % 29.1 % (18.0-39.1); MEAN CORPUSCULAR HEMOGLOBIN 27.5 pg (28-32); MEAN CORPUSCULAR VOLUME 91.5 fL (81-99); MONOCYTES # (AUTO) 0.5 (0.2-0.8); MONOCYTES % 9.5 % (4.4-11.3); NEUTROPHILS # (AUTO) 2.8 (2.1-6.9); NEUTROPHILS % 55.6 % (38.7-80.0); PLATELET COUNT 379 x10e3/uL (140-360); RED BLOOD COUNT 3.31 x10e6/uL (3.6-5.1); RED CELL DISTRIBUTION WIDTH 15.8 % (11.7-14.4)
[2019-03-05 06:02] LABS: ANION GAP 11.3 mmol/L (8-16); BLOOD UREA NITROGEN < 5 mg/dL (7-26); CALCIUM 8.3 mg/dL (8.4-10.2); CARBON DIOXIDE 23 mmol/L (22-29); CHLORIDE 110 mmol/L (98-107); CREATININE, SERUM 0.58 mg/dL (0.57-1.11); EST GLOMERULAR FILTRATION RATE > 60 ML/MIN (60-); POTASSIUM 3.3 mmol/L (3.5-5.1); SODIUM 141 mmol/L (136-145)
[2019-03-05 06:08] LABS: BUN/CREATININE RATIO 9 (6-25)
[2019-03-05 06:09] LABS: GLUCOSE 55 mg/dL (74-118)
--- NOTE | 2019-03-05 06:20 | NUR ---
Fingerstick blood glucose was 65. Pt given 1 amp of dextrose 50%. Will re-check Blood glucose later.
--- NOTE | 2019-03-05 06:40 | NUR ---
Fingerstick blood glucose at this is 246. Pt asymptomatic and states she feels fine.
--- NOTE | 2019-03-05 06:43 | NUR ---
Paged Dr. Neri Arvizu via answering service to notify of Lab blood glucose of 55, fingerstick BS of 65. Pt given 1 amp D50 and now fingerstick blood glucose was 246. Awaiting on MD call back.
[2019-03-05 07:08] LABS: EOSINOPHILS % (MANUAL) 4 % (0-7); LYMPHOCYTES % (MANUAL) 25 % (19-48); MONOCYTES % (MANUAL) 7 % (3.4-9.0); NEUTROPHILS % (MANUAL) 64 % (40-74); PLATELET ESTIMATE ADEQUATE; PLATELET MORPHOLOGY COMMENT NORMAL; RBC MORPHOLOGY COMMENT NORMAL
--- NOTE | 2019-03-05 07:30 | NUR ---
PT UP IN ROOM ,DENIES [PAIN, NO DISTRESS NTOED.SPOKE WITH DR NASCIMENTO ORDERS WRITTEN
[2019-03-05] MEDS: DEXTROSE 5%/0.45% SOD CHL 1,000 ML IV SCH ×2 (08:28→17:46)
--- NOTE | 2019-03-05 10:30 | NUR ---
DR NASCIMENTO HERE OK HOME MEDS,PT BROUGHT HOME MEDS REVIEWED MEDS
[2019-03-05] MEDS ORDERED: LORAZEPAM 1 MG TAB PO PRN (10:45)
[2019-03-05] MEDS ORDERED: HYDROXYZINE HCL 25 MG TAB PO PRN (10:45)
[2019-03-05] MEDS ORDERED: ACETAMINOPHEN 325 MG TAB PO PRN (10:45)
[2019-03-05] MEDS ORDERED: HYDROCODONE/APAP 5MG-325MG TAB PO PRN (10:45)
[2019-03-05] MEDS ORDERED: IPRATROPIUM/ALBUTEROL SULFATE 4 GM INH INH PRN (10:45)
[2019-03-05] MEDS: CEFTRIAXONE SOD 1 GM/NS 50 ML 50 ML IV SCH (11:00)
[2019-03-05] MEDS: LAMOTRIGINE 100 MG TAB PO SCH (17:00)
--- NOTE | 2019-03-05 17:47 | NUR ---
PT IN BED RESTING NO DISTRESS NTOED,AWAITING PHYSICAN
--- NOTE | 2019-03-05 19:05 | NUR ---
Patient visited in room during nursing rounds. Patient alert and oriented x3. Mostly belizean speaking and understands little hebrew. Pt denies pain or any discomfort at this time. Ambulatory with standby assist prn. Pt stated still having some loose stools. On IVF (D51/2NS at 125ml/hr). On scheduled IV antibiotic. Call mata within reach.
--- NOTE | 2019-03-05 22:20 | NUR ---
Spoke with Dr. Vasyl Arvizu on the phone. MD aware of patient condition and will see pt tonight. Labs were ordered for the patient.
[2019-03-06] VITALS (8 sets, daily range): BP systolic 84–97; BP diastolic 39–48
--- NOTE | 2019-03-06 00:10 | NUR ---
Dr. Vasyl Arvizu visited pt in room. MD interviewed pt on health history. MD aware of pt condition.
[2019-03-06] MEDS ORDERED: PANTOPRAZOLE 40 MG 10ML VIAL IV STA (00:51)
[2019-03-06] MEDS ORDERED: PANTOPRAZOLE 40 MG 10ML VIAL IV SCH (01:00)
[2019-03-06] MEDS: METRONIDAZOLE 500MG/NS 100ML 100 ML IV SCH ×4 (04:39→22:00)
[2019-03-06] MEDS ORDERED: DIATRIZOATE MEGL/DIATRIZOA SOD 30 ML BTL PO ONE (05:20)
[2019-03-06 05:35] LABS: RETICULOCYTE % 0.9 % (0.8-2.2)
[2019-03-06] MEDS ORDERED: SODIUM CHLORIDE 0.9% 50ML 50 ML ONE (06:14)
[2019-03-06] MEDS ORDERED: IOPAMIDOL 370 MG/ML 200 ML INFUS..BTL INJ ONE (06:14)
[2019-03-06 06:16] LABS: FERRITIN 127.64 ng/mL (4.63-204.00)
[2019-03-06] MEDS: CHLORDIAZEPOXIDE/CLIDINIUM 1 CAP PO SCH ×4 (06:54→21:09)
--- NOTE | 2019-03-06 07:03 | NUR ---
Received patient lying in bed with eyes open. Respiration even and unlabored without SOB. Call light in reach.
--- NOTE | 2019-03-06 07:07 | Diagnostic Imaging Report ---
CT Abdomen And Pelvis with Intravenous Contrast INDICATION: ^Crohn's disease, do abdomen and pelvis ^[id number] ^629 TECHNIQUE: Thin collimation axial images obtained from the diaphragm to the level of the pubic symphysis following the uneventful administration of 100 cc of low osmolar, nonionic intravenous contrast. Dose reduction techniques used: Automated exposure control, adjustment of the mAs and/or kVp according to patient size, standardized low-dose protocol, and/or iterative reconstruction technique. RADIATION DOSE: Total DLP: 172.92 mGy*cm Estimated effective dose: (DLP x 0.015 x size factor) mSv CTDIvol has been reviewed. It is below the limits set by the Radiation Protocol Committee (RPC). COMPARISON: CT abdomen/pelvis 03/04/2019. ABDOMEN FINDINGS: Lung Bases: Small posterior layering pleural effusions have developed with associated atelectasis. The heart is enlarged. Stable pacemaker wires.. Liver: Mild steatosis. No evidence for mass. Gallbladder: Absent. No biliary ductal dilatation. Pancreas: Normal attenuation without mass or ductal dilatation. Spleen: Normal in size. No evidence of mass.. Adrenal Glands: No evidence for mass. Kidneys: Right: Normal enhancement. No soft tissue mass. No hydronephrosis. Left: Normal enhancement. Scattered low attenuating lesions measuring up to 10 mm are stable and suggestive of cysts. No hydronephrosis. Lymph Nodes: No lymphadenopathy. Aorta: Normal in diameter PELVIS FINDINGS: Bowel: Stomach: Collapsed. Small Bowel: Normal in caliber with normal wall thickness. Large Bowel: Circumferential mural thickening and mural hyperemia from the rectum to the distal transverse colon with engorgement of the adjacent vasculature and multiple prominent pericolonic lymph nodes. Moderate burden of stool from the cecum to the distal transverse colon. Appendix: Present, with fluid distending the distal appendix to a diameter of 13 mm (previously, 12 mm) with the presence of intraluminal air. There is mild mural hyperemia at the distal aspect. No periappendiceal inflammation, however. Bladder: Normal. The uterus is present and atrophic. No adnexal mass. Lymph nodes: Right lower quadrant lymph nodes are increased in number and measure up to 10 mm. Lymph nodes in the small bowel mesentery are increased in number and measure less than 10 mm Peritoneum/retroperitoneum: Diffuse perirectal inflammation has increased. There is fluid in the left paracolic gutter. No loculated fluid collection. Bones: Mild dextroscoliosis of the lumbar spine and left lateral disc osteophyte complexes. Soft tissues: Unremarkable. IMPRESSION: 1. Persistent mural hyperemia, pericolonic inflammation, and pericolonic lymphadenopathy with increasing perirectal inflammation consistent with colitis or active inflammatory bowel disease. Moderate stool burden from the cecum to the distal transverse colon is stable. No small bowel obstruction. 2. Persistent distention of the appendix with mild mural hyperemia but no appendiceal inflammation. Findings are unlikely to represent acute appendicitis given its stability over time. No secondary signs of appendicitis. 3. New small bilateral pleural effusions and bibasilar atelectasis. 4. Other findings as described above. Signed by: Dr. Lori Kaplan MD on 03/06/2019 7:04 AM
[2019-03-06] MEDS: GLIMEPIRIDE 2 MG TAB PO SCH (08:00)
[2019-03-06] MEDS: METOPROLOL SUCCINATE 25 MG TAB XL PO SCH ×2 (09:00→09:13)
[2019-03-06] MEDS ORDERED: FUROSEMIDE 20 MG TAB PO SCH (09:00)
[2019-03-06] MEDS ORDERED: PANTOPRAZOLE SOD 40 MG TABEC PO SCH (09:00)
[2019-03-06] MEDS: CEFTRIAXONE SOD 1 GM/NS 50 ML 50 ML IV SCH (09:12)
[2019-03-06] MEDS: CALCIUM POLYCARBOPHIL 625 MG TAB PO SCH (09:12)
[2019-03-06] MEDS: LORATADINE 10 MG TAB PO SCH (09:12)
[2019-03-06] MEDS: LAMOTRIGINE 100 MG TAB PO SCH ×2 (09:12→17:34)
[2019-03-06] MEDS: PREGABALIN 50 MG CAP PO SCH (09:12)
[2019-03-06] MEDS: DEXTROSE 5%/0.45% SOD CHL 1,000 ML IV SCH ×3 (09:13→16:00)
[2019-03-06 12:26] LABS: WBC,FECAL (FECAL LACTOFERRIN) POSITIVE (NEGATIVE)
[2019-03-06] MEDS: PANTOPRAZOLE 40 MG 10ML VIAL IV SCH ×2 (13:05→21:00)
[2019-03-06 14:37] LABS: C DIFFICILE TOXIN A&B AMP PROB NEGATIVE (NEGATIVE)
--- NOTE | 2019-03-06 16:51 | NUR ---
Pts medical status was discussed during rounds and RD received consult for diet education regarding Crohns disease. Nutrition Education Learner(s): pt Barriers: None Cultural/Language Modifications: Pt only speaks Polish. Used cultural link cardiac catheterization technician Readiness: acceptance Method: explanation/ discussion, handout Topics: IBD/Crohns disease medical nutrition therapy Understanding/Compliance: Pt verbalized understanding Signed: Saige Lazar, CANDICE, RAYMON
--- NOTE | 2019-03-06 19:22 | NUR ---
Report given to maintenance mechanic 2nd shift. Respiration even and unlabored without SOB. Call light in reach.
--- NOTE | 2019-03-06 20:05 | NUR ---
RECEIVED PT IN BED AOX3 RESPIRATIONS ARE EVEN AND UNLABORED .SKIN WARM AND DRY TO TOUCH .CALL LIGHT WITH IN REACH .CONTINUE TO MONITOR
[2019-03-07] VITALS (8 sets, daily range): BP systolic 83–111; BP diastolic 42–52
[2019-03-07] MEDS: METRONIDAZOLE 500MG/NS 100ML 100 ML IV SCH ×4 (04:00→22:10)
--- NOTE | 2019-03-07 06:27 | NUR ---
PT RESTED DURING THE NIGHT .DENIES PAIN PT HAD LOOSE STOOL X2 .CALL LIGHT WITH IN REACH .CONTINUE TO MONITOR
--- NOTE | 2019-03-07 07:30 | NUR ---
PATIENT IS ALERT TO SELF AND PLACE- PATIENT IN STABLE CONDITION WITH NO S/S OF RESPIRATORY DISTRESS. NO PAIN VOICED. IV FLUIDS INFUSING. BED ALARM APPLIED. CALL LIGHT IS WITHIN REACH, PATIENT INSTRUCTED TO CALL FOR ASSISTANCE NEEDED.
--- NOTE | 2019-03-07 07:41 | NUR ---
BEDSIDE REPORT GIVEN TO THE ONCOMING NURSE
[2019-03-07] MEDS: DEXTROSE 5%/0.45% SOD CHL 1,000 ML IV SCH ×3 (08:00→16:12)
[2019-03-07] MEDS: METOPROLOL SUCCINATE 25 MG TAB XL PO SCH (09:00)
[2019-03-07] MEDS: CEFTRIAXONE SOD 1 GM/NS 50 ML 50 ML IV SCH (09:28)
[2019-03-07] MEDS: PANTOPRAZOLE 40 MG 10ML VIAL IV SCH ×2 (09:32→21:00)
[2019-03-07] MEDS: PREGABALIN 50 MG CAP PO SCH (09:36)
[2019-03-07] MEDS: LORATADINE 10 MG TAB PO SCH (09:36)
[2019-03-07] MEDS: LAMOTRIGINE 100 MG TAB PO SCH ×2 (09:36→16:07)
[2019-03-07] MEDS: CALCIUM POLYCARBOPHIL 625 MG TAB PO SCH (09:36)
[2019-03-07] MEDS: GLIMEPIRIDE 2 MG TAB PO SCH (09:36)
[2019-03-07] MEDS: CHLORDIAZEPOXIDE/CLIDINIUM 1 CAP PO SCH ×4 (09:36→21:00)
[2019-03-07] MEDS: IRON SUCROSE 100 MG in SODIUM CHLORIDE 0.9% 100 ML 100 ML IV SCH (12:20)
--- NOTE | 2019-03-07 13:56 | NUR ---
WOUND CARE CONSULT FOR SCREENING R/T MAXIME SCORE 13 AND MODERATE PUP STATUS PATIENT HAS NO NOTED SKIN BREAK DOWN NURSING TO CONTINUE TO MAINTAIN MODERATE PUP STATUS AND INTERVENTIONS ON ALTERNATING PRESSURE MATTRESS NURSING TO CONTINUE TO ASSIST PATIENT OUT OF BED FOR MEALS AND MUCH TOLERATED NURSING TO RECONSULT WOUND CARE FOR ANY FUTURE SKIN CARE NEEDS OR CONCERNS Addendum: 03/07/19 at 1357 by Babak Valenzuela RN Amended: Links added.
--- NOTE | 2019-03-07 19:21 | NUR ---
PATIENT IS IN STABLE CONDITION WITH NO S/S OF RESPIRATORY DISTRESS- NO PAIN VOICED. IV FLUIDS INFUSING. BED ALARM APPLIED. CALL LIGHT IS WITHIN REACH, PATIENT INSTRUCTED TO CALL FOR ASSISTANCE NEEDED. BEDSIDE SHIFT REPORT GIVEN TO ONCOMING NURSE.
--- NOTE | 2019-03-07 19:35 | NUR ---
RECEIVED PT IN BED AOX3 .DENIES PAIN .RESPIRATIONS ARE EVEN AND UNLABORED .CALL LIGHT WITH IN REACH .CONTINUE TO MONITOR
[2019-03-08] VITALS (8 sets, daily range): BP systolic 93–100; BP diastolic 50–55
[2019-03-08] MEDS: METRONIDAZOLE 500MG/NS 100ML 100 ML IV SCH ×3 (04:00→15:25)
[2019-03-08 06:57] LABS: BASOPHILS % 0.6 % (0.0-1.0); EOSINOPHILS # (AUTO) 0.4 (0.0-0.4); EOSINOPHILS % 5.9 % (0.0-6.0); HEMOGLOBIN 9.8 g/dL (12.0-16.0); LYMPHOCYTES # (AUTO) 1.4 (1.0-3.2); LYMPHOCYTES % 20.8 % (18.0-39.1); MEAN CORPUSCULAR HEMOGLOBIN 28.2 pg (28-32); MEAN CORPUSCULAR HGB CONC 31.6 g/dL (31-35); MEAN CORPUSCULAR VOLUME 89.3 fL (81-99); MONOCYTES # (AUTO) 0.4 (0.2-0.8); MONOCYTES % 6.2 % (4.4-11.3); NEUTROPHILS # (AUTO) 4.3 (2.1-6.9); NEUTROPHILS % 66.2 % (38.7-80.0); PLATELET COUNT 407 x10e3/uL (140-360); RED BLOOD COUNT 3.47 x10e6/uL (3.6-5.1); RED CELL DISTRIBUTION WIDTH 15.9 % (11.7-14.4)
--- NOTE | 2019-03-08 07:23 | NUR ---
HR WAS FLUCTUATING DURING THE NIGHT .GIVEN ATIVAN HR REDUCED TO [address] BASS BEDSIDE REPORT GIVEN TO THE ONCOMING NURSE
[2019-03-08 07:26] LABS: ALBUMIN 2.2 g/dL (3.5-5.0); ALBUMIN/GLOBULIN RATIO 0.7 (0.8-2.0); ALKALINE PHOSPHATASE 52 IU/L (40-150); ANION GAP 12.2 mmol/L (8-16); BLOOD UREA NITROGEN < 5 mg/dL (7-26); CALCIUM 8.1 mg/dL (8.4-10.2); CARBON DIOXIDE 25 mmol/L (22-29); CHLORIDE 109 mmol/L (98-107); EST GLOMERULAR FILTRATION RATE > 60 ML/MIN (60-); GLUCOSE 82 mg/dL (74-118); POTASSIUM 3.2 mmol/L (3.5-5.1); SODIUM 143 mmol/L (136-145)
[2019-03-08 07:33] LABS: ALANINE AMINOTRANSFERASE < 6 IU/L (0-55); BUN/CREATININE RATIO 8 (6-25)
[2019-03-08] MEDS: DEXTROSE 5%/0.45% SOD CHL 1,000 ML IV SCH ×3 (08:00→16:00)
[2019-03-08] MEDS: CALCIUM POLYCARBOPHIL 625 MG TAB PO SCH (08:26)
[2019-03-08] MEDS: PREGABALIN 50 MG CAP PO SCH (08:30)
[2019-03-08] MEDS: LAMOTRIGINE 100 MG TAB PO SCH ×2 (08:30→17:44)
[2019-03-08] MEDS: METOPROLOL SUCCINATE 25 MG TAB XL PO SCH (08:30)
[2019-03-08] MEDS: GLIMEPIRIDE 2 MG TAB PO SCH (08:31)
[2019-03-08] MEDS: LORATADINE 10 MG TAB PO SCH (08:31)
[2019-03-08] MEDS: PANTOPRAZOLE 40 MG 10ML VIAL IV SCH (08:31)
[2019-03-08] MEDS: CHLORDIAZEPOXIDE/CLIDINIUM 1 CAP PO SCH ×4 (08:31→21:40)
[2019-03-08] MEDS ORDERED: POTASSIUM CHLORIDE 10MEQ EA PO ONE (10:30)
--- NOTE | 2019-03-08 13:07 | NUR ---
ORDERS FOR GLENDA VERAS WRITTEN CM WENT INTO PT'S ROOM WITH INTERPRETOR VIDEO PT REFUSES TO SIGN CHOICE LETTER FOR GLENDA VERAS WANTS ME TO CALL HER OR DAUGHTER 2 CALLS MADE TO JOSESITO KIRAN AT [phone]; NO ANSWER 2 CALLS MADE TO CHIQUITA LEONE AT [phone]; NO ANSWER DR NASCIMENTO AWARE
--- NOTE | 2019-03-08 13:53 | NUR ---
PT'S AT BEDSIDE SPEAKS AZERI ONLY CALLED DR NASCIMENTO ON HIS CELL PHONE AND PLACED ON SPEAKER DR NASCIMENTO EXPLAINED TO PT AND NECESSITY TO GO TO [facility] BOTH AGREE AND CONSENTS SIGNED [facility] BROWN HERE TO EVAL PT MOT IN PACKET AT DESK AND CHOICE LETTER ON CHART
--- NOTE | 2019-03-08 14:17 | NUR ---
CALL REC'D FROM MEHDI WITH GLENDA MATHEW VERAS PT WILL HAVE [employer] MCR STARTING 03/09/19 DR NASCIMENTO NOTIFIED ORDER FOR SNF AND TRANSFER WHEN ACCEPTED
--- NOTE | 2019-03-08 14:28 | NUR ---
SPOKE WITH DR Kailey NASCIMENTO ORDERS FOR SNF EXPLAINED THAT PT HAS NO PT EVAL AND RX'S ARE IN FRONT OF THE CHART OK TO DC HOME IN AM
[2019-03-08] MEDS: CEFTRIAXONE SOD 1 GM/NS 50 ML 50 ML IV SCH (14:54)
[2019-03-08] MEDS: METRONIDAZOLE 500 MG TAB PO SCH ×2 (15:50→21:40)
[2019-03-08] MEDS: IRON SUCROSE 100 MG in SODIUM CHLORIDE 0.9% 100 ML 100 ML IV SCH (17:44)
[2019-03-08] MEDS ORDERED: METRONIDAZOLE 500 MG TAB PO SCH (18:00)
--- NOTE | 2019-03-08 19:51 | NUR ---
PATIENT IS IN STABLE CONDITION WITH NO S/S OF RESPIRATORY DISTRESS. NO PAIN VOICED. IV FLUIDS INFUSING. TELEMETRY APPLIED. CALL LIGHT IS WITHIN REACH- PATIENT INSTRUCTED TO CALL FOR ASSISTANCE NEEDED. BEDSIDE SHIFT REPORT GIVEN TO ONCOMING NURSE.
[2019-03-08] MEDS: PANTOPRAZOLE SOD 40 MG TABEC PO SCH (21:40)
[2019-03-09] VITALS (8 sets, daily range): BP systolic 92–118; BP diastolic 49–67
[2019-03-09] MEDS: METRONIDAZOLE 500 MG TAB PO SCH ×4 (04:10→22:11)
[2019-03-09] MEDS: IRON SUCROSE 100 MG in SODIUM CHLORIDE 0.9% 100 ML 100 ML IV SCH (07:55)
[2019-03-09] MEDS: DEXTROSE 5%/0.45% SOD CHL 1,000 ML IV SCH ×4 (08:00→22:42)
[2019-03-09] MEDS: GLIMEPIRIDE 2 MG TAB PO SCH (09:43)
[2019-03-09] MEDS: CHLORDIAZEPOXIDE/CLIDINIUM 1 CAP PO SCH ×4 (09:43→22:11)
[2019-03-09] MEDS: LORATADINE 10 MG TAB PO SCH (09:43)
[2019-03-09] MEDS: LAMOTRIGINE 100 MG TAB PO SCH ×2 (09:44→16:29)
[2019-03-09] MEDS: CALCIUM POLYCARBOPHIL 625 MG TAB PO SCH (09:44)
[2019-03-09] MEDS: PREGABALIN 50 MG CAP PO SCH (09:44)
[2019-03-09] MEDS: METOPROLOL SUCCINATE 25 MG TAB XL PO SCH (09:44)
[2019-03-09] MEDS: PANTOPRAZOLE SOD 40 MG TABEC PO SCH ×2 (09:44→22:11)
[2019-03-09] MEDS: CEFTRIAXONE SOD 1 GM/NS 50 ML 50 ML IV SCH (09:48)
--- NOTE | 2019-03-09 14:26 | NUR ---
Dr Mathew here for rounds, no discharge order recvd
[2019-03-09] MEDS ORDERED: POTASSIUM CHLORIDE 20 MEQ TAB CR PO ONE (15:30)
--- NOTE | 2019-03-09 16:14 | Progress Note ---
DATE: 03/09/2019 Internal Medicine Progress Note SUBJECTIVE: The patient is complaining of low blood sugar today. PHYSICAL EXAMINATION: VITAL SIGNS: Blood pressure 109/67, temperature 96.1, heart rate 106 per minute, respiratory rate 20 per minute, O2 saturation 99%. HEART: Showed regular rhythm. Normal S1, S2 sound. LUNGS: Clear bilaterally. ABDOMEN: Soft, nondistended. EXTREMITIES: Show no evidence of cyanosis or hematoma. LABORATORY DATA: On the BMP; sodium 143, potassium 3.2, chloride 109 CO2 25, BUN 5, creatinine 0.60, glucose 82. On the CBC; white count 6.49, hemoglobin 9.8, hematocrit 31.0, platelet count 407,000. AST 5, ALT 6, total bilirubin 0.1, alkaline phosphatase 52. FINAL IMPRESSION: 1. exacerbation. 2. Anemia of chronic disease. 3. Gastroesophageal reflux disease. 4. Hypokalemia. 5. Uncontrolled diabetes mellitus type 2. 6. Hypertension. PLAN OF TREATMENT: Continue Rocephin. Continue iron infusion. Continue IV fluids at 125 mL an hour, continue Tylenol 650 mg q.4 hours as needed, hydroxyzine 25 mg q.6 hours as needed for itching, Claritin 5 mg daily as needed, Librium as needed, glimepiride 2 mg daily, metoprolol 25 mg daily, Protonix 40 mg twice a day, Tylenol 650 mg q.6 hours as needed for pain or fever. Albuterol and Atrovent as needed for shortness of breath, lorazepam 1 mg q.8 hours as needed, metronidazole 500 mg q.6 hours, calcium polycarbophil 625 mg daily, lamotrigine 100 mg twice a day, Lyrica 50 mg daily. Diagnosis is uncontrolled diabetes mellitus type 2 with diabetic neuropathy. She also had hypokalemia. We are going to replace the potassium. Recheck potassium and magnesium levels. Teddy Mathew MD LAS/MODL /[id number]
--- NOTE | 2019-03-09 18:13 | NUR ---
on rounds patient was trying to get out from bed to reach her cell phone which is fell on floor, , patient sat on edge of bed, bed alarm went on, Educated her to use call light whenever she need assist, changed bed alarm to Zone 2
--- NOTE | 2019-03-09 18:20 | NUR ---
Patient Denied any fall, charge nurse in room this time.
[2019-03-09 19:37] LABS: ANION GAP 11.6 mmol/L (8-16); BLOOD UREA NITROGEN 6 mg/dL (7-26); BUN/CREATININE RATIO 10 (6-25); CALCIUM 8.5 mg/dL (8.4-10.2); CARBON DIOXIDE 23 mmol/L (22-29); CHLORIDE 107 mmol/L (98-107); CREATININE, SERUM 0.59 mg/dL (0.57-1.11); EST GLOMERULAR FILTRATION RATE > 60 ML/MIN (60-); GLUCOSE 115 mg/dL (74-118); MAGNESIUM 1.6 MG/DL (1.3-2.1); POTASSIUM 3.6 mmol/L (3.5-5.1); SODIUM 138 mmol/L (136-145)
[2019-03-10] VITALS (8 sets, daily range): BP systolic 95–126; BP diastolic 45–54
[2019-03-10] MEDS: METRONIDAZOLE 500 MG TAB PO SCH ×4 (04:15→21:51)
--- NOTE | 2019-03-10 07:30 | NUR ---
recd pt up in bed, denies pain,no distress noted.
[2019-03-10] MEDS: GLIMEPIRIDE 2 MG TAB PO SCH (08:00)
[2019-03-10] MEDS: CHLORDIAZEPOXIDE/CLIDINIUM 1 CAP PO SCH ×4 (08:00→21:51)
[2019-03-10] MEDS: CALCIUM POLYCARBOPHIL 625 MG TAB PO SCH (08:00)
[2019-03-10] MEDS: PANTOPRAZOLE SOD 40 MG TABEC PO SCH ×2 (08:00→21:51)
[2019-03-10] MEDS: CEFTRIAXONE SOD 1 GM/NS 50 ML 50 ML IV SCH (08:00)
[2019-03-10] MEDS: PREGABALIN 50 MG CAP PO SCH (08:00)
[2019-03-10] MEDS: LAMOTRIGINE 100 MG TAB PO SCH ×2 (08:00→17:00)
[2019-03-10] MEDS: LORATADINE 10 MG TAB PO SCH (08:00)
[2019-03-10] MEDS: METOPROLOL SUCCINATE 25 MG TAB XL PO SCH (08:00)
[2019-03-10] MEDS: IRON SUCROSE 100 MG in SODIUM CHLORIDE 0.9% 100 ML 100 ML IV SCH (09:44)
[2019-03-10] MEDS: DEXTROSE 5%/0.45% SOD CHL 1,000 ML IV SCH ×3 (11:06→22:12)
--- NOTE | 2019-03-10 12:00 | NUR ---
DR SOTO HERE.PT REFUSING TO GO TO SNF,WANTS TO GO HOME,ORDRS WRITTEN.
--- NOTE | 2019-03-10 13:32 | Progress Note ---
DATE: 03/10/2019 Internal Medicine Progress Note SUBJECTIVE: The patient is doing well. PHYSICAL EXAMINATION: VITAL SIGNS: Blood pressure 97/52, temperature 96.0, heart rate 91 per minute, respiratory rate is 20 per minute, oxygen saturation 97%. HEART: Showed regular rhythm. Normal S1, S2 sound. LUNGS: Clear bilaterally. ABDOMEN: Soft. LABORATORY DATA: On the BMP; sodium 138, potassium 3.6, chloride 107 CO2 23, BUN 6, creatinine 0.59, glucose 115. On the CBC; white blood count 6.49, hemoglobin 9.8, hematocrit 31.0, platelet count 407,000. AST 5, ALT 6, total bilirubin 0.1, alkaline phosphatase 52. FINAL IMPRESSION: 1. Crohn disease exacerbation. 2. Anemia of chronic disease. 3. Gastroesophageal reflux disease. 4. Hypokalemia. 5. Uncontrolled diabetes mellitus type 2. 6. Hypertension. 7. Diabetic neuropathy. PLAN OF TREATMENT: Continue ceftriaxone daily. Continue iron infusion. She is also on IV fluids D5 normal saline at 125 mL an hour, Tylenol 650 mg q.4 hours as needed for pain or fever, hydroxyzine 25 mg q.6 hours as needed, Claritin 5 mg daily, Librium 1 tablet at bedtime, glimepiride 2 mg daily, metoprolol 25 mg daily, Protonix 40 mg twice a day, Tylenol 650 mg q.6 hours as needed, albuterol and Atrovent q.6 hours as needed, lorazepam 1 mg q.8 hours as needed, metronidazole 500 mg q.6 hours, calcium polycarbophil 625 mg daily, lamotrigine 100 mg twice a day, Lyrica 50 mg daily. MD SUNDEEP Wood/PRATIK /[id number]
--- NOTE | 2019-03-10 14:24 | NUR ---
Spoke with patient about home health, her family is at bedside. She does not have her [employer] card yet. Facesheet shows [employer] and [employer]. Companies likely in network with aetna given to patient. Patient signs choice for these companies: [facility]. CM to follow up in AM regarding sending to a company that will accept her insurance.
--- NOTE | 2019-03-10 17:46 | NUR ---
PT UP IN BED NO DISTRESS NOTED,DENIES PAIN
[2019-03-11] VITALS (8 sets, daily range): BP systolic 81–133; BP diastolic 49–75
[2019-03-11] MEDS: METRONIDAZOLE 500 MG TAB PO SCH ×4 (04:10→22:00)
--- NOTE | 2019-03-11 07:00 | NUR ---
PATIENT IS IN STABLE CONDITION WITH NO S/S OF RESPIRATORY DISTRESS. NO PAIN VOICED. IV FLUIDS INFUSING. TELEMETRY APPLIED. BED ALARM APPLIED. CALL LIGHT IS WITHIN REACH, PATIENT INSTRUCTED TO CALL FOR ASSISTANCE NEEDED.
[2019-03-11] MEDS: CEFTRIAXONE SOD 1 GM/NS 50 ML 50 ML IV SCH (09:16)
[2019-03-11] MEDS: PREGABALIN 50 MG CAP PO SCH (09:19)
[2019-03-11] MEDS: CHLORDIAZEPOXIDE/CLIDINIUM 1 CAP PO SCH ×4 (09:19→20:14)
[2019-03-11] MEDS: LAMOTRIGINE 100 MG TAB PO SCH ×2 (09:19→16:25)
[2019-03-11] MEDS: CALCIUM POLYCARBOPHIL 625 MG TAB PO SCH (09:19)
[2019-03-11] MEDS: PANTOPRAZOLE SOD 40 MG TABEC PO SCH ×2 (09:20→20:14)
[2019-03-11] MEDS: METOPROLOL SUCCINATE 25 MG TAB XL PO SCH (09:22)
[2019-03-11] MEDS: GLIMEPIRIDE 2 MG TAB PO SCH (09:22)
[2019-03-11] MEDS: LORATADINE 10 MG TAB PO SCH (09:22)
[2019-03-11] MEDS: DEXTROSE 5%/0.45% SOD CHL 1,000 ML IV SCH ×2 (09:58→16:00)
[2019-03-11] MEDS: IRON SUCROSE 100 MG in SODIUM CHLORIDE 0.9% 100 ML 100 ML IV SCH (09:58)
[2019-03-11] MEDS: DEXTROSE 50% SYRINGE 50 ML IV PRN (11:45)
--- NOTE | 2019-03-11 11:48 | NUR ---
ROUNDED ON PATIENT- PATIENT STATED SHE FELT LIKE HER BLOOD SUGAR WAS DROPPING. ASSESSED BLOOD SUGAR RESULT 38- ADMINISTERED D50 TO PATIENT, PATIENT IS DRINKING ORANGE JUICE AND A EDU CRACKER ALSO PROVIDED TO THE PATIENT. PATIENT IS ALERT TO PERSONAL/PLACE AND IS RESPONSIVE TO ALL QUESTIONS. BED ALARM APPLIED. WILL REASSESS THE PATIENT.
--- NOTE | 2019-03-11 15:11 | NUR ---
Referral sent to [facility] [phone], fax [phone]
--- NOTE | 2019-03-11 15:33 | NUR ---
Nutrition Screen Note RD Recommendation for Physician: - Continue current diet Plan of Care: RD following, monitoring for tolerance and adequacy Nutrition reason for involvement: LOS Primary Diagnose(s): appendicitis PMH: GERD, DM2, HTN, IBD, pancreatitis, breast cancer Ht: 63 in Wt: 112 lb BMI: 19.8 kg/m2 IBW: [address] Assessment: (03/11) 74 YOF admitted for appendicitis. Pt seen today for LOS. Pt able to speak minimal Luxembourgish, primary Afghan speaking. Pt reports some abdominal pain and some nausea at time of visit, denies additional GI distress. Pt denies poor intake LEADITE HEATER, pt currently eating on average 50% of meals per chart- intake fluctuating. Pt reports UBW of 103#, no wt loss noted. LBM /. Skin intact. Chart reviewed. Labs and meds reviewed, BG fluctuations and trend noted. Will continue to monitor. Current Diet: GI Soft Malnutrition Evaluation (03/11/19) The patient does not meet criteria for a specified degree of malnutrition at this time. Will re-evaluate at follow-up as appropriate. Energy intake: <75% of estimated energy requirements for >7 days Weight loss: No wt loss, UBW 103# per pt Fat loss: none observed Muscle loss: none, shoulder round Supporting Evidence: Fluid accumulation: none observed Functional Status: not assessed Diet Education Needs Assessment: Diet education provided 03/06. Diet tolerance: tolerating po Nutrition Care Level: low Signed: Aylin Escudero RD, LD, [facility]
--- NOTE | 2019-03-11 17:08 | NUR ---
DR. NASCIMENTO INFORMED ON THE PATIENT'S DECREASE OF BLOOD GLUCOSE EARLIER TODAY AND HER CURRENT BLOOD GLUCOSE OF 101- NO NEW ORDERS RECEIVED.
--- NOTE | 2019-03-11 19:06 | NUR ---
PATIENT IS IN STABLE CONDITION WITH NO S/S OF RESPIRATORY DISTRESS- NO PAIN VOICED. IV FLUIDS INFUSING. TELEMETRY APPLIED. BED ALARM APPLIED. CALL LIGHT IS WITHIN REACH, PATIENT INSTRUCTED TO CALL FOR ASSISTANCE NEEDED. BEDSIDE SHIFT REPORT GIVEN TO ONCOMING NURSE.
--- NOTE | 2019-03-11 19:10 | NUR ---
patient received awake, alert, lying quietly in bed. no c/o pain noted. ivf continue to infuse without difficulty. pm assessment complete. patient instructed to call for assistance when needed.
[2019-03-12] VITALS: BP 105/55
[2019-03-12] MEDS: DEXTROSE 5%/0.45% SOD CHL 1,000 ML IV SCH ×2 (00:35→08:20)
[2019-03-12] MEDS: METRONIDAZOLE 500 MG TAB PO SCH ×2 (03:46→09:05)
[2019-03-12 04:00] VITALS: BP 104/50
--- NOTE | 2019-03-12 05:30 | NUR ---
patient oob to bathroom with stanby assistance. small loose, bloody stool noted at this time. aware of bloody stools.
[2019-03-12] MEDS: IRON SUCROSE 100 MG in SODIUM CHLORIDE 0.9% 100 ML 100 ML IV SCH (07:49)
--- NOTE | 2019-03-12 07:53 | NUR ---
PATIENT IS ALERT AND IN STABLE CONDITION WITH NO S/S OF RESPIRATORY DISTRESS- NO PAIN VOICED. IV FLUIDS INFUSING. TELEMETRY APPLIED. BED ALARM APPLIED. CALL LIGHT IS WITHIN REACH, PATIENT INSTRUCTED TO CALL FOR ASSISTANCE NEEDED.
[2019-03-12 07:55] VITALS: BP 113/70
[2019-03-12 07:59] VITALS: BP 113/70
[2019-03-12] MEDS: PREGABALIN 50 MG CAP PO SCH (08:16)
[2019-03-12] MEDS: LAMOTRIGINE 100 MG TAB PO SCH (08:16)
[2019-03-12] MEDS: CHLORDIAZEPOXIDE/CLIDINIUM 1 CAP PO SCH ×2 (08:16→11:19)
[2019-03-12] MEDS: PANTOPRAZOLE SOD 40 MG TABEC PO SCH (08:16)
[2019-03-12] MEDS: CALCIUM POLYCARBOPHIL 625 MG TAB PO SCH (08:16)
[2019-03-12] MEDS: METOPROLOL SUCCINATE 25 MG TAB XL PO SCH (08:17)
[2019-03-12] MEDS: LORATADINE 10 MG TAB PO SCH (08:17)
[2019-03-12] MEDS: CEFTRIAXONE SOD 1 GM/NS 50 ML 50 ML IV SCH (09:05)
--- NOTE | 2019-03-12 09:08 | NUR ---
Spoke to Leslie with [facility], who states as long as they have the patient's name and ssn they ought to be able to find her insurance info. Referral sent to [facility] [phone], Leslie to call me back and let me know.
[2019-03-12] MEDS ORDERED: KEFLEX500 MG PO (10:51)
[2019-03-12] MEDS ORDERED: FLAGYL250 MG PO (10:52)
[2019-03-12 11:15] VITALS: BP 118/69
--- NOTE | 2019-03-12 11:57 | NUR ---
Spoke with Malu in Intake at [facility], they had to discharge the patient d/t not taking the new [employer]etna plan. Spoke with Bashir at [facility], who states they will be able to take her plan, clinicals have already been faxed, CM to see patient.
--- NOTE | 2019-03-12 14:29 | NUR ---
Notified Bashir Marley with [facility] of DC today
--- NOTE | 2019-03-12 15:07 | NUR ---
PATIENT DISCHARGE HOME- PATIENT OFF THE UNIT AT 1416 PER WHEELCHAIR TO THE FRONT LOBBY ACCOMPANIED BY PCT. PATIENT IN STABLE CONDITION WITH NO S/S OF RESPIRATORY DISTRESS. NO PAIN VOICED. DISCHARGE TEACHING, INSTRUCTIONS, AND MEDICATIONS GIVEN TO THE PATIENT. LEFT MIDLINE REMOVED WITH TIP INTACT AND DRESSING APPLIED. ALL PERSONAL ITEMS WERE TAKEN WITH THE PATIENT.
== END 2019-03-12 14:20 | disposition home or self-care (01) | DRG 387 ==
LOC: ER 13:53 → ERHOLD 17:42 → MED/SURG3 20:04
PROC: 02HV33Z Insertion of Infusion Device into Superior Vena Cava, Percutaneous Approach (ICD-10-PCS; principal; 2019-03-08)
PROC: B548ZZA Ultrasonography of Superior Vena Cava, Guidance (ICD-10-PCS; 2019-03-08)
DX: K50.90 Crohn's disease, unspecified, without complications (principal); D50.9 Iron deficiency anemia, unspecified; I10 Essential (primary) hypertension; E11.649 Type 2 diabetes mellitus with hypoglycemia without coma; I25.10 Atherosclerotic heart disease of native coronary artery without angina pectoris; D50.0 Iron deficiency anemia secondary to blood loss (chronic); K21.9 Gastro-esophageal reflux disease without esophagitis; E87.6 Hypokalemia; E11.42 Type 2 diabetes mellitus with diabetic polyneuropathy; Z88.0 Allergy status to penicillin; Z88.1 Allergy status to other antibiotic agents; Z88.6 Allergy status to analgesic agent; Z88.8 Allergy status to other drugs, medicaments and biological substances
CPT/HCPCS: 36415; 74177; 80048; 80053; 81001; 82270; 82306; 82550; 82553; 82607; 82728; 82746; 82948; 83540; 83630; 83690; 83735; 83993; 84466; 84484; 85025; 85045; 85651; 86140; 87045; 87177; 87493; 93005; 99284; J0696; J1756; J7030; J7799; Q9967

== ENCOUNTER → 2020-02-11 | Outpatient (CLI) | payer MEDICARE, OTHER ==
[~2020-02-11] MED LIST changes: +BACTRIM DS TAB1 EACH PO; +FLAGYL250 MG PO; +KEFLEX500 MG PO
== END ==
LOC: RAD 10:18
DX: M25.531 Pain in right wrist (principal)

== ENCOUNTER → 2020-03-16 | Outpatient (CLI) | payer MEDICARE | LOC: DX 14:00 | PROVIDERS: ATTEND Internal Medicine | DX: M81.0 Age-related osteoporosis without current pathological fracture (principal) | CPT/HCPCS: 77080 ==

== ENCOUNTER 2021-01-14 12:24 | Inpatient (IN) | payer MEDICARE, OTHER ==
[~2021-01-14] VITALS: Ht 160 cm; Wt 45.4 kg
[2021-01-14] VITALS (10 sets, daily range): BP systolic 92–100; BP diastolic 53–63
[2021-01-14 12:59] LABS: BASOPHILS # (AUTO) 0.1 (0.0-0.1); BASOPHILS % 0.8 % (0.0-1.0); HEMATOCRIT 26.7 % (34.2-44.1); HEMOGLOBIN 7.6 g/dL (12.0-16.0); LYMPHOCYTES # (AUTO) 1.3 (1.0-3.2); LYMPHOCYTES % 13.2 % (18.0-39.1); MEAN CORPUSCULAR HEMOGLOBIN 21.2 pg (28-32); MEAN CORPUSCULAR HGB CONC 28.5 g/dL (31-35); MEAN CORPUSCULAR VOLUME 74.6 fL (81-99); MONOCYTES # (AUTO) 0.5 (0.2-0.8); MONOCYTES % 5.2 % (4.4-11.3); NEUTROPHILS % 80.5 % (38.7-80.0); PLATELET COUNT 500 x10e3/uL (140-360); RED BLOOD COUNT 3.58 x10e6/uL (3.6-5.1)
[2021-01-14 13:08] LABS: INR 1.14; PROTHROMBIN TIME 15.5 seconds (11.9-14.5)
[2021-01-14 13:09] LABS: PARTIAL THROMBOPLASTIN TIME 28.3 seconds (23.8-35.5)
[2021-01-14 13:15] LABS: ALBUMIN 3.2 g/dL (3.5-5.0); ALBUMIN/GLOBULIN RATIO 0.8 (0.8-2.0); ANION GAP 17.6 mmol/L (8-16); CREATININE, SERUM 0.72 mg/dL (0.57-1.11); MAGNESIUM 2.2 MG/DL (1.3-2.1); POTASSIUM 4.6 mmol/L (3.5-5.1)
[2021-01-14 13:22] LABS: CREATINE KINASE MB 1.2 ng/mL (0-5.0)
[2021-01-14] MEDS ORDERED: HETASTARCH 6%/NACL INJ 500 ML IV ONE (14:00)
[2021-01-14] MEDS ORDERED: FUROSEMIDE INJ 10 MG/ML 4 ML VIAL IV ONE (14:15)
[2021-01-14] MEDS ORDERED: SODIUM CHLORIDE FLUSH 10 ML SYR INJ PRN (14:45)
[2021-01-14] MEDS ORDERED: SODIUM CHLORIDE 0.9% 500ML 500 ML IV STA (14:53)
[2021-01-14] MEDS ORDERED: SODIUM CHLORIDE 0.9% 500ML 500 ML ONE ×2 (15:05→16:44)
[2021-01-14 17:00] LABS: CREATINE KINASE MB 1.1 ng/mL (0-5.0)
[2021-01-14] MEDS ORDERED: HYDROXYZINE HCL 25 MG TAB PO PRN (17:30)
[2021-01-14] MEDS ORDERED: HYDROCODONE/APAP 5MG-325MG TAB PO PRN (17:30)
[2021-01-14] MEDS ORDERED: LORAZEPAM 1 MG TAB PO PRN (17:30)
[2021-01-14] MEDS: SERTRALINE HCL 50 MG TAB PO SCH (21:00)
[2021-01-14] MEDS ORDERED: SERTRALINE HCL 50 MG PO SCH (21:00)
[2021-01-14 23:16] LABS: CREATINE KINASE MB 0.7 ng/mL (0-5.0)
[2021-01-14 23:56] LABS: TOTAL IRON BINDING CAPACITY 337 ug/dL (261-478); TRANSFERRIN 241 mg/dL (180-382)
[2021-01-15] VITALS (16 sets, daily range): BP systolic 90–130; BP diastolic 49–69
[2021-01-15 00:15] LABS: % IRON SATURATION 77 % (15-50); IRON 260 ug/dL (50-170)
[2021-01-15] MEDS ORDERED: CYANOCOBALAMIN INJ 1,000 MCG/ML VIAL IM ONE (01:30)
[2021-01-15 05:02] LABS: BASOPHILS # (AUTO) 0.1 (0.0-0.1); EOSINOPHILS % 0.2 % (0.0-6.0); HEMATOCRIT 23.6 % (34.2-44.1); LYMPHOCYTES # (AUTO) 1.5 (1.0-3.2); LYMPHOCYTES % 24.4 % (18.0-39.1); MEAN CORPUSCULAR HEMOGLOBIN 21.1 pg (28-32); MEAN CORPUSCULAR HGB CONC 28.8 g/dL (31-35); MEAN CORPUSCULAR VOLUME 73.1 fL (81-99); MONOCYTES # (AUTO) 0.4 (0.2-0.8); MONOCYTES % 6.8 % (4.4-11.3); NEUTROPHILS # (AUTO) 4.2 (2.1-6.9); NEUTROPHILS % 67.3 % (38.7-80.0); PLATELET COUNT 438 x10e3/uL (140-360); RED BLOOD COUNT 3.23 x10e6/uL (3.6-5.1); RED CELL DISTRIBUTION WIDTH 16.1 % (11.7-14.4)
[2021-01-15 05:21] LABS: ALBUMIN 2.7 g/dL (3.5-5.0); ALBUMIN/GLOBULIN RATIO 0.8 (0.8-2.0); ALKALINE PHOSPHATASE 68 IU/L (40-150); ANION GAP 11.7 mmol/L (8-16); BLOOD UREA NITROGEN 10 mg/dL (7-26); BUN/CREATININE RATIO 16 (6-25); CALCIUM 7.5 mg/dL (8.4-10.2); CARBON DIOXIDE 24 mmol/L (22-29); CHLORIDE 107 mmol/L (98-107); CREATININE, SERUM 0.61 mg/dL (0.57-1.11); EST GLOMERULAR FILTRATION RATE 96 ML/MIN (60-); GLUCOSE 95 mg/dL (74-118); SODIUM 140 mmol/L (136-145)
[2021-01-15 05:29] LABS: HEMOGLOBIN 6.8 g/dL (12.0-16.0)
[2021-01-15 05:31] LABS: ALANINE AMINOTRANSFERASE < 6 IU/L (0-55)
[2021-01-15 05:33] LABS: POTASSIUM 2.7 mmol/L (3.5-5.1)
[2021-01-15] MEDS ORDERED: POTASSIUM CHLORIDE 20MEQ/100ML 200 ML IV ONE (06:00)
[2021-01-15] MEDS ORDERED: ONDANSETRON HCL INJ 2MG/ML 2ML 2 MG/ML VIAL IV PRN (06:00)
[2021-01-15 06:03] LABS: CREATINE KINASE MB 0.6 ng/mL (0-5.0)
[2021-01-15] MEDS ORDERED: SODIUM FERRIC GLUCONATE COMPLX 125 MG in SODIUM CHLORIDE 0.9% 100 ML 100 ML IV ONE (07:30)
[2021-01-15] MEDS: CYANOCOBALAMIN INJ 1,000 MCG/ML VIAL IM SCH (08:27)
[2021-01-15] MEDS: LAMOTRIGINE 100 MG TAB PO SCH ×2 (08:27→16:25)
[2021-01-15] MEDS: LORATADINE 10 MG TAB PO SCH (08:27)
[2021-01-15] MEDS: FOLIC ACID 1 MG TAB PO SCH (08:27)
[2021-01-15] MEDS: PREGABALIN 50 MG CAP PO SCH (08:27)
[2021-01-15] MEDS ORDERED: POTASSIUM CHLORIDE 20 MEQ TAB CR PO ONE (08:30)
[2021-01-15] MEDS: CALCIUM POLYCARBOPHIL 625 MG TAB PO SCH (08:35)
[2021-01-15] MEDS ORDERED: PANTOPRAZOLE SOD 40 MG TABEC PO SCH (09:00)
[2021-01-15] MEDS ORDERED: SODIUM CHLORIDE 0.9% 250ML 250 ML IV ONE (09:45)
[2021-01-15] MEDS: EPOETIN ALFA-EPBX 10,000 UNIT/ML VIAL SC SCH (13:11)
[2021-01-15] MEDS ORDERED: IOPAMIDOL 370 MG/ML 200 ML INFUS..BTL INJ ONE (14:25)
[2021-01-15] MEDS ORDERED: SODIUM CHLORIDE 0.9% 100 ML ONE (14:25)
[2021-01-15] MEDS: SERTRALINE HCL 50 MG TAB PO SCH (20:49)
[2021-01-16] VITALS (8 sets, daily range): BP systolic 105–162; BP diastolic 57–93
[2021-01-16 05:01] LABS: BASOPHILS # (AUTO) 0.1 (0.0-0.1); BASOPHILS % 1.6 % (0.0-1.0); EOSINOPHILS % 0.6 % (0.0-6.0); HEMATOCRIT 25.7 % (34.2-44.1); HEMOGLOBIN 7.2 g/dL (12.0-16.0); LYMPHOCYTES # (AUTO) 1.5 (1.0-3.2); LYMPHOCYTES % 21.9 % (18.0-39.1); MEAN CORPUSCULAR HEMOGLOBIN 21.2 pg (28-32); MEAN CORPUSCULAR VOLUME 75.8 fL (81-99); MONOCYTES # (AUTO) 0.7 (0.2-0.8); MONOCYTES % 9.9 % (4.4-11.3); NEUTROPHILS # (AUTO) 4.4 (2.1-6.9); NEUTROPHILS % 65.6 % (38.7-80.0); PLATELET COUNT 410 x10e3/uL (140-360); RED BLOOD COUNT 3.39 x10e6/uL (3.6-5.1); RED CELL DISTRIBUTION WIDTH 16.5 % (11.7-14.4)
[2021-01-16 05:26] LABS: ALBUMIN 2.8 g/dL (3.5-5.0); ALBUMIN/GLOBULIN RATIO 0.8 (0.8-2.0); ANION GAP 11.9 mmol/L (8-16); CALCIUM 8.1 mg/dL (8.4-10.2); CREATININE, SERUM 0.63 mg/dL (0.57-1.11); POTASSIUM 3.9 mmol/L (3.5-5.1)
[2021-01-16] MEDS: RIFAXIMIN 550 MG TABLET PO SCH ×3 (05:36→21:25)
[2021-01-16] MEDS: FOLIC ACID 1 MG TAB PO SCH (09:00)
[2021-01-16] MEDS: PREGABALIN 50 MG CAP PO SCH (09:00)
[2021-01-16] MEDS: LORATADINE 10 MG TAB PO SCH (09:00)
[2021-01-16] MEDS: SODIUM FERRIC GLUCONATE COMPLX 125 MG in SODIUM CHLORIDE 0.9% 100 ML 100 ML IV SCH (09:00)
[2021-01-16] MEDS: METOPROLOL SUCCINATE 25 MG TAB XL PO SCH (09:00)
[2021-01-16] MEDS: CYANOCOBALAMIN INJ 1,000 MCG/ML VIAL IM SCH (09:00)
[2021-01-16] MEDS: LAMOTRIGINE 100 MG TAB PO SCH ×2 (09:00→16:28)
[2021-01-16] MEDS: CALCIUM POLYCARBOPHIL 625 MG TAB PO SCH (09:00)
[2021-01-16] MEDS: FUROSEMIDE 20 MG TAB PO SCH (09:00)
[2021-01-16] MEDS: SERTRALINE HCL 50 MG TAB PO SCH (21:00)
[2021-01-17] VITALS (8 sets, daily range): BP systolic 94–131; BP diastolic 47–66
[2021-01-17] MEDS: RIFAXIMIN 550 MG TABLET PO SCH ×3 (05:25→21:05)
[2021-01-17] MEDS: METOPROLOL SUCCINATE 25 MG TAB XL PO SCH (09:00)
[2021-01-17] MEDS: FUROSEMIDE 20 MG TAB PO SCH (09:00)
[2021-01-17] MEDS: LAMOTRIGINE 100 MG TAB PO SCH ×2 (09:00→16:35)
[2021-01-17] MEDS: SODIUM FERRIC GLUCONATE COMPLX 125 MG in SODIUM CHLORIDE 0.9% 100 ML 100 ML IV SCH (09:00)
[2021-01-17] MEDS: LORATADINE 10 MG TAB PO SCH (09:00)
[2021-01-17] MEDS: CALCIUM POLYCARBOPHIL 625 MG TAB PO SCH (09:00)
[2021-01-17] MEDS: CYANOCOBALAMIN INJ 1,000 MCG/ML VIAL IM SCH (09:00)
[2021-01-17] MEDS: PREGABALIN 50 MG CAP PO SCH (09:00)
[2021-01-17] MEDS: FOLIC ACID 1 MG TAB PO SCH (09:00)
[2021-01-17 10:36] LABS: HEMATOCRIT 28.7 % (34.2-44.1); MEAN CORPUSCULAR HEMOGLOBIN 21.6 pg (28-32); MEAN CORPUSCULAR HGB CONC 27.9 g/dL (31-35); MEAN CORPUSCULAR VOLUME 77.4 fL (81-99); PLATELET COUNT 450 x10e3/uL (140-360); RED BLOOD COUNT 3.71 x10e6/uL (3.6-5.1); RED CELL DISTRIBUTION WIDTH 18.2 % (11.7-14.4)
[2021-01-17 10:54] LABS: ANION GAP 12.3 mmol/L (8-16); CALCIUM 8.4 mg/dL (8.4-10.2); CREATININE, SERUM 0.66 mg/dL (0.57-1.11); POTASSIUM 3.3 mmol/L (3.5-5.1)
[2021-01-17 11:28] LABS: LYMPHOCYTES % (MANUAL) 7 % (19-48); MONOCYTES % (MANUAL) 2 % (3.4-9.0); NEUTROPHILS % (MANUAL) 91 % (40-74); NUCLEATED RED BLOOD CELLS 2
[2021-01-17 11:29] LABS: MICROCYTOSIS SLIGHT; POLYCHROMASIA FEW
[2021-01-17 11:30] LABS: HYPOCHROMASIA SLIGHT; OVALOCYTES FEW; PLATELET ESTIMATE SLIGHTLY INCREASED
[2021-01-17 11:31] LABS: PLATELET MORPHOLOGY COMMENT FEW EDTA CLUMPING; RBC MORPHOLOGY COMMENT ABNORMAL
[2021-01-17] MEDS ORDERED: POTASSIUM CHLORIDE 20 MEQ TAB CR PO NR (13:15)
[2021-01-17] MEDS ORDERED: POTASSIUM CHLORIDE 20 MEQ TAB CR PO ONE (15:16)
[2021-01-17] MEDS: SERTRALINE HCL 50 MG TAB PO SCH (21:00)
[2021-01-18] VITALS: BP 126/58
[2021-01-18 04:00] VITALS: BP 118/53
[2021-01-18] MEDS: RIFAXIMIN 550 MG TABLET PO SCH ×2 (05:17→14:00)
[2021-01-18 07:56] VITALS: BP 101/57
[2021-01-18 08:00] VITALS: BP 101/57
[2021-01-18] MEDS: METOPROLOL SUCCINATE 25 MG TAB XL PO SCH (08:28)
[2021-01-18] MEDS: PREGABALIN 50 MG CAP PO SCH (08:33)
[2021-01-18] MEDS: CALCIUM POLYCARBOPHIL 625 MG TAB PO SCH (09:12)
[2021-01-18] MEDS: LAMOTRIGINE 100 MG TAB PO SCH (09:12)
[2021-01-18] MEDS: SODIUM FERRIC GLUCONATE COMPLX 125 MG in SODIUM CHLORIDE 0.9% 100 ML 100 ML IV SCH (09:12)
[2021-01-18] MEDS: FUROSEMIDE 20 MG TAB PO SCH (09:12)
[2021-01-18] MEDS: CYANOCOBALAMIN INJ 1,000 MCG/ML VIAL IM SCH (09:12)
[2021-01-18] MEDS: FOLIC ACID 1 MG TAB PO SCH (09:12)
[2021-01-18] MEDS: LORATADINE 10 MG TAB PO SCH (09:12)
[2021-01-18] MEDS ORDERED: POTASSIUM CHLORIDE 10MEQ EA PO ONE (12:00)
[2021-01-18] MEDS ORDERED: ONDANSETRON HCL 4 MG ORAL DISINTEGRATING TAB PO PRN (12:45)
[2021-01-18] MEDS: EPOETIN ALFA-EPBX 10,000 UNIT/ML VIAL SC SCH (14:00)
[2021-01-18 14:16] VITALS: BP 115/46
[2021-01-18] MEDS ORDERED: PANTOPRAZOLE SOD 40 MG TABEC PO SCH (14:30)
[2021-01-18 16:08] VITALS: BP 114/49
== END 2021-01-18 18:21 | disposition home or self-care (01) | DRG 291 ==
LOC: ER 12:41 → ERHOLD 14:55 → ICU 16:55 → MED/SURG2 01-15 17:47
PROC: 02HV33Z Insertion of Infusion Device into Superior Vena Cava, Percutaneous Approach (ICD-10-PCS; principal; 2021-01-14)
DX: I11.0 Hypertensive heart disease with heart failure (principal); I50.33 Acute on chronic diastolic (congestive) heart failure; K50.90 Crohn's disease, unspecified, without complications; E44.0 Moderate protein-calorie malnutrition; Z68.1 Body mass index [BMI] 19.9 or less, adult; D50.0 Iron deficiency anemia secondary to blood loss (chronic); Z85.3 Personal history of malignant neoplasm of breast; Z95.810 Presence of automatic (implantable) cardiac defibrillator; Z20.822 Contact with and (suspected) exposure to COVID-19
CPT/HCPCS: 36415; 51700; 71045; 71260; 80048; 80053; 82550; 82553; 82607; 82746; 82948; 83540; 83735; 83880; 84466; 84484; 85007; 85025; 85027; 85045; 85379; 85610; 85730; 86850; 86900; 86920; 93005; 93306; 94799; 97139; 99251; 99285; J1940; J2405; J2916; J3420; J3480; J7040; J7050; Q9967; U0002

== ENCOUNTER 2021-04-22 18:22 | Emergency (ER) | payer MEDICARE, MEDICAID ==
[~2021-04-22] VITALS: Ht 160 cm; Wt 45.4 kg
[2021-04-22] MEDS ORDERED: SODIUM CHLORIDE 0.9% 500ML 500 ML IV ONE (19:15)
[2021-04-22 20:13] LABS: BASOPHILS # (AUTO) 0.1 (0.0-0.1); BASOPHILS % 1.2 % (0.0-1.0); EOSINOPHILS # (AUTO) 0.1 (0.0-0.4); EOSINOPHILS % 0.7 % (0.0-6.0); HEMATOCRIT 32.5 % (34.2-44.1); LYMPHOCYTES # (AUTO) 1.4 (1.0-3.2); LYMPHOCYTES % 19.1 % (18.0-39.1); MEAN CORPUSCULAR HEMOGLOBIN 26.1 pg (28-32); MEAN CORPUSCULAR HGB CONC 30.8 g/dL (31-35); MEAN CORPUSCULAR VOLUME 84.9 fL (81-99); MONOCYTES # (AUTO) 0.4 (0.2-0.8); MONOCYTES % 5.7 % (4.4-11.3); NEUTROPHILS # (AUTO) 5.3 (2.1-6.9); PLATELET COUNT 388 x10e3/uL (140-360); RED BLOOD COUNT 3.83 x10e6/uL (3.6-5.1); RED CELL DISTRIBUTION WIDTH 19.2 % (11.7-14.4)
[2021-04-22 20:18] LABS: CLARITY,URINE CLEAR (CLEAR); COLOR,URINE YELLOW (YELLOW); KETONES,URINE NEGATIVE (NEGATIVE); LEUKOCYTE ESTERASE ,URINE SMALL (NEGATIVE); NITRITE,URINE NEGATIVE (NEGATIVE); PROTEIN,URINE DIPSTICK NEGATIVE (NEGATIVE); URINE UROBILINOGEN 0.2 mg/dL (0.2 - 1)
[2021-04-22 20:24] LABS: BACTERIA,URINE RARE /HPF; EPITHELIAL CELLS,URINE RARE /LPF; RBC,URINE 0-5 /HPF (0-5); RENAL EPITHELIAL CELLS,URINE FEW
[2021-04-22 20:30] LABS: ALBUMIN 3.4 g/dL (3.5-5.0); ALBUMIN/GLOBULIN RATIO 0.9 (0.8-2.0); ALKALINE PHOSPHATASE 75 IU/L (40-150); ANION GAP 13.3 mmol/L (8-16); BLOOD UREA NITROGEN 11 mg/dL (7-26); BUN/CREATININE RATIO 9 (6-25); CALCIUM 9.1 mg/dL (8.4-10.2); CARBON DIOXIDE 25 mmol/L (22-29); CHLORIDE 103 mmol/L (98-107); CREATININE, SERUM 1.18 mg/dL (0.57-1.11); EST GLOMERULAR FILTRATION RATE 45 ML/MIN (60-); GLUCOSE 82 mg/dL (74-118); POTASSIUM 4.3 mmol/L (3.5-5.1); SODIUM 137 mmol/L (136-145)
[2021-04-22 20:31] LABS: ALANINE AMINOTRANSFERASE < 6 IU/L (0-55)
[2021-04-22] MEDS ORDERED: IOPAMIDOL 370 MG/ML 200 ML INFUS..BTL INJ ONE (22:16)
[2021-04-22] MEDS ORDERED: SODIUM CHLORIDE 0.9% 50ML 50 ML ONE (22:16)
[2021-04-22] MEDS ORDERED: FUROSEMIDE INJ 10 MG/ML 4 ML VIAL IV ONE (23:15)
== END 2021-04-23 01:17 | disposition home or self-care (01) ==
LOC: ER 18:57
DX: I50.9 Heart failure, unspecified (principal); I10 Essential (primary) hypertension; E11.9 Type 2 diabetes mellitus without complications; D64.9 Anemia, unspecified; Z85.3 Personal history of malignant neoplasm of breast; Z95.0 Presence of cardiac pacemaker; Z20.822 Contact with and (suspected) exposure to COVID-19
CPT/HCPCS: 36415; 71045; 71260; 80053; 81001; 83880; 84484; 85025; 85379; 93005; 99283; J1940; J7040; Q9967; U0002

== ENCOUNTER → 2021-11-23 | Outpatient (CLI) | payer MEDICARE | LOC: DX 08:47 | PROVIDERS: ATTEND Internal Medicine | DX: M81.8 Other osteoporosis without current pathological fracture (principal) | CPT/HCPCS: 77080 ==

== ENCOUNTER → 2021-11-23 | Outpatient (CLI) | payer MEDICARE ==
[~2021-11-23] MED LIST changes: +IOPAMIDOL 370 MG/ML 100 ML INFUS..BTL INJ ONE
[2021-11-23 11:10] LABS: CREATININE, SERUM 0.59 mg/dL (0.57-1.11)
== END ==
LOC: CT 09:19
PROVIDERS: ATTEND Internal Medicine Cardiovascular Disease
DX: K50.111 Crohn's disease of large intestine with rectal bleeding (principal); R13.19 Other dysphagia
CPT/HCPCS: 36415; 71260; 74177; 82565; 84520; Q9967

== ENCOUNTER 2022-03-25 17:16 | Emergency (ER) | payer MEDICARE, OTHER ==
[~2022-03-25] VITALS: Ht 160 cm; Wt 45.4 kg
[~2022-03-25 17:16] MED LIST changes: -IOPAMIDOL 370 MG/ML 100 ML INFUS..BTL INJ ONE
== END 2022-03-25 19:26 | disposition home or self-care (01) ==
LOC: ER 18:00
DX: S42.402A Unspecified fracture of lower end of left humerus, initial encounter for closed fracture (principal); W18.2XXA Fall in (into) shower or empty bathtub, initial encounter; Y93.E1 Activity, personal bathing and showering; Y92.89 Other specified places as the place of occurrence of the external cause; I50.9 Heart failure, unspecified; Z95.810 Presence of automatic (implantable) cardiac defibrillator
CPT/HCPCS: 70450; 72125; 99283

== ENCOUNTER 2022-04-17 14:16 | Emergency (ER) | payer MEDICARE, OTHER ==
[~2022-04-17] VITALS: Ht 160 cm; Wt 45.4 kg
[2022-04-17 14:53] LABS: BASOPHILS # (AUTO) 0.1 (0.0-0.1); BASOPHILS % 1.3 % (0.0-1.0); EOSINOPHILS # (AUTO) 0.2 (0.0-0.4); EOSINOPHILS % 2.5 % (0.0-6.0); HEMATOCRIT 32.2 % (34.2-44.1); HEMOGLOBIN 9.6 g/dL (12.0-16.0); LYMPHOCYTES % 14.7 % (18.0-39.1); MEAN CORPUSCULAR HEMOGLOBIN 25.5 pg (28-32); MEAN CORPUSCULAR HGB CONC 29.8 g/dL (31-35); MEAN CORPUSCULAR VOLUME 85.4 fL (81-99); MONOCYTES # (AUTO) 0.5 (0.2-0.8); MONOCYTES % 6.8 % (4.4-11.3); NEUTROPHILS # (AUTO) 5.1 (2.1-6.9); NEUTROPHILS % 74.4 % (38.7-80.0); PLATELET COUNT 251 x10e3/uL (140-360); RED BLOOD COUNT 3.77 x10e6/uL (3.6-5.1); RED CELL DISTRIBUTION WIDTH 16.9 % (11.7-14.4)
[2022-04-17 15:11] LABS: ALBUMIN/GLOBULIN RATIO 0.8 (0.8-2.0); ALKALINE PHOSPHATASE 78 IU/L (40-150); ANION GAP 15.1 mmol/L (8-16); BLOOD UREA NITROGEN 11 mg/dL (7-26); BUN/CREATININE RATIO 17 (6-25); CALCIUM 7.8 mg/dL (8.4-10.2); CARBON DIOXIDE 24 mmol/L (22-29); CHLORIDE 101 mmol/L (98-107); CREATININE, SERUM 0.64 mg/dL (0.57-1.11); GLUCOSE 156 mg/dL (74-118); POTASSIUM 4.1 mmol/L (3.5-5.1); SODIUM 136 mmol/L (136-145)
[2022-04-17 15:12] LABS: ALANINE AMINOTRANSFERASE < 6 IU/L (0-55)
== END 2022-04-17 16:58 | disposition home or self-care (01) ==
LOC: ER 14:22
DX: R05.9 Cough, unspecified (principal); I50.9 Heart failure, unspecified; Z20.822 Contact with and (suspected) exposure to COVID-19; Z79.899 Other long term (current) drug therapy
CPT/HCPCS: 36415; 71045; 80053; 83880; 84484; 85025; 93005; 99284; U0002

== ENCOUNTER → 2022-06-21 | Outpatient (CLI) | payer MEDICARE, OTHER | LOC: DX 10:55 | PROVIDERS: ATTEND Internal Medicine Gastroenterology | DX: R47.02 Dysphasia (principal) | CPT/HCPCS: 36415; 74220; 82948 ==

== ENCOUNTER → 2023-12-13 | Outpatient (REF) | payer MEDICARE ==
[~2023-12-13] MED LIST changes: +CEFPODOXIME PR200 MG PO; +COREG3.125 MG PO; +FUROSEMIDE40 MG PO; +MIRTAZAPINE15 MG PO; +VIT D3 PO
== END ==
LOC: MERGE 12-04 12:00 → CT 14:33
PROVIDERS: ATTEND Internal Medicine Pulmonary Disease
DX: R06.02 Shortness of breath (principal)
CPT/HCPCS: 71250

== ENCOUNTER → 2024-09-12 | Day surgery (SDC) | payer MEDICARE ==
[2024-09-04 11:43] LABS: BASOPHILS % 1.7 % (0.0-1.0); EOSINOPHILS % 5.4 % (0.0-6.0); LYMPHOCYTES % 16.9 % (18.0-39.1); MONOCYTES % 6.9 % (4.4-11.3); NEUTROPHILS % 68.8 % (38.7-80.0); RED CELL DISTRIBUTION WIDTH 16.5 % (11.7-14.4)
[~2024-09-12] MED LIST changes: +ACETYLCYST100 MG/1 M NEB; +ALBUTEROL0.63 MG/3 NEB; +ETOMIDATE 40 MG/ 20ML VIAL IV ONE; +GUAIFEN-CODEINE5 ML PO; +LIDOCAINE HCL 2% LOCAL INJ 5 ML SDV VIAL INJ ONE; +MUCINEX DM ER1 EACH PO; +MYLANTA COAT-C355 ML PO; +POTASSIUM CHLO10 ME1 PO; +PROPOFOL IV EMULSION 10 MG/ML 20 ML VIAL ONE; +SYNTHROID50 MCG PO; +TOPROL XL25 MG PO; +d3 PO
[2024-09-12] MEDS: LACTATED RINGER'S 1,000 ML ONE (07:10)
[2024-09-12 08:07] VITALS: BP 118/62; PULSE 76; RESP 17; O2SAT 97
== END | disposition home or self-care (01) ==
LOC: ENDO 05:32
PROVIDERS: ATTEND Internal Medicine Gastroenterology
DX: K29.50 Unspecified chronic gastritis without bleeding (principal); K44.9 Diaphragmatic hernia without obstruction or gangrene; K31.A11 Gastric intestinal metaplasia without dysplasia, involving the antrum; I11.0 Hypertensive heart disease with heart failure; I50.9 Heart failure, unspecified; E11.9 Type 2 diabetes mellitus without complications; E03.9 Hypothyroidism, unspecified; K21.9 Gastro-esophageal reflux disease without esophagitis; K50.90 Crohn's disease, unspecified, without complications; Z95.0 Presence of cardiac pacemaker; Z90.49 Acquired absence of other specified parts of digestive tract; Z85.3 Personal history of malignant neoplasm of breast; Z90.11 Acquired absence of right breast and nipple; Z88.6 Allergy status to analgesic agent; Z88.0 Allergy status to penicillin; Z88.1 Allergy status to other antibiotic agents; Z88.5 Allergy status to narcotic agent; Z88.7 Allergy status to serum and vaccine; Z88.8 Allergy status to other drugs, medicaments and biological substances; Z79.84 Long term (current) use of oral hypoglycemic drugs; Z79.890 Hormone replacement therapy; Z79.899 Other long term (current) drug therapy; Z01.812 Encounter for preprocedural laboratory examination; Z01.810 Encounter for preprocedural cardiovascular examination
CPT/HCPCS: 36415 ×2; 43233; 43239; 82948; 85025; 88305; 88342; 93005; J2003; J7121; 43235; 43450

== ENCOUNTER → 2024-11-18 | Outpatient (REF) | payer MEDICARE ==
[~2024-11-18] MED LIST changes: -ETOMIDATE 40 MG/ 20ML VIAL IV ONE; -LIDOCAINE HCL 2% LOCAL INJ 5 ML SDV VIAL INJ ONE; -PROPOFOL IV EMULSION 10 MG/ML 20 ML VIAL ONE
== END ==
LOC: RAD 11:30
PROVIDERS: ATTEND Internal Medicine Critical Care Medicine
DX: J47.9 Bronchiectasis, uncomplicated (principal); I50.9 Heart failure, unspecified
CPT/HCPCS: 71046